=== PATIENT | male | born 1970 | race Caucasian/White ===

== ENCOUNTER 2016-07-04 20:08 | Inpatient (IN) | payer OTHER ==
[~2016-07-04] VITALS: Ht 81.3 cm; Wt 16.0 kg
[2016-07-04 20:08] VITALS: Ht 81.3 cm; Wt 16.0 kg
[2016-07-04] MEDS ORDERED: PROPOFOL 100 ML ONE (20:14)
[2016-07-04] MEDS ORDERED: TRAM-40 PO (20:35)
[2016-07-04 21:09] LABS: ADD SCAN DIFF NO
[2016-07-04 21:11] LABS: BASOPHIL # 0.1 10^3/ul (0.0-0.1); BASOPHILS % 1.8 % (0.0-2.0); EOSINOPHILS # 0.2 10^3/ul (0.0-0.5); EOSINOPHILS % 2.4 % (0.0-7.0); HEMATOCRIT 44.2 % (42.0-52.0); HEMOGLOBIN 14.7 g/dl (14.0-18.0); LYMPHOCYTES # 3.6 10^3/ul (0.8-2.9); LYMPHOCYTES % 58.7 % (15.0-51.0); MEAN CORPUSCULAR HEMOGLOBIN 33.9 pg (29.0-33.0); MEAN CORPUSCULAR HGB CONC 33.3 g/dl (32.0-37.0); MEAN CORPUSCULAR VOLUME 101.8 fl (82.0-101.0); MEAN PLATELET VOLUME 9.7 fl (7.4-10.4); MONOCYTE # 0.7 10^3/ul (0.3-0.9); MONOCYTES % 11.7 % (0.0-11.0); NEUTROPHIL # 1.6 10^3/ul (1.6-7.5); NEUTROPHILS % 25.2 % (39.0-77.0); PLATELET COUNT 390 10^3/UL (140-415); RED BLOOD COUNT 4.34 10^6/ul (4.70-6.10); RED CELL DISTRIBUTION WIDTH 15.9 % (11.5-14.5); WHITE BLOOD COUNT 6.2 10^3/ul (4.8-10.8)
[2016-07-04 21:15] LABS: ADD UMIC YES; URINE BILIRUBIN (Dip) NEGATIVE (NEGATIVE); URINE BLOOD (Dip) 1+ (NEGATIVE); URINE COLOR LT. YELLOW (YELLOW); URINE GLUCOSE (Dip) NEGATIVE (NEGATIVE); URINE KETONES (Dip) NEGATIVE (NEGATIVE); URINE LEUKOCYTE ESTERASE (Dip) 3+ (NEGATIVE); URINE NITRITE (Dip) POSITIVE (NEGATIVE); URINE TOTAL PROTEIN (Dip) 2+ (NEGATIVE); URINE UROBILINOGEN (Dip) 0.2 E.U./dL (0.1-1.0)
--- NOTE | 2016-07-04 21:15 | RADRPT ---
PROCEDURE: XR Chest AP portable CLINICAL INDICATION: Possible sepsis TECHNIQUE: An AP portable radiograph of the chest was submitted. COMPARISON: None. FINDINGS: Support Hardware: The patient has been intubated and the tube tip appears to be just down the right mainstem bronchus and should be repositioned. An NG tube has been placed with the tip coiled in the stomach. Cardiovascular: The heart is mildly enlarged and exaggerated by a poor inspiratory effort. The oumou pheral pulmonary vasculature appears unremarkable. Lung Davidson: There is atelectasis or infiltrate seen through the left lung. Pleural Spaces: No pneumothorax or pleural effusion is identified. Osseous Structures: The osseous elements are quite gracile and rarefied. Fracture deformities are s een within the proximal humeri bilaterally. Soft Tissues: The soft tissues appear unremarkable. IMPRESSION: 1. Endotracheal tube down right mainstem bronchus and should be repositioned. 2. NG tube satisfactorily positioned. 3. Diffuse infiltrate or atelectasis involving left lung. 4. Mild cardiomegaly 5. Osteoporosis with healed fracture deformities involving the to proximal humeral shaft with degen erative spine changes. 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 Findings of endotracheal tube down right mainstem bronchus were telephoned by Harsh Maxwell MD to Dr. Hartmann 07/04/2016 at 2110 hours. Physician Britt Date Time Electronically viewed and signed by Physician Britt on 07/04/2016 21:14 /
[2016-07-04 21:23] LABS: INR 0.84; PROTIME 11.5 Sec (12.2-14.2); PT RATIO 0.9
[2016-07-04 21:24] LABS: PARTIAL THROMBOPLASTIN TIME 23.5 Sec (25.0-35.0)
[2016-07-04 21:27] LABS: BACTERIA,URINE MANY
--- NOTE | 2016-07-04 21:43 | RADRPT ---
PROCEDURE: CT Head without. CLINICAL INDICATION: Altered mental status. TECHNIQUE: The study was performed utilizing a multi-slice, multidetector CT scanner. Direct spira l 1 mm axial sections were obtained through the head without the use of intravenous contrast materia l. 1 or more of the following dose reduction techniques were utilized: Automated exposure control, adjustment of the mA and/or kV according to patient's size, iterative reconstruction technique. Co lj and sagittal reformations were obtained. The images were reviewed on a PACS workstation. RADIATION DOSE: CTDIvol: 44.6 mGyDLP: 720.2 mGy-cm COMPARISON: No prior studies are available for comparison. FINDINGS: There is significant motion artifact through the mid and lower cranial vault, slightly limiting eval uation. There is no intracranial hemorrhage, extra-axial fluid collection, mass lesion, midline neil ft or hydrocephalus. There is mild prominence of the cerebral sulci and moderate prominence of the lateral and third ventricles. The temporal horns are normal in size without significant ballooning. There is moderate patchy and confluent periventricular and subcortical white matter hypodensity. The justice-white matter differentiation is preserved. The basal cisterns are patent. The midline str uctures are intact. The orbits, calvarium and extracranial soft tissues are normal in appearance. T he visualized paranasal sinuses, mastoid air cells and middle ear cavities are normally aerated. IMPRESSION: 1. Slightly limited evaluation due to motion artifact in the lower cranial vault/skull base. No ev idence of acute intracranial abnormality. No intracranial hemorrhage, extra-axial fluid collection, mass lesion or hydrocephalous. 2. Mild peripheral and moderate central cerebral volume loss. 3. Moderate patchy and confluent periventricular and subcortical white matter hypodensity, which is nonspecific. This may be related to etiologies such as early microangiopathic changes with other e tiologies including inflammatory plaque not excluded. MRI may be helpful for further evaluation. RPTAT: HGAS .Eulalio Tatum MD, Date Time Electronically viewed and signed by .Eulalio Tatum MD, on 07/04/2016 21:42 .S/
--- NOTE | 2016-07-04 21:44 | RADRPT ---
PROCEDURE: CT Cervical Spine without contrast. CLINICAL INDICATION: Altered mental status, cervical spine pain. TECHNIQUE: The study was performed on a multislice multidetector CT scanner. Spiral axial 1 mm im ages were obtained through the cervical spine and reformatted at 2.5 mm slice thickness without cont rast. 1 or more of the following dose reduction techniques were utilized: Automated exposure contr ol, adjustment of the mA and/or kV according to patient's size, iterative reconstruction technique. Coronal and sagittal reformations were obtained. The images were reviewed on a PACS workstation. RADIATION DOSE: CTDIvol: 22.0 mGyDLP: 341.6 mGy-cm COMPARISON: No prior studies are available for comparison. FINDINGS: There is extensive motion artifact throughout the cervical spine, significantly limiting evaluation. Unable to evaluate for fracture or dislocation due to the motion artifact. There is an orogastric and endotracheal tube in place, with tip not visualized. There is extensive motion artifact in the bilateral upper lungs. Repeat examination is recommended. IMPRESSION: 1. Significantly limited evaluation due to extensive motion artifact throughout the cervical spine. Unable to evaluate for fracture or dislocation. 2. Repeat evaluation with decreased motion/sedation is recommended. RPTAT: HGAS .Eulalio Tatum MD, MD Date Time Electronically viewed and signed by .Eulalio Tatum MD, on 07/04/2016 21:44 .S/
[2016-07-04 21:45] LABS: CHLORIDE 109 mmol/L (97-110); SODIUM 150 mmol/L (135-144)
[2016-07-04 21:46] LABS: POTASSIUM 4.3 mmol/L (3.5-5.1)
[2016-07-04 21:47] LABS: CREATININE 0.56 mg/dl (0.61-1.24)
[2016-07-04 21:48] LABS: ALANINE AMINOTRANSFERASE 30 IU/L (13-69); ALBUMIN/GLOBULIN RATIO 1.05; ALKALINE PHOSPHATASE 224 IU/L (42-121); ANION GAP 20 (8-16); ASPARTATE AMINO TRANSFERASE 87 IU/L (15-46); BLOOD UREA NITROGEN 6 mg/dl (7-20); CARBON DIOXIDE 25 mmol/L (21-31); GLUCOSE 137 mg/dl (70-220); TOTAL PROTEIN 7.8 g/dl (6.1-8.1); TROPONIN-I < 0.012 ng/ml (0.00-0.12)
[2016-07-04 21:50] LABS: ACETAMINOPHEN < 10.0 ug/ml (10.0-30.0); SALICYLATE < 1.0 mg/dl (5.0-30.0)
[2016-07-04] MEDS ORDERED: MIDAZOLAM (DRIP) 50 mg/50 mL 50 ML IV STA (21:52)
[2016-07-04] MEDS ORDERED: VANCOMYCIN (5 MG/ML) IV SYG IV* ONE (22:00)
[2016-07-04] MEDS ORDERED: CEFTRIAXONE (40 MG/ML) IV SYG IV* ONE (22:00)
[2016-07-04 22:02] LABS: AADO2 Arterial 385.3 mmHg (7.0-24.0); Arterial Base Excess -5.4 mmol/L (-3.0-3); Arterial COHb 0 % (0.0-3.0); Arterial HCO3 20.3 mmol/L (22.0-26.0); Arterial MetHb 0.5 % (0.0-1.5); Arterial Total Hemglobin 15.5 g/dl (12.0-18.0); MODE VENT - AC
[2016-07-04] MEDS ORDERED: DEXTROSE 5%-0.45% NACL 1,000 ML IV ONE (22:15)
--- NOTE | 2016-07-04 22:32 | ERA ---
ER Documentation Chief Complaint Date/Time DATE: 07/04/16 TIME: 22:21 Chief Complaint intentional overdose this evening, bib EMS HPI History of is obtained from EMS and patient's friend who is at bedside. 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 According to the patient's friend he stated that he would not be alive. The patient's friend immediately went to the patient's home and found the patient face down on the ground. Patient's friend did start chest compressions, when EMS arrived they stated the patient did have a pulse however he was foaming from the mouth. The patient was being assisted with bag valve mask and was immediately transported to the emergency room for further evaluation. When I evaluated this patient he was unresponsive however he did have a pulse. Mild perioral cyanosis was noted ROS All systems reviewed and are negative except as per history of present illness. Medications Home Meds Reported Medications Tramadol Hcl* (Ultram*) 50 Mg Tablet, 50 MG PO Q6H Y for PAIN, TAB 07/04/16 Allergies Allergies: Coded Allergies: No Known Allergy (Unverified , 07/04/16) Physical Exam Vitals Vital Signs Date Time Temp Pulse Resp B/P Pulse Ox O2 Delivery O2 Flow Rate FiO2 07/04/16 20:08 97.0 127 32 149/107 95 Physical Exam INITIAL VITAL SIGNS: Reviewed by me GENERAL: The patient is well developed, achondroplastic dwarfism, severe respiratory distress, smells of alcohol, being assisted with ventilations via bag valve mask HEENT:. Oral cyanosis pupils equal, round, and reactive to light. There is no scleral icterus. NECK: C-spine is soft and supple, there is no meningismus. There is no cervical lymphadenopathy. LUNGS: Clear to auscultation bilaterally. There are no rales, wheezes or rhonchi. HEART: Tachycardic, no murmurs, clicks, rubs or gallops. ABDOMEN: Soft, non-tender, non-distended. There are bowel sounds in all four quadrants. No rebound or guarding. EXTREMITIES: There is no peripheral cyanosis or edema. No focal swelling or erythema. NEUROLOGICAL: The patient has a GCS of 3 SKIN: There is no apparent rash or petechiae. HEME/LYMPHATIC: There is no evidence of excessive bruising or lymphedema. PSYCHIATRIC: The patient does not appear anxious or depressed. Result Diagram: 07/04/16203907/04/162039 Results 24 hrs Laboratory Tests Test 07/04/16 20:19 07/04/16 20:40 07/04/16 21:49 Blood Gas Specimen Source Blood arterial Arterial Blood Date Drawn 07/04/2016 9:50:53 PM Arterial Blood pH (Temp corrected) 7.319 Arterial Blood pCO2 (Temp correct) 40.4mmhg Arterial Blood pO2 (Temp corrected) 287.3mmHG Arterial Blood HCO3 20.3mmol/L Arterial Blood Base Excess -5.4mmol/L Arterial Blood Oxygen Saturation 99.5mmHG Kyle Test N/A Arterial Blood Gas Puncture Site LB Arterial Blood Carboxyhemoglobin 0% Arterial Blood Methemoglobin 0.5% Blood Gas A-a O2 Differential 385.3mmHg Oxyhemoglobin Percent 99.0% Total Hemoglobin 15.5g/dl Blood Gas Temperature 37.0C Blood Gas Respiration Rate 20.0 Blood Gas Actual Respiration Rate 24 Blood Gas Modality VENT - AC FiO2 100.0% Blood Gas Tidal Volume 150.0mL Blood Gas Low PEEP Setting 3.0cmH2O Blood Gas Notified Whom AA Blood Gas Notified Time 07/04/2016 10:02:28 PM White Blood Count 6.210^3/ul Red Blood Count 4.3410^6/ul Hemoglobin 14.7g/dl Hematocrit 44.2% Mean Corpuscular Volume 101.8fl Mean Corpuscular Hemoglobin 33.9pg Mean Corpuscular Hemoglobin Concent 33.3g/dl Red Cell Distribution Width 15.9% Platelet Count 29027^3/UL Mean Platelet Volume 9.7fl Neutrophils % 25.2% Lymphocytes % 58.7% Monocytes % 11.7% Eosinophils % 2.4% Basophils % 1.8% Nucleated Red Blood Cells % 0.0/100WBC Neutrophils # 1.610^3/ul Lymphocytes # 3.610^3/ul Monocytes # 0.710^3/ul Eosinophils # 0.210^3/ul Basophils # 0.110^3/ul Nucleated Red Blood Cells # 0.010^3/ul Prothrombin Time 11.5Sec Prothrombin Time Ratio 0.9 INR International Normalized Ratio 0.84 Activated Partial Thromboplast Time 23.5Sec Urine Color LT. YELLOW Urine Clarity SLIGHTLY CLOUDY Urine pH 6.0 Urine Specific [place] 1.020 Urine Ketones NEGATIVE Urine Nitrite POSITIVE Urine Bilirubin NEGATIVE Urine Urobilinogen 0.2 E.U./dL Urine Leukocyte Esterase 3+ Urine Microscopic RBC 2-5/HPF Urine Microscopic WBC >200/HPF Urine Bacteria MANY Urine Hemoglobin 1+ Urine Glucose NEGATIVE% Urine Total Protein 2+ Sodium Level 150mmol/L Potassium Level 4.3mmol/L Chloride Level 109mmol/L Carbon Dioxide Level 25mmol/L Anion Gap 20 Blood Urea Nitrogen 6mg/dl Creatinine 0.56mg/dl Glucose Level 137mg/dl Lactic Acid Level 3.8mmol/L 4.3mmol/L Calcium Level 8.0mg/dl Total Bilirubin 0.0mg/dl Direct Bilirubin 0.00mg/dl Indirect Bilirubin 0.0mg/dl Aspartate Amino Transf (AST/SGOT) 87IU/L Alanine Aminotransferase (ALT/SGPT) 30IU/L Alkaline Phosphatase 224IU/L Creatine Kinase 34IU/L Troponin I < 0.012ng/ml Total Protein 7.8g/dl Albumin 4.0g/dl Globulin 3.80g/dl Albumin/Globulin Ratio 1.05 Digoxin Level < 0.4ng/ml Salicylates Level < 1.0mg/dl Acetaminophen Level < 10.0ug/ml Ethyl Alcohol Level 565.0mg/dl Current Medications Medications (Trade) Dose Ordered Sig/Sterling Route PRN Reason Start Time Stop Time Status Last Admin Dose Admin Ceftriaxone Sodium (Rocephin (Ped)) 800 mg ONCE ONCE IV* 07/04/16 22:00 07/04/16 22:15 DC Vancomycin HCl 240 mg 240 mg ONCE ONCE IV* 07/04/16 22:00 07/04/16 22:15 DC Midazolam HCl 50 ml @ 3 mls/hr ONCE STAT IV 07/04/16 21:52 07/05/16 14:31 07/04/16 22:06 Dextrose/Sodium Chloride (D5-1/2ns) 1,000 ml @ 20 mls/hr Q24H ONCE IV 07/04/16 22:15 07/05/16 22:14 UNV Procedures/MDM EKG: Rate/Rhythm: [Normal Sinus Rhythm] QRS, ST, T-waves: [No changes consistent w/ acute ischemia] Impression: [No evidence of ischemia or arrhythmia] Chest X-ray 1V Interpreted by me: Soft Tissue: 1. Endotracheal tube down right mainstem bronchus and should be repositioned. 2. NG tube satisfactorily positioned. 3. Diffuse infiltrate or atelectasis involving left lung. 4. Mild cardiomegaly 5. Osteoporosis with healed fracture deformities involving the to proximal humeral shaft with degenerative spine changes. 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 Chest X-ray 1V Interpreted by me: Soft Tissue: ET tube in proper position Bones: No acute abnormalities Mediastinum/Cardiac Silhouette/Lungs: [No acute abnormalities] CT cervical spine: Pending This 46-year-old male presents to the emergency room for evaluation of possible intentional overdose. When I evaluated this patient he was in severe respiratory distress and was being assisted with ventilations via a bag valve mask. This patient was suspected of having overdosed on hydroxyzine, gabapentin , and gabapentin. He did have mild perioral cyanosis. The decision was made to intubate this patient. Please see intubation note. Initial x-ray did show malpositioning of the endotracheal tube in the right mainstem bronchus. The ET tube was retracted. CT of the head does not show any cerebral edema or intraventricular hemorrhage. CT of the cervical spine is indeterminate, repeat cervical CT is pending at this time. This patient's blood does show a blood alcohol level of 565. This patient does have elevated lactic acid, and urinary tract infection. Blood and urine cultures were obtained. This patient was started on vancomycin and Rocephin. This patient does have an elevated anion gap likely secondary to alcohol. His maintenance fluids were started at 50 2 cc /h and he was given 26 cc/h of IV normal saline, and 26 cc/h of D5 half-normal saline. This patient is sedated and is on propofol drip, and Versed drip at this time. This patient will be placed in for admission at this time to the intensive care unit. A sitter will be at bedside. This patient will be admitted under the care of Dr. Murry. Poison control was called and we are waiting for the recommendations. Endotracheal Intubation by me: Pre assessment performed. See preceding note for details. Pre-oxygenation performed with 100% oxygen RSI: Performed w/o complication or hypoxic events. Medications as ordered. Blade: [Mac 3] ET Tube: 6 cm Depth: 15 cm at the lip Intubation confirmed by colorimetric CO2, equal breath sounds, quiet over the stomach. Chest X-ray 1V Interpreted by me: 2] cm above the anton ET tube. Normal soft tissue, No pneumothorax. Critical Care: Excluding all billable procedures Time: 35 minutes Treatments/Evaluations: Close monitoring and treatment of unstable vital signs, cardiorespiratory, and neurologic status, while maintaining tight balance of fluid, respiratory, and cardiac interventions. Departure Diagnosis: Primary Impression: Acute respiratory failure requiring reintubation Additional Impressions: Alcohol overdose Polysubstance overdose Acute cystitis Suicide threat or attempt Lactic acidosis Condition: Critical JAMAAL RANGEL DO Jul 04, 2016 22:32
[2016-07-04 22:37] LABS: BARBITURATES Negative (NEGATIVE); BENZODIAZEPINES Negative (NEGATIVE); CANNABINOIDS Negative (NEGATIVE); COCAINE Negative (NEGATIVE); OPIATES Negative (NEGATIVE)
--- NOTE | 2016-07-04 23:00 | HP ---
Date/Time of Note Date/Time of Note DATE: 07/04/16 TIME: 22:57 Assessment/Plan VTE Prophylaxis VTE Prophylaxis Intervention: other (As per [employer] T[employer]er) Assessment/Plan Assessment/Plan 1) Acute respiratory failure, requiring reintubation, due to Alcohol Intoxication and Polysubstance Overdose (Tramadol, Gabapentin and Hydroxizine) - Admit to ICU - CONSULT: [employer]er, Dr. Camejo, notified by ER Physician per Dr. Dwyer' s request as I called Dr. Dwyer first. 2) Severe SEPSIS due to Urinary Tract Infection with elevated Lactic Acid and Altered Mental Status - First dose of Abx given in the ER - IV Fluid Resuscitation - Pediatric Dosing - Blood Cultures x 2, Urine Culture and Feces Culture all pending from ER - Nares Swab done to check for MRSA - Carefully monitor Is and Os. 3) Acute cystitis - Rocephin and Vancomycin - Pediatric Dosing 4) Alcohol overdose - Monitor for signs of withdrawal once he is out of sedation 5) Polysubstance overdose NOTE: [facility] was contacted by ER staff and I am told by RN that patient was managed correctly, emergently - Monitor for signs of withdrawal once he is out of sedation 6) Suicide threat or attempt - Engineering Clerk Consult and/or Psychiatric evaluation prior to discharge 7) Achondroplastic Dwarfism HPI/ROS Admit Date/Time Admit Date/Time 07/04/16 2258 Hx of Present Illness Chief Complaint intentional overdose this evening, bib EMS HPI as per ER Physician as patient is critical, intubated and no family members are present: History of is obtained from EMS and patient's friend who is at bedside. 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 According to the patient's friend he stated that he would not be alive. The patient's friend immediately went to the patient's home and found the patient face down on the ground. Patient's friend did start chest compressions, when EMS arrived they stated the patient did have a pulse however he was foaming from the mouth. The patient was being assisted with bag valve mask and was immediately transported to the emergency room for further evaluation. When I evaluated this patient he was unresponsive however he did have a pulse. Mild perioral cyanosis was noted ER Course as per ER Physician: This 46-year-old male presents to the emergency room for evaluation of possible intentional overdose. When I evaluated this patient he was in severe respiratory distress and was being assisted with ventilations via a bag valve mask. This patient was suspected of having overdosed on hydroxyzine, gabapentin, and gabapentin. He did have mild perioral cyanosis. The decision was made to intubate this patient. Please see intubation note. Initial x-ray did show malpositioning of the endotracheal tube in the right mainstem bronchus. The ET tube was retracted. CT of the head does not show any cerebral edema or intraventricular hemorrhage. CT of the cervical spine is indeterminate, repeat cervical CT is pending at this time. This patient's blood does show a blood alcohol level of 565. This patient does have elevated lactic acid, and urinary tract infection. Blood and urine cultures were obtained. This patient was started on vancomycin and Rocephin. This patient does have an elevated anion gap likely secondary to alcohol. His maintenance fluids were started at 50 2 cc/h and he was given 26 cc/h of IV normal saline, and 26 cc/h of D5 half-normal saline. This patient is sedated and is on propofol drip, and Versed drip at this time. This patient will be placed in for admission at this time to the intensive care unit. A sitter will be at bedside. This patient will be admitted under the care of Dr. Murry. Poison control was called and we are waiting for the recommendations. ROS All systems reviewed and are negative except as per history of present illness. ROS Subjective hx not possible: pt critical status (Intubated) Exam/Review of Systems Vital Signs Vitals Vital Signs Date Time Temp Pulse Resp B/P Pulse Ox O2 Delivery O2 Flow Rate FiO2 07/04/16 20:08 97.0 127 32 149/107 95 Exam Exam INITIAL VITAL SIGNS: Reviewed by me GENERAL: The patient is well developed, achondroplastic dwarfism, severe respiratory distress now intubated. Originally smelled of alcohol per ER physician. HEENT:. Cyanosis, as described by ER physician has resolved.. There is no scleral icterus. NECK: There is no cervical lymphadenopathy. Trachea appears midline. LUNGS: Clear to auscultation bilaterally. There are no rales, wheezes or rhonchi. HEART: Tachycardic, no murmurs, clicks, rubs or gallops. ABDOMEN: Soft, non-tender, non-distended. There are bowel sounds in all four quadrants. EXTREMITIES: There is no peripheral cyanosis or edema. No focal swelling or erythema. NEUROLOGICAL: Intubated and sedated, maxed out on Propofol SKIN: Normal moisture and temperature. There is no apparent rash or petechiae. HEME/LYMPHATIC: There is no evidence of excessive bruising or lymphedema. PSYCHIATRIC: Unable to evaluate. Labs Result Diagram: 07/04/16203907/04/162039 Medications Medications Home Meds Reported Medications Tramadol Hcl* (Ultram*) 50 Mg Tablet, 50 MG PO Q6H Y for PAIN, TAB 07/04/16 Current Medications Medications (Trade) Dose Ordered Sig/Sterling Route PRN Reason Start Time Stop Time Status Last Admin Dose Admin Ceftriaxone Sodium (Rocephin (Ped)) 800 mg ONCE ONCE IV* 07/04/16 22:00 07/04/16 22:15 DC Vancomycin HCl 240 mg 240 mg ONCE ONCE IV* 07/04/16 22:00 07/04/16 22:15 DC Midazolam HCl 50 ml @ 3 mls/hr ONCE STAT IV 07/04/16 21:52 07/05/16 14:31 07/04/16 22:06 Dextrose/Sodium Chloride (D5-1/2ns) 1,000 ml @ 20 mls/hr Q24H ONCE IV 07/04/16 22:15 07/05/16 22:14 UNV Procedures Procedures Laboratory Tests Test 07/04/16 20:19 07/04/16 20:40 07/04/16 21:49 Blood Gas Specimen Source Blood arterial Arterial Blood Date Drawn 07/04/2016 9:50:53 PM Arterial Blood pH (Temp corrected) 7.319 Arterial Blood pCO2 (Temp correct) 40.4mmhg Arterial Blood pO2 (Temp corrected) 287.3mmHG Arterial Blood HCO3 20.3mmol/L Arterial Blood Base Excess -5.4mmol/L Arterial Blood Oxygen Saturation 99.5mmHG Kyle Test N/A Arterial Blood Gas Puncture Site LB Arterial Blood Carboxyhemoglobin 0% Arterial Blood Methemoglobin 0.5% Blood Gas A-a O2 Differential 385.3mmHg Oxyhemoglobin Percent 99.0% Total Hemoglobin 15.5g/dl Blood Gas Temperature 37.0C Blood Gas Respiration Rate 20.0 Blood Gas Actual Respiration Rate 24 Blood Gas Modality VENT - AC FiO2 100.0% Blood Gas Tidal Volume 150.0mL Blood Gas Low PEEP Setting 3.0cmH2O Blood Gas Notified Whom AA Blood Gas Notified Time 07/04/2016 10:02:28 PM White Blood Count 6.210^3/ul Red Blood Count 4.3410^6/ul Hemoglobin 14.7g/dl Hematocrit 44.2% Mean Corpuscular Volume 101.8fl Mean Corpuscular Hemoglobin 33.9pg Mean Corpuscular Hemoglobin Concent 33.3g/dl Red Cell Distribution Width 15.9% Platelet Count 13240^3/UL Mean Platelet Volume 9.7fl Neutrophils % 25.2% Lymphocytes % 58.7% Monocytes % 11.7% Eosinophils % 2.4% Basophils % 1.8% Nucleated Red Blood Cells % 0.0/100WBC Neutrophils # 1.610^3/ul Lymphocytes # 3.610^3/ul Monocytes # 0.710^3/ul Eosinophils # 0.210^3/ul Basophils # 0.110^3/ul Nucleated Red Blood Cells # 0.010^3/ul Prothrombin Time 11.5Sec Prothrombin Time Ratio 0.9 INR International Normalized Ratio 0.84 Activated Partial Thromboplast Time 23.5Sec Urine Color LT. YELLOW Urine Clarity SLIGHTLY CLOUDY Urine pH 6.0 Urine Specific [place] 1.020 Urine Ketones NEGATIVE Urine Nitrite POSITIVE Urine Bilirubin NEGATIVE Urine Urobilinogen 0.2 E.U./dL Urine Leukocyte Esterase 3+ Urine Microscopic RBC 2-5/HPF Urine Microscopic WBC >200/HPF Urine Bacteria MANY Urine Hemoglobin 1+ Urine Glucose NEGATIVE% Urine Total Protein 2+ Sodium Level 150mmol/L Potassium Level 4.3mmol/L Chloride Level 109mmol/L Carbon Dioxide Level 25mmol/L Anion Gap 20 Blood Urea Nitrogen 6mg/dl Creatinine 0.56mg/dl Glucose Level 137mg/dl Lactic Acid Level 3.8mmol/L 4.3mmol/L Calcium Level 8.0mg/dl Total Bilirubin 0.0mg/dl Direct Bilirubin 0.00mg/dl Indirect Bilirubin 0.0mg/dl Aspartate Amino Transf (AST/SGOT) 87IU/L Alanine Aminotransferase (ALT/SGPT) 30IU/L Alkaline Phosphatase 224IU/L Creatine Kinase 34IU/L Troponin I < 0.012ng/ml Total Protein 7.8g/dl Albumin 4.0g/dl Globulin 3.80g/dl Albumin/Globulin Ratio 1.05 Digoxin Level < 0.4ng/ml Salicylates Level < 1.0mg/dl Acetaminophen Level < 10.0ug/ml Ethyl Alcohol Level 565.0mg/dl EKG: Rate/Rhythm: NSR at 100 BPM QRS, ST, T-waves: No acute changes Impression: Normal EKG RADIOLOGY: PROCEDURE: XR Chest AP portable CLINICAL INDICATION: Possible sepsis TECHNIQUE: An AP portable radiograph of the chest was submitted. COMPARISON: None. IMPRESSION: 1. Endotracheal tube down right mainstem bronchus and should be repositioned. 2. NG tube satisfactorily positioned. 3. Diffuse infiltrate or atelectasis involving left lung. 4. Mild cardiomegaly 5. Osteoporosis with healed fracture deformities involving the to proximal humeral shaft with degenerative spine changes. 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 Findings of endotracheal tube down right mainstem bronchus were telephoned by Harsh Maxwell MD to Dr. Botello on 07/04/2016 at 2110 hours. PROCEDURE: CT Head without. CLINICAL INDICATION: Altered mental status. COMPARISON: No prior studies are available for comparison. IMPRESSION: 1. Slightly limited evaluation due to motion artifact in the lower cranial vault/skull base. No evidence of acute intracranial abnormality. No intracranial hemorrhage, extra-axial fluid collection, mass lesion or hydrocephalous. 2. Mild peripheral and moderate central cerebral volume loss. 3. Moderate patchy and confluent periventricular and subcortical white matter hypodensity, which is nonspecific. This may be related to etiologies such as early microangiopathic changes with other etiologies including inflammatory plaque not excluded. MRI may be helpful for further evaluation. PROCEDURE: CT Cervical Spine without contrast. CLINICAL INDICATION: Altered mental status, cervical spine pain. COMPARISON: No prior studies are available for comparison. IMPRESSION: 1. Significantly limited evaluation due to extensive motion artifact throughout the cervical spine. Unable to evaluate for fracture or dislocation. 2. Repeat evaluation with decreased motion/sedation is recommended. MARLYN MURRY DO Jul 04, 2016 23:00 CLINICAL INDICATION: Altered mental status. COMPARISON: No prior studies are available for comparison. IMPRESSION: 1. Slightly limited evaluation due to motion artifact in the lower cranial vault/skull base. No evidence of acute intracranial abnormality. No intracranial hemorrhage, extra-axial fluid collection, mass lesion or hydrocephalous. 2. Mild peripheral and moderate central cerebral volume loss. 3. Moderate patchy and confluent periventricular and subcortical white matter hypodensity, which is nonspecific. This may be related to etiologies such as early microangiopathic changes with other etiologies including inflammatory plaque not excluded. MRI may be helpful for further evaluation. PROCEDURE: CT Cervical Spine without contrast. CLINICAL INDICATION: Altered mental status, cervical spine pain. COMPARISON: No prior studies are available for comparison. IMPRESSION: 1. Significantly limited evaluation due to extensive motion artifact throughout the cervical spine. Unable to evaluate for fracture or dislocation. 2. Repeat evaluation with decreased motion/sedation is recommended. MARLYN MURRY DO Jul 04, 2016 23:00 2. Repeat evaluation with decreased motion/sedation is recommended. MARLYN MURRY DO Jul 04, 2016 23:00
--- NOTE | 2016-07-04 23:14 | RADRPT ---
PROCEDURE: Chest. CLINICAL INDICATION: Chest pain. TECHNIQUE: Single frontal view of the chest was obtained. COMPARISON: 07/04/2016. FINDINGS: There is an endotracheal tube entering the right mainstem bronchus. There is a nasogastric tube ext ending to the stomach. The cardiac silhouette is enlarged. The aortic arch is unremarkable. There are increased interstitial markings bilaterally. There is no pleural effusion. There is no pneumo thorax. IMPRESSION: Nasogastric tube entering the right mainstem bronchus. Pullback of 3 cm is recommended. Nasogastric tube in place. Bilateral increased interstitial markings could represent interstitial edema or infiltrates, unchang ed. Cardiomegaly. .Hamilton Jones MD, Date Time Electronically viewed and signed by .Hamilton Jones MD, MD on 07/04/2016 23:14 .T/
--- NOTE | 2016-07-04 23:55 | RADRPT ---
PROCEDURE: CT cervical spine without contrast CLINICAL INDICATION: Pain. Change in mental status. TECHNIQUE: CT scan of the cervical spine was performed on a multidetector scanner. No IV contrast was administered. Coronal and sagittal reformatted images were obtained from the axial source imag es. Images were reviewed on a high-resolution PACS workstation. Exam CTDlvol = 22 mGy and DLP = 360 mGy-cm. One of the following 3 dose reduction techniques were used: Automated exposure control; ad justment of the mA and/or kV according to patient size; or use of iterative reconstruction technique . COMPARISON: 07/04/2016 FINDINGS: No acute fractures identified. There is a remote appearing fracture of the base of the odontoid wit h corticated margins. There is 4 mm of anterior subluxation of the odontoid tip relative to the rem ainder of C2. The C1 vertebral body and posterior elements remain in alignment with the anteriorly displaces odontoid tip. There is similar proximally 4 mm anterior subluxation of the posterior lami na of C1 relative to C2. There is no significant canal stenosis. 1.5 mm anterior subluxation of C3 on C4, 1.5 mm anterior subluxation of C7 on T1 and 2 mm anterior subluxation of T1 on T2. There is mild reversal of the normal cervical lordosis. Alignment is otherwise maintained. There is mild l oss of height of the C3, C4 and T6 vertebral bodies without acute fracture lines identified. There is maintenance of height of the remainder of the vertebral bodies. There is mild multilevel degener ative change without a high-grade stenosis. Prevertebral soft tissues are obscured by an endotracheal tube and NG tube.. Endotracheal tube tip is at the right mainstem bronchus. NG tube is present. There is bilateral apical bronchiectasis with probable scarring. IMPRESSION: 1. No acute fracture. 2. Remote appearing odontoid fracture with anterior subluxation of the odontoid and C1 relative to C2. Anterior subluxation of the posterior lamina of C1 relative to the C2 without significant steno sis. 3. Age indeterminate likely chronic mild anterior subluxations of C3 and C4, C7 on T1 and T1 and T2 .. 4. Likely chronic mild loss of height of multiple vertebral bodies including C3, C4 and T6. No acu te fracture line identified. 5. Mild reversal of the normal cervical lordosis most commonly seen with spasm versus positioning. 6. Mild degenerate changes without a focal high-grade stenosis. 7. Soft tissues obscured by endotracheal tube and NG tube. 8. Endotracheal tube tip in the right mainstem bronchus. Findings reported to Dr. Berry 07/04/2016 11:54:38 PM. RPTAT: HMVK .Stan Clark MD, Date Time Electronically viewed and signed by .Stan Clark MD, on 07/04/2016 23:55 .K/
[2016-07-05] VITALS (58 sets, daily range): BP systolic 90–151; BP diastolic 62–114; PULSE 100–131; RESP 20–39
[2016-07-05 00:14] LABS: MAGNESIUM 1.9 mg/dl (1.7-2.5)
--- NOTE | 2016-07-05 01:20 | RADRPT ---
PROCEDURE: XR Chest. CLINICAL INDICATION: Endotracheal intubation now status post adjustment. TECHNIQUE: Single frontal view of the chest was obtained COMPARISON: 07/04/2014, about 3 hours ago. FINDINGS: Endotracheal intubation again seen with tip at level of anton directed into the right mainstem bron chus and recommend withdrawing same about 1.5 cm and re-imaging. Nasogastric tube is seen with tip inside port over the stomach. Dual percutaneous cardiac pacing pads are again seen. Cardiomegaly. Right lung is well inflated. Question mild atelectasis at the left lung base. There is no pleural effusion or pneumothorax. IMPRESSION: Endotracheal tube again seen with tip at level of anton and directed into the right mainstem bronch us, and recommend withdrawing same about 1.5 cm and re-imaging. RPTAT: [facility] Physician Yohannes Date Time Electronically viewed and signed by Physician Yohannes on 07/05/2016 01:19 RS/
[2016-07-05] MEDS ORDERED: DEXTROSE 5%-0.45% NACL 1,000 ML IV SCH (05:00)
[2016-07-05] MEDS ORDERED: PROPOFOL 100 ML IV ONE (05:00)
[2016-07-05] MEDS: MIDAZOLAM (DRIP) 50 mg/50 mL 50 ML IV SCH ×3 (05:24→18:59)
[2016-07-05] MEDS: PROPOFOL 100 ML IV SCH ×2 (06:48→17:07)
--- NOTE | 2016-07-05 08:12 | RADRPT ---
PROCEDURE: XR Chest. CLINICAL INDICATION: Intubated TECHNIQUE: AP view of the chest was performed. COMPARISON: 07/05/2016, 01:00 a.m. FINDINGS: Endotracheal tube continues to remain in the right proximal mainstem bronchus and should be repositi oned. Feeding tube remains unchanged. Overlying patches limits evaluation of the underlying parenchyma. Redemonstration of mild cardiomegaly. No pneumothorax or pleural effusion. Left basilar atelectasi s. Right lung field appears clear. Sequela of bilateral achondroplasia is present including degenerative changes of the bilateral shoul ders and osteopenia IMPRESSION: 1. Overall, no significant interval change. Redemonstration of ET tube in the proximal right mainst em bronchus. ET tube should be retracted. 2. Left basilar atelectasis. RPTAT: QQ .Cherry Pelayo MD, Date Time Electronically viewed and signed by .Cherry Pelayo MD, on 07/05/2016 08:12 .M/
--- NOTE | 2016-07-05 09:09 | CONS ---
Date/Time of Note Date/Time of Note DATE: 07/05/16 TIME: 08:58 Assessment/Plan Assessment/Plan Additional Assessment/Plan CT of the head is unremarkable. Chest x-ray was reviewed from today which is showing clear lung reeder. Endotracheal tube is just at the level of right mainstem bronchus. Current ventilator settings are AC of 20, tidal volume 150, PEEP of 3, 40% FiO2. Next Assessment recommendations; 1. Patient admitted with acute alcohol intoxication leading to respiratory failure. 2. UTI and sepsis. 3. Achondroplasia. 4. Possible overdose of other prescription medications. 5. Mild hypernatremia. Continue current treatment. Endotracheal tube has been pulled out by 1.5 cm. Continue current antibiotics. IV hydration. Continue current antibiotics. With further antibiotic adjustment once urine culture and sensitivity results are obtained. Add free water via G-tube 50 ML every 6 hours. I did have a very detailed discussion with the patient's friend at bedside and answered all his questions. Consultation Date/Type/Reason Admit Date/Time 07/04/16 9084 Date of Consultation: Jul 05, 2016 Type of Consultation: Pulmonary/critical care Reason for Consultation Pulmonary consultation obtained for evaluation of respiratory failure. Patient admitted for alcohol overdose. UTI with sepsis. Intubated for airway protection transferred to ICU. Patient also was found to have UTI with sepsis. History presenting illness; patient is a 46-year-old white male brought into the emergency room after found unresponsive at home by his friend. According to the patient's friend who is currently in the room in ICU, the patient called him over the phone yesterday told to him that he does not want to live and after that started consuming large amounts of alcohol. Patient was continuously talking on the phone with him and according to him the speech initially was quite clear but he noticed his speech was getting progressively more slurred. At one point he heard a thump and felt the patient may have fallen. The patient's friend rushed to his home, broke in, and found him unresponsive lying on the ground of the face down. Patient did have a spontaneous breathing. He called 911 and was instructed to start CPR. He was brought into the ER where he was intubated and put on mechanical ventilation. Further workup has revealed that the patient does have UTI with sepsis as well. By the time I saw the patient in ICU the patient is orally intubated, sedated and does not appear to be in any distress. Next Past medical history; 1. History of dwarfism and achondroplasia. 2. No prior history of suicide attempt. 3. No prior history of any respiratory failure. 4. He does have history of alcoholism. 5. History of possible alcoholic cirrhosis. 6. No history of any hypertension, CAD or diabetes. Medications; were reviewed. Allergies; are none. Next Social history; patient drinks alcohol. Most of any hard drug abuse. Next Family history; he is single, he does have a very supportive family. 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 Review of systems; currently unable to be obtained. General exam; middle-aged male,dwarf, orally intubated ,sedated ,currently in no distress. Social History Smoking Status: Never smoker Exam/Review of Systems Vital Signs Vitals Vital Signs Date Time Temp Pulse Resp B/P Pulse Ox O2 Delivery O2 Flow Rate FiO2 07/05/16 08:31 128 07/05/16 06:00 25 91/74 97 Mechanical Ventilator 07/05/16 05:16 40 07/05/16 04:00 98.2 Intake and Output 07/04/16 07/04/16 07/05/16 15:00 23:00 07:00 Intake Total 431 ml Output Total 55 ml Balance 376 ml Exam HEENT examination; supple neck, no JVD. No lymphadenopathy. Midline trachea. Orally intubated. Pupils are midsize and reactive to light bilaterally. No neck masses felt. Patient has fair dentition. Chest examination; clear to auscultation bilaterally. S1-S2 audible, no murmurs. Regular rhythm. Abdomen examination; soft, no organomegaly. Bowel sounds audible. Extremity examination; no peripheral edema. Pulses 2+ bilaterally. Next PELLET PREPARATION OPERATOR examination; patient is sedated. Results Result Diagram: 07/04/16203907/04/162039 Results 24 hrs Laboratory Tests Test 07/04/16 20:19 07/04/16 20:40 07/04/16 21:49 07/04/16 23:50 Blood Gas Specimen Source Blood arterial Arterial Blood Date Drawn 07/04/2016 9:50:00 PM Arterial Blood pH (Temp corrected) 7.319 L Arterial Blood pCO2 (Temp correct) 40.4 Arterial Blood pO2 (Temp corrected) 287.3 H Arterial Blood HCO3 20.3 L Arterial Blood Base Excess -5.4 L Arterial Blood Oxygen Saturation 99.5 H Kyle Test N/A Arterial Blood Gas Puncture Site LB Arterial Blood Carboxyhemoglobin 0 Arterial Blood Methemoglobin 0.5 Blood Gas A-a O2 Differential 385.3 H Oxyhemoglobin Percent 99.0 Total Hemoglobin 15.5 Blood Gas Temperature 37.0 Blood Gas Respiration Rate 20.0 Blood Gas Actual Respiration Rate 24 Blood Gas Modality VENT - AC FiO2 100.0 Blood Gas Tidal Volume 150.0 Blood Gas Low PEEP Setting 3.0 Blood Gas Notified Whom AA Blood Gas Notified Time 07/04/2016 10:02:00 PM White Blood Count 6.2 Red Blood Count 4.34 L Hemoglobin 14.7 Hematocrit 44.2 Mean Corpuscular Volume 101.8 H Mean Corpuscular Hemoglobin 33.9 H Mean Corpuscular Hemoglobin Concent 33.3 Red Cell Distribution Width 15.9 H Platelet Count 390 Mean Platelet Volume 9.7 Neutrophils % 25.2 L Lymphocytes % 58.7 H Monocytes % 11.7 H Eosinophils % 2.4 Basophils % 1.8 Nucleated Red Blood Cells % 0.0 Neutrophils # 1.6 Lymphocytes # 3.6 H Monocytes # 0.7 Eosinophils # 0.2 Basophils # 0.1 Nucleated Red Blood Cells # 0.0 Prothrombin Time 11.5 L Prothrombin Time Ratio 0.9 INR International Normalized Ratio 0.84 Activated Partial Thromboplast Time 23.5 L Urine Color LT. YELLOW Urine Clarity SLIGHTLY CLOUDY Urine pH 6.0 Urine Specific [place] 1.020 Urine Ketones NEGATIVE Urine Nitrite POSITIVE H Urine Bilirubin NEGATIVE Urine Urobilinogen 0.2 E.U./dL Urine Leukocyte Esterase 3+ H Urine Microscopic RBC 2-5 Urine Microscopic WBC >200 Urine Bacteria MANY Urine Hemoglobin 1+ H Urine Glucose NEGATIVE Urine Total Protein 2+ H Sodium Level 150 H Potassium Level 4.3 Chloride Level 109 Carbon Dioxide Level 25 Anion Gap 20 H Blood Urea Nitrogen 6 L Creatinine 0.56 L Glucose Level 137 Lactic Acid Level 3.8 H 4.3 *H 2.8 H Calcium Level 8.0 L Total Bilirubin 0.0 L Direct Bilirubin 0.00 Indirect Bilirubin 0.0 Aspartate Amino Transf (AST/SGOT) 87 H Alanine Aminotransferase (ALT/SGPT) 30 Alkaline Phosphatase 224 H Creatine Kinase 34 Troponin I < 0.012 < 0.012 Total Protein 7.8 Albumin 4.0 Globulin 3.80 H Albumin/Globulin Ratio 1.05 Digoxin Level < 0.4 L Salicylates Level < 1.0 L Urine Opiates Screen Negative Acetaminophen Level < 10.0 L Urine Barbiturates Negative Urine Amphetamines Screen Negative Urine Benzodiazepines Screen Negative Urine Cocaine Screen Negative Urine Cannabinoids Negative Ethyl Alcohol Level 565.0 Magnesium Level 1.9 Lactate Dehydrogenase 518 Test 07/05/16 03:10 07/05/16 04:31 07/05/16 07:02 Lactic Acid Level 2.3 H 1.8 Bedside Glucose 139 Troponin I < 0.012 Medications Medications Current Medications Famotidine 10 mg 10 mg Q12 IV ; Start 07/05/16 at 09:00 Midazolam HCl 50 ml @ 1 mls/hr TITRATE IV Last administered on 07/05/16 05:24 ; Admin Dose 2 MLS/HR; Start 07/05/16 at 05:00 Dextrose/Sodium Chloride 1,000 ml @ 54 mls/hr [id number] IV Last administered on 07/05/16 05:26; Admin Dose 54 MLS/HR; Start 07/05/16 at 05:00 Propofol (Diprivan) 100 ml @ 0 mls/hr TITRATE IV Last administered on 06:48; Admin Dose 1 MLS/HR; Start 07/05/16 at 05:30 JAMEL GALDAMEZ Jul 05, 2016 09:09
--- NOTE | 2016-07-05 09:26 | PN ---
Date/Time of Note Date/Time of Note DATE: 07/05/16 TIME: 09:19 Assessment/Plan VTE Prophylaxis VTE Prophylaxis Intervention: other Lines/Catheters IV Catheter Type (from Nrs): Peripheral IV Urinary Cath still in place: Yes Reason Cath still needed: other (indicate) Assessment/Plan Chief Complaint/Hosp Course Assessment/Plan 1) Acute respiratory failure, requiring reintubation, due to Alcohol Intoxication and possibly polysubstance Overdose (pain meds) -Continue to monitor ICU -International Trade Analyst has been consulted, continue vent management 2) Severe SEPSIS due to Urinary Tract Infection with elevated Lactic Acid and Altered Mental Status -Continue broad-spectrum IV antibiotics - Carefully monitor Is and Os. 3) Acute cystitis - Rocephin and Vancomycin - Pediatric Dosing 4) Alcohol overdose - Monitor for signs of withdrawal once he is out of sedation -Start banana bag 5) questionable suicide threat or attempt - Property Coordinator Consult and/or Psychiatric evaluation prior to discharge 6) Achondroplastic Dwarfism We will continue monitor patient closely for recommendation management treatment as clinical course Problems: Subjective 24 Hr Interval Summary Free Text/Dictation Patient is intubated and sedated via propofol Coworker at the bedside Moves his extremities spontaneously Exam/Review of Systems Vital Signs Vitals Vital Signs Date Time Temp Pulse Resp B/P Pulse Ox O2 Delivery O2 Flow Rate FiO2 07/05/16 08:31 128 07/05/16 06:00 25 91/74 97 Mechanical Ventilator 07/05/16 05:16 40 07/05/16 04:00 98.2 Intake and Output 07/04/16 07/04/16 07/05/16 15:00 23:00 07:00 Intake Total 431 ml Output Total 55 ml Balance 376 ml Exam General: Dwarfism, the patient is intubated and sedated. HEENT: Atraumatic, The pupils are equal and reactive to light bilaterally Neck: Supple Chest: Normal expansion of the thorax during inspiration Lungs: Clear to auscultation bilaterally Heart: Normal S1-S2, tachycardic Abdomen: Soft , nontender, nondistended , bowel sounds are present. Extremities: Normal to inspection, no edema no cyanosis Neurologic: Sedated Results Result Diagram: 07/04/16203907/04/162039 Results 24 hrs Laboratory Tests Test 07/04/16 20:19 07/04/16 20:40 07/04/16 21:49 07/04/16 23:50 Blood Gas Specimen Source Blood arterial Arterial Blood Date Drawn 07/04/2016 9:50:00 PM Arterial Blood pH (Temp corrected) 7.319 L Arterial Blood pCO2 (Temp correct) 40.4 Arterial Blood pO2 (Temp corrected) 287.3 H Arterial Blood HCO3 20.3 L Arterial Blood Base Excess -5.4 L Arterial Blood Oxygen Saturation 99.5 H Kyle Test N/A Arterial Blood Gas Puncture Site LB Arterial Blood Carboxyhemoglobin 0 Arterial Blood Methemoglobin 0.5 Blood Gas A-a O2 Differential 385.3 H Oxyhemoglobin Percent 99.0 Total Hemoglobin 15.5 Blood Gas Temperature 37.0 Blood Gas Respiration Rate 20.0 Blood Gas Actual Respiration Rate 24 Blood Gas Modality VENT - AC FiO2 100.0 Blood Gas Tidal Volume 150.0 Blood Gas Low PEEP Setting 3.0 Blood Gas Notified Whom AA Blood Gas Notified Time 07/04/2016 10:02:00 PM White Blood Count 6.2 Red Blood Count 4.34 L Hemoglobin 14.7 Hematocrit 44.2 Mean Corpuscular Volume 101.8 H Mean Corpuscular Hemoglobin 33.9 H Mean Corpuscular Hemoglobin Concent 33.3 Red Cell Distribution Width 15.9 H Platelet Count 390 Mean Platelet Volume 9.7 Neutrophils % 25.2 L Lymphocytes % 58.7 H Monocytes % 11.7 H Eosinophils % 2.4 Basophils % 1.8 Nucleated Red Blood Cells % 0.0 Neutrophils # 1.6 Lymphocytes # 3.6 H Monocytes # 0.7 Eosinophils # 0.2 Basophils # 0.1 Nucleated Red Blood Cells # 0.0 Prothrombin Time 11.5 L Prothrombin Time Ratio 0.9 INR International Normalized Ratio 0.84 Activated Partial Thromboplast Time 23.5 L Urine Color LT. YELLOW Urine Clarity SLIGHTLY CLOUDY Urine pH 6.0 Urine Specific [place] 1.020 Urine Ketones NEGATIVE Urine Nitrite POSITIVE H Urine Bilirubin NEGATIVE Urine Urobilinogen 0.2 E.U./dL Urine Leukocyte Esterase 3+ H Urine Microscopic RBC 2-5 Urine Microscopic WBC >200 Urine Bacteria MANY Urine Hemoglobin 1+ H Urine Glucose NEGATIVE Urine Total Protein 2+ H Sodium Level 150 H Potassium Level 4.3 Chloride Level 109 Carbon Dioxide Level 25 Anion Gap 20 H Blood Urea Nitrogen 6 L Creatinine 0.56 L Glucose Level 137 Lactic Acid Level 3.8 H 4.3 *H 2.8 H Calcium Level 8.0 L Total Bilirubin 0.0 L Direct Bilirubin 0.00 Indirect Bilirubin 0.0 Aspartate Amino Transf (AST/SGOT) 87 H Alanine Aminotransferase (ALT/SGPT) 30 Alkaline Phosphatase 224 H Creatine Kinase 34 Troponin I < 0.012 < 0.012 Total Protein 7.8 Albumin 4.0 Globulin 3.80 H Albumin/Globulin Ratio 1.05 Digoxin Level < 0.4 L Salicylates Level < 1.0 L Urine Opiates Screen Negative Acetaminophen Level < 10.0 L Urine Barbiturates Negative Urine Amphetamines Screen Negative Urine Benzodiazepines Screen Negative Urine Cocaine Screen Negative Urine Cannabinoids Negative Ethyl Alcohol Level 565.0 Magnesium Level 1.9 Lactate Dehydrogenase 518 Test 07/05/16 03:10 07/05/16 04:31 07/05/16 07:02 Lactic Acid Level 2.3 H 1.8 Bedside Glucose 139 Troponin I < 0.012 Medications Medications Current Medications Famotidine 10 mg 10 mg Q12 IV ; Start 07/05/16 at 09:00 Midazolam HCl 50 ml @ 1 mls/hr TITRATE IV Last administered on 07/05/16 05:24 ; Admin Dose 2 MLS/HR; Start 07/05/16 at 05:00 Dextrose/Sodium Chloride 1,000 ml @ 54 mls/hr [id number] IV Last administered on 07/05/16 05:26; Admin Dose 54 MLS/HR; Start 07/05/16 at 05:00 Propofol (Diprivan) 100 ml @ 0 mls/hr TITRATE IV Last administered on 06:48; Admin Dose 1 MLS/HR; Start 07/05/16 at 05:30 NATAN GOVEA MD Jul 05, 2016 09:26
[2016-07-05] MEDS ORDERED: CEFTRIAXONE (40 MG/ML) IV SYG IV* SCH (09:30)
[2016-07-05] MEDS: FAMOTIDINE 20 MG INJ IV SCH ×2 (09:58→21:56)
[2016-07-05] MEDS: MULTIVITAMINS 10 ML, THIAMINE 100 MG, FOLIC ACID 1 MG in SOD CHLORIDE 0.9% 1,000 ML IVPB SCH (11:02)
[2016-07-05] MEDS: LORAZEPAM 2 MG INJ IV PRN ×2 (11:26→21:36)
[2016-07-05 18:49] LABS: POTASSIUM 3.7 mmol/L (3.5-5.1)
[2016-07-05 18:51] LABS: CREATININE 0.52 mg/dl (0.61-1.24)
[2016-07-05 18:52] LABS: CALCIUM 7.2 mg/dl (8.4-10.2)
--- NOTE | 2016-07-05 20:46 | RADRPT ---
PROCEDURE: XR Chest AP portable CLINICAL INDICATION: Chest tube placement TECHNIQUE: An AP portable radiograph of the chest was submitted. COMPARISON: Seen a earlier on the same date. FINDINGS: Support Hardware: The endotracheal tube is partially obscured by overlying monitoring hardware, but the tip appears to be at the anton and should be withdrawn slightly. An NG tube is again seen in p lace. Cardiovascular: The heart appears moderately enlarged and the pulmonary vasculature is somewhat azeem ested. . Lung [place]: Increasing atelectatic change is seen at the left lower lobe with perihilar interstitia l prominence seen bilaterally. Pleural Spaces: The left costophrenic angle is obscured such that a small pleural fluid accumulation cannot be excluded. No pneumothorax is evident. Osseous Structures: The osseous elements again reflect achondroplasia with degenerative spine change s noted. Soft Tissues: The soft tissues appear unremarkable. IMPRESSION: 1. Monitoring hardware obscures visualization of the distal endotracheal tube but the tip appears t o be at the anton or just into the right mainstem bronchus. This should be repositioned. The NG t ube remains satisfactorily positioned. 2. Moderate cardiomegaly with pulmonary vascular congestion and probable interstitial edema. 3. Increasing atelectasis involving the left lower lobe and possible small left pleural fluid accum ulation. 4. The osseous elements reflect a chondroid lesion with degenerative spine changes noted. Findings of endotracheal tube at the anton or just into the right mainstem bronchus were telephoned by Harsh Maxwell MD to VERA Lozada on 07/05/2016 at 0840 hours. Physician Britt Date Time Electronically viewed and signed by Physician Britt on 07/05/2016 20:46 /
--- NOTE | 2016-07-05 22:35 | RADRPT ---
PROCEDURE: XR Chest. CLINICAL INDICATION: Repositioning of endotracheal intubation. TECHNIQUE: Single frontal view of the chest was obtained COMPARISON: Today, about 2 hours ago. FINDINGS: Successful repositioning of endotracheal intubation, with tip now about 2 cm above the anton. Cardiomegaly again seen. Improved aeration over interval with persistent mild left base atelectasis . Nasogastric tube is unchanged in position. There is no pneumothorax. IMPRESSION: Successful repositioning of endotracheal intubation, with tip now about 2 cm above the anton. RPTAT: [facility] Physician Yohannes Date Time Electronically viewed and signed by Physician Yohannes on 07/05/2016 22:35 RS/
[2016-07-05] MEDS: CEFTRIAXONE 1 GM/50 ML (PMX) 50 ML IVPB SCH (23:56)
[2016-07-06] VITALS (57 sets, daily range): BP systolic 101–162; BP diastolic 49–119; PULSE 76–113; RESP 10–43
[2016-07-06] MEDS: MIDAZOLAM (DRIP) 50 mg/50 mL 50 ML IV SCH ×2 (04:05→15:28)
[2016-07-06] MEDS: PROPOFOL 100 ML IV SCH ×2 (06:17→18:35)
[2016-07-06 06:33] LABS: ADD SCAN DIFF NO
[2016-07-06 06:37] LABS: BASOPHILS % 0.3 % (0.0-2.0); EOSINOPHILS % 0.2 % (0.0-7.0); HEMATOCRIT 32.8 % (42.0-52.0); HEMOGLOBIN 10.6 g/dl (14.0-18.0); MEAN CORPUSCULAR HEMOGLOBIN 32.7 pg (29.0-33.0); MEAN CORPUSCULAR HGB CONC 32.3 g/dl (32.0-37.0); MEAN CORPUSCULAR VOLUME 101.2 fl (82.0-101.0); MEAN PLATELET VOLUME 10.7 fl (7.4-10.4); MONOCYTE # 1.4 10^3/ul (0.3-0.9); MONOCYTES % 10.7 % (0.0-11.0); NEUTROPHIL # 10.1 10^3/ul (1.6-7.5); NEUTROPHILS % 80.3 % (39.0-77.0); PLATELET COUNT 190 10^3/UL (140-415); RED BLOOD COUNT 3.24 10^6/ul (4.70-6.10); RED CELL DISTRIBUTION WIDTH 16.1 % (11.5-14.5); WHITE BLOOD COUNT 12.6 10^3/ul (4.8-10.8)
[2016-07-06 06:57] LABS: ALBUMIN 2.6 g/dl (3.3-4.9)
[2016-07-06 06:59] LABS: CREATININE 0.46 mg/dl (0.61-1.24)
[2016-07-06 07:00] LABS: ALBUMIN/GLOBULIN RATIO 0.89; BILIRUBIN,INDIRECT 0.1 mg/dl (0-1.1); BILIRUBIN,TOTAL 0.1 mg/dl (0.2-1.3); CALCIUM 7.3 mg/dl (8.4-10.2); TOTAL PROTEIN 5.5 g/dl (6.1-8.1)
[2016-07-06 07:01] LABS: MAGNESIUM 1.3 mg/dl (1.7-2.5)
[2016-07-06] MEDS: FAMOTIDINE 20 MG INJ IV SCH ×2 (08:39→21:20)
[2016-07-06] MEDS: LORAZEPAM 2 MG INJ IV PRN (08:40)
[2016-07-06] MEDS ORDERED: POTASSIUM CHLORIDE 250 ML IVPB SCH (09:00)
[2016-07-06] MEDS ORDERED: MAGNESIUM SULFATE 4 GM/100 ML 100 ML IVPB ONE (09:00)
--- NOTE | 2016-07-06 10:47 | CONS ---
Date/Time of Note Date/Time of Note DATE: 07/06/16 TIME: 10:42 Consult Date/Type/Reason Admit Date/Time Jul 04, 2016 at 23:28 Initial Consult Date 07/05/16 Type of Consultation: Pulmonary/critical care Subjective Patient remains intubated sedated on mechanical ventilation continues FiO2 at 40 % Still requiring high doses of propofol and Versed to maintain adequate sedation Objective Vital Signs Date Time Temp Pulse Resp B/P Pulse Ox O2 Delivery O2 Flow Rate FiO2 07/06/16 08:00 85 07/06/16 07:45 28 98 35 07/06/16 07:00 136/101 07/06/16 06:00 Mechanical Ventilator 07/06/16 04:00 99.2 Intake and Output 07/05/16 07/05/16 07/06/16 15:00 23:00 07:00 Intake Total 301.32 ml 393.64 ml 295 ml Output Total 175 ml 135 ml 200 ml Balance 126.32 ml 258.64 ml 95 ml Exam PHYSICAL EXAMINATION GENERAL: Middle-aged gentleman intubated sedated. dwarfism VITAL SIGNS: see below. HEENT: Pupils equal, round, and reactive to light. CARDIAC: S1, S2, tachycardia. CHEST: Diminished air entry bilaterally. Few rales at bases ABDOMEN: Mildly distended. No bowel sounds. EXTREMITIES: No cyanosis, clubbing trace edema NEUROLOGIC: Unable to assess Results/Medications Result Diagram: 07/06/16 0540 07/06/16 0540 Results 24 hrs Laboratory Tests Test 07/05/16 11:40 07/05/16 16:11 07/05/16 18:34 07/05/16 19:44 Lactic Acid Level 1.6 1.3 4.0 H Sodium Level 141 Potassium Level 3.7 Chloride Level 109 Carbon Dioxide Level 24 Anion Gap 12 # Blood Urea Nitrogen 10 Creatinine 0.52 L Glucose Level 139 Calcium Level 7.2 L Ammonia 13 Ethyl Alcohol Level < 10.0 Test 07/05/16 23:00 07/06/16 05:40 Lactic Acid Level 4.2 *H White Blood Count 12.6 #H Red Blood Count 3.24 #L Hemoglobin 10.6 #L Hematocrit 32.8 #L Mean Corpuscular Volume 101.2 H Mean Corpuscular Hemoglobin 32.7 Mean Corpuscular Hemoglobin Concent 32.3 Red Cell Distribution Width 16.1 H Platelet Count 190 # Mean Platelet Volume 10.7 H Neutrophils % 80.3 H Lymphocytes % 8.0 L Monocytes % 10.7 Eosinophils % 0.2 Basophils % 0.3 Nucleated Red Blood Cells % 0.0 Neutrophils # 10.1 H Lymphocytes # 1.0 Monocytes # 1.4 H Eosinophils # 0.0 Basophils # 0.0 Nucleated Red Blood Cells # 0.0 Sodium Level 143 Potassium Level 3.0 L Chloride Level 112 H Carbon Dioxide Level 25 Anion Gap 9 Blood Urea Nitrogen 10 Creatinine 0.46 L Glucose Level 84 # Calcium Level 7.3 L Magnesium Level 1.3 L Total Bilirubin 0.1 L Direct Bilirubin 0.00 Indirect Bilirubin 0.1 Aspartate Amino Transf (AST/SGOT) 46 Alanine Aminotransferase (ALT/SGPT) 31 Alkaline Phosphatase 167 H Total Protein 5.5 #L Albumin 2.6 #L Globulin 2.90 Albumin/Globulin Ratio 0.89 Medications Current Medications Famotidine 10 mg 10 mg Q12 IV Last administered on 07/06/16 08:39; Admin Dose 10 MG; Start 07/05/16 at 09:00 Propofol 100 ml @ 0 mls/hr TITRATE IV Last administered on 07/06/16 06:17; Admin Dose 1 MLS/HR; Start 07/05/16 at 05:30 Multivitamins/ Thiamine HCl/ Folic Acid/Sodium Chloride ([id number] Adult/ Vitamin B1/Folic Acid/NS) 1,011.2 ml @ 40 mls/hr DAILY@09 IVPB Last administered on 11:02; Admin Dose 40 MLS/HR; Start 07/06/16 at 09:00 Lorazepam 0.5 mg 0.5 mg Q6H PRN IV AGITATION/ANXIETY Last administered on 08:40; Admin Dose 0.5 MG; Start 07/05/16 at 09:30 Ceftriaxone Sodium 50 ml @ 100 mls/hr Q24H IVPB Last administered on 23:56; Admin Dose 100 MLS/HR; Start 07/05/16 at 23:00 Midazolam HCl 50 ml @ 1 mls/hr TITRATE IV Last administered on 07/06/16 04:05 ; Admin Dose 5 MLS/HR; Start 07/05/16 at 22:00 Potassium Chloride 250 ml @ 62.5 mls/hr Q4H IVPB ; Start 07/06/16 at 09:00; Stop 07/06/16 at 16:59 Magnesium Sulfate (Magnesium Sulfate 4 Gm/100 ml) 100 ml @ 25 mls/hr ONCE ONCE IVPB ; Start 07/06/16 at 09:00; Stop 07/06/16 at 12:59 Assessment/Plan Chief Complaint/Hosp Course Assessment 1. Alcohol intoxication 2. Possible intentional overdose 3. Questionable aspiration pneumonia 4. Encephalopathy toxic metabolic 5. Dwarfism 6. Hypokalemia Plan 1. Continue mechanical ventilation 2. Continue multivitamins thiamine and folate 3. We will consider starting tube feeding soon 4. Consider broadening antibiotics 5. Replace electrolytes 6. DVT and GI prophylaxis 7. PICC line placement Disposition Continue current ICU care Problems: LULA SERRA MD, [facility] Jul 06, 2016 10:47
[2016-07-06] MEDS ORDERED: LIDOCAINE 1% (MDV) 20 ML INJ SC ONE (11:00)
[2016-07-06] MEDS ORDERED: morphine 2 MG INJ IV PRN ×2 (11:00)
[2016-07-06] MEDS: MULTIVITAMINS 10 ML, THIAMINE 100 MG, FOLIC ACID 1 MG in SOD CHLORIDE 0.9% 1,000 ML IVPB SCH (11:01)
--- NOTE | 2016-07-06 14:19 | PN ---
Date/Time of Note Date/Time of Note DATE: 07/06/16 TIME: 14:16 Assessment/Plan VTE Prophylaxis VTE Prophylaxis Intervention: other Lines/Catheters IV Catheter Type (from Nrs): Peripheral IV Assessment/Plan Chief Complaint/Hosp Course 1) Acute respiratory failure, requiring reintubation, due to Alcohol Intoxication and possibly polysubstance Overdose (pain meds) -Continue to monitor in the ICU -Clinical Neuropsychologist on the case, continue vent management 2) Severe sepsis due to Urinary Tract Infection with elevated Lactic Acid and Altered Mental Status -Continue broad-spectrum IV antibiotics - Carefully monitor Is and Os. 3) Acute cystitis - Rocephin and Vancomycin - Pediatric Dosing 4) Alcohol overdose - Monitor for signs of withdrawal once he is out of sedation -Start banana bag 5) Possible suicide threat or attempt - Flight Test Mechanic Consult and/or Psychiatric evaluation prior to discharge 6) Achondroplastic Dwarfism Problems: Subjective 24 Hr Interval Summary Subjective hx not possible: pt non-verbal Exam/Review of Systems Vital Signs Vitals Vital Signs Date Time Temp Pulse Resp B/P Pulse Ox O2 Delivery O2 Flow Rate FiO2 07/06/16 12:00 83 07/06/16 11:30 23 154/118 98 Mechanical Ventilator 07/06/16 08:00 35 07/06/16 08:00 98.6 Intake and Output 07/05/16 07/05/16 07/06/16 15:00 23:00 07:00 Intake Total 301.32 ml 393.64 ml 295 ml Output Total 175 ml 135 ml 200 ml Balance 126.32 ml 258.64 ml 95 ml Exam Constitutional: non-verbal Respiratory: clear to auscultation Cardiovascular: regular rate and rhythm Gastrointestinal: soft, No distended Musculoskeletal: nl extremities to inspection Results Result Diagram: 07/06/16 0540 07/06/16 0540 Results 24 hrs Laboratory Tests Test 07/05/16 16:11 07/05/16 18:34 07/05/16 19:44 07/05/16 23:00 Lactic Acid Level 1.3 4.0 H 4.2 *H Sodium Level 141 Potassium Level 3.7 Chloride Level 109 Carbon Dioxide Level 24 Anion Gap 12 # Blood Urea Nitrogen 10 Creatinine 0.52 L Glucose Level 139 Calcium Level 7.2 L Ammonia 13 Ethyl Alcohol Level < 10.0 Test 07/06/16 05:40 White Blood Count 12.6 #H Red Blood Count 3.24 #L Hemoglobin 10.6 #L Hematocrit 32.8 #L Mean Corpuscular Volume 101.2 H Mean Corpuscular Hemoglobin 32.7 Mean Corpuscular Hemoglobin Concent 32.3 Red Cell Distribution Width 16.1 H Platelet Count 190 # Mean Platelet Volume 10.7 H Neutrophils % 80.3 H Lymphocytes % 8.0 L Monocytes % 10.7 Eosinophils % 0.2 Basophils % 0.3 Nucleated Red Blood Cells % 0.0 Neutrophils # 10.1 H Lymphocytes # 1.0 Monocytes # 1.4 H Eosinophils # 0.0 Basophils # 0.0 Nucleated Red Blood Cells # 0.0 Sodium Level 143 Potassium Level 3.0 L Chloride Level 112 H Carbon Dioxide Level 25 Anion Gap 9 Blood Urea Nitrogen 10 Creatinine 0.46 L Glucose Level 84 # Calcium Level 7.3 L Magnesium Level 1.3 L Total Bilirubin 0.1 L Direct Bilirubin 0.00 Indirect Bilirubin 0.1 Aspartate Amino Transf (AST/SGOT) 46 Alanine Aminotransferase (ALT/SGPT) 31 Alkaline Phosphatase 167 H Total Protein 5.5 #L Albumin 2.6 #L Globulin 2.90 Albumin/Globulin Ratio 0.89 Medications Medications Current Medications Famotidine 10 mg 10 mg Q12 IV Last administered on 07/06/16 08:39; Admin Dose 10 MG; Start 07/05/16 at 09:00 Propofol 100 ml @ 0 mls/hr TITRATE IV Last administered on 07/06/16 06:17; Admin Dose 1 MLS/HR; Start 07/05/16 at 05:30 Multivitamins/ Thiamine HCl/ Folic Acid/Sodium Chloride (Mvi-12 Adult/ Vitamin B1/Folic Acid/NS) 1,011.2 ml @ 40 mls/hr DAILY@09 IVPB Last administered on 11:01; Admin Dose 40 MLS/HR; Start 07/06/16 at 09:00 Lorazepam 0.5 mg 0.5 mg Q6H PRN IV AGITATION/ANXIETY Last administered on 08:40; Admin Dose 0.5 MG; Start 07/05/16 at 09:30 Ceftriaxone Sodium 50 ml @ 100 mls/hr Q24H IVPB Last administered on 23:56; Admin Dose 100 MLS/HR; Start 07/05/16 at 23:00 Midazolam HCl 50 ml @ 1 mls/hr TITRATE IV Last administered on 07/06/16 04:05 ; Admin Dose 5 MLS/HR; Start 07/05/16 at 22:00 Potassium Chloride (KCl 40 MEQ/250 ML NS) 250 ml @ 62.5 mls/hr Q4H IVPB Last administered on 07/06/16 12:02; Admin Dose 62.5 MLS/HR; Start 07/06/16 at 09:00 ; Stop 07/06/16 at 16:59 Morphine Sulfate (morphine) 0.5 mg Q4H PRN IV PAIN Last administered on 12:15; Admin Dose 0.5 MG; Start 07/06/16 at 11:00 DAVID HAMILTON Jul 06, 2016 14:19
[2016-07-06] MEDS ORDERED: POTASSIUM CHLORIDE 20 MEQ POWDER FOR ORAL SOLN NGT ONE (15:00)
[2016-07-06] MEDS ORDERED: FENTAnyl (DRIP) 1000 mcg/100mL 100 ML IV SCH (15:00)
--- NOTE | 2016-07-06 16:16 | RADRPT ---
PROCEDURE: Ultrasound guidance for placement of needle in left upper extremity vein. CLINICAL INDICATION: Venous access. TECHNIQUE: Limited sonography of the left upper extremity was performed. Ultrasound images were recorded and s tored in the patient's medical record. COMPARISON: None. FINDINGS: The ultrasound images demonstrate a patent left upper extremity vein. The PICC line was inserted by the PICC line nurse. IMPRESSION: 1. Ultrasound guidance for a needle placement in a left upper extremity vein. 2. The left upper extremity vein is patent. RPTAT: QQ .Barney Hoffmann MD, MD Date Time Electronically viewed and signed by .Barney Hoffmann MD, MD on 07/06/2016 16:16 .R/
--- NOTE | 2016-07-06 16:46 | RADRPT ---
PROCEDURE: XR Chest. CLINICAL INDICATION: Check PICC line position. TECHNIQUE: Single frontal view. COMPARISON: 07/05/2016. FINDINGS: There is a left arm PICC line with the tip in the lower right atrium. There is mild atelectasis at the left lung base. The lungs are otherwise clear. The heart is enlarged. There is a nasogastric tube with multiple coils in the stomach. There is no pleural effusion. There is no pneumothorax. IMPRESSION: 1. Left arm PICC line tip in the lower right atrium. This should be retracted 2 cm. Results given to the PICC line nurse. 2. Mild atelectasis at the left lung base. 3. Cardiomegaly. 4. Nasogastric tube with multiple coils in the stomach. This should be retracted 10 cm. Results g iven to the the patient's nurse. RPTAT: QQ .Barney Hoffmann MD, MD Date Time Electronically viewed and signed by .Barney Hoffmann MD, on 07/06/2016 16:45 .R/
--- NOTE | 2016-07-06 16:51 | RADRPT ---
PROCEDURE: XR Chest AP portable CLINICAL INDICATION: PICC Confirmation TECHNIQUE: An AP portable radiograph of the chest was submitted. COMPARISON: Study done earlier on the same date FINDINGS: Support Hardware: The endotracheal tube is stable in position and the NG tube tip remains in the sto mach with the catheter coiled within the stomach. The left upper extremity PICC line tip has been s lightly withdrawn into the mid right atrium. Cardiovascular: The heart remains moderately enlarged. The pulmonary vasculature is upper normal. Lung Davidson: A suboptimal inspiration again compresses lung parenchyma and discoid atelectatic herrera es seen at the left lung base. Pleural Spaces: No pneumothorax or pleural effusion is identified. Osseous Structures: Degenerative spine changes are again noted with the osseous elements thickened c ompatible with achondroplasia. Soft Tissues: Calcifications are again seen to project through each scapula. IMPRESSION: 1. The left upper extremity PICC catheter has been slightly withdrawn with the tip projecting to th e mid right atrium. 2. The endotracheal tube remains satisfactorily positioned while the NG tube is again coiled within the stomach. 3. Persistent moderate cardiomegaly with the pulmonary vasculature upper normal. 4. Discoid atelectasis is again seen at the left lung base. 5. Achondroplasia with degenerative osseous changes. Physician Britt Date Time Electronically viewed and signed by Physician Britt on 07/06/2016 16:50 /
[2016-07-06] MEDS: morphine 2 MG INJ IV PRN ×2 (18:06→20:19)
[2016-07-06] MEDS ORDERED: LORAZEPAM 2 MG INJ IV PRN (19:00)
[2016-07-06] MEDS: IPRATROPIUM (HFA) 12.9 GM INHALER INH SCH (21:07)
[2016-07-06] MEDS: ALBUTEROL HFA 8 GM INHALER INH SCH (21:07)
[2016-07-06] MEDS: CEFTRIAXONE 1 GM/50 ML (PMX) 50 ML IVPB SCH (23:00)
[2016-07-07] VITALS (56 sets, daily range): BP systolic 96–150; BP diastolic 61–113; PULSE 94–129; RESP 10–34
[2016-07-07] MEDS: MIDAZOLAM (DRIP) 50 mg/50 mL 50 ML IV SCH ×3 (00:31→20:24)
[2016-07-07] MEDS: ALBUTEROL HFA 8 GM INHALER INH SCH ×6 (01:23→20:02)
[2016-07-07] MEDS: IPRATROPIUM (HFA) 12.9 GM INHALER INH SCH ×6 (01:23→20:02)
[2016-07-07 05:08] LABS: ADD SCAN DIFF NO
[2016-07-07 05:15] LABS: BASOPHIL # 0.1 10^3/ul (0.0-0.1); BASOPHILS % 0.4 % (0.0-2.0); EOSINOPHILS # 0.3 10^3/ul (0.0-0.5); EOSINOPHILS % 2.5 % (0.0-7.0); HEMATOCRIT 31.9 % (42.0-52.0); HEMOGLOBIN 9.8 g/dl (14.0-18.0); LYMPHOCYTES # 1.1 10^3/ul (0.8-2.9); LYMPHOCYTES % 10.2 % (15.0-51.0); MEAN CORPUSCULAR HEMOGLOBIN 32.9 pg (29.0-33.0); MEAN CORPUSCULAR HGB CONC 30.7 g/dl (32.0-37.0); MEAN PLATELET VOLUME 11.3 fl (7.4-10.4); MONOCYTE # 1.4 10^3/ul (0.3-0.9); NEUTROPHIL # 8.3 10^3/ul (1.6-7.5); NEUTROPHILS % 74.4 % (39.0-77.0); PLATELET COUNT 148 10^3/UL (140-415); RED BLOOD COUNT 2.98 10^6/ul (4.70-6.10); RED CELL DISTRIBUTION WIDTH 16.6 % (11.5-14.5); WHITE BLOOD COUNT 11.2 10^3/ul (4.8-10.8)
[2016-07-07 06:19] LABS: ALBUMIN 2.6 g/dl (3.3-4.9)
[2016-07-07 06:20] LABS: POTASSIUM 5.4 mmol/L (3.5-5.1)
[2016-07-07 06:22] LABS: ALBUMIN/GLOBULIN RATIO 0.89; CALCIUM 7.5 mg/dl (8.4-10.2); CREATININE 0.5 mg/dl (0.61-1.24); TOTAL PROTEIN 5.5 g/dl (6.1-8.1)
[2016-07-07 06:23] LABS: MAGNESIUM 3.1 mg/dl (1.7-2.5)
[2016-07-07] MEDS: morphine 2 MG INJ IV PRN ×4 (07:37→15:17)
[2016-07-07 08:16] LABS: AADO2 Arterial 84.2 mmHg (7.0-24.0); Allen Test ACCEPTAB; Arterial Base Excess -6.9 mmol/L (-3.0-3); Arterial COHb 0.2 % (0.0-3.0); Arterial Fraction of Oxyhgb 97.6 % (93.0-99.0); Arterial HCO3 18.2 mmol/L (22.0-26.0); Arterial MetHb 0.4 % (0.0-1.5); Arterial Total Hemglobin 13.1 g/dl (12.0-18.0); MODE VENT - AC
[2016-07-07] MEDS: MULTIVITAMINS 10 ML, THIAMINE 100 MG, FOLIC ACID 1 MG in SOD CHLORIDE 0.9% 1,000 ML IVPB SCH (09:23)
[2016-07-07] MEDS: FAMOTIDINE 20 MG INJ IV SCH ×2 (09:38→21:00)
[2016-07-07] MEDS: PROPOFOL 100 ML IV SCH ×2 (09:38→21:50)
--- NOTE | 2016-07-07 10:25 | RADRPT ---
PROCEDURE: XR Chest AP portable CLINICAL INDICATION: Post NG tube retraction 15 cm TECHNIQUE: An AP portable radiograph of the chest was submitted. COMPARISON: Study done earlier on the same date FINDINGS: Support Hardware: The endotracheal tube is stable in positioning, the NG tube has been partially wit hdrawn and now there is only 1 loop within the stomach. The left upper extremity PICC catheter tip has been slightly withdrawn such that the tip is now at the atrial caval junction. Cardiovascular: The heart remains moderately enlarged and the pulmonary vasculature is upper normal. Lung Davidson: Discoid atelectatic changes again seen at the left lung base. Pleural Spaces: No pneumothorax or pleural effusion is identified. Osseous Structures: The osseous elements reflected achondroplasia and degenerative osseous changes a re again noted. Soft Tissues: Calcifications again project through each scapula. IMPRESSION: 1. The NG tube has been partially withdrawn since that there is now only 1 loop within the stomach. 2. The endotracheal tube is stable in positioning and the left upper extremity PICC catheter tip is now at the atrial caval junction. 3. Persistent moderate cardiomegaly with the pulmonary vasculature upper normal. 4. Atelectatic changes again seen at the left lung base. 5. Achondroplasia with degenerative spine changes. Physician Britt Date Time Electronically viewed and signed by Physician Britt on 07/06/2016 16:53 /
--- NOTE | 2016-07-07 10:34 | CONS ---
Date/Time of Note Date/Time of Note DATE: 07/07/16 TIME: 10:30 Consult Date/Type/Reason Admit Date/Time Jul 04, 2016 at 23:28 Initial Consult Date 07/05/16 Type of Consultation: Pulmonary/critical care Subjective Patient continues mechanical ventilation Still has significant agitation despite versed 5 and propofol 50 Agitation improved with the addition of morphine Objective Vital Signs Date Time Temp Pulse Resp B/P Pulse Ox O2 Delivery O2 Flow Rate FiO2 07/07/16 08:00 112 07/07/16 07:20 23 100 35 07/07/16 06:00 126/76 Mechanical Ventilator 07/07/16 04:00 98.4 Intake and Output 07/06/16 07/06/16 07/07/16 15:00 23:00 07:00 Intake Total 100 ml 300 ml 395 ml Output Total 182 ml 540 ml 370 ml Balance -82 ml -240 ml 25 ml Exam PHYSICAL EXAMINATION GENERAL: Middle-aged gentleman intubated sedated. dwarfism VITAL SIGNS: see below. HEENT: Pupils equal, round, and reactive to light. CARDIAC: S1, S2, tachycardia. CHEST: Diffuse bilateral expiratory wheezing ABDOMEN: Mildly distended. No bowel sounds. EXTREMITIES: No cyanosis, clubbing trace edema NEUROLOGIC: Unable to assess Results/Medications Result Diagram: 07/07/16 0410 07/07/16 0410 Results 24 hrs Laboratory Tests Test 07/07/16 04:10 07/07/16 07:00 White Blood Count 11.2 H Red Blood Count 2.98 L Hemoglobin 9.8 L Hematocrit 31.9 L Mean Corpuscular Volume 107.0 H Mean Corpuscular Hemoglobin 32.9 Mean Corpuscular Hemoglobin Concent 30.7 L Red Cell Distribution Width 16.6 H Platelet Count 148 # Mean Platelet Volume 11.3 H Neutrophils % 74.4 Lymphocytes % 10.2 L Monocytes % 12.0 H Eosinophils % 2.5 Basophils % 0.4 Nucleated Red Blood Cells % 0.0 Neutrophils # 8.3 H Lymphocytes # 1.1 Monocytes # 1.4 H Eosinophils # 0.3 Basophils # 0.1 Nucleated Red Blood Cells # 0.0 Sodium Level 142 Potassium Level 5.4 #H Chloride Level 116 H Carbon Dioxide Level 18 L Anion Gap 13 Blood Urea Nitrogen 7 Creatinine 0.50 L Glucose Level 82 Calcium Level 7.5 L Phosphorus Level 2.0 L Magnesium Level 3.1 H Total Bilirubin 0.0 L Direct Bilirubin 0.00 Indirect Bilirubin 0.0 Aspartate Amino Transf (AST/SGOT) 46 Alanine Aminotransferase (ALT/SGPT) 35 Alkaline Phosphatase 184 H Total Protein 5.5 L Albumin 2.6 L Globulin 2.90 Albumin/Globulin Ratio 0.89 Blood Gas Specimen Source Blood arterial Arterial Blood Date Drawn 07/07/2016 7:26:06 AM Arterial Blood pH (Temp corrected) 7.329 L Arterial Blood pCO2 (Temp correct) 35.4 Arterial Blood pO2 (Temp corrected) 124.2 H Arterial Blood HCO3 18.2 L Arterial Blood Base Excess -6.9 L Arterial Blood Oxygen Saturation 98.2 H Kyle Test ACCEPTAB Arterial Blood Gas Puncture Site Right Radial Arterial Blood Carboxyhemoglobin 0.2 Arterial Blood Methemoglobin 0.4 Blood Gas A-a O2 Differential 84.2 H Oxyhemoglobin Percent 97.6 Total Hemoglobin 13.1 Blood Gas Temperature 37.0 Blood Gas Respiration Rate 20.0 Blood Gas Actual Respiration Rate 22 Blood Gas Modality VENT - AC FiO2 35.0 Blood Gas Tidal Volume 150.0 Blood Gas Low PEEP Setting 3.0 Blood Gas Notified Whom JLD Blood Gas Notified Time 07/07/2016 8:16:00 AM Chest x-ray IMPRESSION: 1. The NG tube has been partially withdrawn since that there is now only 1 loop within the stomach. 2. The endotracheal tube is stable in positioning and the left upper extremity PICC catheter tip is now at the atrial caval junction. 3. Persistent moderate cardiomegaly with the pulmonary vasculature upper normal. 4. Atelectatic changes again seen at the left lung base. 5. Achondroplasia with degenerative spine changes. Medications Current Medications Famotidine 10 mg 10 mg Q12 IV Last administered on 07/07/16 09:38; Admin Dose 10 MG; Start 07/05/16 at 09:00 Propofol 100 ml @ 0 mls/hr TITRATE IV Last administered on 07/07/16 09:38; Admin Dose 4 MLS/HR; Start 07/05/16 at 05:30 Multivitamins 10 ml/Thiamine HCl 100 mg/Folic Acid 1 mg/Sodium Chloride 1,011.2 ml @ 40 mls/hr DAILY@09 IVPB Last administered on 07/07/16 09:23; Admin Dose 40 MLS/HR; Start 07/06/16 at 09:00 Ceftriaxone Sodium 50 ml @ 100 mls/hr Q24H IVPB Last administered on 23:00; Admin Dose 100 MLS/HR; Start 07/05/16 at 23:00 Midazolam HCl 50 ml @ 1 mls/hr TITRATE IV Last administered on 07/07/16 10:21 ; Admin Dose 5 MLS/HR; Start 07/05/16 at 22:00 Fentanyl (Sublimaze) 100 ml @ 2.5 mls/hr TITRATE IV Last administered on 16:56; Admin Dose 1.5 MLS/HR; Start 07/06/16 at 15:00 IV Flush (NS 10 ml) 10 ml PRN PRN IV IV PROTOCOL; Start 07/06/16 at 16:30 Lorazepam (Ativan) 2 mg Q2 PRN IV AGITATION/ANXIETY; Start 07/07/16 at 09:30 Morphine Sulfate (morphine) 2 mg Q2 PRN IV PAIN Last administered on 07/07/16 09:21; Admin Dose 2 MG; Start 07/07/16 at 09:30 Assessment/Plan Chief Complaint/Hosp Course Assessment 1. Alcohol intoxication 2. Possible intentional overdose 3. Questionable aspiration pneumonia with hypoxemic respiratory failure component of bronchospasm 4. Encephalopathy toxic metabolic 5. Dwarfism 6. Hyperkalemia 7. Mild metabolic acidosis noted Plan 1. Continue mechanical ventilation 2. Continue multivitamins thiamine and folate 3. Start tube feeding 4. Continue antibiotics 5. Replace electrolytes 6. DVT and GI prophylaxis 7. Trial of steroids Disposition Continue current ICU care Problems: LULA SERRA MD, [facility] Jul 07, 2016 10:34
--- NOTE | 2016-07-07 11:30 | RADRPT ---
PROCEDURE: XR Chest. 07/06/2016. 1600 hours. CLINICAL INDICATION: Check nasogastric tube position. TECHNIQUE: Single frontal view. COMPARISON: 07/06/2016. 1550 hours. FINDINGS: The left arm PICC line remains in satisfactory position with the tip in the upper to mid right atriu m. The endotracheal tube is in satisfactory position. The nasogastric tube has been retracted and now is in satisfactory position with only a single loop in the stomach and the tip in the gastric an trum. Left basilar atelectasis is unchanged. The lungs are otherwise clear. The heart is enlarged. There is no pleural effusion or pneumothorax. There are chronic degenerative changes of the glenohumeral joints and spine. IMPRESSION: 1. Endotracheal tube, nasogastric tube, and left arm PICC line in satisfactory position. 2. No other change from the prior study done earlier the same day. RPTAT: QQ .Barney Hoffmann MD, MD Date Time Electronically viewed and signed by .Barney Hoffmann MD, on 07/07/2016 11:30 .R/
[2016-07-07] MEDS: METHYLPREDNISOLONE 40 MG INJ IV SCH (11:34)
[2016-07-07] MEDS ORDERED: SOD CHLORIDE 0.9% 100 ML ONE (12:00)
--- NOTE | 2016-07-07 12:44 | CONS ---
DATE OF ADMISSION: 07/04/2016 DATE OF CONSULTATION: 07/07/2016 PALLIATIVE CARE CONSULTATION: HISTORY OF PRESENT ILLNESS: This is a 46-year-old gentleman that I have obtained the entire medical records from patient's chart. He is intubated and there are no friends or family at his bedside. The patient was intubated in the emergency room, presumably secondary to hydroxyzine/gabapentin ove rdose with a blood alcohol level in the 500 range. Patient was worked up down there in the emergenc y room. CT scan of his head did not show any severe pathology. Patient has a history of achondropl astic dwarfism and presumably was transferred to the emergency room when the patient's friend found him altered. Patient received chest compressions at home. I am asked to see the patient, examine, speak to family members and establish some ongoing communication with the patient's family, agent an d next of kin. MEDICATIONS: Please refer to reconciliation sheet. ALLERGIES: UNKNOWN. MAJOR MEDICAL PROBLEMS IN THE PAST: Unknown. PAST MEDICAL HISTORY: Incomplete database. What we do know as per history of present illness. SOCIAL HISTORY: Unknown. FAMILY HISTORY: Unknown. REVIEW OF SYSTEMS: Cannot be obtained. PHYSICAL EXAMINATION: GENERAL: In the intensive care unit, exam shows an intubated male dwarf who is nonresponsive to any verbal or tactile stimulation. VITAL SIGNS: Blood pressure 126/76, pulse 110 and regular, respirations of 16, 100% saturation on 3 0% FIO2. HEENT: He is normocephalic and atraumatic. Anicteric, acyanotic. CHEST: Distant breath sounds, left greater than right. Right lower lobe inspiratory and expiratory crackles and wheezing. COR: S1, S2, without S3, S4, murmur, gallop, rub. Normal rate, normal rhythm. ABDOMEN: Grossly benign. LABORATORY TESTS: White blood cell count 11.2, hemoglobin level of 9.8, hematocrit 31.9, MCV of 100 .7, platelet count 148,000. Chemistries: Serum sodium 142, potassium 5.4, chloride 116, bicarbonat e of 18, BUN of 7, creatinine 0.5, blood sugar of 82. IMAGING STUDIES: Pending for today. ASSESSMENT AND PLAN: This is a critically ill male who has presumably had an unsuccessful suicide a ttempt but is critically ill in the intensive care unit, intubated and being treated for severe seps is also. His tox screen was only positive for alcohol with a level of 565, and negative for other d rugs including amphetamines, benzodiazepines, cocaine, cannabinoids or opioids. It is my understandi ng that family members are on their way in at this time. I will establish a level of communication with him as soon as they arrive. Dictated By: SERAFIN JAY MD LP/OMAYRA Conf#: [id number] DID#: [id number]
[2016-07-07] MEDS: LORAZEPAM 2 MG INJ IV PRN ×3 (13:00→21:37)
--- NOTE | 2016-07-07 13:38 | PN ---
DATE: 07/07/2016 PALLIATIVE CARE PROGRESS NOTE Patient's family members have arrived and should be here within the next 2 hours. It is currently 1 100 hours. I have had a long conversation with patient's friend who was also his DPOA for financial matters. Apparently, patient does not have an advanced directive or DPOA for health and family enid l be the next in line but I have had an extensive conversation with him who has been his longtime fr iend and associate for the last 10 years. It is known that he has had a long-standing history of ex cessive alcohol consumption. There has been no history of abuse. He has had one intervention in past, but he has not been in treatment program. He is very defensive when anyone speaks to him ab out alcohol consumption and treatment program. As an outpatient, he has been taking a combination o f gabapentin, hydroxyzine, and tramadol. Unknown as to why he is taking those 3 medications. We do not have medical records. His primary care physician is located in the [facility]. I believe he is requiring so much sedation at this time secondary to generating hepatic enzymes secondary to exce ssive alcohol consumption over a very long period of time. Therefore, he is metabolizing these drug s the extremely fast. I will follow him. I have made his friend aware of the fact that although he appears to be improving at this time, he still has long ways to go and he is being followed by meme hall different consultants. I will follow. I will speak to family members when they arrive also. Dictated By: SERAFIN JAY MD, LP/OMAYRA Conf#: [id number] DID#: [id number]
--- NOTE | 2016-07-07 14:36 | PN ---
Date/Time of Note Date/Time of Note DATE: 07/07/16 TIME: 14:34 Assessment/Plan VTE Prophylaxis VTE Prophylaxis Intervention: other Assessment/Plan Chief Complaint/Hosp Course 1) Acute respiratory failure, requiring reintubation, due to Alcohol Intoxication and possibly polysubstance Overdose (pain meds) -Continue to monitor in the ICU -Carpenter Repair on the case, continue vent management 2) Severe sepsis due to Urinary Tract Infection with elevated Lactic Acid and Altered Mental Status -Continue broad-spectrum IV antibiotics - Carefully monitor Is and Os. 3) Acute cystitis - Rocephin and Vancomycin - Pediatric Dosing 4) Alcohol overdose - Monitor for signs of withdrawal once he is out of sedation -Start banana bag 5) Possible suicide threat or attempt - Mailing Machine Operator Consult and/or Psychiatric evaluation prior to discharge 6) Achondroplastic Dwarfism Problems: Subjective 24 Hr Interval Summary Subjective hx not possible: pt non-verbal Exam/Review of Systems Vital Signs Vitals Vital Signs Date Time Temp Pulse Resp B/P Pulse Ox O2 Delivery O2 Flow Rate FiO2 07/07/16 13:23 122 24 98 35 07/07/16 11:30 132/75 07/07/16 11:00 Mechanical Ventilator 07/07/16 08:00 98.0 Intake and Output 07/06/16 07/06/16 07/07/16 15:00 23:00 07:00 Intake Total 100 ml 300 ml 401.92 ml Output Total 182 ml 540 ml 510 ml Balance -82 ml -240 ml -108.08 ml Exam Constitutional: non-verbal ENMT: intubated Respiratory: clear to auscultation Cardiovascular: regular rate and rhythm Gastrointestinal: soft, No distended Musculoskeletal: nl extremities to inspection Results Result Diagram: 07/07/16 0410 07/07/16 0410 Results 24 hrs Laboratory Tests Test 07/07/16 04:10 07/07/16 07:00 White Blood Count 11.2 H Red Blood Count 2.98 L Hemoglobin 9.8 L Hematocrit 31.9 L Mean Corpuscular Volume 107.0 H Mean Corpuscular Hemoglobin 32.9 Mean Corpuscular Hemoglobin Concent 30.7 L Red Cell Distribution Width 16.6 H Platelet Count 148 # Mean Platelet Volume 11.3 H Neutrophils % 74.4 Lymphocytes % 10.2 L Monocytes % 12.0 H Eosinophils % 2.5 Basophils % 0.4 Nucleated Red Blood Cells % 0.0 Neutrophils # 8.3 H Lymphocytes # 1.1 Monocytes # 1.4 H Eosinophils # 0.3 Basophils # 0.1 Nucleated Red Blood Cells # 0.0 Sodium Level 142 Potassium Level 5.4 #H Chloride Level 116 H Carbon Dioxide Level 18 L Anion Gap 13 Blood Urea Nitrogen 7 Creatinine 0.50 L Glucose Level 82 Calcium Level 7.5 L Phosphorus Level 2.0 L Magnesium Level 3.1 H Total Bilirubin 0.0 L Direct Bilirubin 0.00 Indirect Bilirubin 0.0 Aspartate Amino Transf (AST/SGOT) 46 Alanine Aminotransferase (ALT/SGPT) 35 Alkaline Phosphatase 184 H Total Protein 5.5 L Albumin 2.6 L Globulin 2.90 Albumin/Globulin Ratio 0.89 Blood Gas Specimen Source Blood arterial Arterial Blood Date Drawn 07/07/2016 7:26:06 AM Arterial Blood pH (Temp corrected) 7.329 L Arterial Blood pCO2 (Temp correct) 35.4 Arterial Blood pO2 (Temp corrected) 124.2 H Arterial Blood HCO3 18.2 L Arterial Blood Base Excess -6.9 L Arterial Blood Oxygen Saturation 98.2 H Kyle Test ACCEPTAB Arterial Blood Gas Puncture Site Right Radial Arterial Blood Carboxyhemoglobin 0.2 Arterial Blood Methemoglobin 0.4 Blood Gas A-a O2 Differential 84.2 H Oxyhemoglobin Percent 97.6 Total Hemoglobin 13.1 Blood Gas Temperature 37.0 Blood Gas Respiration Rate 20.0 Blood Gas Actual Respiration Rate 22 Blood Gas Modality VENT - AC FiO2 35.0 Blood Gas Tidal Volume 150.0 Blood Gas Low PEEP Setting 3.0 Blood Gas Notified Whom JLD Blood Gas Notified Time 07/07/2016 8:16:00 AM Medications Medications Current Medications Famotidine 10 mg 10 mg Q12 IV Last administered on 07/07/16 09:38; Admin Dose 10 MG; Start 07/05/16 at 09:00 Propofol 100 ml @ 0 mls/hr TITRATE IV Last administered on 07/07/16 09:38; Admin Dose 4 MLS/HR; Start 07/05/16 at 05:30 Multivitamins 10 ml/Thiamine HCl 100 mg/Folic Acid 1 mg/Sodium Chloride 1,011.2 ml @ 40 mls/hr DAILY@09 IVPB Last administered on 07/07/16 09:23; Admin Dose 40 MLS/HR; Start 07/06/16 at 09:00 Ceftriaxone Sodium 50 ml @ 100 mls/hr Q24H IVPB Last administered on 23:00; Admin Dose 100 MLS/HR; Start 07/05/16 at 23:00 Midazolam HCl 50 ml @ 1 mls/hr TITRATE IV Last administered on 07/07/16 10:21 ; Admin Dose 5 MLS/HR; Start 07/05/16 at 22:00 Fentanyl (Sublimaze) 100 ml @ 2.5 mls/hr TITRATE IV Last administered on 16:56; Admin Dose 1.5 MLS/HR; Start 07/06/16 at 15:00 IV Flush (NS 10 ml) 10 ml PRN PRN IV IV PROTOCOL; Start 07/06/16 at 16:30 Lorazepam (Ativan) 2 mg Q2 PRN IV AGITATION/ANXIETY Last administered on 13:00; Admin Dose 2 MG; Start 07/07/16 at 09:30 Morphine Sulfate (morphine) 2 mg Q2 PRN IV PAIN Last administered on 07/07/16 12:53; Admin Dose 2 MG; Start 07/07/16 at 09:30 Methylprednisolone Sodium Succinate (Solu-Medrol) 40 mg DAILY IV Last administered on 07/07/16 11:34; Admin Dose 40 MG; Start 07/07/16 at 11:00 DAVID HAMILTON Jul 07, 2016 14:36
[2016-07-07 17:03] LABS: AADO2 Arterial 76.1 mmHg (7.0-24.0); Arterial COHb 0.3 % (0.0-3.0); Arterial HCO3 18.5 mmol/L (22.0-26.0); Arterial MetHb 0.3 % (0.0-1.5); Arterial Total Hemglobin 10.1 g/dl (12.0-18.0); MODE VENT - AC
[2016-07-07] MEDS: CEFTRIAXONE 1 GM/50 ML (PMX) 50 ML IVPB SCH (23:35)
[2016-07-08] VITALS (57 sets, daily range): BP systolic 113–180; BP diastolic 64–158; PULSE 86–138; RESP 10–32
[2016-07-08] MEDS: morphine 2 MG INJ IV PRN ×6 (00:10→23:17)
--- NOTE | 2016-07-08 01:28 | RADRPT ---
PROCEDURE: XR Chest. CLINICAL INDICATION: Endotracheal intubation. TECHNIQUE: Single frontal view of the chest was obtained COMPARISON: Today, about 1 hour ago. FINDINGS: Endotracheal intubation is seen, with tip about 2 cm above the anton. Left central venous line is seen with tip in the right atrium superior vena cava junction, unchanged in position over interval. Nasogastric tube again seen coiled in the stomach. The heart and mediastinum are within normal limits. Improved aeration over interval. Lungs otherwise substantially clear. There is no pleural effusion or pneumothorax. Demineralization limits evaluation of fine osseous detail, and is compatible with systemic disease i n the 46-year-old male. Advanced degenerative changes in bilateral shoulders. IMPRESSION: Endotracheal intubation is seen, with tip about 2 cm above the anton. RPTAT: [facility] Physician Yohannes Date Time Electronically viewed and signed by Physician Yohannes on 07/08/2016 01:28 RS/
[2016-07-08] MEDS: IPRATROPIUM (HFA) 12.9 GM INHALER INH SCH ×6 (01:44→20:47)
[2016-07-08] MEDS: ALBUTEROL HFA 8 GM INHALER INH SCH ×6 (01:44→20:47)
[2016-07-08] MEDS: LORAZEPAM 2 MG INJ IV PRN ×6 (02:45→23:16)
[2016-07-08 05:49] LABS: ADD SCAN DIFF NO
[2016-07-08 06:08] LABS: BASOPHILS % 0.1 % (0.0-2.0); HEMOGLOBIN 9.6 g/dl (14.0-18.0); LYMPHOCYTES # 0.9 10^3/ul (0.8-2.9); LYMPHOCYTES % 9.9 % (15.0-51.0); MEAN CORPUSCULAR HEMOGLOBIN 32.9 pg (29.0-33.0); MEAN CORPUSCULAR VOLUME 106.2 fl (82.0-101.0); MEAN PLATELET VOLUME 10.9 fl (7.4-10.4); MONOCYTE # 1.3 10^3/ul (0.3-0.9); MONOCYTES % 13.9 % (0.0-11.0); NEUTROPHILS % 75.7 % (39.0-77.0); PLATELET COUNT 159 10^3/UL (140-415); RED BLOOD COUNT 2.92 10^6/ul (4.70-6.10); RED CELL DISTRIBUTION WIDTH 16.7 % (11.5-14.5); WHITE BLOOD COUNT 9.2 10^3/ul (4.8-10.8)
[2016-07-08 06:19] LABS: ALBUMIN 2.9 g/dl (3.3-4.9)
[2016-07-08 06:20] LABS: POTASSIUM 4.3 mmol/L (3.5-5.1)
[2016-07-08 06:22] LABS: ALBUMIN/GLOBULIN RATIO 0.87; CREATININE 0.55 mg/dl (0.61-1.24); TOTAL PROTEIN 6.2 g/dl (6.1-8.1)
[2016-07-08 06:23] LABS: CALCIUM 8.5 mg/dl (8.4-10.2)
[2016-07-08] MEDS: MIDAZOLAM (DRIP) 50 mg/50 mL 50 ML IV SCH ×2 (06:32→18:47)
--- NOTE | 2016-07-08 08:25 | RADRPT ---
PROCEDURE: Chest 1 views. CLINICAL INDICATION: Shortness of breath TECHNIQUE: AP views of the chest was obtained. COMPARISON: Yesterday FINDINGS: The heart is large. Endotracheal and nasogastric tubes appear stable. Left-sided PICC line is uncha nged. Central pulmonary vascular congestion and interstitial prominence in both lungs has developed . No consolidations are identified. No pneumothorax is seen. The lungs are hypoinflated. The oss eous structures are osteopenic and appear stable. Degenerative changes are seen in the shoulders. IMPRESSION: Cardiomegaly . Stable support lines and tubes. Interval development of central pulmonary vascular congestion and interstitial prominence in both karel ngs. Hypoinflated lungs. RPTAT: AA .Vince Baltazar MD, Date Time Electronically viewed and signed by .Vince Baltazar MD, on 07/08/2016 08:24 .P/
[2016-07-08 08:28] LABS: AADO2 Arterial 70.1 mmHg (7.0-24.0); Allen Test ACCEPTAB; Arterial Base Excess -4.2 mmol/L (-3.0-3); Arterial COHb 0.1 % (0.0-3.0); Arterial Fraction of Oxyhgb 97.9 % (93.0-99.0); Arterial HCO3 21.6 mmol/L (22.0-26.0); Arterial MetHb 0.4 % (0.0-1.5); Arterial Total Hemglobin 11.3 g/dl (12.0-18.0); MODE VENT - AC
[2016-07-08] MEDS: FAMOTIDINE 20 MG INJ IV SCH ×2 (08:35→20:59)
[2016-07-08] MEDS: METHYLPREDNISOLONE 40 MG INJ IV SCH ×3 (08:35→17:32)
--- NOTE | 2016-07-08 09:19 | CONS ---
Date/Time of Note Date/Time of Note DATE: 07/08/16 TIME: 09:14 Assessment/Plan Assessment/Plan Additional Assessment/Plan Chest x-ray was reviewed from today which is showing endotracheal tube at an adequate level. Bilateral mild pulmonary vascular congestion is present. Ventilator settings; AC of 20, tidal volume 150, PEEP of 3, 35% FiO2. Assessment recommendations; 1. Patient admitted with respiratory failure due to acute alcohol intoxication. 2. Mild metabolic acidosis with interval correction. 3. History of alcoholism. 4. Bilateral wheezing, likely exacerbated by recent URI. As well as some element of pulmonary edema. Change Solu-Medrol dosing to 10 mg IV every 6 hours from 40 mg daily. Give Lasix 20 mg IV push 1 now. Continue current ventilator setting. Start the patient on tube feeding. I did have a very detailed discussion the patient's parents at bedside and answered all their questions. If all goes well patient likely will warrant sedation vacation in 24 hours or less. Decrease IV fluids. Consultation Date/Type/Reason Admit Date/Time Jul 04, 2016 at 23:28 Initial Consult Date 07/05/16 Type of Consultation: Pulmonary/critical care 24 HR Interval Summary Free Text/Dictation Patient condition remains critical. Still requiring sedation with combination propofol and Versed drips. Patient also is having significant ventilator dyssynchrony yesterday which seems improved today. Patient however has remained hemodynamically stable. 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 Currently in no distress. Somewhat arousable. Exam/Review of Systems Vital Signs Vitals Vital Signs Date Time Temp Pulse Resp B/P Pulse Ox O2 Delivery O2 Flow Rate FiO2 07/08/16 06:00 113 21 127/99 100 Mechanical Ventilator 07/08/16 05:40 35 07/08/16 04:00 98.3 Intake and Output 07/07/16 07/07/16 07/08/16 15:00 23:00 07:00 Intake Total 393.6 ml 400.0 ml 543.6 ml Output Total 960 ml 555 ml 280 ml Balance -566.4 ml -155.0 ml 263.6 ml Exam HEENT examination; supple neck, no JVD. No lymphadenopathy. Midline trachea. No thyromegaly. Orally intubated. Pupils are midsize and reactive to light. Chest examination; patient is barrel chested. Bilateral wheezing. S1-S2 audible, no murmurs. Regular rhythm. Abdomen; soft, nontender. No organomegaly. Bowel sounds audible. Extremity exam; no peripheral edema. Pulses 1+ bilaterally. CHARGE OUT CLERK examination; patient is sedated. Results Result Diagram: 07/08/16 0510 07/08/16 0510 Results 24 hrs Laboratory Tests Test 07/07/16 16:40 07/08/16 05:10 07/08/16 07:00 Blood Gas Specimen Source Blood arterial Blood arterial Arterial Blood Date Drawn 07/07/2016 4:45:04 PM 07/08/2016 7:44:00 AM Arterial Blood pH (Temp corrected) 7.315 L 7.326 L Arterial Blood pCO2 (Temp correct) 37.1 42.2 Arterial Blood pO2 (Temp corrected) 130.3 H 130.4 H Arterial Blood HCO3 18.5 L 21.6 L Arterial Blood Base Excess -7.0 L -4.2 L Arterial Blood Oxygen Saturation 98.6 H 98.4 H Kyle Test N/A ACCEPTAB Arterial Blood Gas Puncture Site Right Radial Right Radial Arterial Blood Carboxyhemoglobin 0.3 0.1 Arterial Blood Methemoglobin 0.3 0.4 Blood Gas A-a O2 Differential 76.1 H 70.1 H Oxyhemoglobin Percent 98.0 97.9 Total Hemoglobin 10.1 L 11.3 L Blood Gas Temperature 37.0 37.0 Blood Gas Respiration Rate 20.0 20.0 Blood Gas Actual Respiration Rate 28 20 Blood Gas Modality VENT - AC VENT - AC FiO2 35.0 35.0 Blood Gas Tidal Volume 150.0 150.0 Blood Gas Low PEEP Setting 3.0 5.0 Blood Gas Notified Whom DELTA NAM Blood Gas Notified Time 07/07/2016 5:02:27 PM 07/08/2016 8:16:00 AM White Blood Count 9.2 Red Blood Count 2.92 L Hemoglobin 9.6 L Hematocrit 31.0 L Mean Corpuscular Volume 106.2 H Mean Corpuscular Hemoglobin 32.9 Mean Corpuscular Hemoglobin Concent 31.0 L Red Cell Distribution Width 16.7 H Platelet Count 159 Mean Platelet Volume 10.9 H Neutrophils % 75.7 Lymphocytes % 9.9 L Monocytes % 13.9 H Eosinophils % 0.0 Basophils % 0.1 Nucleated Red Blood Cells % 0.0 Neutrophils # 7.0 Lymphocytes # 0.9 Monocytes # 1.3 H Eosinophils # 0.0 Basophils # 0.0 Nucleated Red Blood Cells # 0.0 Sodium Level 143 Potassium Level 4.3 Chloride Level 110 Carbon Dioxide Level 23 Anion Gap 14 Blood Urea Nitrogen 8 Creatinine 0.55 L Glucose Level 83 Calcium Level 8.5 Magnesium Level 2.0 # Total Bilirubin 0.0 L Direct Bilirubin 0.00 Indirect Bilirubin 0.0 Aspartate Amino Transf (AST/SGOT) 40 Alanine Aminotransferase (ALT/SGPT) 35 Alkaline Phosphatase 155 H Total Protein 6.2 Albumin 2.9 L Globulin 3.30 H Albumin/Globulin Ratio 0.87 Medications Medications Current Medications Famotidine 10 mg 10 mg Q12 IV Last administered on 07/08/16 08:35; Admin Dose 10 MG; Start 07/05/16 at 09:00 Multivitamins 10 ml/Thiamine HCl 100 mg/Folic Acid 1 mg/Sodium Chloride 1,011.2 ml @ 40 mls/hr DAILY@09 IVPB Last administered on 07/07/16 09:23; Admin Dose 40 MLS/HR; Start 07/06/16 at 09:00 Ceftriaxone Sodium 50 ml @ 100 mls/hr Q24H IVPB Last administered on 23:35; Admin Dose 100 MLS/HR; Start 07/05/16 at 23:00 Midazolam HCl (Versed) 50 ml @ 1 mls/hr TITRATE IV Last administered on 06:32; Admin Dose 5 MLS/HR; Start 07/05/16 at 22:00 IV Flush (NS 10 ml) 10 ml PRN PRN IV IV PROTOCOL; Start 07/06/16 at 16:30 Lorazepam (Ativan) 2 mg Q2 PRN IV AGITATION/ANXIETY Last administered on 08:36; Admin Dose 2 MG; Start 07/07/16 at 09:30 Morphine Sulfate (morphine) 2 mg Q2 PRN IV PAIN Last administered on 07/08/16 00:10; Admin Dose 2 MG; Start 07/07/16 at 09:30 Methylprednisolone Sodium Succinate 40 mg 40 mg DAILY IV Last administered on 08:35; Admin Dose 40 MG; Start 07/07/16 at 11:00 Fentanyl 100 ml @ 2.5 mls/hr TITRATE IV ; Start 07/07/16 at 18:00 Propofol (Diprivan) 100 ml @ 0.48 mls/hr TITRATE IV Last administered on t 21:50; Admin Dose 4.8 MLS/HR; Start 07/07/16 at 21:48 JAMEL GALDAMEZ Jul 08, 2016 09:19
[2016-07-08] MEDS ORDERED: FUROSEMIDE 20 MG INJ IV ONE (09:30)
[2016-07-08] MEDS: PROPOFOL 100 ML IV SCH (10:48)
--- NOTE | 2016-07-08 11:14 | PN ---
Date/Time of Note Date/Time of Note DATE: 07/08/16 TIME: 11:12 Assessment/Plan VTE Prophylaxis VTE Prophylaxis Intervention: other Assessment/Plan Chief Complaint/Hosp Course 1) Acute respiratory failure, requiring reintubation, due to Alcohol Intoxication and possibly polysubstance Overdose (pain meds) -Continue to monitor in the ICU -Musculoskeletal Physiotherapist on the case, continue vent management -cont Steroids for wheezing 2) Severe sepsis due to Urinary Tract Infection with elevated Lactic Acid and Altered Mental Status -Continue broad-spectrum IV antibiotics - Carefully monitor Is and Os. 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 Interval Summary Subjective hx not possible: pt non-verbal Exam/Review of Systems Vital Signs Vitals Vital Signs Date Time Temp Pulse Resp B/P Pulse Ox O2 Delivery O2 Flow Rate FiO2 07/08/16 06:00 113 21 127/99 100 Mechanical Ventilator 07/08/16 05:40 35 07/08/16 04:00 98.3 Intake and Output 07/07/16 07/07/16 07/08/16 15:00 23:00 07:00 Intake Total 393.6 ml 400.0 ml 543.6 ml Output Total 960 ml 555 ml 280 ml Balance -566.4 ml -155.0 ml 263.6 ml Exam Constitutional: non-verbal ENMT: intubated Respiratory: wheezing Cardiovascular: regular rate and rhythm Gastrointestinal: soft, No distended Musculoskeletal: nl extremities to inspection Results Result Diagram: 07/08/16 0510 07/08/16 0510 Results 24 hrs Laboratory Tests Test 07/07/16 16:40 07/08/16 05:10 07/08/16 07:00 Blood Gas Specimen Source Blood arterial Blood arterial Arterial Blood Date Drawn 07/07/2016 4:45:04 PM 07/08/2016 7:44:00 AM Arterial Blood pH (Temp corrected) 7.315 L 7.326 L Arterial Blood pCO2 (Temp correct) 37.1 42.2 Arterial Blood pO2 (Temp corrected) 130.3 H 130.4 H Arterial Blood HCO3 18.5 L 21.6 L Arterial Blood Base Excess -7.0 L -4.2 L Arterial Blood Oxygen Saturation 98.6 H 98.4 H Kyle Test N/A ACCEPTAB Arterial Blood Gas Puncture Site Right Radial Right Radial Arterial Blood Carboxyhemoglobin 0.3 0.1 Arterial Blood Methemoglobin 0.3 0.4 Blood Gas A-a O2 Differential 76.1 H 70.1 H Oxyhemoglobin Percent 98.0 97.9 Total Hemoglobin 10.1 L 11.3 L Blood Gas Temperature 37.0 37.0 Blood Gas Respiration Rate 20.0 20.0 Blood Gas Actual Respiration Rate 28 20 Blood Gas Modality VENT - AC VENT - AC FiO2 35.0 35.0 Blood Gas Tidal Volume 150.0 150.0 Blood Gas Low PEEP Setting 3.0 5.0 Blood Gas Notified Whom DELTA NAM Blood Gas Notified Time 07/07/2016 5:02:27 PM 07/08/2016 8:16:00 AM White Blood Count 9.2 Red Blood Count 2.92 L Hemoglobin 9.6 L Hematocrit 31.0 L Mean Corpuscular Volume 106.2 H Mean Corpuscular Hemoglobin 32.9 Mean Corpuscular Hemoglobin Concent 31.0 L Red Cell Distribution Width 16.7 H Platelet Count 159 Mean Platelet Volume 10.9 H Neutrophils % 75.7 Lymphocytes % 9.9 L Monocytes % 13.9 H Eosinophils % 0.0 Basophils % 0.1 Nucleated Red Blood Cells % 0.0 Neutrophils # 7.0 Lymphocytes # 0.9 Monocytes # 1.3 H Eosinophils # 0.0 Basophils # 0.0 Nucleated Red Blood Cells # 0.0 Sodium Level 143 Potassium Level 4.3 Chloride Level 110 Carbon Dioxide Level 23 Anion Gap 14 Blood Urea Nitrogen 8 Creatinine 0.55 L Glucose Level 83 Calcium Level 8.5 Magnesium Level 2.0 # Total Bilirubin 0.0 L Direct Bilirubin 0.00 Indirect Bilirubin 0.0 Aspartate Amino Transf (AST/SGOT) 40 Alanine Aminotransferase (ALT/SGPT) 35 Alkaline Phosphatase 155 H Total Protein 6.2 Albumin 2.9 L Globulin 3.30 H Albumin/Globulin Ratio 0.87 Medications Medications Current Medications Famotidine 10 mg 10 mg Q12 IV Last administered on 07/08/16t 08:35; Admin Dose 10 MG; Start 07/05/16 at 09:00 Multivitamins 10 ml/Thiamine HCl 100 mg/Folic Acid 1 mg/Sodium Chloride 1,011.2 ml @ 40 mls/hr DAILY@09 IVPB Last administered on 07/07/16 09:23; Admin Dose 40 MLS/HR; Start 07/06/16 at 09:00 Ceftriaxone Sodium 50 ml @ 100 mls/hr Q24H IVPB Last administered on 23:35; Admin Dose 100 MLS/HR; Start 07/05/16 at 23:00 Midazolam HCl (Versed) 50 ml @ 1 mls/hr TITRATE IV Last administered on 06:32; Admin Dose 5 MLS/HR; Start 07/05/16 at 22:00 IV Flush (NS 10 ml) 10 ml PRN PRN IV IV PROTOCOL; Start 07/06/16 at 16:30 Lorazepam (Ativan) 2 mg Q2 PRN IV AGITATION/ANXIETY Last administered on 08:36; Admin Dose 2 MG; Start 07/07/16 at 09:30 Morphine Sulfate 2 mg 2 mg Q2 PRN IV PAIN Last administered on 07/08/16 09:34 ; Admin Dose 2 MG; Start 07/07/16 at 09:30 Fentanyl 100 ml @ 2.5 mls/hr TITRATE IV ; Start 07/07/16 at 18:00 Propofol (Diprivan) 100 ml @ 0.48 mls/hr TITRATE IV Last administered on 10:48; Admin Dose 4.8 MLS/HR; Start 07/07/16 at 21:48 Methylprednisolone Sodium Succinate (Solu-Medrol) 10 mg Q6 IV ; Start 07/08/16 at 12:00 DAVID HAMILTON Jul 08, 2016 11:14
[2016-07-08] MEDS: MULTIVITAMINS 10 ML, THIAMINE 100 MG, FOLIC ACID 1 MG in SOD CHLORIDE 0.9% 1,000 ML IVPB SCH (15:30)
--- NOTE | 2016-07-08 17:28 | PN ---
DATE: Family conference was done with patient's mother and father and friend/agent. We covered his trino t medical condition at this time and gave family members a reasonable idea of what the course of the rapy would be primarily as he improves from an overall neurological standpoint. Hopefully, he will tolerate being extubated at some time down in his clinical course. Family also asked about long-ter care and outpatient services he may require in the future, especially related to his alcohol consu mption. We told them we will address that issue and make recommendations as the hospitalization pro ceeds. Dictated By: SERAFIN JAY MD LP/OMAYRA Conf#: [id number] DID#: [id number]
[2016-07-08] MEDS: CEFTRIAXONE 1 GM/50 ML (PMX) 50 ML IVPB SCH (23:29)
[2016-07-09] VITALS (48 sets, daily range): BP systolic 85–173; BP diastolic 57–128; PULSE 75–147; RESP 13–26
[2016-07-09] MEDS ORDERED: SUCCINYLCHOLINE CHLORIDE 100 MG/5 ML SYG IV ONE
[2016-07-09] MEDS ORDERED: ETOMIDATE 20 MG INJ ONE
[2016-07-09] MEDS: METHYLPREDNISOLONE 40 MG INJ IV SCH ×5 (00:25→23:43)
[2016-07-09] MEDS: IPRATROPIUM (HFA) 12.9 GM INHALER INH SCH ×6 (01:40→20:16)
[2016-07-09] MEDS: ALBUTEROL HFA 8 GM INHALER INH SCH ×6 (01:40→20:16)
[2016-07-09] MEDS: morphine 2 MG INJ IV PRN ×5 (03:29→23:15)
[2016-07-09] MEDS: LORAZEPAM 2 MG INJ IV PRN ×7 (03:29→23:14)
[2016-07-09 05:35] LABS: ADD SCAN DIFF NO
[2016-07-09 05:52] LABS: ABNORMAL IP MESSAGE 1; HEMATOCRIT 31.3 % (42.0-52.0); HEMOGLOBIN 9.7 g/dl (14.0-18.0); LYMPHOCYTES # 0.2 10^3/ul (0.8-2.9); LYMPHOCYTES % 3.3 % (15.0-51.0); MEAN CORPUSCULAR HEMOGLOBIN 32.6 pg (29.0-33.0); MEAN PLATELET VOLUME 11.3 fl (7.4-10.4); MONOCYTE # 0.4 10^3/ul (0.3-0.9); NEUTROPHIL # 6.7 10^3/ul (1.6-7.5); NEUTROPHILS % 91.3 % (39.0-77.0); PLATELET COUNT 179 10^3/UL (140-415); RED BLOOD COUNT 2.98 10^6/ul (4.70-6.10); RED CELL DISTRIBUTION WIDTH 16.4 % (11.5-14.5); WHITE BLOOD COUNT 7.4 10^3/ul (4.8-10.8)
[2016-07-09 06:03] LABS: CHOL/HDL RATIO 3.3 RATIO; MAGNESIUM 1.8 mg/dl (1.7-2.5); PHOSPHORUS 3.3 mg/dl (2.5-4.9)
[2016-07-09] MEDS: PROPOFOL 100 ML IV SCH ×2 (06:14→22:30)
[2016-07-09] MEDS: MIDAZOLAM (DRIP) 50 mg/50 mL 50 ML IV SCH ×2 (06:52→18:38)
[2016-07-09] MEDS: FAMOTIDINE 20 MG INJ IV SCH ×2 (08:48→20:51)
--- NOTE | 2016-07-09 09:21 | PN ---
DATE: 07/09/2016 PALLIATIVE CARE PROGRESS NOTE SUBJECTIVE: Pulmonary specialists are planning on trying to wean patient today from the ventilator. Family members are at the bedside. They are very supportive. They have been speaking to Mr. Buzz villalta. Hopefully they will be successful today in tapering him down off sedation. OBJECTIVE: VITAL SIGNS: Blood pressure 95/66, pulse 105 and regular, respirations of 20, temperature of 98.5 d egrees, 98% saturation on 30% FIO2. CHEST: Shows bilateral wet crackles, both bases. COR: S1, S2, regular rate and rhythm on examination. EXTREMITIES: Without clubbing, cyanosis, or edema. LABORATORY DATA: Pending except white blood cell count of 7.4, hemoglobin 9.7, hematocrit of 31.3, platelet count 179,000. ASSESSMENT AND PLAN: Per pulmonary recommendations, my job will be to continue to support the patie nt and help if this gentleman has any withdrawal symptoms from alcohol consumption. I believe we ar e past that time, although DTs can occur up to 1 week after patient has discontinued alcohol consump tion. Therefore, the patient is still relatively high risk. Dictated By: SERAFIN JAY MD LP/NTS Conf#: [id number] DID#: [id number]
--- NOTE | 2016-07-09 09:32 | CONS ---
Date/Time of Note Date/Time of Note DATE: 07/09/16 TIME: 09:29 Assessment/Plan Assessment/Plan Additional Assessment/Plan Ventilator settings; AC of 20, tidal volume 150, PEEP of 3, 30% FiO2. Assessment recommendations; 1. Patient admitted with acute alcohol intoxication leading to respiratory failure. 2. Recent upper respiratory tract infection with bilateral wheezing with significant resolution after patient started on Solu-Medrol as well as given 1 dose of Lasix yesterday. 3. Patient has remained hemodynamically stable. 4. Marked improvement in mental status. Continue CPAP mode for the next 15-20 minutes. Obtain a blood gas. if the ABG is adequate, patient would warrant an extubation trial. I did have a detailed discussion with the patient's parents at bedside and answered all their questions. Consultation Date/Type/Reason Admit Date/Time Jul 04, 2016 at 23:28 Initial Consult Date 07/05/16 Type of Consultation: Pulmonary/critical care 24 HR Interval Summary Free Text/Dictation Patient condition remains critical but stable. Patient had been taken off sedation short while ago and is completely awake and alert. Also has been switched over to CPAP mode at bedside and currently has good weaning parameters. There is marked improvement in patient's agitation. 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 Currently in no distress Exam/Review of Systems Vital Signs Vitals Vital Signs Date Time Temp Pulse Resp B/P Pulse Ox O2 Delivery O2 Flow Rate FiO2 07/09/16 08:00 88 07/09/16 06:30 20 95/66 98 07/09/16 05:30 30 07/09/16 04:00 98.5 07/08/16 20:00 Mechanical Ventilator Intake and Output 07/08/16 07/08/16 07/09/16 15:00 23:00 07:00 Intake Total 149.0 ml 198.6 ml Output Total 430 ml 190 ml 255 ml Balance -430 ml -41.0 ml -56.4 ml Exam HEENT exam; supple neck, or intubated. No lymphadenopathy. No neck masses. Pupils are small bilaterally. Patient has fair dentition. Chest examination; clear to auscultation bilaterally. S1-S2 audible, no murmurs. Regular rhythm. Abdomen examination; soft, nontender. No organomegaly. Bowel sounds. Extremity examination; no peripheral edema. Pulses 1+ bilaterally. PERSONNEL ASSOCIATE examination; patient is awake and follows simple commands. Results Result Diagram: 07/09/16 0415 07/08/16 0510 Results 24 hrs Laboratory Tests Test 07/09/16 04:15 White Blood Count 7.4 Red Blood Count 2.98 L Hemoglobin 9.7 L Hematocrit 31.3 L Mean Corpuscular Volume 105.0 H Mean Corpuscular Hemoglobin 32.6 Mean Corpuscular Hemoglobin Concent 31.0 L Red Cell Distribution Width 16.4 H Platelet Count 179 Mean Platelet Volume 11.3 H Neutrophils % 91.3 H Lymphocytes % 3.3 L Monocytes % 5.0 Eosinophils % 0.0 Basophils % 0.0 Nucleated Red Blood Cells % 0.0 Neutrophils # 6.7 Lymphocytes # 0.2 L Monocytes # 0.4 Eosinophils # 0.0 Basophils # 0.0 Nucleated Red Blood Cells # 0.0 Phosphorus Level 3.3 Magnesium Level 1.8 Triglycerides Level 143 Cholesterol Level 173 LDL Cholesterol, Calculated 92 HDL Cholesterol 52 Cholesterol/HDL Ratio 3.3 Medications Medications Current Medications Famotidine 10 mg 10 mg Q12 IV Last administered on 07/09/16 08:48; Admin Dose 10 MG; Start 07/05/16 at 09:00 Multivitamins 10 ml/Thiamine HCl 100 mg/Folic Acid 1 mg/Sodium Chloride 1,011.2 ml @ 20 mls/hr DAILY@09 IVPB Last administered on 07/08/16 15:30; Admin Dose 40 MLS/HR; Start 07/06/16 at 09:00 Ceftriaxone Sodium 50 ml @ 100 mls/hr Q24H IVPB Last administered on 23:29; Admin Dose 100 MLS/HR; Start 07/05/16 at 23:00 Midazolam HCl (Versed) 50 ml @ 1 mls/hr TITRATE IV Last administered on 06:52; Admin Dose 5 MLS/HR; Start 07/05/16 at 22:00 IV Flush (NS 10 ml) 10 ml PRN PRN IV IV PROTOCOL; Start 07/06/16 at 16:30 Lorazepam (Ativan) 2 mg Q2 PRN IV AGITATION/ANXIETY Last administered on 05:45; Admin Dose 2 MG; Start 07/07/16 at 09:30 Morphine Sulfate 2 mg 2 mg Q2 PRN IV PAIN Last administered on 07/09/16 05:45 ; Admin Dose 2 MG; Start 07/07/16 at 09:30 Fentanyl 100 ml @ 2.5 mls/hr TITRATE IV ; Start 07/07/16 at 18:00 Propofol (Diprivan) 100 ml @ 0.48 mls/hr TITRATE IV Last administered on 06:14; Admin Dose 4.8 MLS/HR; Start 07/07/16 at 21:48 Methylprednisolone Sodium Succinate (Solu-Medrol) 10 mg Q6 IV Last administered on 07/09/16 05:10; Admin Dose 10 MG; Start 07/08/16 at 12:00 JAMEL GALDAMEZ Jul 09, 2016 09:32
[2016-07-09 10:02] LABS: Allen Test ACCEPTAB; Arterial Base Excess -0.4 mmol/L (-3.0-3); Arterial COHb 0.3 % (0.0-3.0); Arterial Fraction of Oxyhgb 94.2 % (93.0-99.0); Arterial HCO3 25.4 mmol/L (22.0-26.0); Arterial MetHb 0.2 % (0.0-1.5); Arterial Total Hemglobin 11.6 g/dl (12.0-18.0); Blood Gas PS 8; MODE VENT - CPAP
--- NOTE | 2016-07-09 11:19 | EN ---
Date/Time of Note Date/Time of Note DATE: 07/09/16 TIME: 11:18 ER Progress Note I was called to this patient's bedside on behalf of his manager life sciences for intubation. Upon my arrival, patient had bag valve mask assist of spontaneous respirations maintaining saturations at approximately 95%. History available from the manager life sciences. Patient had multiple secretions was encephalopathic and was unable to breathe without assistance. Decision was made to intubate. Endotracheal Intubation by me: Pre assessment performed. See preceding note for details. Pre-oxygenation performed with 100% oxygen RSI: Performed w/o complication or hypoxic events. Medications as ordered. Intubation confirmed by colorimetric CO2, equal breath sounds, quiet over the stomach. AKIKO RODRÍGUEZ Jul 09, 2016 11:19
[2016-07-09 12:04] LABS: AADO2 Arterial 261.4 mmHg (7.0-24.0); Allen Test ACCEPTAB; Arterial COHb 0.1 % (0.0-3.0); Arterial HCO3 25.9 mmol/L (22.0-26.0); Arterial MetHb 0.4 % (0.0-1.5); MODE VENT - AC
--- NOTE | 2016-07-09 12:26 | RADRPT ---
PROCEDURE: Chest Radiograph. CLINICAL INDICATION: Intubation TECHNIQUE: Single frontal chest radiograph. COMPARISON: Chest radiograph 07/08/2016 FINDINGS: An endotracheal tube is in place with distal tip in the right mainstem bronchus. There has been int erval removal of a nasogastric tube. A left upper extremity PICC is in place.. The heart is magnif ied. Lung volumes are moderately decreased.. There is persistent interstitial prominence which ma y represent pulmonary edema. There is severe degenerative change of the bilateral shoulders with cobb ggested erosions which are stable. IMPRESSION: 1. Right mainstem intubation. Recommend retraction of endotracheal tube by approximately 3 cm. 2. Stable interstitial prominence which may represent pulmonary edema. Call report: A call report was made to patient's RN Zain at approximately 12:25 p.m. on 07/09/2016. RPTAT: KK .Toney Hoff MD, MD Date Time Electronically viewed and signed by .Toney Hoff MD, on 07/09/2016 12:26 .B/
--- NOTE | 2016-07-09 17:43 | PN ---
Date/Time of Note Date/Time of Note DATE: 07/09/16 TIME: 17:42 Assessment/Plan VTE Prophylaxis VTE Prophylaxis Intervention: other Assessment/Plan Chief Complaint/Hosp Course 1) Acute respiratory failure, requiring reintubation, due to Alcohol withdrawl -Continue to monitor in the ICU -Corporate Legal Manager on the case, continue vent management -cont Steroids for wheezing 2) Severe sepsis due to Urinary Tract Infection with elevated Lactic Acid and Altered Mental Status -Continue broad-spectrum IV antibiotics - Carefully monitor Is and Os. 3) Acute cystitis - Rocephin and Vancomycin - Pediatric Dosing 4) Alcohol overdose - Monitor for signs of withdrawal once he is out of sedation -Start banana bag 5) Possible suicide threat or attempt - Cinder Worker Consult and/or Psychiatric evaluation prior to discharge 6) Achondroplastic Dwarfism Problems: Subjective 24 Hr Interval Summary Subjective hx not possible: pt non-verbal Exam/Review of Systems Vital Signs Vitals Vital Signs Date Time Temp Pulse Resp B/P Pulse Ox O2 Delivery O2 Flow Rate FiO2 07/09/16 17:00 88 19 100/71 100 Mechanical Ventilator 07/09/16 16:00 98.0 07/09/16 15:30 60 Intake and Output 07/08/16 07/08/16 07/09/16 15:00 23:00 07:00 Intake Total 149.0 ml 198.6 ml Output Total 430 ml 190 ml 255 ml Balance -430 ml -41.0 ml -56.4 ml Exam Constitutional: non-verbal ENMT: intubated Respiratory: clear to auscultation Cardiovascular: regular rate and rhythm Gastrointestinal: soft, No distended Musculoskeletal: nl extremities to inspection Results Result Diagram: 07/09/16 0415 07/08/16 0510 Results 24 hrs Laboratory Tests Test 07/09/16 04:15 07/09/16 10:00 07/09/16 11:25 White Blood Count 7.4 Red Blood Count 2.98 L Hemoglobin 9.7 L Hematocrit 31.3 L Mean Corpuscular Volume 105.0 H Mean Corpuscular Hemoglobin 32.6 Mean Corpuscular Hemoglobin Concent 31.0 L Red Cell Distribution Width 16.4 H Platelet Count 179 Mean Platelet Volume 11.3 H Neutrophils % 91.3 H Lymphocytes % 3.3 L Monocytes % 5.0 Eosinophils % 0.0 Basophils % 0.0 Nucleated Red Blood Cells % 0.0 Neutrophils # 6.7 Lymphocytes # 0.2 L Monocytes # 0.4 Eosinophils # 0.0 Basophils # 0.0 Nucleated Red Blood Cells # 0.0 Phosphorus Level 3.3 Magnesium Level 1.8 Triglycerides Level 143 Cholesterol Level 173 LDL Cholesterol, Calculated 92 HDL Cholesterol 52 Cholesterol/HDL Ratio 3.3 Blood Gas Specimen Source Blood arterial Blood arterial Arterial Blood Date Drawn 07/09/2016 9:50:08 AM 07/09/2016 11:50:47 AM Arterial Blood pH (Temp corrected) 7.356 7.253 *L Arterial Blood pCO2 (Temp correct) 46.4 H 60.0 H Arterial Blood pO2 (Temp corrected) 78.4 L 100.4 H Arterial Blood HCO3 25.4 25.9 Arterial Blood Base Excess -0.4 -2.0 Arterial Blood Oxygen Saturation 94.7 L 96.5 Kyle Test ACCEPTAB ACCEPTAB Arterial Blood Gas Puncture Site Right Radial Right Radial Arterial Blood Carboxyhemoglobin 0.3 0.1 Arterial Blood Methemoglobin 0.2 0.4 Blood Gas A-a O2 Differential 81.0 H 261.4 H Oxyhemoglobin Percent 94.2 96.0 Total Hemoglobin 11.6 L 11.0 L Blood Gas Temperature 37.0 37.0 Blood Gas Actual Respiration Rate 27 25 Blood Gas Modality VENT - CPAP VENT - AC FiO2 30.0 60.0 Blood Gas Low PEEP Setting 5.0 3.0 Blood Gas Pressure Support 8 Blood Gas Notified Whom CYRIL NAM Blood Gas Notified Time 07/09/2016 10:02:42 AM 07/09/2016 12:03:53 PM Blood Gas Respiration Rate 20.0 Blood Gas Tidal Volume 150.0 Blood Gas Critical Value Read Back A NATALIE GAMEZ Medications Medications Current Medications Famotidine 10 mg 10 mg Q12 IV Last administered on 07/09/16 08:48; Admin Dose 10 MG; Start 07/05/16 at 09:00 Multivitamins 10 ml/Thiamine HCl 100 mg/Folic Acid 1 mg/Sodium Chloride 1,011.2 ml @ 20 mls/hr DAILY@09 IVPB Last administered on 07/08/16 15:30; Admin Dose 40 MLS/HR; Start 07/06/16 at 09:00 Ceftriaxone Sodium 50 ml @ 100 mls/hr Q24H IVPB Last administered on 23:29; Admin Dose 100 MLS/HR; Start 07/05/16 at 23:00 Midazolam HCl (Versed) 50 ml @ 1 mls/hr TITRATE IV Last administered on 06:52; Admin Dose 5 MLS/HR; Start 07/05/16 at 22:00 IV Flush (NS 10 ml) 10 ml PRN PRN IV IV PROTOCOL; Start 07/06/16 at 16:30 Lorazepam (Ativan) 2 mg Q2 PRN IV AGITATION/ANXIETY Last administered on 17:31; Admin Dose 2 MG; Start 07/07/16 at 09:30 Morphine Sulfate 2 mg 2 mg Q2 PRN IV PAIN Last administered on 07/09/16 12:46 ; Admin Dose 2 MG; Start 07/07/16 at 09:30 Fentanyl 100 ml @ 2.5 mls/hr TITRATE IV ; Start 07/07/16 at 18:00 Propofol (Diprivan) 100 ml @ 0.48 mls/hr TITRATE IV Last administered on 06:14; Admin Dose 4.8 MLS/HR; Start 07/07/16 at 21:48 Methylprednisolone Sodium Succinate (Solu-Medrol) 10 mg Q6 IV Last administered on 07/09/16 12:17; Admin Dose 10 MG; Start 07/08/16 at 12:00 DAVID HAMILTON Jul 09, 2016 17:43
--- NOTE | 2016-07-09 18:08 | RADRPT ---
PROCEDURE: Chest Radiograph. CLINICAL INDICATION: Nasogastric tube placement TECHNIQUE: Single frontal chest radiograph. COMPARISON: Chest radiograph 07/09/2016 FINDINGS: There has been interval retraction of the endotracheal tube is now approximately 5 mm above the angelita na. A left upper extremity PICC remains in place. There has been interval placement of a nasogastr ic tube with distal tip coursing below the inferior portions of the image, presumably within the sto mach. The cardiomediastinal silhouette remains magnified. There is a stable interstitial prominence without focal infiltrate or effusion. The bones are intact. IMPRESSION: 1. Interval placement nasogastric tube coursing below the inferior portions of the image, presumabl y within the stomach. 2. Interval retraction of endotracheal tube. The tip is now 5 mm above the anton. RPTAT: HJBF .Toney Hoff MD, Date Time Electronically viewed and signed by .Toney Hoff MD, on 07/09/2016 18:08 .B/
--- NOTE | 2016-07-09 20:28 | RADRPT ---
PROCEDURE: XR Chest. CLINICAL INDICATION: Orogastric tube placement. TECHNIQUE: Single frontal view of the chest was obtained COMPARISON: Chest x-ray 07/09/2016 0539 hours. FINDINGS: The soft tissues are normal. There are osteophytes in the thoracic and lumbar spine. There are deg enerative changes of the left hip with narrowing of the left hip joint. There is a endotracheal tub e 5 mm above the anton. A PICC line catheter enters the left arm with its tip in the right atrium. The heart is enlarged. The cardiomediastinal silhouette and hilar structures are normal. The pulm onary vasculature is poorly visualized secondary to mixed vascular crowding and atelectasis in the l ungs which as worsened slightly as compared to 05:39 p.m. earlier this same date. No pleural effusio n is noted. IMPRESSION: 1. The endotracheal tube should be withdrawn about 2 cm for better positioning. As a currently rest s about 5 the 10 ml above the anton. 2. The male to orogastric tube wrist distal to the GE junction in the antrum or duodenal portion of the bowel. 3. Suboptimal inspiratory effort with vascular crowding compressive atelectasis in the lungs. Subs egmental atelectasis in the medial aspect of the right lower lobe. 4. Spondylosis of the thoracic and lumbar spine with degenerative changes in joint space narrowing involving the left hip. 5. PICC line catheter entering the left arm with its tip in the right atrium. RPTAT:AAJJ Physician Farrukh Date Time Electronically viewed and signed by Physician Farrukh on 07/09/2016 20:28 SABRINA/
[2016-07-09] MEDS: CEFTRIAXONE 1 GM/50 ML (PMX) 50 ML IVPB SCH (23:14)
[2016-07-10] VITALS (37 sets, daily range): BP systolic 87–122; BP diastolic 61–91; PULSE 83–129; RESP 10–28
[2016-07-10] MEDS: FENTAnyl (DRIP) 1000 mcg/100mL 100 ML IV SCH (00:08)
[2016-07-10] MEDS: ALBUTEROL HFA 8 GM INHALER INH SCH ×6 (01:22→21:44)
[2016-07-10] MEDS: IPRATROPIUM (HFA) 12.9 GM INHALER INH SCH ×6 (01:22→21:44)
[2016-07-10] MEDS: LORAZEPAM 2 MG INJ IV PRN ×3 (03:02→23:50)
[2016-07-10 04:29] LABS: ADD SCAN DIFF NO
[2016-07-10 04:46] LABS: ABNORMAL IP MESSAGE 1; HEMATOCRIT 31.5 % (42.0-52.0); HEMOGLOBIN 9.7 g/dl (14.0-18.0); MEAN CORPUSCULAR HEMOGLOBIN 32.8 pg (29.0-33.0); MEAN CORPUSCULAR HGB CONC 30.8 g/dl (32.0-37.0); MEAN CORPUSCULAR VOLUME 106.4 fl (82.0-101.0); MEAN PLATELET VOLUME 11.1 fl (7.4-10.4); PLATELET COUNT 196 10^3/UL (140-415); RED BLOOD COUNT 2.96 10^6/ul (4.70-6.10); RED CELL DISTRIBUTION WIDTH 16.5 % (11.5-14.5); WHITE BLOOD COUNT 21.9 10^3/ul (4.8-10.8)
[2016-07-10 04:52] LABS: POTASSIUM 3.3 mmol/L (3.5-5.1)
[2016-07-10 04:54] LABS: CREATININE 0.49 mg/dl (0.61-1.24)
[2016-07-10 04:55] LABS: CALCIUM 8.8 mg/dl (8.4-10.2)
[2016-07-10 05:40] LABS: LYMPHOCYTES # 0.7 10^3/ul (0.8-2.9); MONOCYTE # 0.9 10^3/ul (0.3-0.9); NEUTROPHIL # 19.5 10^3/ul (1.6-7.5)
[2016-07-10] MEDS: METHYLPREDNISOLONE 40 MG INJ IV SCH ×4 (05:46→23:17)
[2016-07-10] MEDS: MIDAZOLAM (DRIP) 50 mg/50 mL 50 ML IV SCH ×3 (05:46→22:20)
[2016-07-10] MEDS: MULTIVITAMINS 10 ML, THIAMINE 100 MG, FOLIC ACID 1 MG in SOD CHLORIDE 0.9% 1,000 ML IVPB SCH (05:47)
--- NOTE | 2016-07-10 07:42 | RADRPT ---
PROCEDURE: XR Chest. CLINICAL INDICATION: Resp status TECHNIQUE: Single frontal view of the chest was obtained. COMPARISON: Chest x-ray from 07/09/2016 at 20:20 hours FINDINGS: The endotracheal tube is unchanged in position. A Dobbhoff catheter is again noted with its tip now in the gastric body. A left-sided PICC line is again noted. There is stable cardiomegaly and low lung volumes with stable prominence of interstitial markings, l ikely due to a combination of congestive changes and vascular crowding. Medial right basilar atelectasis versus infiltrate is again noted. There is no significant pleural effusion or pneumothorax. IMPRESSION: Interval repositioning of the Dobbhoff catheter with its tip now in the gastric body. Stable position of the endotracheal tube and left-sided PICC line. Stable cardiomegaly and low lung volumes with stable prominence of interstitial markings, likely due to a combination of congestive changes and vascular crowding. Stable medial right basilar atelectasis versus infiltrate. RPTAT: EE Physician Xander Date Time Electronically viewed and signed by Physician Xander on 07/10/2016 07:41 /
[2016-07-10] MEDS: PROPOFOL 100 ML IV SCH (08:08)
[2016-07-10] MEDS: FAMOTIDINE 20 MG INJ IV SCH ×2 (08:24→20:25)
[2016-07-10] MEDS: morphine 2 MG INJ IV PRN ×3 (08:25→15:43)
--- NOTE | 2016-07-10 08:40 | CONS ---
Date/Time of Note Date/Time of Note DATE: 07/10/16 TIME: 08:37 Assessment/Plan Assessment/Plan Additional Assessment/Plan Chest x-ray was reviewed from today which is showing endotracheal tube at an adequate level there is a very faint left perihilar infiltrate present. Very mild pulmonary vessel congestion is present as well. Ventilator settings; AC of 20, tidal volume 150, PEEP of 3, 30% FiO2. Assessment recommendations; 1. Patient admitted with acute alcohol intoxication causing respiratory failure. 2. Failed expiration trials due to accommodation of secretions in the pharynx with the patient was unable to cough requiring reintubation. 3. Possibly early left perihilar pneumonia. 4. History of dwarfism. 5. Mild hyponatremia. 6. Mild hypokalemia. 7. Mild pulmonary vascular congestion. Continue current ventilator setting. Obtain a blood gas. Discontinue Rocephin and start the patient on vancomycin and cefepime adjusted for pediatric dosing. Give Lasix 20 mg IV push 1 now. Replace potassium I did have a detailed discussion the patient's parents at bedside and answered all their questions. Consultation Date/Type/Reason Admit Date/Time Jul 04, 2016 at 23:28 Initial Consult Date 07/05/16 Type of Consultation: Pulmonary/critical care 24 HR Interval Summary Free Text/Dictation Patient condition remains critical. Patient was extubated yesterday morning however he decompensated shortly thereafter due to what appeared to be upper airway accommodation of secretions based the patient was unable to cough. Her to be reintubated. Patient however was attended to at bedside throughout until reintubated. General exam; middle-aged male dwarf, orally intubated, sedated currently in no distress. Exam/Review of Systems Vital Signs Vitals Vital Signs Date Time Temp Pulse Resp B/P Pulse Ox O2 Delivery O2 Flow Rate FiO2 07/10/16 06:00 121 20 109/68 96 07/10/16 05:33 30 07/10/16 04:00 98.5 07/09/16 20:00 Mechanical Ventilator 07/09/16 19:01 2.0 Intake and Output 07/09/16 07/09/16 07/10/16 15:00 23:00 07:00 Intake Total 15.8 ml 392.2 ml 151.6 ml Output Total 310 ml 215 ml 320 ml Balance -294.2 ml 177.2 ml -168.4 ml Exam HEENT examination; supple neck, no JVD. No lymphadenopathy. Midline trachea. Orally intubated. Pupils are small bilaterally. No neck masses. Patient has fair dentition. Chest examination; clear to auscultation bilaterally. No added sound. S1-S2 audible, no murmurs. Regular rhythm. Abdomen examination; soft, no organomegaly bowel sounds audible. Next Extremity exam is; no peripheral edema. Pulses 1+ bilaterally. Next BLANKER PRESS OPERATOR examination; patient is sedated. Results Result Diagram: 07/10/16 0400 07/10/16 0400 Results 24 hrs Laboratory Tests Test 07/09/16 10:00 07/09/16 11:25 07/10/16 04:00 Blood Gas Specimen Source Blood arterial Blood arterial Arterial Blood Date Drawn 07/09/2016 9:50:08 AM 07/09/2016 11:50:47 AM Arterial Blood pH (Temp corrected) 7.356 7.253 *L Arterial Blood pCO2 (Temp correct) 46.4 H 60.0 H Arterial Blood pO2 (Temp corrected) 78.4 L 100.4 H Arterial Blood HCO3 25.4 25.9 Arterial Blood Base Excess -0.4 -2.0 Arterial Blood Oxygen Saturation 94.7 L 96.5 Kyle Test ACCEPTAB ACCEPTAB Arterial Blood Gas Puncture Site Right Radial Right Radial Arterial Blood Carboxyhemoglobin 0.3 0.1 Arterial Blood Methemoglobin 0.2 0.4 Blood Gas A-a O2 Differential 81.0 H 261.4 H Oxyhemoglobin Percent 94.2 96.0 Total Hemoglobin 11.6 L 11.0 L Blood Gas Temperature 37.0 37.0 Blood Gas Actual Respiration Rate 27 25 Blood Gas Modality VENT - CPAP VENT - AC FiO2 30.0 60.0 Blood Gas Low PEEP Setting 5.0 3.0 Blood Gas Pressure Support 8 Blood Gas Notified Whom VERAD CYRIL Blood Gas Notified Time 07/09/2016 10:02:42 AM 07/09/2016 12:03:53 PM Blood Gas Respiration Rate 20.0 Blood Gas Tidal Volume 150.0 Blood Gas Critical Value Read Back A NATALIE RN White Blood Count 21.9 #H Red Blood Count 2.96 L Hemoglobin 9.7 L Hematocrit 31.5 L Mean Corpuscular Volume 106.4 H Mean Corpuscular Hemoglobin 32.8 Mean Corpuscular Hemoglobin Concent 30.8 L Red Cell Distribution Width 16.5 H Platelet Count 196 Mean Platelet Volume 11.1 H Neutrophils % 89.0 H Band Neutrophils % 2.0 Lymphocytes % 3.0 L Monocytes % 4.0 Metamyelocytes % 2.0 H Neutrophils # 19.5 H Lymphocytes # 0.7 L Monocytes # 0.9 Metamyelocytes # 0.4 Sodium Level 149 H Potassium Level 3.3 L Chloride Level 110 Carbon Dioxide Level 28 Anion Gap 14 Blood Urea Nitrogen 11 Creatinine 0.49 L Glucose Level 133 # Calcium Level 8.8 Magnesium Level 2.0 Medications Medications Current Medications Famotidine 10 mg 10 mg Q12 IV Last administered on 07/10/16 08:24; Admin Dose 10 MG; Start 07/05/16 at 09:00 Multivitamins 10 ml/Thiamine HCl 100 mg/Folic Acid 1 mg/Sodium Chloride 1,011.2 ml @ 20 mls/hr DAILY@09 IVPB Last administered on 07/10/16 05:47; Admin Dose 20 MLS/HR; Start 07/06/16 at 09:00 Midazolam HCl (Versed) 50 ml @ 1 mls/hr TITRATE IV Last administered on 05:46; Admin Dose 5 MLS/HR; Start 07/05/16 at 22:00 IV Flush (NS 10 ml) 10 ml PRN PRN IV IV PROTOCOL; Start 07/06/16 at 16:30 Lorazepam (Ativan) 2 mg Q2 PRN IV AGITATION/ANXIETY Last administered on 03:02; Admin Dose 2 MG; Start 07/07/16 at 09:30 Morphine Sulfate 2 mg 2 mg Q2 PRN IV PAIN Last administered on 07/10/16 08:25 ; Admin Dose 2 MG; Start 07/07/16 at 09:30 Fentanyl 100 ml @ 2.5 mls/hr TITRATE IV Last administered on 07/10/16 00:08; Admin Dose 0.5 MLS/HR; Start 07/07/16 at 18:00 Propofol (Diprivan) 100 ml @ 0.48 mls/hr TITRATE IV Last administered on 08:08; Admin Dose 4.8 MLS/HR; Start 07/07/16 at 21:48 Methylprednisolone Sodium Succinate (Solu-Medrol) 10 mg Q6 IV Last administered on 3/31/17at 05:46; Admin Dose 10 MG; Start 07/08/16 at 12:00 Cefepime HCl (Maxipime (Ped)) 800 mg Q12 IV* ; Start 07/10/16 at 09:00; Status JAMEL SHARIF Jul 10, 2016 08:40
[2016-07-10] MEDS ORDERED: FUROSEMIDE 20 MG INJ IV ONE (09:00)
[2016-07-10] MEDS ORDERED: VANCOMYCIN IV PER PHARMACY XX SCH (09:00)
[2016-07-10] MEDS ORDERED: POTASSIUM CHLORIDE (1.33 MEQ/ML PO SYG) NGT ONE (10:00)
[2016-07-10 10:45] LABS: AADO2 Arterial 86.4 mmHg (7.0-24.0); Allen Test ACCEPTAB; Arterial Base Excess 2.7 mmol/L (-3.0-3); Arterial COHb 0.3 % (0.0-3.0); Arterial HCO3 28.3 mmol/L (22.0-26.0); Arterial MetHb 0.3 % (0.0-1.5); Arterial Total Hemglobin 9.9 g/dl (12.0-18.0); MODE VENT - AC
--- NOTE | 2016-07-10 10:45 | PN ---
DATE: 07/10/2016 PALLIATIVE CARE PROGRESS NOTE Mr. Macdonald required reintubation last night. His family is at the bedside. He is sedated and vent dependent now. The plan over the weekend is to try once again to wean him off the ventilator. Famil y are very supportive and understandable of his current medical condition, as is his agent. 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 Dictated By: SERAFIN JAY MD LP/NTS Conf#: [id number] DID#: [id number]
[2016-07-10] MEDS ORDERED: VANCOMYCIN IVPB SCH ×2 (11:00)
[2016-07-10] MEDS ORDERED: DEXTROSE 5% IVPB SCH ×2 (11:00)
[2016-07-10] MEDS ORDERED: ACETAMINOPHEN 650MG/20.3ML CUP NGT PRN (11:00)
[2016-07-10] MEDS ORDERED: CEFEPIME HCL (40 MG/ML) IV SYG IV* SCH (11:00)
[2016-07-10] MEDS: CEFEPIME HCL IVPB SCH (12:43)
[2016-07-10] MEDS: DEXTROSE 5% IVPB SCH ×2 (12:43→22:32)
--- NOTE | 2016-07-10 12:56 | PN ---
Date/Time of Note Date/Time of Note DATE: 07/10/16 TIME: 12:51 Assessment/Plan VTE Prophylaxis VTE Prophylaxis Intervention: other Assessment/Plan Chief Complaint/Hosp Course 1) Acute respiratory failure, requiring reintubation, due to Alcohol withdrawl -Continue to monitor in the ICU -Manager Environmental Services on the case, continue vent management -cont Steroids for wheezing, cont Abx for Infiltrate 2) Severe sepsis due to UTI and/or PNA with Altered Mental Status -Continue IV antibiotics, ID consult - Carefully monitor Is and Os. 3) Acute cystitis - Cefepime and Vancomycin - Pediatric Dosing 4) Alcohol overdose - Monitor for signs of withdrawal once he is out of sedation Banana bag 5) Possible suicide threat or attempt - Supervisor Silvering Department Consult and/or Psychiatric evaluation prior to discharge 6) Achondroplastic Dwarfism Problems: Subjective 24 Hr Interval Summary Subjective hx not possible: pt non-verbal Exam/Review of Systems Vital Signs Vitals Vital Signs Date Time Temp Pulse Resp B/P Pulse Ox O2 Delivery O2 Flow Rate FiO2 07/10/16 12:00 98.7 120 22 104/84 95 Mechanical Ventilator 07/10/16 08:00 30 07/09/16 19:01 2.0 Intake and Output 07/09/16 07/09/16 07/10/16 15:00 23:00 07:00 Intake Total 15.8 ml 392.2 ml 151.6 ml Output Total 310 ml 215 ml 320 ml Balance -294.2 ml 177.2 ml -168.4 ml Exam Constitutional: non-verbal ENMT: intubated Respiratory: clear to auscultation Cardiovascular: regular rate and rhythm Gastrointestinal: soft, No distended Musculoskeletal: nl extremities to inspection Results Result Diagram: 07/10/16 0400 07/10/16 0400 Results 24 hrs Laboratory Tests Test 07/10/16 04:00 07/10/16 08:42 White Blood Count 21.9 #H Red Blood Count 2.96 L Hemoglobin 9.7 L Hematocrit 31.5 L Mean Corpuscular Volume 106.4 H Mean Corpuscular Hemoglobin 32.8 Mean Corpuscular Hemoglobin Concent 30.8 L Red Cell Distribution Width 16.5 H Platelet Count 196 Mean Platelet Volume 11.1 H Neutrophils % 89.0 H Band Neutrophils % 2.0 Lymphocytes % 3.0 L Monocytes % 4.0 Metamyelocytes % 2.0 H Neutrophils # 19.5 H Lymphocytes # 0.7 L Monocytes # 0.9 Metamyelocytes # 0.4 Sodium Level 149 H Potassium Level 3.3 L Chloride Level 110 Carbon Dioxide Level 28 Anion Gap 14 Blood Urea Nitrogen 11 Creatinine 0.49 L Glucose Level 133 # Calcium Level 8.8 Magnesium Level 2.0 Blood Gas Specimen Source Blood arterial Arterial Blood Date Drawn 07/10/2016 8:55:00 AM Arterial Blood pH (Temp corrected) 7.383 Arterial Blood pCO2 (Temp correct) 48.6 H Arterial Blood pO2 (Temp corrected) 70.4 L Arterial Blood HCO3 28.3 H Arterial Blood Base Excess 2.7 Arterial Blood Oxygen Saturation 93.6 L Kyle Test ACCEPTAB Arterial Blood Gas Puncture Site Right Radial Arterial Blood Carboxyhemoglobin 0.3 Arterial Blood Methemoglobin 0.3 Blood Gas A-a O2 Differential 86.4 H Oxyhemoglobin Percent 93.0 Total Hemoglobin 9.9 L Blood Gas Temperature 37.0 Blood Gas Respiration Rate 20.0 Blood Gas Actual Respiration Rate 20 Blood Gas Modality VENT - AC FiO2 30.0 Blood Gas Tidal Volume 150.0 Blood Gas Low PEEP Setting 3.0 Blood Gas Notified Whom DT Blood Gas Notified Time 07/10/2016 9:11:00 AM Medications Medications Current Medications Famotidine 10 mg 10 mg Q12 IV Last administered on 07/10/16 08:24; Admin Dose 10 MG; Start 07/05/16 at 09:00 Multivitamins 10 ml/Thiamine HCl 100 mg/Folic Acid 1 mg/Sodium Chloride 1,011.2 ml @ 20 mls/hr DAILY@09 IVPB Last administered on 07/10/16 05:47; Admin Dose 20 MLS/HR; Start 07/06/16 at 09:00 Midazolam HCl (Versed) 50 ml @ 1 mls/hr TITRATE IV Last administered on 12:05; Admin Dose 5 MLS/HR; Start 07/05/16 at 22:00 IV Flush (NS 10 ml) 10 ml PRN PRN IV IV PROTOCOL; Start 07/06/16 at 16:30 Lorazepam (Ativan) 2 mg Q2 PRN IV AGITATION/ANXIETY Last administered on 03:02; Admin Dose 2 MG; Start 07/07/16 at 09:30 Morphine Sulfate 2 mg 2 mg Q2 PRN IV PAIN Last administered on 07/10/16 11:36 ; Admin Dose 2 MG; Start 07/07/16 at 09:30 Fentanyl 100 ml @ 2.5 mls/hr TITRATE IV Last administered on 07/10/16 00:08; Admin Dose 0.5 MLS/HR; Start 07/07/16 at 18:00 Propofol (Diprivan) 100 ml @ 0.48 mls/hr TITRATE IV Last administered on 08:08; Admin Dose 4.8 MLS/HR; Start 07/07/16 at 21:48 Methylprednisolone Sodium Succinate 10 mg 10 mg Q6 IV Last administered on 07/10 12:43; Admin Dose 10 MG; Start 07/08/16 at 12:00 Cefepime HCl 0.8 gm/Dextrose 50 ml @ 50 mls/hr Q12H IVPB Last administered on 12:43; Admin Dose 50 MLS/HR; Start 07/10/16 at 12:00 Vancomycin HCl 120 mg/Dextrose 50 ml @ 50 mls/hr Q12H IVPB ; Start 07/10/16 at 23:00 Vancomycin HCl/ Dextrose (Vancocin/D5W) 100 ml @ 100 mls/hr ONCE IVPB Last administered on 07/10/16 11:08; Admin Dose 100 MLS/HR; Start 07/10/16 at 11:00 ; Stop 07/10/16 at 16:00 Acetaminophen (Tylenol Liquid) 325 mg Q6 PRN NGT TEMPERATURE >101; Start at 11:00 DAVID HAMILTON Jul 10, 2016 12:56
[2016-07-10] MEDS: DEXTROSE 5%-0.45% NACL 1,000 ML IV SCH (15:42)
--- NOTE | 2016-07-10 16:02 | CONS ---
DATE OF ADMISSION: 07/04/2016 DATE OF CONSULTATION: 07/10/2016 TYPE OF CONSULTATION: Infectious Disease. REASON FOR CONSULTATION: Antibiotic management. 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 Patient was found do wn on the ground and chest compression was begun and the patient did have a pulse when he was found by EMS. He was put into the emergency room for evaluation and possible intentional overdose. He wa s in respiratory distress, thought of overdosage on hydroxyzine and gabapentin. He was intubated. He had malposition of the endotracheal tube in the right main stem bronchus and this was retracted. CT scan of the head did not show any cerebral edema. CT scan of the cervical spine is indeterminate. This patient was started on vancomycin and Rocephin . He had an elevated anion gap and put on a propofol drip. He was extubated and then had to be george ntubated and is currently in the intensive care unit. He was seen today by Dr. Maldonado. Chest x-ray shows ET tube. He has an NG tube, a Berrios and a PICC line. The patient was admitted with acute alc ohol intoxication causing respiratory failure. He had increasing secretions of the pharynx requirin g reintubation. Currently, he is on a ventilator. He was on Rocephin and started back on vancomyci n and cefepime. PAST MEDICAL HISTORY: Operations as outlined. FAMILY HISTORY: Noncontributory. SOCIAL HISTORY: He does not smoke, drink or abuse drugs. ALLERGIES: NONE TO PENICILLIN, SULFA OR FOODS. MEDICATIONS: Per chart. REVIEW OF SYSTEMS: As per HPI. PHYSICAL EXAMINATION: GENERAL: The patient is an achondroplastic dwarf. He is arousable. ET, NG, Berrios and PICC. SKIN: Without generalized rash. HEENT: Within normal limits. NECK: Supple. LYMPH NODES: None palpable. CHEST: Decreased breath sounds at the bases. HEART: Without murmur or gallop. ABDOMEN: Soft, nontender without organosplenomegaly or masses. EXTREMITIES: Without cyanosis, clubbing, or edema. RECTAL AND GENITAL: Deferred. NEUROLOGIC: No focal neurological abnormalities. HOSPITAL COURSE: Today, his white count is 21.9, H and H 9.7 and 31.5, platelet count 196,000. BUN and creatinine is 11/0.49, glucose is 133. Microbiology: His urine is growing greater than 10 to the 5th E. coli sensitive to virtually everything. Blood cultures so far have been negative. MRSA screen is negative. His sputum will be collected. He has a Dobbhoff catheter with its tip in the g astric body. We will continue him on his current regimen of vancomycin and cefepime as well as prop ofol. I will dictate my findings to the hospitalist as well as to Dr. Christy, Dr. Maldonado and Dr. Sacha rod. Dictated By: ROSELINE WOODSON MD, JD/OMAYRA Conf#: [id number] DID#: [id number]
[2016-07-10 16:25] LABS: AADO2 Arterial 71.1 mmHg (7.0-24.0); Allen Test ACCEPTAB; Arterial Base Excess 1.5 mmol/L (-3.0-3); Arterial COHb 0.1 % (0.0-3.0); Arterial Fraction of Oxyhgb 93.4 % (93.0-99.0); Arterial HCO3 28.4 mmol/L (22.0-26.0); Arterial MetHb 0.2 % (0.0-1.5); Arterial Total Hemglobin 10.9 g/dl (12.0-18.0); Blood Gas PS 8; MODE VENT - SIMV
[2016-07-10] MEDS: VANCOMYCIN IVPB SCH (22:32)
[2016-07-11] VITALS (57 sets, daily range): BP systolic 78–128; BP diastolic 51–111; PULSE 84–132; RESP 12–32
[2016-07-11] MEDS: CEFEPIME HCL IVPB SCH ×2 (00:05→13:22)
[2016-07-11] MEDS: DEXTROSE 5% IVPB SCH ×3 (00:05→13:22)
--- NOTE | 2016-07-11 00:20 | RADRPT ---
PROCEDURE: XR Abdomen. CLINICAL INDICATION: Increased feeding residuals. Low gastric emptying right TECHNIQUE: Portable supine AP abdomen x-ray. COMPARISON: Chest x-ray of 07/10/2016 FINDINGS: Distal tip of the feeding tube is in good position in the region of the pylorus or possibly duodenal bulb. The bowel gas pattern is normal. There is no evidence of obstruction. No visceromegaly, soft tissue mass or pathologic calcification is demonstrated. The osseous structures are unremarkable. RPTAT:HJJR IMPRESSION: 1. Distal tip of the feeding tube remains in good position projecting in the region of the pylorus possibly duodenal bulb. 2. Nonspecific bowel gas pattern. Physician Bob Date Time Electronically viewed and signed by Physician Bob on 07/11/2016 00:20 /
[2016-07-11] MEDS: ALBUTEROL HFA 8 GM INHALER INH SCH ×6 (01:23→20:29)
[2016-07-11] MEDS: IPRATROPIUM (HFA) 12.9 GM INHALER INH SCH ×6 (01:23→20:29)
[2016-07-11] MEDS: PROPOFOL 100 ML IV SCH (01:31)
[2016-07-11] MEDS: METOCLOPRAMIDE 10 MG INJ IV SCH ×4 (01:44→17:57)
[2016-07-11] MEDS: ACETAMINOPHEN 650MG/20.3ML CUP GTB PRN ×2 (02:06→16:40)
[2016-07-11] MEDS: morphine 2 MG INJ IV PRN ×3 (02:29→14:47)
[2016-07-11 04:35] LABS: ADD SCAN DIFF NO
[2016-07-11 04:40] LABS: ABNORMAL IP MESSAGE 1; BASOPHILS % 0.1 % (0.0-2.0); HEMATOCRIT 27.6 % (42.0-52.0); HEMOGLOBIN 8.7 g/dl (14.0-18.0); LYMPHOCYTES # 0.1 10^3/ul (0.8-2.9); MEAN CORPUSCULAR HEMOGLOBIN 33.6 pg (29.0-33.0); MEAN CORPUSCULAR HGB CONC 31.5 g/dl (32.0-37.0); MEAN CORPUSCULAR VOLUME 106.6 fl (82.0-101.0); MEAN PLATELET VOLUME 11.5 fl (7.4-10.4); MONOCYTE # 1.6 10^3/ul (0.3-0.9); NEUTROPHIL # 8.2 10^3/ul (1.6-7.5); NEUTROPHILS % 82.4 % (39.0-77.0); PLATELET COUNT 179 10^3/UL (140-415); RED BLOOD COUNT 2.59 10^6/ul (4.70-6.10); RED CELL DISTRIBUTION WIDTH 16.3 % (11.5-14.5); WHITE BLOOD COUNT 9.9 10^3/ul (4.8-10.8)
[2016-07-11 04:45] LABS: LYMPHOCYTES % 1.1 % (15.0-51.0)
[2016-07-11 04:49] LABS: POTASSIUM 3.5 mmol/L (3.5-5.1)
[2016-07-11 04:51] LABS: CREATININE 0.45 mg/dl (0.61-1.24)
[2016-07-11 04:52] LABS: CALCIUM 8.1 mg/dl (8.4-10.2)
[2016-07-11] MEDS: METHYLPREDNISOLONE 40 MG INJ IV SCH ×4 (06:33→23:30)
--- NOTE | 2016-07-11 07:02 | RADRPT ---
PROCEDURE: XR Chest. CLINICAL INDICATION: Shortness of breath. TECHNIQUE: Single frontal view. COMPARISON: 07/10/2016. FINDINGS: The endotracheal tube, nasogastric feeding tube, and left arm PICC line remain in satisfactory posit ion. Mild pulmonary edema is unchanged. There is mild atelectasis at the lung bases, unchanged. The heart is mildly enlarged. There is no pleural effusion. There is no pneumothorax. IMPRESSION: 1. No change from 07/10/2016. RPTAT: QQ .Barney Hoffmann MD, MD Date Time Electronically viewed and signed by .Barney Hoffmann MD, MD on 07/11/2016 07:01 .R/
[2016-07-11] MEDS: FAMOTIDINE 20 MG INJ IV SCH ×2 (09:27→20:51)
[2016-07-11] MEDS: MIDAZOLAM (DRIP) 50 mg/50 mL 50 ML IV SCH ×2 (09:38→20:51)
[2016-07-11] MEDS ORDERED: GLUCAGON 1 MG INJ IM PRN (10:00)
[2016-07-11] MEDS ORDERED: GLUCOSE GEL 15 GRAM TUBE BUCCAL PRN (10:00)
[2016-07-11] MEDS ORDERED: GLUCOSE GEL 15 GRAM TUBE PO PRN ×2 (10:00)
[2016-07-11] MEDS ORDERED: DEXTROSE 50% 50 ML SYRINGE IV PRN ×2 (10:00)
[2016-07-11] MEDS: VANCOMYCIN IVPB SCH (11:00)
--- NOTE | 2016-07-11 13:09 | CONS ---
Date/Time of Note Date/Time of Note DATE: 07/11/16 TIME: 12:58 Consult Date/Type/Reason Admit Date/Time Jul 04, 2016 at 23:28 Initial Consult Date 07/05/16 Type of Consultation: Pulmonary/critical care Subjective Sedated on versed, propofol and fentanyl gtt. Objective Vital Signs Date Time Temp Pulse Resp B/P Pulse Ox O2 Delivery O2 Flow Rate FiO2 07/11/16 09:30 100 18 92/71 96 Mechanical Ventilator 07/11/16 08:00 98.9 07/11/16 08:00 30 07/09/16 19:01 2.0 Intake and Output 07/10/16 07/10/16 07/11/16 14:59 22:59 06:59 Intake Total 80 ml 128.56 ml 426.2 ml Output Total 230 ml 245 ml 310 ml Balance -150 ml -116.44 ml 116.2 ml Exam HEENT: Neck supple; no JVD; no LAD CVS: RRR, S1 and S2 CHEST: Clear ABD: Soft, NT, + BS EXT: No c/c/e Results/Medications Result Diagram: 07/11/16 0340 07/11/16 0340 Results 24 hrs Laboratory Tests Test 07/10/16 15:40 07/11/16 03:40 Blood Gas Specimen Source Blood arterial Arterial Blood Date Drawn 07/10/2016 4:10:36 PM Arterial Blood pH (Temp corrected) 7.318 L Arterial Blood pCO2 (Temp correct) 56.7 H Arterial Blood pO2 (Temp corrected) 76.2 L Arterial Blood HCO3 28.4 H Arterial Blood Base Excess 1.5 Arterial Blood Oxygen Saturation 93.7 L Kyle Test ACCEPTAB Arterial Blood Gas Puncture Site Right Radial Arterial Blood Carboxyhemoglobin 0.1 Arterial Blood Methemoglobin 0.2 Blood Gas A-a O2 Differential 71.1 H Oxyhemoglobin Percent 93.4 Total Hemoglobin 10.9 L Blood Gas Temperature 37.0 Blood Gas Respiration Rate 14.0 Blood Gas Actual Respiration Rate 21 Blood Gas Modality VENT - SIMV FiO2 30.0 Blood Gas Tidal Volume 150.0 Blood Gas Low PEEP Setting 3.0 Blood Gas Pressure Support 8 Blood Gas Notified Whom DT Blood Gas Notified Time 07/10/2016 4:22:43 PM White Blood Count 9.9 # Red Blood Count 2.59 L Hemoglobin 8.7 L Hematocrit 27.6 L Mean Corpuscular Volume 106.6 H Mean Corpuscular Hemoglobin 33.6 H Mean Corpuscular Hemoglobin Concent 31.5 L Red Cell Distribution Width 16.3 H Platelet Count 179 Mean Platelet Volume 11.5 H Neutrophils % 82.4 H Lymphocytes % 1.1 L Monocytes % 16.0 H Eosinophils % 0.0 Basophils % 0.1 Nucleated Red Blood Cells % 0.0 Neutrophils # 8.2 H Lymphocytes # 0.1 L Monocytes # 1.6 H Eosinophils # 0.0 Basophils # 0.0 Nucleated Red Blood Cells # 0.0 Sodium Level 144 Potassium Level 3.5 Chloride Level 109 Carbon Dioxide Level 32 H Anion Gap 7 L Blood Urea Nitrogen 9 Creatinine 0.45 L Glucose Level 217 Calcium Level 8.1 L Medications Current Medications Famotidine 10 mg 10 mg Q12 IV Last administered on 07/11/16 09:27; Admin Dose 10 MG; Start 07/05/16 at 09:00 Midazolam HCl (Versed) 50 ml @ 1 mls/hr TITRATE IV Last administered on 09:38; Admin Dose 5 MLS/HR; Start 07/05/16 at 22:00 IV Flush (NS 10 ml) 10 ml PRN PRN IV IV PROTOCOL; Start 07/06/16 at 16:30 Lorazepam (Ativan) 2 mg Q2 PRN IV AGITATION/ANXIETY Last administered on 23:50; Admin Dose 2 MG; Start 07/07/16 at 09:30 Morphine Sulfate 2 mg 2 mg Q2 PRN IV PAIN Last administered on 07/11/16 08:10; Admin Dose 2 MG; Start 07/07/16 at 09:30 Fentanyl 100 ml @ 2.5 mls/hr TITRATE IV Last administered on 07/10/16 00:08; Admin Dose 0.5 MLS/HR; Start 07/07/16 at 18:00 Propofol (Diprivan) 100 ml @ 0.48 mls/hr TITRATE IV Last administered on 01:31; Admin Dose 6 MLS/HR; Start 07/07/16 at 21:48 Methylprednisolone Sodium Succinate 10 mg 10 mg Q6 IV Last administered on 06:33; Admin Dose 10 MG; Start 07/08/16 at 12:00 Cefepime HCl 0.8 gm/Dextrose 50 ml @ 50 mls/hr Q12H IVPB Last administered on 00:05; Admin Dose 50 MLS/HR; Start 07/10/16 at 12:00 Vancomycin HCl 120 mg/Dextrose 50 ml @ 50 mls/hr Q12H IVPB Last administered on 07/11/16 11:00; Admin Dose 50 MLS/HR; Start 07/10/16 at 23:00 Dextrose/Sodium Chloride (D5-1/2ns) 1,000 ml @ 20 mls/hr Q24H IV Last administered on 07/10/16 15:42; Admin Dose 20 MLS/HR; Start 07/10/16 at 15:00 Metoclopramide HCl (Reglan) 1.6 mg Q6H IV Last administered on 07/11/16 06:33; Admin Dose 1.6 MG; Start 07/11/16 at 01:00; Stop 07/12/16 at 00:59 Metoclopramide HCl (Reglan) 1.6 mg Q6H PRN IV GI MOTILITY; Start 07/12/16 at 01: 30 Acetaminophen (Tylenol Liquid) 240 mg Q4H PRN GTB FEVER GREATER THAN 101 Last administered on 07/11/16 02:06; Admin Dose 240 MG; Start 07/11/16 at 02:00 Eye Lubricant (Artificial Tears Oph) 2 drop QID BOTH EYES ; Start 07/11/16 at 13: 00 Insulin Aspart (Novolog Insulin Pen) NOVOLOG *MILD* ALGORI... Q4 SC ; Start 07/11 at 13:00 Miscellaneous Information 1 ea NOTE XX ; Start 07/11/16 at 10:00 Glucose (Glutose) 15 gm Q15M PRN PO DECREASED GLUCOSE; Start 07/11/16 at 10:00 Glucose (Glutose) 22.5 gm Q15M PRN PO DECREASED GLUCOSE; Start 07/11/16 at 10:00 Dextrose (D50w Syringe) 25 ml Q15M PRN IV DECREASED GLUCOSE; Start 07/11/16 at 10:00 Dextrose (D50w Syringe) 50 ml Q15M PRN IV DECREASED GLUCOSE; Start 07/11/16 at 10:00 Glucagon (Glucagen) 1 mg Q15M PRN IM DECREASED GLUCOSE; Start 07/11/16 at 10:00 Glucose (Glutose) 15 gm Q15M PRN BUCCAL DECREASED GLUCOSE; Start 07/11/16 at 10: 00 Miscellaneous Information (*Rx Drug Level Order Reminder*) VANCOMYCIN TROUGH 07/11 AT 2200 ONCE ONCE XX ; Start 07/11/16 at 22:00; Stop 07/11/16 at 22:01 Assessment/Plan Additional Assessment/Plan IMP: 1. Acute respiratory failure--s/p reintubation 2. Severe sepsis due to UTI 3. Acute cystitis 4. Alcohol overdose 5. Possible suicide threat or attempt 6. Achondroplastic Dwarfism RECS: 1. CS taper 2. Adjust vent settings 3. Abx per ID 4. Taper versed at that remains in system for long periods 5. Consider adding low dose seroquel via NG tube 35 min cc time LIUDMILA LEY MD Jul 11, 2016 13:09
[2016-07-11] MEDS: ARTIFICIAL TEARS 15 ML OPH BOTH EYES SCH ×3 (13:17→20:51)
[2016-07-11] MEDS: INSULIN ASPART [NOVOLOG] 3 ML PEN SC SCH ×3 (13:21→20:54)
--- NOTE | 2016-07-11 13:42 | PN ---
Date/Time of Note Date/Time of Note DATE: 07/11/16 TIME: 13:39 Assessment/Plan VTE Prophylaxis VTE Prophylaxis Intervention: other Assessment/Plan Chief Complaint/Hosp Course 1) Acute respiratory failure, requiring reintubation, due to Alcohol withdrawl -Continue to monitor in the ICU -Assembler Insulator on the case, continue vent management -cont Steroids for wheezing, cont Abx for Infiltrate 2) Severe sepsis due to UTI and/or PNA with Altered Mental Status -Continue IV antibiotics, ID consult - Carefully monitor Is and Os. 3) Acute cystitis - Cefepime and Vancomycin - Pediatric Dosing 4) Alcohol overdose - Monitor for signs of withdrawal once he is out of sedation Banana bag 5) Possible suicide threat or attempt - Extrusion Press Supervisor Consult and/or Psychiatric evaluation prior to discharge 6) Achondroplastic Dwarfism Problems: Subjective 24 Hr Interval Summary Subjective hx not possible: pt non-verbal Exam/Review of Systems Vital Signs Vitals Vital Signs Date Time Temp Pulse Resp B/P Pulse Ox O2 Delivery O2 Flow Rate FiO2 07/11/16 12:00 91 07/11/16 09:30 18 92/71 96 Mechanical Ventilator 07/11/16 08:00 98.9 07/11/16 08:00 30 07/09/16 19:01 2.0 Intake and Output 07/10/16 07/10/16 07/11/16 15:00 23:00 07:00 Intake Total 80 ml 159.96 ml 424.6 ml Output Total 250 ml 265 ml 270 ml Balance -170 ml -105.04 ml 154.6 ml Exam Constitutional: non-verbal ENMT: intubated Respiratory: clear to auscultation Cardiovascular: regular rate and rhythm Gastrointestinal: soft, No distended Musculoskeletal: nl extremities to inspection Results Result Diagram: 07/11/16 0340 07/11/16 0340 Results 24 hrs Laboratory Tests Test 07/10/16 15:40 07/11/16 03:40 07/11/16 13:19 Blood Gas Specimen Source Blood arterial Arterial Blood Date Drawn 07/10/2016 4:10:36 PM Arterial Blood pH (Temp corrected) 7.318 L Arterial Blood pCO2 (Temp correct) 56.7 H Arterial Blood pO2 (Temp corrected) 76.2 L Arterial Blood HCO3 28.4 H Arterial Blood Base Excess 1.5 Arterial Blood Oxygen Saturation 93.7 L Kyle Test ACCEPTAB Arterial Blood Gas Puncture Site Right Radial Arterial Blood Carboxyhemoglobin 0.1 Arterial Blood Methemoglobin 0.2 Blood Gas A-a O2 Differential 71.1 H Oxyhemoglobin Percent 93.4 Total Hemoglobin 10.9 L Blood Gas Temperature 37.0 Blood Gas Respiration Rate 14.0 Blood Gas Actual Respiration Rate 21 Blood Gas Modality VENT - SIMV FiO2 30.0 Blood Gas Tidal Volume 150.0 Blood Gas Low PEEP Setting 3.0 Blood Gas Pressure Support 8 Blood Gas Notified Whom DT Blood Gas Notified Time 07/10/2016 4:22:43 PM White Blood Count 9.9 # Red Blood Count 2.59 L Hemoglobin 8.7 L Hematocrit 27.6 L Mean Corpuscular Volume 106.6 H Mean Corpuscular Hemoglobin 33.6 H Mean Corpuscular Hemoglobin Concent 31.5 L Red Cell Distribution Width 16.3 H Platelet Count 179 Mean Platelet Volume 11.5 H Neutrophils % 82.4 H Lymphocytes % 1.1 L Monocytes % 16.0 H Eosinophils % 0.0 Basophils % 0.1 Nucleated Red Blood Cells % 0.0 Neutrophils # 8.2 H Lymphocytes # 0.1 L Monocytes # 1.6 H Eosinophils # 0.0 Basophils # 0.0 Nucleated Red Blood Cells # 0.0 Sodium Level 144 Potassium Level 3.5 Chloride Level 109 Carbon Dioxide Level 32 H Anion Gap 7 L Blood Urea Nitrogen 9 Creatinine 0.45 L Glucose Level 217 Calcium Level 8.1 L Bedside Glucose 219 Medications Medications Current Medications Famotidine 10 mg 10 mg Q12 IV Last administered on 07/11/16 09:27; Admin Dose 10 MG; Start 07/05/16 at 09:00 Midazolam HCl (Versed) 50 ml @ 1 mls/hr TITRATE IV Last administered on 09:38; Admin Dose 5 MLS/HR; Start 07/05/16 at 22:00 IV Flush (NS 10 ml) 10 ml PRN PRN IV IV PROTOCOL; Start 07/06/16 at 16:30 Lorazepam (Ativan) 2 mg Q2 PRN IV AGITATION/ANXIETY Last administered on 23:50; Admin Dose 2 MG; Start 07/07/16 at 09:30 Morphine Sulfate 2 mg 2 mg Q2 PRN IV PAIN Last administered on 07/11/16 08:10; Admin Dose 2 MG; Start 07/07/16 at 09:30 Fentanyl 100 ml @ 2.5 mls/hr TITRATE IV Last administered on 07/10/16 00:08; Admin Dose 0.5 MLS/HR; Start 07/07/16 at 18:00 Propofol (Diprivan) 100 ml @ 0.48 mls/hr TITRATE IV Last administered on 01:31; Admin Dose 6 MLS/HR; Start 07/07/16 at 21:48 Methylprednisolone Sodium Succinate 10 mg 10 mg Q6 IV Last administered on 13:17; Admin Dose 10 MG; Start 07/08/16 at 12:00 Cefepime HCl 0.8 gm/Dextrose 50 ml @ 50 mls/hr Q12H IVPB Last administered on 13:22; Admin Dose 50 MLS/HR; Start 07/10/16 at 12:00 Vancomycin HCl 120 mg/Dextrose 50 ml @ 50 mls/hr Q12H IVPB Last administered on 07/11/16 11:00; Admin Dose 50 MLS/HR; Start 07/10/16 at 23:00 Dextrose/Sodium Chloride (D5-1/2ns) 1,000 ml @ 20 mls/hr Q24H IV Last administered on 07/10/16 15:42; Admin Dose 20 MLS/HR; Start 07/10/16 at 15:00 Metoclopramide HCl (Reglan) 1.6 mg Q6H IV Last administered on 07/11/16 13:17; Admin Dose 1.6 MG; Start 07/11/16 at 01:00; Stop 07/12/16 at 00:59 Metoclopramide HCl (Reglan) 1.6 mg Q6H PRN IV GI MOTILITY; Start 07/12/16 at 01: 30 Acetaminophen (Tylenol Liquid) 240 mg Q4H PRN GTB FEVER GREATER THAN 101 Last administered on 07/11/16 02:06; Admin Dose 240 MG; Start 07/11/16 at 02:00 Eye Lubricant (Artificial Tears Oph) 2 drop QID BOTH EYES Last administered on 07/11/16 13:17; Admin Dose 2 DROP; Start 07/11/16 at 13:00 Insulin Aspart (Novolog Insulin Pen) NOVOLOG *MILD* ALGORI... Q4 SC Last administered on 07/11/16t 13:21; Admin Dose 2 UNIT; Start 07/11/16 at 13:00 Miscellaneous Information 1 ea NOTE XX ; Start 07/11/16 at 10:00 Glucose (Glutose) 15 gm Q15M PRN PO DECREASED GLUCOSE; Start 07/11/16 at 10:00 Glucose (Glutose) 22.5 gm Q15M PRN PO DECREASED GLUCOSE; Start 07/11/16 at 10:00 Dextrose (D50w Syringe) 25 ml Q15M PRN IV DECREASED GLUCOSE; Start 07/11/16 at 10:00 Dextrose (D50w Syringe) 50 ml Q15M PRN IV DECREASED GLUCOSE; Start 07/11/16 at 10:00 Glucagon (Glucagen) 1 mg Q15M PRN IM DECREASED GLUCOSE; Start 07/11/16 at 10:00 Glucose (Glutose) 15 gm Q15M PRN BUCCAL DECREASED GLUCOSE; Start 07/11/16 at 10: 00 Miscellaneous Information (*Rx Drug Level Order Reminder*) VANCOMYCIN TROUGH 07/11 AT 2200 ONCE ONCE XX ; Start 07/11/16 at 22:00; Stop 07/11/16 at 22:01 Quetiapine Fumarate (Seroquel) 12.5 mg BID NGT ; Start 07/11/16 at 13:30 DAVID HAMILTON Jul 11, 2016 13:42
--- NOTE | 2016-07-11 14:05 | PN ---
DATE: 07/11/2016 SUBJECTIVE: No events overnight. Patient remains intubated and sedated, no fevers. VITAL SIGNS: Temperature 98.9, pulse 100, respirations 18, blood pressure 92/71, saturation 96 on 3 0 FIO2. LABORATORY DATA: WBC 9.9, H and H 8.7 and 27.6, platelets 179, neutrophils 82.4, BUN 9, creatinine 0.45. INDWELLINGS: PICC line in left upper extremity, endotracheal tube and NG tube. MICROBIOLOGY: Urine culture on admission grew E. coli. DIAGNOSTICS: Chest x-ray this morning revealed mild pulmonary edema with atelectasis at the lung ba ses. ANTIMICROBIALS: Patient is on: 1. IV vancomycin. 2. Cefepime. PHYSICAL EXAMINATION: GENERAL: This is an achondroplastic dwarf who is lying comfortably in bed. Patient is sedated. HEENT: Atraumatic, normocephalic. Sclerae anicteric. Buccal mucosa dry. CHEST: Rise symmetrical. Breath sounds diminished at bases. HEART: S1, S2. ABDOMEN: Soft, bowel sounds present. EXTREMITIES: Without cyanosis. ASSESSMENT: 1. Sepsis. 2. Acute respiratory failure. 3. Urinary tract infection. 4. History of ETOH abuse. 5. Dwarfism. PLAN: The patient remains hemodynamically stable. We will continue him on current antimicrobials f or now. Await for sputum cultures. Continue vent management as per pulmonary. Dictated By: ALESSANDRA SIGALA SUPERVISOR AIRCRAFT MAINTENANCE for ROSELINE MARVIN/NTS Conf#: [id number] DID#: [id number]
[2016-07-11] MEDS: QUETIAPINE 25 MG TAB NGT SCH ×2 (14:46→20:51)
[2016-07-11] MEDS: DEXTROSE 5%-0.45% NACL 1,000 ML IV SCH (15:00)
--- NOTE | 2016-07-11 16:30 | RADRPT ---
Echocardiogram Report Patient Name: KELVIN HUMPHREY Gender: Male Date: 1970 Study Date: 11-Jul-2016 Disposal Plant Operator: KAITLIN Location: [facility] Height(Cm): 81 Weight(Kg): 16 BSA: 0.60 Ref. Physician: DAVID HAMILTON Quality: Technically Difficult Study Procedures: Transthoracic echocardiogram with complete 2D, M-Mode, and Doppler examination. Indications: Evaluate Left Ventricular function, respiratory failure. 2D/M Mode Doppler Measurement Value Normal Ranges Measurement Value Normal Ranges AoR Diam MM 2.8 cm AV Peak Gama 1.4 m/sec ACS MM 1.8 cm AV Peak PG 7.5 mmHg LVIDd 2D 2.8 3.5 - 5.6 cm LVOT Peak Gama 1.2 m/sec LVIDs 2D 1.6 2.1 - 4.1 cm LVOT Peak PG 5.5 mmHg LVPWd 2D 0.8 0.6 - 1.1 cm MV E Peak Gama 0.9 m/sec IVSd 2D 0.8 0.6 - 1.1 cm MV A Peak Gama 1.2 m/sec EDV 2D 30.3 cm3 MV E/A 0.8 ESV 2D 3.9 cm3 MV Decel Time 127 msec LA Dimen 2D 2.1 2.3 - 4.0 cm MV Decel Queens 7 MV E/A 0.8 PV Peak Gama 0.8 m/sec PV Peak PG 3.0 mmHg Findings Left Ventricle: Normal left ventricular systolic function. Hyperdynamic left ventricular systolic function. Normal left ventricular wall thickness. Ejection fraction is visually estimated at >70 %. Right Ventricle: Normal right ventricular size. Normal right ventricular systolic function. Left Atrium: The left atrium is normal in size. Right Atrium: The right atrium is normal in size. Atrial Septum: Normal atrial septum. Mitral Valve: Normal appearance and function of the mitral valve with trace physiologic regurgitation. Aortic Valve: No significant aortic stenosis or insufficiency. Normal trileaflet aortic valve structure. Tricuspid Valve: Normal appearance of the tricuspid valve. No evidence of tricuspid regurgitation. Pulmonic Valve: Normal pulmonic valve appearance. There is trace pulmonic regurgitation. Pericardium: Normal pericardium with no significant pericardial effusion. Aorta: Normal aortic root. IVC: Normal size and normal respiratory collapse consistent with normal right atrial pressure. Pulmonary Artery: Normal pulmonary artery size. Conclusions 1.Technically challenging study. 2.The left ventricle is normal in size with hyperdynamic systolic function. 3.Estimated left ventricular ejection fraction of >70%. Electronically Signed By: Juan Carlos Pederson 11-Jul-2016 16:29:41 -0700 Patient Name: KELVIN HUMPHREY Study Date: 11-Jul-2016 [id number]
[2016-07-11] MEDS ORDERED: NORepinephrine 8MG/250 ML (PMX 250 ML IV SCH (21:00)
[2016-07-11] MEDS ORDERED: VANCOMYCIN IVPB SCH (23:00)
[2016-07-11] MEDS ORDERED: DEXTROSE 5% IVPB SCH (23:00)
[2016-07-12] VITALS (105 sets, daily range): BP systolic 81–159; BP diastolic 57–141; PULSE 68–126; RESP 14–35
[2016-07-12] MEDS: DEXTROSE 5% IVPB SCH ×4 (00:26→19:47)
[2016-07-12] MEDS: CEFEPIME HCL IVPB SCH ×2 (00:26→12:15)
[2016-07-12] MEDS: LORAZEPAM 2 MG INJ IV PRN ×6 (00:58→21:15)
[2016-07-12] MEDS: INSULIN ASPART [NOVOLOG] 3 ML PEN SC SCH ×6 (01:11→21:04)
[2016-07-12] MEDS ORDERED: METOCLOPRAMIDE 10 MG INJ IV PRN (01:30)
[2016-07-12] MEDS: ALBUTEROL HFA 8 GM INHALER INH SCH ×6 (01:33→21:25)
[2016-07-12] MEDS: IPRATROPIUM (HFA) 12.9 GM INHALER INH SCH ×6 (01:33→21:25)
[2016-07-12] MEDS: PROPOFOL 100 ML IV SCH ×2 (04:49→18:16)
[2016-07-12 04:59] LABS: ADD SCAN DIFF NO
[2016-07-12] MEDS ORDERED: VANCOMYCIN IVPB SCH ×2 (05:00→12:00)
[2016-07-12] MEDS ORDERED: DEXTROSE 5% IVPB SCH ×2 (05:00→12:00)
[2016-07-12 05:15] LABS: ABNORMAL IP MESSAGE 1; HEMATOCRIT 30.8 % (42.0-52.0); HEMOGLOBIN 9.6 g/dl (14.0-18.0); MEAN CORPUSCULAR HEMOGLOBIN 32.8 pg (29.0-33.0); MEAN CORPUSCULAR HGB CONC 31.2 g/dl (32.0-37.0); MEAN CORPUSCULAR VOLUME 105.1 fl (82.0-101.0); MEAN PLATELET VOLUME 11.6 fl (7.4-10.4); PLATELET COUNT 185 10^3/UL (140-415); RED BLOOD COUNT 2.93 10^6/ul (4.70-6.10); RED CELL DISTRIBUTION WIDTH 16.4 % (11.5-14.5); WHITE BLOOD COUNT 15.2 10^3/ul (4.8-10.8)
[2016-07-12] MEDS: METHYLPREDNISOLONE 40 MG INJ IV SCH ×3 (05:21→17:06)
[2016-07-12 05:43] LABS: CREATININE 0.43 mg/dl (0.61-1.24)
[2016-07-12 05:44] LABS: CALCIUM 8.1 mg/dl (8.4-10.2)
[2016-07-12] MEDS: morphine 2 MG INJ IV PRN ×3 (06:11→22:03)
[2016-07-12] MEDS ORDERED: POTASSIUM CHLORIDE 50 ML IVPB SCH (07:00)
[2016-07-12] MEDS: POTASSIUM CHLORIDE 50 ML IVPB SCH ×2 (07:47→09:14)
[2016-07-12] MEDS: ARTIFICIAL TEARS 15 ML OPH BOTH EYES SCH ×4 (09:14→20:59)
[2016-07-12] MEDS: QUETIAPINE 25 MG TAB NGT SCH ×2 (09:14→20:52)
[2016-07-12] MEDS: FAMOTIDINE 20 MG INJ IV SCH ×2 (09:14→20:52)
[2016-07-12 10:08] LABS: LYMPHOCYTES # 0.6 10^3/ul (0.8-2.9); MONOCYTE # 0.5 10^3/ul (0.3-0.9); NEUTROPHIL # 11.4 10^3/ul (1.6-7.5)
[2016-07-12] MEDS: FENTAnyl (DRIP) 1000 mcg/100mL 100 ML IV SCH (11:23)
[2016-07-12] MEDS: VANCOMYCIN IVPB SCH ×2 (12:13→19:47)
--- NOTE | 2016-07-12 12:39 | CONS ---
Date/Time of Note Date/Time of Note DATE: 07/12/16 TIME: 12:37 Consult Date/Type/Reason Admit Date/Time Jul 04, 2016 at 23:28 Initial Consult Date 07/05/16 Type of Consultation: Pulmonary/critical care Subjective No events. Versed tapered to 1 mg/hr Objective Vital Signs Date Time Temp Pulse Resp B/P Pulse Ox O2 Delivery O2 Flow Rate FiO2 07/12/16 12:00 81 07/12/16 11:00 20 97 30 07/12/16 10:15 97/62 07/12/16 10:00 Mechanical Ventilator 07/12/16 08:00 98.8 07/09/16 19:01 2.0 Intake and Output 07/11/16 07/11/16 07/12/16 14:59 22:59 06:59 Intake Total 169.8 ml 138.67 ml 496.715 ml Output Total 200 ml 200 ml 190 ml Balance -30.2 ml -61.33 ml 306.715 ml Exam HEENT: Neck supple; no JVD; no LAD CVS: RRR, S1 and S2 CHEST: Clear ABD: Soft, NT, + BS EXT: No c/c/e Results/Medications Result Diagram: 07/12/16 0340 07/12/16 0340 Results 24 hrs Laboratory Tests Test 07/11/16 13:19 07/11/16 17:52 07/11/16 20:53 07/11/16 22:10 Bedside Glucose 219 204 192 Vancomycin Level Trough < 5.0 L Test 07/12/16 01:09 07/12/16 03:40 07/12/16 05:23 07/12/16 07:46 Bedside Glucose 203 171 165 White Blood Count 15.2 #H Red Blood Count 2.93 L Hemoglobin 9.6 L Hematocrit 30.8 L Mean Corpuscular Volume 105.1 H Mean Corpuscular Hemoglobin 32.8 Mean Corpuscular Hemoglobin Concent 31.2 L Red Cell Distribution Width 16.4 H Platelet Count 185 Mean Platelet Volume 11.6 H Neutrophils % 75.0 Band Neutrophils % 18.0 H Lymphocytes % 4.0 L Monocytes % 3.0 Eosinophils % Neutrophils # 11.4 H Lymphocytes # 0.6 L Monocytes # 0.5 Eosinophils # Sodium Level 139 Potassium Level 3.0 L Chloride Level 106 Carbon Dioxide Level 31 Anion Gap 5 L Blood Urea Nitrogen 10 Creatinine 0.43 L Glucose Level 197 Hemoglobin A1c 5.0 Calcium Level 8.1 L Test 07/12/16 12:14 Bedside Glucose 161 Medications Current Medications Famotidine 10 mg 10 mg Q12 IV Last administered on 07/12/16 09:14; Admin Dose 10 MG; Start 07/05/16 at 09:00 Midazolam HCl (Versed) 50 ml @ 1 mls/hr TITRATE IV Last administered on 20:51; Admin Dose 2.5 MLS/HR; Start 07/05/16 at 22:00 IV Flush (NS 10 ml) 10 ml PRN PRN IV IV PROTOCOL; Start 07/06/16 at 16:30 Lorazepam (Ativan) 2 mg Q2 PRN IV AGITATION/ANXIETY Last administered on 09:54; Admin Dose 2 MG; Start 07/07/16 at 09:30 Morphine Sulfate 2 mg 2 mg Q2 PRN IV PAIN Last administered on 07/12/16 06:11; Admin Dose 2 MG; Start 07/07/16 at 09:30 Fentanyl 100 ml @ 2.5 mls/hr TITRATE IV Last administered on 07/12/16 11:23; Admin Dose 2.24 MLS/HR; Start 07/07/16 at 18:00 Propofol (Diprivan) 100 ml @ 0.48 mls/hr TITRATE IV Last administered on 04:49; Admin Dose 4.8 MLS/HR; Start 07/07/16 at 21:48 Methylprednisolone Sodium Succinate 10 mg 10 mg Q6 IV Last administered on 12:12; Admin Dose 10 MG; Start 07/08/16 at 12:00 Cefepime HCl 0.8 gm/Dextrose 50 ml @ 50 mls/hr Q12H IVPB Last administered on 12:15; Admin Dose 50 MLS/HR; Start 07/10/16 at 12:00 Dextrose/Sodium Chloride (D5-1/2ns) 1,000 ml @ 20 mls/hr Q24H IV Last administered on 07/10/16 15:42; Admin Dose 20 MLS/HR; Start 07/10/16 at 15:00 Metoclopramide HCl (Reglan) 1.6 mg Q6H PRN IV GI MOTILITY Last administered on 07/12/16 06:13; Admin Dose 1.6 MG; Start 07/12/16 at 01:30 Acetaminophen (Tylenol Liquid) 240 mg Q4H PRN GTB FEVER GREATER THAN 101 Last administered on 07/11/16 16:40; Admin Dose 240 MG; Start 07/11/16 at 02:00 Eye Lubricant (Artificial Tears Oph) 2 drop QID BOTH EYES Last administered on 07/12/16 12:14; Admin Dose 2 DROP; Start 07/11/16 at 13:00 Insulin Aspart (Novolog Insulin Pen) NOVOLOG *MILD* ALGORI... Q4 SC Last administered on 07/12/16 12:21; Admin Dose 1 UNIT; Start 07/11/16 at 13:00 Miscellaneous Information 1 ea NOTE XX ; Start 07/11/16 at 10:00 Glucose (Glutose) 15 gm Q15M PRN PO DECREASED GLUCOSE; Start 07/11/16 at 10:00 Glucose (Glutose) 22.5 gm Q15M PRN PO DECREASED GLUCOSE; Start 07/11/16 at 10:00 Dextrose (D50w Syringe) 25 ml Q15M PRN IV DECREASED GLUCOSE; Start 07/11/16 at 10:00 Dextrose (D50w Syringe) 50 ml Q15M PRN IV DECREASED GLUCOSE; Start 07/11/16 at 10:00 Glucagon (Glucagen) 1 mg Q15M PRN IM DECREASED GLUCOSE; Start 07/11/16 at 10:00 Glucose (Glutose) 15 gm Q15M PRN BUCCAL DECREASED GLUCOSE; Start 07/11/16 at 10: 00 Quetiapine Fumarate 12.5 mg 12.5 mg BID NGT Last administered on 07/12/16 09:14 ; Admin Dose 12.5 MG; Start 07/11/16 at 13:30 Norepinephrine 16 mg/Dextrose 500 ml @ 3 mls/hr TITRATE IV ; Start 07/11/16 at 22 :30 Vancomycin HCl/ Dextrose (Vancocin/D5W) 50 ml @ 100 mls/hr Q8H IVPB Last administered on 07/12/16 12:13; Admin Dose 100 MLS/HR; Start 07/12/16 at 12:00 Miscellaneous Information (*Rx Drug Level Order Reminder*) VANCOMYCIN TROUGH 07/13 AT 1100 ONCE ONCE XX ; Start 07/13/16 at 11:00; Stop 07/13/16 at 11:01 Assessment/Plan Additional Assessment/Plan IMP: 1. Acute respiratory failure--s/p reintubation 2. Severe sepsis due to UTI 3. Acute cystitis 4. Alcohol overdose 5. Possible suicide threat or attempt 6. Achondroplastic Dwarfism RECS: 1. CS taper 2. Adjust vent settings 3. Abx per ID 4. Continue to taper off versed gtt 5. Increase seroquel to 25 mg BID 6. Consider transfer to PICU 35 min cc time LIUDMILA LEY MD Jul 12, 2016 12:39
--- NOTE | 2016-07-12 14:34 | RADRPT ---
PROCEDURE: XR Chest. CLINICAL INDICATION: Shortness of breath TECHNIQUE: Single view of the chest COMPARISON: Chest radiograph July 11, 2016 FINDINGS: The tip of the endotracheal tube is 2 cm above the anton. Enteric tube courses below the diaphragm . There is a left-sided PICC with its tip at the cavoatrial junction. There are low lung volumes. Cardiac silhouette is enlarged. There is no focal consolidation. There is no pleural effusion. There is no pneumothorax. Severe degenerative changes of both shoulders along with chronic deformities of both proximal humeri are again noted. No acute osseous abnormality is seen. IMPRESSION: 1. Low lung volumes without focal consolidation. 2. Lines and tubes as above. RPTAT: UU .Baljeet Ahn MD, MD Date Time Electronically viewed and signed by .Baljeet Ahn MD, on 07/12/2016 14:33 .K/
[2016-07-12] MEDS: DEXTROSE 5%-0.45% NACL 1,000 ML IV SCH (15:00)
--- NOTE | 2016-07-12 15:03 | PN ---
DATE: 07/12/2016 SUBJECTIVE: No acute changes. The patient spiked a fever yesterday of 101. Currently afebrile, tem perature 98.8, pulse 81, respirations 20, blood pressure 97/62, saturation 97% on 30 FiO2. WBC 15.2, H and H 9.6 and 30.8, platelets 185, neutrophils 75, bands 18, lymphs 4, monos 3. BUN 10, creatinine 0.43. MICROBIOLOGY: Blood cultures since admission remain negative. Urine culture growing Staphylococcus aureus. Sputum culture growing preliminary Staphylococcus aureus. INDWELLINGS: Endotracheal tube, Dobbhoff, PICC line, Berrios catheter. ANTIMICROBIALS: The patient remains on IV vancomycin and cefepime. PHYSICAL EXAMINATION: GENERAL: This is a 46-year-old dwarf who is sedated, intubated, and also on low dose of Levophed dr ip. The patient is in no distress. HEENT: Head atraumatic, normocephalic. Buccal mucosa dry. NECK: Obese. CHEST: Rise symmetrical. Breath sounds diminished to bases. HEART: S1, S2. ABDOMEN: Soft. Bowel tones hypoactive. EXTREMITIES: Without cyanosis. ASSESSMENT: 1. Sepsis with shock, possibly secondary to high dose of sedation. 2. Acute respiratory failure. 3. Possible aspiration pneumonia. 4. Urinary tract infection. 5. Dwarfism. 6. History of EtOH. PLAN: The patient remains unchanged. He is spiking fevers. We are going to change cefepime to lien openem. Continue IV vancomycin, await for final sputum cultures. Repeat blood cultures p.r.n. if h e spikes fever of 101 and above. Vent support per pulmonary. Dictated By: ALESSANDRA SIGALA CONSULTING PSYCHOLOGIST for ROSELINE WOODSON MD NI/NTS Conf#: [id number] DID#: [id number] CC: MARLYN BRADLEY MD; ROSELINE WOODSON MD;*End*
[2016-07-12] MEDS: MEROPENEM 500 MG/100 ML (PMX) 100 ML IVPB SCH ×2 (15:20→20:52)
--- NOTE | 2016-07-12 17:00 | PN ---
Date/Time of Note Date/Time of Note DATE: 07/12/16 TIME: 16:54 Assessment/Plan VTE Prophylaxis VTE Prophylaxis Intervention: other Lines/Catheters IV Catheter Type (from Nrs): Peripheral IV Assessment/Plan Chief Complaint/Hosp Course 1) Acute respiratory failure, requiring reintubation, due to Alcohol withdrawl -Continue to monitor in the ICU -Dust Collector Attendant on the case, continue vent management -cont Steroids for wheezing, cont Abx for Infiltrate 2) Severe sepsis due to UTI and/or PNA with Altered Mental Status -Continue IV antibiotics, ID consult - Carefully monitor Is and Os. 3) Acute cystitis - Cefepime and Vancomycin - Pediatric Dosing 4) Alcohol overdose - Monitor for signs of withdrawal once he is out of sedation Banana bag 5) Possible suicide threat or attempt - Central Office Technician Consult and/or Psychiatric evaluation prior to discharge 6) Achondroplastic Dwarfism Problems: Subjective 24 Hr Interval Summary Subjective hx not possible: pt non-verbal Exam/Review of Systems Vital Signs Vitals Vital Signs Date Time Temp Pulse Resp B/P Pulse Ox O2 Delivery O2 Flow Rate FiO2 07/12/16 16:15 83 23 99/81 98 07/12/16 16:00 100.0 Mechanical Ventilator 07/12/16 15:00 30 07/09/16 19:01 2.0 Intake and Output 07/11/16 07/11/16 07/12/16 15:00 23:00 07:00 Intake Total 150 ml 158.31 ml 497.650 ml Output Total 225 ml 210 ml 155 ml Balance -75 ml -51.69 ml 342.650 ml Exam Constitutional: non-verbal Respiratory: clear to auscultation Cardiovascular: regular rate and rhythm Gastrointestinal: soft, No distended Musculoskeletal: nl extremities to inspection Results Result Diagram: 07/12/16 0340 07/12/16 0340 Results 24 hrs Laboratory Tests Test 07/11/16 17:52 07/11/16 20:53 07/11/16 22:10 07/12/16 01:09 Bedside Glucose 204 192 203 Vancomycin Level Trough < 5.0 L Test 07/12/16 03:40 07/12/16 05:23 07/12/16 07:46 07/12/16 12:14 White Blood Count 15.2 #H Red Blood Count 2.93 L Hemoglobin 9.6 L Hematocrit 30.8 L Mean Corpuscular Volume 105.1 H Mean Corpuscular Hemoglobin 32.8 Mean Corpuscular Hemoglobin Concent 31.2 L Red Cell Distribution Width 16.4 H Platelet Count 185 Mean Platelet Volume 11.6 H Neutrophils % 75.0 Band Neutrophils % 18.0 H Lymphocytes % 4.0 L Monocytes % 3.0 Eosinophils % Neutrophils # 11.4 H Lymphocytes # 0.6 L Monocytes # 0.5 Eosinophils # Sodium Level 139 Potassium Level 3.0 L Chloride Level 106 Carbon Dioxide Level 31 Anion Gap 5 L Blood Urea Nitrogen 10 Creatinine 0.43 L Glucose Level 197 Hemoglobin A1c 5.0 Calcium Level 8.1 L Bedside Glucose 171 165 161 Medications Medications Current Medications Famotidine 10 mg 10 mg Q12 IV Last administered on 07/12/16 09:14; Admin Dose 10 MG; Start 07/05/16 at 09:00 Midazolam HCl (Versed) 50 ml @ 1 mls/hr TITRATE IV Last administered on 20:51; Admin Dose 2.5 MLS/HR; Start 07/05/16 at 22:00 IV Flush (NS 10 ml) 10 ml PRN PRN IV IV PROTOCOL; Start 07/06/16 at 16:30 Lorazepam (Ativan) 2 mg Q2 PRN IV AGITATION/ANXIETY Last administered on 15:20; Admin Dose 2 MG; Start 07/07/16 at 09:30 Morphine Sulfate 2 mg 2 mg Q2 PRN IV PAIN Last administered on 07/12/16 06:11; Admin Dose 2 MG; Start 07/07/16 at 09:30 Fentanyl 100 ml @ 2.5 mls/hr TITRATE IV Last administered on 07/12/16 11:23; Admin Dose 2.24 MLS/HR; Start 07/07/16 at 18:00 Propofol (Diprivan) 100 ml @ 0.48 mls/hr TITRATE IV Last administered on 04:49; Admin Dose 4.8 MLS/HR; Start 07/07/16 at 21:48 Methylprednisolone Sodium Succinate 10 mg 10 mg Q6 IV Last administered on 12:12; Admin Dose 10 MG; Start 07/08/16 at 12:00 Dextrose/Sodium Chloride (D5-1/2ns) 1,000 ml @ 20 mls/hr Q24H IV Last administered on 07/10/16 15:42; Admin Dose 20 MLS/HR; Start 07/10/16 at 15:00 Metoclopramide HCl (Reglan) 1.6 mg Q6H PRN IV GI MOTILITY Last administered on 07/12/16 06:13; Admin Dose 1.6 MG; Start 07/12/16 at 01:30 Acetaminophen (Tylenol Liquid) 240 mg Q4H PRN GTB FEVER GREATER THAN 101 Last administered on 07/11/16 16:40; Admin Dose 240 MG; Start 07/11/16 at 02:00 Eye Lubricant (Artificial Tears Oph) 2 drop QID BOTH EYES Last administered on 07/12/16 12:14; Admin Dose 2 DROP; Start 07/11/16 at 13:00 Insulin Aspart (Novolog Insulin Pen) NOVOLOG *MILD* ALGORI... Q4 SC Last administered on 07/12/16 12:21; Admin Dose 1 UNIT; Start 07/11/16 at 13:00 Miscellaneous Information 1 ea NOTE XX ; Start 07/11/16 at 10:00 Glucose (Glutose) 15 gm Q15M PRN PO DECREASED GLUCOSE; Start 07/11/16 at 10:00 Glucose (Glutose) 22.5 gm Q15M PRN PO DECREASED GLUCOSE; Start 07/11/16 at 10:00 Dextrose (D50w Syringe) 25 ml Q15M PRN IV DECREASED GLUCOSE; Start 07/11/16 at 10:00 Dextrose (D50w Syringe) 50 ml Q15M PRN IV DECREASED GLUCOSE; Start 07/11/16 at 10:00 Glucagon (Glucagen) 1 mg Q15M PRN IM DECREASED GLUCOSE; Start 07/11/16 at 10:00 Glucose 15 gm 15 gm Q15M PRN BUCCAL DECREASED GLUCOSE; Start 07/11/16 at 10:00 Norepinephrine 16 mg/Dextrose 500 ml @ 3 mls/hr TITRATE IV ; Start 07/11/16 at 22 :30 Vancomycin HCl/ Dextrose (Vancocin/D5W) 50 ml @ 100 mls/hr Q8H IVPB Last administered on 07/12/16 12:13; Admin Dose 100 MLS/HR; Start 07/12/16 at 12:00 Miscellaneous Information (*Rx Drug Level Order Reminder*) VANCOMYCIN TROUGH 07/13 AT 1100 ONCE ONCE XX ; Start 07/13/16 at 11:00; Stop 07/13/16 at 11:01 Quetiapine Fumarate 25 mg 25 mg BID NGT ; Start 07/12/16 at 21:00 Meropenem (Merrem 500 Mg/ 100 ml (Pmx)) 100 ml @ 200 mls/hr Q12 IVPB Last administered on 07/12/16t 15:20; Admin Dose 200 MLS/HR; Start 07/12/16 at 14:00 DAVID HAMILTON Jul 12, 2016 17:00
[2016-07-13] VITALS (71 sets, daily range): BP systolic 61–154; BP diastolic 32–117; PULSE 79–135; RESP 10–38
[2016-07-13] MEDS: METHYLPREDNISOLONE 40 MG INJ IV SCH ×4 (00:36→18:40)
[2016-07-13] MEDS: INSULIN ASPART [NOVOLOG] 3 ML PEN SC SCH ×6 (00:44→21:00)
[2016-07-13] MEDS: IPRATROPIUM (HFA) 12.9 GM INHALER INH SCH ×3 (01:20→09:27)
[2016-07-13] MEDS: ALBUTEROL HFA 8 GM INHALER INH SCH ×3 (01:20→09:27)
[2016-07-13] MEDS: morphine 2 MG INJ IV PRN ×4 (01:51→13:09)
[2016-07-13] MEDS: LORAZEPAM 2 MG INJ IV PRN ×2 (01:51→05:55)
[2016-07-13] MEDS: VANCOMYCIN IVPB SCH ×3 (04:13→20:35)
[2016-07-13] MEDS: DEXTROSE 5% IVPB SCH ×3 (04:13→20:35)
[2016-07-13 04:45] LABS: ADD SCAN DIFF NO
[2016-07-13 04:48] LABS: ABNORMAL IP MESSAGE 1; BASOPHILS % 0.1 % (0.0-2.0); HEMATOCRIT 28.4 % (42.0-52.0); LYMPHOCYTES # 0.3 10^3/ul (0.8-2.9); LYMPHOCYTES % 1.8 % (15.0-51.0); MEAN CORPUSCULAR HGB CONC 31.7 g/dl (32.0-37.0); MEAN PLATELET VOLUME 11.7 fl (7.4-10.4); MONOCYTE # 1.4 10^3/ul (0.3-0.9); MONOCYTES % 8.9 % (0.0-11.0); NEUTROPHIL # 13.7 10^3/ul (1.6-7.5); NEUTROPHILS % 88.6 % (39.0-77.0); PLATELET COUNT 188 10^3/UL (140-415); RED BLOOD COUNT 2.73 10^6/ul (4.70-6.10); RED CELL DISTRIBUTION WIDTH 15.9 % (11.5-14.5); WHITE BLOOD COUNT 15.4 10^3/ul (4.8-10.8)
[2016-07-13 04:49] LABS: AADO2 Arterial 73.2 mmHg (7.0-24.0); Allen Test ACCEPTAB; Arterial Base Excess 7.7 mmol/L (-3.0-3); Arterial COHb 0.1 % (0.0-3.0); Arterial HCO3 33.5 mmol/L (22.0-26.0); Arterial MetHb 0.2 % (0.0-1.5); Arterial Total Hemglobin 10.3 g/dl (12.0-18.0); MODE VENT - AC
[2016-07-13 05:11] LABS: POTASSIUM 3.7 mmol/L (3.5-5.1)
[2016-07-13 05:13] LABS: CREATININE 0.41 mg/dl (0.61-1.24)
[2016-07-13 05:14] LABS: CALCIUM 8.1 mg/dl (8.4-10.2)
--- NOTE | 2016-07-13 08:22 | RADRPT ---
PROCEDURE: XR Chest. CLINICAL INDICATION: Shortness of breath. TECHNIQUE: Single frontal view. COMPARISON: 07/12/2016. FINDINGS: The endotracheal tube, nasogastric feeding tube, and left arm PICC line remain in satisfactory posit ion. There are low lung volumes. There is mild atelectasis at the lung bases. The lungs are other vera clear. The heart is mildly enlarged. There is no pleural effusion or pneumothorax. There is chronic deformity and degenerative changes of the shoulders. IMPRESSION: 1. Mild atelectasis at the lung bases. 2. No other change from 07/12/2016. RPTAT: QQ .Barney Hoffmann MD, MD Date Time Electronically viewed and signed by .Barney Hoffmann MD, MD on 07/13/2016 08:22 .R/
[2016-07-13] MEDS: ARTIFICIAL TEARS 15 ML OPH BOTH EYES SCH ×4 (09:00→20:36)
[2016-07-13] MEDS: MEROPENEM 500 MG/100 ML (PMX) 100 ML IVPB SCH ×2 (09:00→20:36)
[2016-07-13] MEDS: FAMOTIDINE 20 MG INJ IV SCH ×2 (09:00→20:36)
[2016-07-13] MEDS: QUETIAPINE 25 MG TAB NGT SCH ×2 (09:00→20:36)
--- NOTE | 2016-07-13 10:00 | PN ---
Date/Time of Note Date/Time of Note DATE: 07/13/16 TIME: 09:41 Assessment/Plan VTE Prophylaxis VTE Prophylaxis Intervention: other (extremities too short for scds) Lines/Catheters IV Catheter Type (from Nrs): Peripheral IV Urinary Cath still in place: Yes Reason Cath still needed: other (indicate) Assessment/Plan Assessment/Plan 1) Acute respiratory failure, requiring reintubation, due to Alcohol withdrawl -Continue to monitor in the ICU -Catalog Library Assistant on the case, continue vent management -cont Steroids for wheezing, cont Abx for Infiltrate 2) Severe sepsis due to Ecoli UTI and/ Staph PNA (?aspiration) with Altered Mental Status -Continue IV antibiotics, appreciate ID consult - Carefully monitor Is and Os. 3) Acute cystitis - Cefepime and Vancomycin - Pediatric Dosing 4) Alcohol overdose - Monitor for signs of withdrawal once he is out of sedation - Banana bag 5) Possible suicide threat or attempt - Puppy Sitter Consult and/or Psychiatric evaluation prior to discharge 6) Achondroplastic Dwarfism 7) Tachycardia: ?2/2 anxiety versus withdrawal CRITICAL CARE TIME: >35 mins Exam/Review of Systems Vital Signs Vitals Vital Signs Date Time Temp Pulse Resp B/P Pulse Ox O2 Delivery O2 Flow Rate FiO2 07/13/16 08:00 113 07/13/16 07:16 24 100 30 07/13/16 06:15 138/108 07/13/16 04:00 99.0 07/12/16 19:00 Mechanical Ventilator 07/09/16 19:01 2.0 Intake and Output 07/12/16 07/12/16 07/13/16 15:00 23:00 07:00 Intake Total 20 ml 177.0 ml 182.6 ml Output Total 355 ml 255 ml 315 ml Balance -335 ml -78.0 ml -132.4 ml Exam Constitutional: alert, other (severe dwarfism) Psych: anxiety Head: normocephalic Eyes: PERRL ENMT: intubated Respiratory: clear to auscultation, diminished breath sounds Cardiovascular: No regular rate and rhythm (tachycardia) Gastrointestinal: bowel sounds, non-tender, soft Extremities: No edema Neurological: other (moving all extremities, maria guadalupe restraints) Results Result Diagram: 07/13/16 0400 07/13/16 0400 Results 24 hrs Laboratory Tests Test 07/12/16 12:14 07/12/16 17:05 07/12/16 21:02 07/13/16 00:41 Bedside Glucose 161 148 188 175 Test 07/13/16 04:00 07/13/16 05:00 07/13/16 06:20 White Blood Count 15.4 H Red Blood Count 2.73 L Hemoglobin 9.0 L Hematocrit 28.4 L Mean Corpuscular Volume 104.0 H Mean Corpuscular Hemoglobin 33.0 Mean Corpuscular Hemoglobin Concent 31.7 L Red Cell Distribution Width 15.9 H Platelet Count 188 Mean Platelet Volume 11.7 H Neutrophils % 88.6 H Lymphocytes % 1.8 L Monocytes % 8.9 Eosinophils % 0.0 Basophils % 0.1 Nucleated Red Blood Cells % 0.0 Neutrophils # 13.7 H Lymphocytes # 0.3 L Monocytes # 1.4 H Eosinophils # 0.0 Basophils # 0.0 Nucleated Red Blood Cells # 0.0 Sodium Level 140 Potassium Level 3.7 Chloride Level 103 Carbon Dioxide Level 31 Anion Gap 10 # Blood Urea Nitrogen 9 Creatinine 0.41 L Glucose Level 160 Calcium Level 8.1 L Blood Gas Specimen Source Blood arterial Arterial Blood Date Drawn 07/13/2016 4:35:33 AM Arterial Blood pH (Temp corrected) 7.414 Arterial Blood pCO2 (Temp correct) 53.6 H Arterial Blood pO2 (Temp corrected) 77.7 L Arterial Blood HCO3 33.5 H Arterial Blood Base Excess 7.7 H Arterial Blood Oxygen Saturation 95.3 Kyle Test ACCEPTAB Arterial Blood Gas Puncture Site Right Radial Arterial Blood Carboxyhemoglobin 0.1 Arterial Blood Methemoglobin 0.2 Blood Gas A-a O2 Differential 73.2 H Oxyhemoglobin Percent 95.0 Total Hemoglobin 10.3 L Blood Gas Temperature 37.0 Blood Gas Respiration Rate 20.0 Blood Gas Actual Respiration Rate 22 Blood Gas Modality VENT - AC FiO2 30.0 Blood Gas Tidal Volume 150.0 Blood Gas Low PEEP Setting 3.0 Blood Gas Inspiratory Pressure 18.0 Blood Gas Notified Whom MG Blood Gas Notified Time 07/13/2016 4:49:31 AM Bedside Glucose 131 Medications Medications Current Medications Famotidine 10 mg 10 mg Q12 IV Last administered on 07/12/16 20:52; Admin Dose 10 MG; Start 07/05/16 at 09:00 Midazolam HCl (Versed) 50 ml @ 1 mls/hr TITRATE IV Last administered on 20:51; Admin Dose 2.5 MLS/HR; Start 07/05/16 at 22:00 IV Flush (NS 10 ml) 10 ml PRN PRN IV IV PROTOCOL; Start 07/06/16 at 16:30 Lorazepam (Ativan) 2 mg Q2 PRN IV AGITATION/ANXIETY Last administered on 05:55; Admin Dose 2 MG; Start 07/07/16 at 09:30 Morphine Sulfate 2 mg 2 mg Q2 PRN IV PAIN Last administered on 07/13/16 05:55; Admin Dose 2 MG; Start 07/07/16 at 09:30 Fentanyl 100 ml @ 2.5 mls/hr TITRATE IV Last administered on 07/12/16 11:23; Admin Dose 2.24 MLS/HR; Start 07/07/16 at 18:00 Propofol (Diprivan) 100 ml @ 0.48 mls/hr TITRATE IV Last administered on 18:16; Admin Dose 4.8 MLS/HR; Start 07/07/16 at 21:48 Methylprednisolone Sodium Succinate 10 mg 10 mg Q6 IV Last administered on 06:16; Admin Dose 10 MG; Start 07/08/16 at 12:00 Dextrose/Sodium Chloride (D5-1/2ns) 1,000 ml @ 20 mls/hr Q24H IV Last administered on 07/10/16 15:42; Admin Dose 20 MLS/HR; Start 07/10/16 at 15:00 Metoclopramide HCl (Reglan) 1.6 mg Q6H PRN IV GI MOTILITY Last administered on 07/12/16 06:13; Admin Dose 1.6 MG; Start 07/12/16 at 01:30 Acetaminophen (Tylenol Liquid) 240 mg Q4H PRN GTB FEVER GREATER THAN 101 Last administered on 07/11/16 16:40; Admin Dose 240 MG; Start 07/11/16 at 02:00 Eye Lubricant (Artificial Tears Oph) 2 drop QID BOTH EYES Last administered on 07/12/16 20:59; Admin Dose 2 DROP; Start 07/11/16 at 13:00 Insulin Aspart (Novolog Insulin Pen) NOVOLOG *MILD* ALGORI... Q4 SC Last administered on 07/13/16 00:44; Admin Dose 1 UNIT; Start 07/11/16 at 13:00 Miscellaneous Information 1 ea NOTE XX ; Start 07/11/16 at 10:00 Glucose (Glutose) 15 gm Q15M PRN PO DECREASED GLUCOSE; Start 07/11/16 at 10:00 Glucose (Glutose) 22.5 gm Q15M PRN PO DECREASED GLUCOSE; Start 07/11/16 at 10:00 Dextrose (D50w Syringe) 25 ml Q15M PRN IV DECREASED GLUCOSE; Start 07/11/16 at 10:00 Dextrose (D50w Syringe) 50 ml Q15M PRN IV DECREASED GLUCOSE; Start 07/11/16 at 10:00 Glucagon (Glucagen) 1 mg Q15M PRN IM DECREASED GLUCOSE; Start 07/11/16 at 10:00 Glucose 15 gm 15 gm Q15M PRN BUCCAL DECREASED GLUCOSE; Start 07/11/16 at 10:00 Norepinephrine 16 mg/Dextrose 500 ml @ 3 mls/hr TITRATE IV ; Start 07/11/16 at 22 :30 Vancomycin HCl/ Dextrose (Vancocin/D5W) 50 ml @ 100 mls/hr Q8H IVPB Last administered on 07/13/16 04:13; Admin Dose 100 MLS/HR; Start 07/12/16 at 12:00 Miscellaneous Information (*Rx Drug Level Order Reminder*) VANCOMYCIN TROUGH 07/13 AT 1100 ONCE ONCE XX ; Start 07/13/16 at 11:00; Stop 07/13/16 at 11:01 Quetiapine Fumarate 25 mg 25 mg BID NGT Last administered on 07/12/16 20:52; Admin Dose 25 MG; Start 07/12/16 at 21:00 Meropenem (Merrem 500 Mg/ 100 ml (Pmx)) 100 ml @ 200 mls/hr Q12 IVPB Last administered on 07/12/16 20:52; Admin Dose 200 MLS/HR; Start 07/12/16 at 14:00 Procedures Procedures PROCEDURE: XR Chest. CLINICAL INDICATION: Shortness of breath. TECHNIQUE: Single frontal view. COMPARISON: 07/12/2016. FINDINGS: The endotracheal tube, nasogastric feeding tube, and left arm PICC line remain in satisfactory position. There are low lung volumes. There is mild atelectasis at the lung bases. The lungs are otherwise clear. The heart is mildly enlarged. There is no pleural effusion or pneumothorax. There is chronic deformity and degenerative changes of the shoulders. IMPRESSION: 1. Mild atelectasis at the lung bases. 2. No other change from 07/12/2016. RPTAT: QQ .Barney Hoffmann MD, MD Date Time Electronically viewed and signed by .Barney Hoffmann MD, MD on 07/13/2016 08:22 .R/ CC: LIUDMILA LEY MD, BOLATITO M. Jul 13, 2016 09:51
[2016-07-13 10:45] LABS: AADO2 Arterial 100.7 mmHg (7.0-24.0); Allen Test ACCEPTAB; Arterial Base Excess 6.3 mmol/L (-3.0-3); Arterial COHb 0.3 % (0.0-3.0); Arterial Fraction of Oxyhgb 96.7 % (93.0-99.0); Arterial HCO3 31.5 mmol/L (22.0-26.0); Arterial MetHb 0.3 % (0.0-1.5); Arterial Total Hemglobin 11.4 g/dl (12.0-18.0); Blood Gas PS 10; MODE VENT - CPAP
[2016-07-13] MEDS ORDERED: LORAZEPAM 2 MG INJ IV PRN (11:00)
--- NOTE | 2016-07-13 11:02 | CONS ---
Date/Time of Note Date/Time of Note DATE: 07/13/16 TIME: 10:59 Assessment/Plan Assessment/Plan Additional Assessment/Plan Ventilator settings; AC of 20, tidal volume of 150, PEEP of 5, 35% FiO2. Chest x-ray was reviewed from today which is showing minimal left lower lobe atelectatic changes. Assessment recommendations; 1. Patient admitted for palliative failure due to a suicidal attempt from ingestion of alcohol. 2. Pneumonia. 3. UTI. 4. Dwarfism with achondroplasia. 5. Status post reintubation. Patient developed significant accumulation of secretions during last extubation and had to be re-intubated for that purpose. ABG was reviewed short while ago patient however still on small dose of propofol which has now been stopped. Will observe for the next 20 minutes with patient as well will give him another extubation trial. Meanwhile continue current antibiotics other supportive measures. Consultation Date/Type/Reason Admit Date/Time Jul 04, 2016 at 23:28 Initial Consult Date 07/05/16 Type of Consultation: Pulmonary/critical care 24 HR Interval Summary Free Text/Dictation Patient condition remains tenuous at best. Has been taken off sedation for the last one half hour and he is awake and follows simple commands. Has remained hemodynamically stable. General exam; middle-aged male, dwarf. Currently in no distress. Exam/Review of Systems Vital Signs Vitals Vital Signs Date Time Temp Pulse Resp B/P Pulse Ox O2 Delivery O2 Flow Rate FiO2 07/13/16 09:30 128 21 97 35 07/13/16 06:15 138/108 07/13/16 04:00 99.0 07/12/16 19:00 Mechanical Ventilator 07/09/16 19:01 2.0 Intake and Output 07/12/16 07/12/16 07/13/16 15:00 23:00 07:00 Intake Total 20 ml 177.0 ml 182.6 ml Output Total 355 ml 255 ml 315 ml Balance -335 ml -78.0 ml -132.4 ml Exam HEENT exam is; supple neck, no JVD. No lymphadenopathy. Midline trachea. There is mild bilateral subconjunctival edema present. Good dentition. Orally intubated. No neck masses. Chest examination : Clear to auscultation bilaterally. S1-S2 audible, no murmurs. Regular rhythm. Abdomen examination; soft, nondistended. No organomegaly. Bowel sounds audible. Umbilicus is flat. Extremity exam is; no peripheral edema. Pulses 1+ bilaterally. CHEST PAINTING LEADER exam; patient is awake moves all 4 extremities. Results Result Diagram: 07/13/1639907/13/160 Results 24 hrs Laboratory Tests Test 07/12/16 12:14 07/12/16 17:05 07/12/16 21:02 07/13/16 00:41 Bedside Glucose 161 148 188 175 Test 07/13/16 04:00 07/13/16 05:00 07/13/16 06:20 07/13/16 10:30 White Blood Count 15.4 H Red Blood Count 2.73 L Hemoglobin 9.0 L Hematocrit 28.4 L Mean Corpuscular Volume 104.0 H Mean Corpuscular Hemoglobin 33.0 Mean Corpuscular Hemoglobin Concent 31.7 L Red Cell Distribution Width 15.9 H Platelet Count 188 Mean Platelet Volume 11.7 H Neutrophils % 88.6 H Lymphocytes % 1.8 L Monocytes % 8.9 Eosinophils % 0.0 Basophils % 0.1 Nucleated Red Blood Cells % 0.0 Neutrophils # 13.7 H Lymphocytes # 0.3 L Monocytes # 1.4 H Eosinophils # 0.0 Basophils # 0.0 Nucleated Red Blood Cells # 0.0 Sodium Level 140 Potassium Level 3.7 Chloride Level 103 Carbon Dioxide Level 31 Anion Gap 10 # Blood Urea Nitrogen 9 Creatinine 0.41 L Glucose Level 160 Calcium Level 8.1 L Blood Gas Specimen Source Blood arterial Blood arterial Arterial Blood Date Drawn 07/13/2016 4:35:33 AM 07/13/2016 10:35:16 AM Arterial Blood pH (Temp corrected) 7.414 7.434 Arterial Blood pCO2 (Temp correct) 53.6 H 48.1 H Arterial Blood pO2 (Temp corrected) 77.7 L 92.9 Arterial Blood HCO3 33.5 H 31.5 H Arterial Blood Base Excess 7.7 H 6.3 H Arterial Blood Oxygen Saturation 95.3 97.3 Kyle Test ACCEPTAB ACCEPTAB Arterial Blood Gas Puncture Site Right Radial Right Radial Arterial Blood Carboxyhemoglobin 0.1 0.3 Arterial Blood Methemoglobin 0.2 0.3 Blood Gas A-a O2 Differential 73.2 H 100.7 H Oxyhemoglobin Percent 95.0 96.7 Total Hemoglobin 10.3 L 11.4 L Blood Gas Temperature 37.0 37.0 Blood Gas Respiration Rate 20.0 Blood Gas Actual Respiration Rate 22 16 Blood Gas Modality VENT - AC VENT - CPAP FiO2 30.0 35.0 Blood Gas Tidal Volume 150.0 Blood Gas Low PEEP Setting 3.0 5.0 Blood Gas Inspiratory Pressure 18.0 Blood Gas Notified Whom MG JLD Blood Gas Notified Time 07/13/2016 4:49:31 AM 07/13/2016 10:44:53 AM Bedside Glucose 131 Blood Gas Pressure Support 10 Medications Medications Current Medications Famotidine 10 mg 10 mg Q12 IV Last administered on 07/13/16 09:00; Admin Dose 10 MG; Start 07/05/16 at 09:00 Midazolam HCl (Versed) 50 ml @ 1 mls/hr TITRATE IV Last administered on 20:51; Admin Dose 2.5 MLS/HR; Start 07/05/16 at 22:00 IV Flush (NS 10 ml) 10 ml PRN PRN IV IV PROTOCOL; Start 07/06/16 at 16:30 Morphine Sulfate 2 mg 2 mg Q2 PRN IV PAIN Last administered on 07/13/16 05:55; Admin Dose 2 MG; Start 07/07/16 at 09:30 Fentanyl 100 ml @ 2.5 mls/hr TITRATE IV Last administered on 07/12/16 11:23; Admin Dose 2.24 MLS/HR; Start 07/07/16 at 18:00 Propofol (Diprivan) 100 ml @ 0.48 mls/hr TITRATE IV Last administered on 18:16; Admin Dose 4.8 MLS/HR; Start 07/07/16 at 21:48 Methylprednisolone Sodium Succinate 10 mg 10 mg Q6 IV Last administered on 06:16; Admin Dose 10 MG; Start 07/08/16 at 12:00 Dextrose/Sodium Chloride (D5-1/2ns) 1,000 ml @ 20 mls/hr Q24H IV Last administered on 07/10/16 15:42; Admin Dose 20 MLS/HR; Start 07/10/16 at 15:00 Metoclopramide HCl (Reglan) 1.6 mg Q6H PRN IV GI MOTILITY Last administered on 07/12/16 06:13; Admin Dose 1.6 MG; Start 07/12/16 at 01:30 Acetaminophen (Tylenol Liquid) 240 mg Q4H PRN GTB FEVER GREATER THAN 101 Last administered on 07/11/16 16:40; Admin Dose 240 MG; Start 07/11/16 at 02:00 Eye Lubricant (Artificial Tears Oph) 2 drop QID BOTH EYES Last administered on 07/13/16 09:00; Admin Dose 2 DROP; Start 07/11/16 at 13:00 Insulin Aspart (Novolog Insulin Pen) NOVOLOG *MILD* ALGORI... Q4 SC Last administered on 07/13/16 00:44; Admin Dose 1 UNIT; Start 07/11/16 at 13:00 Miscellaneous Information 1 ea NOTE XX ; Start 07/11/16 at 10:00 Glucose (Glutose) 15 gm Q15M PRN PO DECREASED GLUCOSE; Start 07/11/16 at 10:00 Glucose (Glutose) 22.5 gm Q15M PRN PO DECREASED GLUCOSE; Start 07/11/16 at 10:00 Dextrose (D50w Syringe) 25 ml Q15M PRN IV DECREASED GLUCOSE; Start 07/11/16 at 10:00 Dextrose (D50w Syringe) 50 ml Q15M PRN IV DECREASED GLUCOSE; Start 07/11/16 at 10:00 Glucagon (Glucagen) 1 mg Q15M PRN IM DECREASED GLUCOSE; Start 07/11/16 at 10:00 Glucose 15 gm 15 gm Q15M PRN BUCCAL DECREASED GLUCOSE; Start 07/11/16 at 10:00 Norepinephrine 16 mg/Dextrose 500 ml @ 3 mls/hr TITRATE IV ; Start 07/11/16 at 22 :30 Vancomycin HCl/ Dextrose (Vancocin/D5W) 50 ml @ 100 mls/hr Q8H IVPB Last administered on 07/13/16 04:13; Admin Dose 100 MLS/HR; Start 07/12/16 at 12:00 Miscellaneous Information (*Rx Drug Level Order Reminder*) VANCOMYCIN TROUGH 07/13 AT 1100 ONCE ONCE XX ; Start 07/13/16 at 11:00; Stop 07/13/16 at 11:01 Quetiapine Fumarate 25 mg 25 mg BID NGT Last administered on 07/12/16 20:52; Admin Dose 25 MG; Start 07/12/16 at 21:00 Meropenem (Merrem 500 Mg/ 100 ml (Pmx)) 100 ml @ 200 mls/hr Q12 IVPB Last administered on 07/13/16 09:00; Admin Dose 200 MLS/HR; Start 07/12/16 at 14:00 Lorazepam (Ativan) 1 mg Q2H PRN IV AGITATION/ANXIETY; Start 07/13/16 at 11:00 JAMEL GALDAMEZ Jul 13, 2016 11:02
--- NOTE | 2016-07-13 14:41 | PN ---
DATE: 07/13/2016 INFECTIOUS DISEASE PROGRESS NOTE SUBJECTIVE: No acute events overnight. The patient is awake, lying comfortably in bed. He is resp onsive. Family at bedside. He is tolerating weaning. No fevers. VITAL SIGNS: Temperature 99.4, pulse 102, respirations 16, blood pressure 126/105, saturation 98% o n vent. WBC 15.4, H and H 9 and 28.4, platelets 188, neutrophils 88.6. BUN 9, creatinine 0.41. MICROBIOLOGY: Urine culture on admission grew E coli. Endotracheal aspirate growing oxacillin-sens itive Staphylococcus aureus. DIAGNOSTICS: Chest x-ray this morning revealed mild atelectasis at the lung bases. INDWELLINGS: The patient has endotracheal tube, Dobhoff, left upper extremity PICC line placed on M arch 27th, Berrios catheter. ANTIMICROBIALS: 1. Vancomycin. 2. Meropenem. PHYSICAL EXAMINATION: GENERAL: This is a 46-year-old dwarf who is lying comfortably in bed. HEENT: Head atraumatic, normocephalic. Sclerae anicteric. Buccal mucosa dry. NECK: Short, obese. CHEST: Rise symmetrical. Breath sounds with scattered rhonchi. HEART: S1, S2. ABDOMEN: Soft, bowel sounds present. EXTREMITIES: No cyanosis. ASSESSMENT: 1. Resolving sepsis. 2. Acute respiratory failure, possibly aspiration pneumonia. 3. Urinary tract infection. 4. Dwarfism. 5. Leukocytosis, likely steroid-induced. PLAN: The patient remains stable, overall improving, tolerates weaning trials. Possible extubation today. Dictated By: ALESSANDRA SIGALA CRIMP SETTER for ROSELINE MARVIN/OMAYRA Conf#: [id number] DID#: [id number]
--- NOTE | 2016-07-13 15:51 | PN ---
DATE: 07/13/2016 SUBJECTIVE: Mr. Macdonald has been successfully extubated today and his family are at the bedside. He required extremely high amounts of fentanyl and propofol while he was intubated. He is off of any sedation or pain control at this time. OBJECTIVE: VITAL SIGNS: Blood pressure 126/105, pulse 102 and regular, respirations of 16, temperature 99.4 de grees, 98% saturation on 35% FIO2. CHEST: Shows bilateral inspiratory and expiratory rhonchi on examination without rales or wheezing. CORONARY: S1, S2, without S3, S4, murmur, gallop, rub. Normal rate, normal rhythm. NEUROLOGICAL: He tracks me. He responds to his mother and father by nodding yes or no. He moves a ll extremities purposefully. LABORATORY DATA: White blood cell count of 15.4, hemoglobin 9.0, hematocrit 28.4, MCV of 104, plate let count of 188,000. Chemistries: Serum sodium 140, potassium 3.7, chloride 103, bicarbonate 31, BUN of 9, creatinine 0.41, blood sugar 160. ASSESSMENT AND PLAN: From a pain management standpoint, I will be extremely conservative. I will discontinue the fentanyl titration protocol and discontinue sedatives including lorazepam, discontin ue morphine and only continue fentanyl 10 mcg p.r.n. We will follow daily. Dictated By: SERAFIN JAY MD, LP/OMAYRA Conf#: [id number] DID#: [id number]
[2016-07-13] MEDS: DEXTROSE 5%-0.45% NACL 1,000 ML IV SCH (15:57)
[2016-07-13] MEDS: LEVALBUTEROL (NEB) 1.25 MG/0.5 ML AMP HHN SCH (16:06)
[2016-07-13] MEDS: FENTAnyl 50 MCG/ML VIAL IV PRN (22:48)
[2016-07-14] VITALS (22 sets, daily range): BP systolic 100–165; BP diastolic 81–124; PULSE 91–133; RESP 10–31
[2016-07-14] MEDS: LEVALBUTEROL (NEB) 1.25 MG/0.5 ML AMP HHN SCH ×3 (00:33→16:15)
[2016-07-14] MEDS: INSULIN ASPART [NOVOLOG] 3 ML PEN SC SCH ×4 (01:00→13:00)
[2016-07-14] MEDS: METHYLPREDNISOLONE 40 MG INJ IV SCH ×2 (01:05→05:41)
[2016-07-14] MEDS: DEXTROSE 5% IVPB SCH ×3 (04:22→20:22)
[2016-07-14] MEDS: VANCOMYCIN IVPB SCH ×3 (04:22→20:22)
[2016-07-14 04:41] LABS: ADD SCAN DIFF NO
[2016-07-14 05:17] LABS: ALBUMIN 2.7 g/dl (3.3-4.9)
[2016-07-14 05:19] LABS: CREATININE 0.36 mg/dl (0.61-1.24)
[2016-07-14 05:20] LABS: CALCIUM 7.9 mg/dl (8.4-10.2); MAGNESIUM 2.2 mg/dl (1.7-2.5); PHOSPHORUS 2.1 mg/dl (2.5-4.9)
[2016-07-14 05:21] LABS: INR 1.06; PROTIME 13.8 Sec (12.2-14.2); PT RATIO 1.1
[2016-07-14 05:22] LABS: PARTIAL THROMBOPLASTIN TIME 24.8 Sec (25.0-35.0)
[2016-07-14 05:27] LABS: ABNORMAL IP MESSAGE 1; HEMATOCRIT 34.6 % (42.0-52.0); MEAN CORPUSCULAR HEMOGLOBIN 32.7 pg (29.0-33.0); MEAN CORPUSCULAR HGB CONC 31.8 g/dl (32.0-37.0); MEAN PLATELET VOLUME 11.6 fl (7.4-10.4); PLATELET COUNT 216 10^3/UL (140-415); RED BLOOD COUNT 3.36 10^6/ul (4.70-6.10); RED CELL DISTRIBUTION WIDTH 15.7 % (11.5-14.5); WHITE BLOOD COUNT 17.3 10^3/ul (4.8-10.8)
[2016-07-14 05:38] LABS: POTASSIUM 2.9 mmol/L (3.5-5.1)
[2016-07-14] MEDS ORDERED: POTASSIUM CHLORIDE 250 ML IVPB ONE (06:00)
[2016-07-14 07:41] LABS: LYMPHOCYTES # 0.7 10^3/ul (0.8-2.9); MONOCYTE # 1.6 10^3/ul (0.3-0.9); NEUTROPHIL # 15.1 10^3/ul (1.6-7.5)
--- NOTE | 2016-07-14 08:36 | CONS ---
Date/Time of Note Date/Time of Note DATE: 07/14/16 TIME: 08:33 Assessment/Plan Assessment/Plan Additional Assessment/Plan Assessment recommendations; 1. Patient admitted for respiratory failure due to acute alcohol ingestion as a suicide attempt. 2. Patient had to be reintubated after being extubated due to accommodation of secretions in the pharynx. The patient was unable to expectorate. Requiring reintubation. 3. Some element of pneumonia clinically and neurologically improved. 4. History of dwarfism and achondroplasia. Continue current treatment. Except for stopping Solu-Medrol. Patient transferred to the medical floor. Continue IV antibiotics for at least another 72 hours. I did have a detailed discussion the patient's mother at bedside and answered all her questions. Consultation Date/Type/Reason Admit Date/Time Jul 04, 2016 at 23:28 Initial Consult Date 07/05/16 Type of Consultation: Pulmonary/critical care 24 HR Interval Summary Free Text/Dictation Patient condition is markedly improved. He was successfully extubated yesterday afternoon. Remains awake alert denies any shortness of breath, is a very minimal sore throat. Able to speak in fairly long sentences. Patient wants to eat. General exam; middle aged dwarf, currently in no distress, awake and alert. Exam/Review of Systems Vital Signs Vitals Vital Signs Date Time Temp Pulse Resp B/P Pulse Ox O2 Delivery O2 Flow Rate FiO2 07/14/16 08:11 98 2.0 07/14/16 08:11 108 30 07/14/16 05:00 120/94 Nasal Cannula 07/14/16 04:00 98.2 07/13/16 11:00 35 Intake and Output 07/13/16 07/13/16 07/14/16 15:00 23:00 07:00 Intake Total 110 ml 100 ml 350 ml Output Total 330 ml 250 ml 355 ml Balance -220 ml -150 ml -5 ml Exam H EENT examination; supple neck, no JVD. No lymphadenopathy. Midline trachea. No thyromegaly. Patient has fair dentition. Chest examination; clear to auscultation bilaterally. S1-S2 audible, no murmurs. Regular rhythm. Abdomen examination; soft, nondistended. No organomegaly. Bowel sounds. Extremity examination; no peripheral edema. COMMISSIONER OF RELOCATION SERVICES examination; no focal deficit. Results Result Diagram: 07/14/16 0410 07/14/16 041 Results 24 hrs Laboratory Tests Test 07/13/16 10:30 07/13/16 11:02 07/13/16 13:27 07/13/16 16:46 Blood Gas Specimen Source Blood arterial Arterial Blood Date Drawn 07/13/2016 10:35:16 AM Arterial Blood pH (Temp corrected) 7.434 Arterial Blood pCO2 (Temp correct) 48.1 H Arterial Blood pO2 (Temp corrected) 92.9 Arterial Blood HCO3 31.5 H Arterial Blood Base Excess 6.3 H Arterial Blood Oxygen Saturation 97.3 Kyle Test ACCEPTAB Arterial Blood Gas Puncture Site Right Radial Arterial Blood Carboxyhemoglobin 0.3 Arterial Blood Methemoglobin 0.3 Blood Gas A-a O2 Differential 100.7 H Oxyhemoglobin Percent 96.7 Total Hemoglobin 11.4 L Blood Gas Temperature 37.0 Blood Gas Actual Respiration Rate 16 Blood Gas Modality VENT - CPAP FiO2 35.0 Blood Gas Low PEEP Setting 5.0 Blood Gas Pressure Support 10 Blood Gas Notified Whom JLD Blood Gas Notified Time 07/13/2016 10:44:53 AM Vancomycin Level Trough 12.5 Bedside Glucose 121 126 Test 07/13/16 21:12 07/14/16 01:14 07/14/16 04:10 07/14/16 04:28 Bedside Glucose 138 87 125 White Blood Count 17.3 H Red Blood Count 3.36 #L Hemoglobin 11.0 #L Hematocrit 34.6 #L Mean Corpuscular Volume 103.0 H Mean Corpuscular Hemoglobin 32.7 Mean Corpuscular Hemoglobin Concent 31.8 L Red Cell Distribution Width 15.7 H Platelet Count 216 Mean Platelet Volume 11.6 H Neutrophils % 87.0 H Lymphocytes % 4.0 L Monocytes % 9.0 Eosinophils % Neutrophils # 15.1 H Lymphocytes # 0.7 L Monocytes # 1.6 H Eosinophils # Prothrombin Time 13.8 Prothrombin Time Ratio 1.1 INR International Normalized Ratio 1.06 Activated Partial Thromboplast Time 24.8 L Sodium Level 142 Potassium Level 2.9 *L Chloride Level 102 Carbon Dioxide Level 32 H Anion Gap 11 Blood Urea Nitrogen 9 Creatinine 0.36 L Glucose Level 111 # Calcium Level 7.9 L Phosphorus Level 2.1 L Magnesium Level 2.2 Albumin 2.7 L Medications Medications Current Medications Famotidine (Pepcid Iv) 10 mg Q12 IV Last administered on 07/13/16 20:36; Admin Dose 10 MG; Start 07/05/16 at 09:00 IV Flush (NS 10 ml) 10 ml PRN PRN IV IV PROTOCOL; Start 07/06/16 at 16:30 Methylprednisolone Sodium Succinate 10 mg 10 mg Q6 IV Last administered on 05:41; Admin Dose 10 MG; Start 07/08/16 at 12:00 Dextrose/Sodium Chloride (D5-1/2ns) 1,000 ml @ 20 mls/hr Q24H IV Last administered on 07/13/16 15:57; Admin Dose 20 MLS/HR; Start 07/10/16 at 15:00 Metoclopramide HCl (Reglan) 1.6 mg Q6H PRN IV GI MOTILITY Last administered on 07/12/16 06:13; Admin Dose 1.6 MG; Start 07/12/16 at 01:30 Acetaminophen (Tylenol Liquid) 240 mg Q4H PRN GTB FEVER GREATER THAN 101 Last administered on 07/11/16 16:40; Admin Dose 240 MG; Start 07/11/16 at 02:00 Eye Lubricant (Artificial Tears Oph) 2 drop QID BOTH EYES Last administered on 07/13/16 17:00; Admin Dose 2 DROP; Start 07/11/16 at 13:00 Insulin Aspart (Novolog Insulin Pen) NOVOLOG *MILD* ALGORI... Q4 SC Last administered on 07/13/16 00:44; Admin Dose 1 UNIT; Start 07/11/16 at 13:00 Miscellaneous Information 1 ea NOTE XX ; Start 07/11/16 at 10:00 Glucose (Glutose) 15 gm Q15M PRN PO DECREASED GLUCOSE; Start 07/11/16 at 10:00 Glucose (Glutose) 22.5 gm Q15M PRN PO DECREASED GLUCOSE; Start 07/11/16 at 10:00 Dextrose (D50w Syringe) 25 ml Q15M PRN IV DECREASED GLUCOSE; Start 07/11/16 at 10:00 Dextrose (D50w Syringe) 50 ml Q15M PRN IV DECREASED GLUCOSE; Start 07/11/16 at 10:00 Glucagon (Glucagen) 1 mg Q15M PRN IM DECREASED GLUCOSE; Start 07/11/16 at 10:00 Glucose 15 gm 15 gm Q15M PRN BUCCAL DECREASED GLUCOSE; Start 07/11/16 at 10:00 Vancomycin HCl/ Dextrose (Vancocin/D5W) 50 ml @ 100 mls/hr Q8H IVPB Last administered on 07/14/16 04:22; Admin Dose 100 MLS/HR; Start 07/12/16 at 12:00 Quetiapine Fumarate 25 mg 25 mg BID NGT Last administered on 07/13/16 20:36; Admin Dose 25 MG; Start 07/12/16 at 21:00 Meropenem (Merrem 500 Mg/ 100 ml (Pmx)) 100 ml @ 200 mls/hr Q12 IVPB Last administered on 07/13/16 20:36; Admin Dose 200 MLS/HR; Start 07/12/16 at 14:00 Fentanyl 10 mcg 10 mcg Q3H PRN IV PAIN Last administered on 07/13/16 22:48; Admin Dose 10 MCG; Start 07/13/16 at 14:00 Potassium Chloride (KCl 40 MEQ/250 ML NS) 250 ml @ 62.5 mls/hr ONCE ONCE IVPB Last administered on 07/14/16 06:45; Admin Dose 62.5 MLS/HR; Start 07/14/16 at 06:00; Stop 07/14/16 at 09:59 JAMEL GALDAMEZ Jul 14, 2016 08:35
[2016-07-14] MEDS: FAMOTIDINE 20 MG INJ IV SCH ×2 (09:00→20:23)
[2016-07-14] MEDS: MEROPENEM 500 MG/100 ML (PMX) 100 ML IVPB SCH ×2 (09:00→20:24)
[2016-07-14] MEDS: QUETIAPINE 25 MG TAB NGT SCH (09:00)
[2016-07-14] MEDS: ARTIFICIAL TEARS 15 ML OPH BOTH EYES SCH ×4 (09:00→20:23)
--- NOTE | 2016-07-14 09:16 | PN ---
Date/Time of Note Date/Time of Note DATE: 07/14/16 TIME: 09:16 Assessment/Plan VTE Prophylaxis VTE Prophylaxis Intervention: heparin, other (extremities too short for SCDs ) Lines/Catheters IV Catheter Type (from [facility]): Peripheral IV Urinary Cath still in place: Yes Reason Cath still needed: other (indicate) Assessment/Plan Assessment/Plan 1. Acute respiratory failure, requiring reintubation, due to Alcohol withdrawal 2. Severe sepsis due to Ecoli UTI and/ Staph PNA (?aspiration) with Altered Mental Status: improved + 3. Acute E coli cystitis 4. Alcohol overdose: s/p banana bag and withdrawals 5. Possible suicide threat or attempt 6. Achondroplastic Dwarfism 9. Tachycardia: ?2/2 anxiety versus withdrawal:?improved PLAN: - Continue ICU supportive care for now / patient is not stable for transfer - ST at bedside / follow recs - Short term low dose lasix to optimize resp status / followup CXR / continue steroids per pulm and abx per ID - Reevaluate for suicidal attempt once much more improved and obtain Psych review if indicated - Pepcid / Heparin for prophylaxis CRITICAL CARE TIME: >35 mins Subjective 24 Hr Interval Summary Free Text/Dictation Patient seen and examined. was successfully extubated again yesterday Exam/Review of Systems Vital Signs Vitals Vital Signs Date Time Temp Pulse Resp B/P Pulse Ox O2 Delivery O2 Flow Rate FiO2 07/14/16 08:11 98 2.0 07/14/16 08:11 108 30 07/14/16 05:00 120/94 Nasal Cannula 07/14/16 04:00 98.2 07/13/16 11:00 35 Intake and Output 07/13/16 07/13/16 07/14/16 15:00 23:00 07:00 Intake Total 110 ml 100 ml 350 ml Output Total 330 ml 250 ml 355 ml Balance -220 ml -150 ml -5 ml Exam Constitutional: alert, other (severe dwarfism) Psych: anxiety Head: normocephalic Eyes: PERRL ENMT: copious secretions noted in his mouth Respiratory: clear to auscultation, diminished breath sounds, using accessory muscles for breathing Cardiovascular: No regular rate and rhythm (tachycardia) Gastrointestinal: bowel sounds, non-tender, soft, canela to bedside drainage Extremities: No edema Neurological: other (moving all extremities, maria guadalupe restraints) Results Result Diagram: 07/14/16 0410 07/14/16 0410 Results 24 hrs Laboratory Tests Test 07/13/16 10:30 07/13/16 11:02 07/13/16 13:27 07/13/16 16:46 Blood Gas Specimen Source Blood arterial Arterial Blood Date Drawn 07/13/2016 10:35:16 AM Arterial Blood pH (Temp corrected) 7.434 Arterial Blood pCO2 (Temp correct) 48.1 H Arterial Blood pO2 (Temp corrected) 92.9 Arterial Blood HCO3 31.5 H Arterial Blood Base Excess 6.3 H Arterial Blood Oxygen Saturation 97.3 Kyle Test ACCEPTAB Arterial Blood Gas Puncture Site Right Radial Arterial Blood Carboxyhemoglobin 0.3 Arterial Blood Methemoglobin 0.3 Blood Gas A-a O2 Differential 100.7 H Oxyhemoglobin Percent 96.7 Total Hemoglobin 11.4 L Blood Gas Temperature 37.0 Blood Gas Actual Respiration Rate 16 Blood Gas Modality VENT - CPAP FiO2 35.0 Blood Gas Low PEEP Setting 5.0 Blood Gas Pressure Support 10 Blood Gas Notified Whom JLD Blood Gas Notified Time 07/13/2016 10:44:53 AM Vancomycin Level Trough 12.5 Bedside Glucose 121 126 Test 07/13/16 21:12 07/14/16 01:14 07/14/16 04:10 07/14/16 04:28 Bedside Glucose 138 87 125 White Blood Count 17.3 H Red Blood Count 3.36 #L Hemoglobin 11.0 #L Hematocrit 34.6 #L Mean Corpuscular Volume 103.0 H Mean Corpuscular Hemoglobin 32.7 Mean Corpuscular Hemoglobin Concent 31.8 L Red Cell Distribution Width 15.7 H Platelet Count 216 Mean Platelet Volume 11.6 H Neutrophils % 87.0 H Lymphocytes % 4.0 L Monocytes % 9.0 Eosinophils % Neutrophils # 15.1 H Lymphocytes # 0.7 L Monocytes # 1.6 H Eosinophils # Prothrombin Time 13.8 Prothrombin Time Ratio 1.1 INR International Normalized Ratio 1.06 Activated Partial Thromboplast Time 24.8 L Sodium Level 142 Potassium Level 2.9 *L Chloride Level 102 Carbon Dioxide Level 32 H Anion Gap 11 Blood Urea Nitrogen 9 Creatinine 0.36 L Glucose Level 111 # Calcium Level 7.9 L Phosphorus Level 2.1 L Magnesium Level 2.2 Albumin 2.7 L Medications Medications Current Medications Famotidine (Pepcid Iv) 10 mg Q12 IV Last administered on 07/13/16 20:36; Admin Dose 10 MG; Start 07/05/16 at 09:00 IV Flush 10 ml 10 ml PRN PRN IV IV PROTOCOL; Start 07/06/16 at 16:30 Dextrose/Sodium Chloride (D5-1/2ns) 1,000 ml @ 20 mls/hr Q24H IV Last administered on 07/13/16 15:57; Admin Dose 20 MLS/HR; Start 07/10/16 at 15:00 Metoclopramide HCl (Reglan) 1.6 mg Q6H PRN IV GI MOTILITY Last administered on 07/12/16 06:13; Admin Dose 1.6 MG; Start 07/12/16 at 01:30 Acetaminophen (Tylenol Liquid) 240 mg Q4H PRN GTB FEVER GREATER THAN 101 Last administered on 07/11/16 16:40; Admin Dose 240 MG; Start 07/11/16 at 02:00 Eye Lubricant (Artificial Tears Oph) 2 drop QID BOTH EYES Last administered on 07/13/16 17:00; Admin Dose 2 DROP; Start 07/11/16 at 13:00 Insulin Aspart (Novolog Insulin Pen) NOVOLOG *MILD* ALGORI... Q4 SC Last administered on 07/13/16 00:44; Admin Dose 1 UNIT; Start 07/11/16 at 13:00 Miscellaneous Information 1 ea NOTE XX ; Start 07/11/16 at 10:00 Glucose (Glutose) 15 gm Q15M PRN PO DECREASED GLUCOSE; Start 07/11/16 at 10:00 Glucose (Glutose) 22.5 gm Q15M PRN PO DECREASED GLUCOSE; Start 07/11/16 at 10:00 Dextrose (D50w Syringe) 25 ml Q15M PRN IV DECREASED GLUCOSE; Start 07/11/16 at 10:00 Dextrose (D50w Syringe) 50 ml Q15M PRN IV DECREASED GLUCOSE; Start 07/11/16 at 10:00 Glucagon (Glucagen) 1 mg Q15M PRN IM DECREASED GLUCOSE; Start 07/11/16 at 10:00 Glucose 15 gm 15 gm Q15M PRN BUCCAL DECREASED GLUCOSE; Start 07/11/16 at 10:00 Vancomycin HCl/ Dextrose (Vancocin/D5W) 50 ml @ 100 mls/hr Q8H IVPB Last administered on 07/14/16 04:22; Admin Dose 100 MLS/HR; Start 07/12/16 at 12:00 Quetiapine Fumarate 25 mg 25 mg BID NGT Last administered on 07/13/16 20:36; Admin Dose 25 MG; Start 07/12/16 at 21:00 Meropenem (Merrem 500 Mg/ 100 ml (Pmx)) 100 ml @ 200 mls/hr Q12 IVPB Last administered on 07/13/16 20:36; Admin Dose 200 MLS/HR; Start 07/12/16 at 14:00 Fentanyl 10 mcg 10 mcg Q3H PRN IV PAIN Last administered on 07/13/16 22:48; Admin Dose 10 MCG; Start 07/13/16 at 14:00 Potassium Chloride (KCl 40 MEQ/250 ML NS) 250 ml @ 62.5 mls/hr ONCE ONCE IVPB Last administered on 07/14/16 06:45; Admin Dose 62.5 MLS/HR; Start 07/14/16 at 06:00; Stop 07/14/16 at 09:59 LUIZA JOSE Jul 14, 2016 09:16
[2016-07-14] MEDS: FUROSEMIDE 20 MG INJ IV SCH (09:30)
[2016-07-14] MEDS ORDERED: POTASSIUM PHOSPHATE 15 MM in SOD CHLORIDE 0.9% 250 ML IVPB ONE (10:30)
--- NOTE | 2016-07-14 11:45 | RADRPT ---
PROCEDURE: XR Chest. CLINICAL INDICATION: Shortness of breath. TECHNIQUE: Single frontal view. COMPARISON: 07/13/2016. FINDINGS: The endotracheal tube, nasogastric feeding tube, and left arm PICC line remain in satisfactory posit ion. There are low lung volumes. There is mild atelectasis at the lung bases. The lungs are otherwis e clear. The heart is mildly enlarged. There is no pleural effusion or pneumothorax. There is chronic deformity and degenerative changes of the shoulders. IMPRESSION: 1. Mild atelectasis at the lung bases. 2. No change from 07/13/2016. RPTAT: QQ .Barney Hoffmann MD, MD Date Time Electronically viewed and signed by .Barney Hoffmann MD, MD on 07/14/2016 11:44 .R/
--- NOTE | 2016-07-14 13:00 | PN ---
DATE: 07/14/2016 SUBJECTIVE: The patient was successfully extubated yesterday. He is awake, looks comfortable, no f milena. VITAL SIGNS: Temperature 98.2, pulse 108, respirations 12, blood pressure 120/94, saturation 98% on 2 liters. LABORATORY DATA: WBC 17.3, H and H 11 and 34.6, platelets 216, neutrophils 87, no bands. BUN 9, cr eatinine 0.36. DIAGNOSTICS: Chest x-ray this morning revealed mild atelectasis at the lung bases. INDWELLINGS: The patient has PICC line, NG tube, and Berrios catheter. ANTIMICROBIALS: He is on: 1. Meropenem. 2. Vancomycin. PHYSICAL EXAMINATION: GENERAL: This is a 46-year-old dwarf, who is awake, in no distress. HEENT: Head atraumatic, normocephalic. Sclerae anicteric. Buccal mucosa dry. CHEST: Rise symmetrical. Breath sounds with scattered rhonchi. HEART: S1, S2. ABDOMEN: Soft, bowel tones present. EXTREMITIES: No cyanosis. ASSESSMENT: 1. Status post septic shock. 2. Status post acute respiratory failure. 3. Pneumonia, likely aspiration type. 4. Dwarfism and chondroplasia. 5. Status post ETOH abuse. PLAN: The patient remains stable post-extubation. Continue present care and anti-aspiration measur es. Follow recommendations of consultants. Dictated By: ALESSANDRA SIGALA GENERAL LABOR for ROSELINE WOODSON MD NI/NTS Conf#: [id number] DID#: [id number]
--- NOTE | 2016-07-14 13:10 | PN ---
DATE: SUBJECTIVE: He is extubated, day 2, doing well. No nausea, vomiting, shortness of breath. Denies pain. He has only received 1 dose of fentanyl overnight, nothing during the day shift so far. OBJECTIVE VITAL SIGNS: Pending. CHEST: Inspiratory and expiratory clear breath sounds, distant crackles at both bases, otherwise no wheezing or rhonchi. COR: S1, S2, without S3, S4, murmur, gallop, rub. Normal rate, normal rhythm. ABDOMEN: Grossly benign. ASSESSMENT AND PLAN: So far as pain management, very carefully used, using very low dose of fentany l 10 mcg every 3 hours p.r.n. I believe this gentleman is past withdrawing from alcohol. Continue t o support him at this time and follow up tomorrow. Dictated By: SERAFIN JAY MD, LP/OMAYRA Conf#: [id number] DID#: [id number]
[2016-07-14] MEDS: DEXTROSE 5%-0.45% NACL 1,000 ML IV SCH (14:03)
[2016-07-14] MEDS: FENTAnyl 50 MCG/ML VIAL IV PRN ×2 (15:43→20:22)
[2016-07-14] MEDS: HEPARIN 5,000 UNIT/0.5 ML VIAL SC SCH (20:33)
[2016-07-15] VITALS (25 sets, daily range): BP systolic 77–140; BP diastolic 53–94; PULSE 75–118; RESP 13–24
[2016-07-15] MEDS: DEXTROSE 5% IVPB SCH ×2 (03:08→12:29)
[2016-07-15] MEDS: VANCOMYCIN IVPB SCH ×2 (03:08→12:29)
[2016-07-15 04:57] LABS: ADD SCAN DIFF NO
[2016-07-15 05:05] LABS: ABNORMAL IP MESSAGE 1; HEMATOCRIT 35.7 % (42.0-52.0); HEMOGLOBIN 11.1 g/dl (14.0-18.0); MEAN CORPUSCULAR HEMOGLOBIN 31.8 pg (29.0-33.0); MEAN CORPUSCULAR HGB CONC 31.1 g/dl (32.0-37.0); MEAN CORPUSCULAR VOLUME 102.3 fl (82.0-101.0); MEAN PLATELET VOLUME 11.8 fl (7.4-10.4); PLATELET COUNT 204 10^3/UL (140-415); RED BLOOD COUNT 3.49 10^6/ul (4.70-6.10); RED CELL DISTRIBUTION WIDTH 15.8 % (11.5-14.5); WHITE BLOOD COUNT 12.3 10^3/ul (4.8-10.8)
[2016-07-15 05:24] LABS: ALBUMIN 2.7 g/dl (3.3-4.9); POTASSIUM 3.4 mmol/L (3.5-5.1)
[2016-07-15 05:27] LABS: CREATININE 0.35 mg/dl (0.61-1.24)
[2016-07-15 05:28] LABS: CALCIUM 8.2 mg/dl (8.4-10.2); PHOSPHORUS 2.8 mg/dl (2.5-4.9)
[2016-07-15] MEDS: LEVALBUTEROL (NEB) 1.25 MG/0.5 ML AMP HHN SCH ×4 (08:22→17:31)
[2016-07-15] MEDS: FAMOTIDINE 20 MG INJ IV SCH ×2 (08:43→20:29)
[2016-07-15] MEDS: FUROSEMIDE 20 MG INJ IV SCH (08:49)
[2016-07-15] MEDS: HEPARIN 5,000 UNIT/0.5 ML VIAL SC SCH ×2 (08:54→20:34)
[2016-07-15] MEDS: ARTIFICIAL TEARS 15 ML OPH BOTH EYES SCH ×4 (09:00→20:28)
[2016-07-15] MEDS ORDERED: DIPHENHYDRAMINE 50 MG INJ ONE (09:14)
[2016-07-15] MEDS: DIPHENHYDRAMINE 50 MG INJ IV PRN ×2 (09:27→17:53)
[2016-07-15] MEDS: MEROPENEM 500 MG/100 ML (PMX) 100 ML IVPB SCH (09:49)
--- NOTE | 2016-07-15 10:27 | CONS ---
Date/Time of Note Date/Time of Note DATE: 07/15/16 TIME: 10:24 Consult Date/Type/Reason Admit Date/Time Jul 04, 2016 at 23:28 Initial Consult Date 07/05/16 Type of Consultation: Pulmonary/critical care Subjective Patient remained stable postextubation Awake alert and oriented Talking in full and complete sentences with no respiratory distress Still has significant diarrhea Objective Vital Signs Date Time Temp Pulse Resp B/P Pulse Ox O2 Delivery O2 Flow Rate FiO2 07/15/16 08:22 99 18 100 Nasal Cannula 2.0 07/15/16 08:00 98.7 117/81 07/13/16 11:00 35 Intake and Output 07/14/16 07/14/16 07/15/16 15:00 23:00 07:00 Intake Total 895 ml 200 ml 120 ml Output Total 350 ml 415 ml 250 ml Balance 545 ml -215 ml -130 ml Exam GENERAL: Well-nourished well-developed gentleman dwarfism VITAL SIGNS: per chart NECK: Supple. No JVD or lymphadenopathy. CARDIAC EXAM: S1, S2. No added sounds or murmurs. CHEST: Diminished air entry both lung bases ABDOMEN: Soft, nontender. No guarding or rebound. EXTREMITIES: No cyanosis, clubbing trace edema improved NEUROLOGIC: Generalized weakness. Results/Medications Result Diagram: 07/15/16 0445 07/15/16 0445 Results 24 hrs Laboratory Tests Test 07/14/16 11:10 07/14/16 14:01 07/15/16 04:45 Potassium Level 4.3 3.4 L Bedside Glucose 93 White Blood Count 12.3 #H Red Blood Count 3.49 L Hemoglobin 11.1 L Hematocrit 35.7 L Mean Corpuscular Volume 102.3 H Mean Corpuscular Hemoglobin 31.8 Mean Corpuscular Hemoglobin Concent 31.1 L Red Cell Distribution Width 15.8 H Platelet Count 204 Mean Platelet Volume 11.8 H Sodium Level 140 Chloride Level 102 Carbon Dioxide Level 28 Anion Gap 13 Blood Urea Nitrogen 6 L Creatinine 0.35 L Glucose Level 112 Calcium Level 8.2 L Phosphorus Level 2.8 Albumin 2.7 L Medications Current Medications Famotidine (Pepcid Iv) 10 mg Q12 IV Last administered on 07/15/16t 08:43; Admin Dose 10 MG; Start 07/05/16 at 09:00 IV Flush 10 ml 10 ml PRN PRN IV IV PROTOCOL; Start 07/06/16 at 16:30 Dextrose/Sodium Chloride (D5-1/2ns) 1,000 ml @ 20 mls/hr Q24H IV Last administered on 07/14/16 14:03; Admin Dose 20 MLS/HR; Start 07/10/16 at 15:00 Metoclopramide HCl (Reglan) 1.6 mg Q6H PRN IV GI MOTILITY Last administered on 07/12/16 06:13; Admin Dose 1.6 MG; Start 07/12/16 at 01:30 Acetaminophen (Tylenol Liquid) 240 mg Q4H PRN GTB FEVER GREATER THAN 101 Last administered on 07/11/16 16:40; Admin Dose 240 MG; Start 07/11/16 at 02:00 Eye Lubricant (Artificial Tears Oph) 2 drop QID BOTH EYES Last administered on 07/14/16 17:00; Admin Dose 2 DROP; Start 07/11/16 at 13:00 Miscellaneous Information 1 ea NOTE XX ; Start 07/11/16 at 10:00 Glucose (Glutose) 15 gm Q15M PRN PO DECREASED GLUCOSE; Start 07/11/16 at 10:00 Glucose (Glutose) 22.5 gm Q15M PRN PO DECREASED GLUCOSE; Start 07/11/16 at 10:00 Dextrose (D50w Syringe) 25 ml Q15M PRN IV DECREASED GLUCOSE; Start 07/11/16 at 10:00 Dextrose (D50w Syringe) 50 ml Q15M PRN IV DECREASED GLUCOSE; Start 07/11/16 at 10:00 Glucagon (Glucagen) 1 mg Q15M PRN IM DECREASED GLUCOSE; Start 07/11/16 at 10:00 Glucose 15 gm 15 gm Q15M PRN BUCCAL DECREASED GLUCOSE; Start 07/11/16 at 10:00 Vancomycin HCl 240 mg/Dextrose 50 ml @ 100 mls/hr Q8H IVPB Last administered on 07/15/16 03:08; Admin Dose 100 MLS/HR; Start 07/12/16 at 12:00 Meropenem (Merrem 500 Mg/ 100 ml (Pmx)) 100 ml @ 200 mls/hr Q12 IVPB Last administered on 07/15/16 09:49; Admin Dose 200 MLS/HR; Start 07/12/16 at 14:00 Fentanyl (Sublimaze) 10 mcg Q3H PRN IV PAIN Last administered on 07/14/16 20:22 ; Admin Dose 10 MCG; Start 07/13/16 at 14:00 Furosemide (Lasix) 16 mg DAILY IV Last administered on 07/15/16 08:49; Admin Dose 16 MG; Start 07/14/16 at 09:30; Stop 07/17/16 at 09:29 Heparin Sodium (Porcine) (Heparin (5000 Units/0.5 ml)) 2,500 unit BID SC Last administered on 07/15/16 08:54; Admin Dose 2,500 UNIT; Start 07/14/16 at 21:00 Diphenhydramine HCl (Benadryl) 12.5 mg Q6H PRN IV ITCH/ AND ANXIETY Last administered on 07/15/16 09:27; Admin Dose 12.5 MG; Start 07/15/16 at 09:30 Chlordiazepoxide (Librium) 25 mg ONCE ONCE PO ; Start 07/15/16 at 10:30; Stop at 10:31 Assessment/Plan Chief Complaint/Hosp Course Assessment 1. Alcohol intoxication 2. Possible intentional overdose 3. Questionable aspiration pneumonia with hypoxemic respiratory failure component of bronchospasm now safely extubated 4. Encephalopathy toxic metabolic now resolved postextubation 5. Dwarfism Plan 1. Continue incentive spirometry 2. Speech therapy evaluation and advance diet as tolerated 3. Bronchodilators as needed 4. Continue antibiotics 5. Replace electrolytes 6. DVT and GI prophylaxis 7. Agree with stopping steroids 8. Stool for C. difficile colitis Disposition Continue current ICU care Problems: [facility]A SERRA MD, [facility] Jul 15, 2016 10:27
[2016-07-15 10:28] LABS: LYMPHOCYTES # 0.7 10^3/ul (0.8-2.9); MONOCYTE # 2.8 10^3/ul (0.3-0.9); NEUTROPHIL # 8.5 10^3/ul (1.6-7.5)
[2016-07-15] MEDS ORDERED: CHLORDIAZEPOXIDE 25 MG CAP PO ONE (10:30)
--- NOTE | 2016-07-15 10:39 | PN ---
Date/Time of Note Date/Time of Note DATE: 07/15/16 TIME: 10:35 Assessment/Plan VTE Prophylaxis VTE Prophylaxis Intervention: heparin Lines/Catheters IV Catheter Type (from Nrs): PICC Line Central line still needed: Yes Urinary Cath still in place: Yes Reason Cath still needed: other (indicate) (will d/c) Assessment/Plan Assessment/Plan 1. Acute respiratory failure, requiring reintubation, due to Alcohol withdrawal: now extubated and stable on NC 2. Severe sepsis due to Ecoli UTI and/ Staph PNA (?aspiration) with Altered Mental Status: improved + 3. Acute E coli cystitis 4. Alcohol overdose: s/p banana bag and withdrawals 5. Possible suicide threat or attempt 6. Achondroplastic Dwarfism 7. Tachycardia: ?2/2 anxiety versus withdrawal:?improved 8. Chronic anxiety d/o verus ongoing withdrawals PLAN: - Cleared for diet now per ST - try librium to help with shakiness - Continue Short term low dose lasix to optimize resp status / followup CXR / continue steroids per pulm and abx per ID - Reevaluate for suicidal attempt probable tomorrow and obtain Psych review if indicated - Pepcid / Heparin for prophylaxis Subjective 24 Hr Interval Summary Free Text/Dictation Patient seen and examined. doing much better, but very shaky and anxious Exam/Review of Systems Vital Signs Vitals Vital Signs Date Time Temp Pulse Resp B/P Pulse Ox O2 Delivery O2 Flow Rate FiO2 07/15/16 08:22 99 18 100 Nasal Cannula 2.0 07/15/16 08:00 98.7 117/81 07/13/16 11:00 35 Intake and Output 07/14/16 07/14/16 07/15/16 15:00 23:00 07:00 Intake Total 895 ml 200 ml 120 ml Output Total 350 ml 415 ml 250 ml Balance 545 ml -215 ml -130 ml Exam Constitutional: alert, oriented Psych: anxiety Head: normocephalic Eyes: PERRL ENMT: mucosa pink and moist Neck: supple Respiratory: diminished breath sounds Cardiovascular: nl pulses, regular rate and rhythm Gastrointestinal: bowel sounds, non-tender, soft Musculoskeletal: other (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) Neurological: lethargic, nl mental status Results Result Diagram: 07/15/165 07/15/16444 Results 24 hrs Laboratory Tests Test 07/14/16 11:10 07/14/16 14:01 07/15/16 04:45 Potassium Level 4.3 3.4 L Bedside Glucose 93 White Blood Count 12.3 #H Red Blood Count 3.49 L Hemoglobin 11.1 L Hematocrit 35.7 L Mean Corpuscular Volume 102.3 H Mean Corpuscular Hemoglobin 31.8 Mean Corpuscular Hemoglobin Concent 31.1 L Red Cell Distribution Width 15.8 H Platelet Count 204 Mean Platelet Volume 11.8 H Neutrophils % 69.0 Band Neutrophils % 2.0 Lymphocytes % 6.0 L Monocytes % 23.0 H Neutrophils # 8.5 H Lymphocytes # 0.7 L Monocytes # 2.8 H Differential Comment MANUAL DIFF Sodium Level 140 Chloride Level 102 Carbon Dioxide Level 28 Anion Gap 13 Blood Urea Nitrogen 6 L Creatinine 0.35 L Glucose Level 112 Calcium Level 8.2 L Phosphorus Level 2.8 Albumin 2.7 L Medications Medications Current Medications Famotidine (Pepcid Iv) 10 mg Q12 IV Last administered on 07/15/16 08:43; Admin Dose 10 MG; Start 07/05/16 at 09:00 IV Flush 10 ml 10 ml PRN PRN IV IV PROTOCOL; Start 07/06/16 at 16:30 Dextrose/Sodium Chloride (D5-1/2ns) 1,000 ml @ 20 mls/hr Q24H IV Last administered on 07/14/16 14:03; Admin Dose 20 MLS/HR; Start 07/10/16 at 15:00 Metoclopramide HCl (Reglan) 1.6 mg Q6H PRN IV GI MOTILITY Last administered on 07/12/16 06:13; Admin Dose 1.6 MG; Start 07/12/16 at 01:30 Acetaminophen (Tylenol Liquid) 240 mg Q4H PRN GTB FEVER GREATER THAN 101 Last administered on 07/11/16 16:40; Admin Dose 240 MG; Start 07/11/16 at 02:00 Eye Lubricant (Artificial Tears Oph) 2 drop QID BOTH EYES Last administered on 07/14/16 17:00; Admin Dose 2 DROP; Start 07/11/16 at 13:00 Miscellaneous Information 1 ea NOTE XX ; Start 07/11/16 at 10:00 Glucose (Glutose) 15 gm Q15M PRN PO DECREASED GLUCOSE; Start 07/11/16 at 10:00 Glucose (Glutose) 22.5 gm Q15M PRN PO DECREASED GLUCOSE; Start 07/11/16 at 10:00 Dextrose (D50w Syringe) 25 ml Q15M PRN IV DECREASED GLUCOSE; Start 07/11/16 at 10:00 Dextrose (D50w Syringe) 50 ml Q15M PRN IV DECREASED GLUCOSE; Start 07/11/16 at 10:00 Glucagon (Glucagen) 1 mg Q15M PRN IM DECREASED GLUCOSE; Start 07/11/16 at 10:00 Glucose 15 gm 15 gm Q15M PRN BUCCAL DECREASED GLUCOSE; Start 07/11/16 at 10:00 Vancomycin HCl 240 mg/Dextrose 50 ml @ 100 mls/hr Q8H IVPB Last administered on 07/15/16 03:08; Admin Dose 100 MLS/HR; Start 07/12/16 at 12:00 Meropenem (Merrem 500 Mg/ 100 ml (Pmx)) 100 ml @ 200 mls/hr Q12 IVPB Last administered on 07/15/16 09:49; Admin Dose 200 MLS/HR; Start 07/12/16 at 14:00 Fentanyl (Sublimaze) 10 mcg Q3H PRN IV PAIN Last administered on 07/14/16 20:22 ; Admin Dose 10 MCG; Start 07/13/16 at 14:00 Furosemide (Lasix) 16 mg DAILY IV Last administered on 07/15/16 08:49; Admin Dose 16 MG; Start 07/14/16 at 09:30; Stop 07/17/16 at 09:29 Heparin Sodium (Porcine) (Heparin (5000 Units/0.5 ml)) 2,500 unit BID SC Last administered on 07/15/16 08:54; Admin Dose 2,500 UNIT; Start 07/14/16 at 21:00 Diphenhydramine HCl (Benadryl) 12.5 mg Q6H PRN IV ITCH/ AND ANXIETY Last administered on 07/15/16 09:27; Admin Dose 12.5 MG; Start 07/15/16 at 09:30 Procedures Procedures PROCEDURE: XR Chest. CLINICAL INDICATION: Shortness of breath. TECHNIQUE: Single frontal view. COMPARISON: 07/13/2016. FINDINGS: The endotracheal tube, nasogastric feeding tube, and left arm PICC line remain in satisfactory position. There are low lung volumes. There is mild atelectasis at the lung bases. The lungs are otherwise clear. The heart is mildly enlarged. There is no pleural effusion or pneumothorax. There is chronic deformity and degenerative changes of the shoulders. IMPRESSION: 1. Mild atelectasis at the lung bases. 2. No change from 07/13/2016. RPTAT: QQ .Barney Hoffmann MD, MD Date Time Electronically viewed and signed by .Barney Hoffmann MD, MD on 07/14/2016 11:44 .R/ CC: LUIZA JOSE BOLATITO M. Jul 15, 2016 10:39
[2016-07-15] MEDS ORDERED: traMADol 50 MG TAB PO PRN (11:00)
[2016-07-15] MEDS: GABAPENTIN 100 MG CAP PO SCH ×2 (12:29→22:23)
--- NOTE | 2016-07-15 13:38 | PN ---
DATE: 07/15/2016 PAIN MANAGEMENT FOLLOWUP NOTE SUBJECTIVE: Other than being anxious, as patient says he is denying any pain. When he did have dis comfort, it was primarily associated with the ET tube, which has been removed at this time. Now the re is no discomfort. OBJECTIVE: VITAL SIGNS: Blood pressure 97/78, pulse 118 and regular, respirations of 18, 100% saturations on 2 liters, temperature 99 degrees. HEENT: He is normocephalic and atraumatic. Anicteric, acyanotic. CHEST: Without inspiratory and expiratory wheezing, rhonchi or rubs. COR: S1, S2, without S3, S4, murmur, gallop, rub. Normal rate, normal rhythm. ABDOMEN: Grossly benign. LABORATORY DATA: White blood cell count of 12.3, hemoglobin 11.1, hematocrit 35.7, MCV of 102.3, pl atelet count 204,000. Chemistries: Serum sodium 140, potassium 3.4, chloride 102, bicarbonate 28, BUN of 6, creatinine 0.35. ASSESSMENT AND PLAN: 1. Pain syndrome. 2. Respiratory failure, status post intubation, now extubated. 3. Staphylococcus pneumonia, possibly aspiration. 4. Altered mental status, now resolved. 5. Alcohol overdose. 6. Achondroplastic dwarfism. We will continue with current care. I do not suggest adding on benzodiazepines at this time, but ju st continue with low dose fentanyl as needed or Benadryl. For now, would hold Gabapentin. I will r esearch tramadol which has been written, Seroquel, and gabapentin. Dictated By: SERAFIN JAY MD, LP/OMAYRA Conf#: [id number] DID#: [id number]
--- NOTE | 2016-07-15 14:00 | PN ---
DATE: 07/15/2016 INFECTIOUS DISEASE PROGRESS NOTE SUBJECTIVE: No events overnight. The patient is lying comfortably in bed, comfortable on nasal can nula. No fevers. VITAL SIGNS: Temperature 98.7, pulse 98, respirations 24, blood pressure 105/94, saturation 99% on nasal cannula. WBC 12.3, H and H 11.1 and 35.7, platelets 204, no shift. Bands 2, BUN 6, creatinine 0.35. MICROBIOLOGY: Stool for C. diff came back negative. Urine culture on admission grew E. coli. Endo tracheal aspirate growing oxacillin-sensitive Staphylococcus aureus. INDWELLINGS: PICC line, Berrios. ANTIMICROBIALS: Patient is on: 1. Merrem/ 2. Vancomycin. PHYSICAL EXAMINATION: GENERAL: This is a 46-year-old dwarf who is lying comfortably in bed. HEENT: Head atraumatic, normocephalic. Sclerae anicteric. Buccal mucosa dry. NECK: Supple. CHEST: Rise symmetrical. Breath sounds diminished to bases. HEART: S1, S2. ABDOMEN: Soft, bowel tones present. EXTREMITIES: No cyanosis. ASSESSMENT: 1. Resolving sepsis status post shock. 2. Status post acute respiratory failure. 3. Resolving pneumonia. 4. History of ETOH. 5. Dwarfism and chondroplasia. PLAN: The patient remains stable post-extubation. We are going to change antibiotics to Rocephin. Continue anti-aspiration measures and management as per primary team and consultants. Dictated By: ALESSANDRA SIGALA FOUNDER for ROSELINE MARVIN/OMAYRA Conf#: [id number] DID#: [id number]
[2016-07-15] MEDS: traMADol 50 MG TAB PO PRN ×2 (14:10→20:29)
[2016-07-15] MEDS: CEFTRIAXONE 1 GM/50 ML (PMX) 50 ML IVPB SCH (15:51)
[2016-07-15] MEDS: DEXTROSE 5%-0.45% NACL 1,000 ML IV SCH ×2 (15:54→22:51)
[2016-07-16] VITALS (24 sets, daily range): BP systolic 66–110; BP diastolic 39–87; PULSE 59–123; RESP 12–22
[2016-07-16] MEDS: traMADol 50 MG TAB PO PRN ×4 (02:42→21:47)
[2016-07-16] MEDS: DIPHENHYDRAMINE 50 MG INJ IV PRN (02:45)
[2016-07-16 06:55] LABS: ADD SCAN DIFF NO
[2016-07-16 06:58] LABS: ABNORMAL IP MESSAGE 1; BASOPHILS % 0.2 % (0.0-2.0); EOSINOPHILS # 0.4 10^3/ul (0.0-0.5); EOSINOPHILS % 5.6 % (0.0-7.0); HEMOGLOBIN 9.8 g/dl (14.0-18.0); LYMPHOCYTES # 1.1 10^3/ul (0.8-2.9); LYMPHOCYTES % 17.8 % (15.0-51.0); MEAN CORPUSCULAR HEMOGLOBIN 33.1 pg (29.0-33.0); MEAN CORPUSCULAR HGB CONC 32.7 g/dl (32.0-37.0); MEAN CORPUSCULAR VOLUME 101.4 fl (82.0-101.0); MEAN PLATELET VOLUME 11.2 fl (7.4-10.4); MONOCYTE # 1.9 10^3/ul (0.3-0.9); MONOCYTES % 29.7 % (0.0-11.0); NEUTROPHIL # 2.9 10^3/ul (1.6-7.5); NEUTROPHILS % 45.1 % (39.0-77.0); PLATELET COUNT 164 10^3/UL (140-415); RED BLOOD COUNT 2.96 10^6/ul (4.70-6.10); RED CELL DISTRIBUTION WIDTH 15.3 % (11.5-14.5); WHITE BLOOD COUNT 6.4 10^3/ul (4.8-10.8)
[2016-07-16 07:21] LABS: CALCIUM 7.6 mg/dl (8.4-10.2); CREATININE 0.33 mg/dl (0.61-1.24); PHOSPHORUS 2.8 mg/dl (2.5-4.9)
[2016-07-16 07:23] LABS: POTASSIUM 2.8 mmol/L (3.5-5.1)
[2016-07-16] MEDS: LEVALBUTEROL (NEB) 1.25 MG/0.5 ML AMP HHN SCH ×4 (08:00→16:00)
[2016-07-16] MEDS ORDERED: POTASSIUM CHLORIDE 20 MEQ POWDER FOR ORAL SOLN PO SCH (08:00)
[2016-07-16] MEDS ORDERED: POTASSIUM CHLORIDE 20 MEQ POWDER FOR ORAL SOLN GTB SCH (08:00)
[2016-07-16] MEDS ORDERED: POTASSIUM CHLORIDE 250 ML IVPB ONE (08:30)
[2016-07-16] MEDS ORDERED: POTASSIUM CHLORIDE (1.33 MEQ/ML PO SYG) PO ONE (08:30)
[2016-07-16] MEDS: FUROSEMIDE 20 MG INJ IV SCH (09:00)
[2016-07-16] MEDS: ARTIFICIAL TEARS 15 ML OPH BOTH EYES SCH ×4 (09:16→21:00)
[2016-07-16] MEDS: GABAPENTIN 100 MG CAP PO SCH ×2 (09:17→21:46)
[2016-07-16] MEDS: FAMOTIDINE 20 MG INJ IV SCH ×2 (09:19→21:46)
[2016-07-16] MEDS: HEPARIN 5,000 UNIT/0.5 ML VIAL SC SCH ×2 (09:42→21:55)
--- NOTE | 2016-07-16 09:42 | CONS ---
Date/Time of Note Date/Time of Note DATE: 07/16/16 TIME: 09:41 Consult Date/Type/Reason Admit Date/Time Jul 04, 2016 at 23:28 Initial Consult Date 07/05/16 Type of Consultation: Pulmonary/critical care Subjective Patient sleeping comfortable no events overnight Breathing seems to be improving Still has diarrhea Objective Vital Signs Date Time Temp Pulse Resp B/P Pulse Ox O2 Delivery O2 Flow Rate FiO2 07/16/16 08:00 65 07/16/16 07:00 13 68/52 100 Nasal Cannula 1.0 07/16/16 04:00 98.7 07/13/16 11:00 35 Intake and Output 07/15/16 07/15/16 07/16/16 15:00 23:00 07:00 Intake Total 240 ml 385 ml 180 ml Output Total 1170 ml 270 ml 0 ml Balance -930 ml 115 ml 180 ml Exam GENERAL: Well-nourished well-developed gentleman dwarfism VITAL SIGNS: per chart NECK: Supple. No JVD or lymphadenopathy. CARDIAC EXAM: S1, S2. No added sounds or murmurs. CHEST: Diminished air entry both lung bases ABDOMEN: Soft, nontender. No guarding or rebound. EXTREMITIES: No cyanosis, clubbing trace edema improved NEUROLOGIC: Generalized weakness. Results/Medications Result Diagram: 07/16/16 0645 07/16/16 0645 Results 24 hrs Laboratory Tests Test 07/16/16 06:45 White Blood Count 6.4 # Red Blood Count 2.96 L Hemoglobin 9.8 L Hematocrit 30.0 L Mean Corpuscular Volume 101.4 H Mean Corpuscular Hemoglobin 33.1 H Mean Corpuscular Hemoglobin Concent 32.7 Red Cell Distribution Width 15.3 H Platelet Count 164 Mean Platelet Volume 11.2 H Neutrophils % 45.1 Lymphocytes % 17.8 Monocytes % 29.7 H Eosinophils % 5.6 Basophils % 0.2 Nucleated Red Blood Cells % 0.0 Neutrophils # 2.9 Lymphocytes # 1.1 Monocytes # 1.9 H Eosinophils # 0.4 Basophils # 0.0 Nucleated Red Blood Cells # 0.0 Sodium Level 135 Potassium Level 2.8 *L Chloride Level 96 L Carbon Dioxide Level 34 H Anion Gap 8 Blood Urea Nitrogen 5 L Creatinine 0.33 L Glucose Level 84 Calcium Level 7.6 L Phosphorus Level 2.8 Albumin 2.0 L Medications Current Medications Famotidine (Pepcid Iv) 10 mg Q12 IV Last administered on 07/15/16 20:29; Admin Dose 10 MG; Start 07/05/16 at 09:00 IV Flush 10 ml 10 ml PRN PRN IV IV PROTOCOL; Start 07/06/16 at 16:30 Dextrose/Sodium Chloride (D5-1/2ns) 1,000 ml @ 20 mls/hr Q24H IV Last administered on 07/15/16 22:51; Admin Dose 20 MLS/HR; Start 07/10/16 at 15:00 Metoclopramide HCl (Reglan) 1.6 mg Q6H PRN IV GI MOTILITY Last administered on 07/12/16 06:13; Admin Dose 1.6 MG; Start 07/12/16 at 01:30 Acetaminophen (Tylenol Liquid) 240 mg Q4H PRN GTB FEVER GREATER THAN 101 Last administered on 07/11/16 16:40; Admin Dose 240 MG; Start 07/11/16 at 02:00 Eye Lubricant (Artificial Tears Oph) 2 drop QID BOTH EYES Last administered on 07/15/16 20:28; Admin Dose 2 DROP; Start 07/11/16 at 13:00 Miscellaneous Information 1 ea NOTE XX ; Start 07/11/16 at 10:00 Glucose (Glutose) 15 gm Q15M PRN PO DECREASED GLUCOSE; Start 07/11/16 at 10:00 Glucose (Glutose) 22.5 gm Q15M PRN PO DECREASED GLUCOSE; Start 07/11/16 at 10:00 Dextrose (D50w Syringe) 25 ml Q15M PRN IV DECREASED GLUCOSE; Start 07/11/16 at 10:00 Dextrose (D50w Syringe) 50 ml Q15M PRN IV DECREASED GLUCOSE; Start 07/11/16 at 10:00 Glucagon (Glucagen) 1 mg Q15M PRN IM DECREASED GLUCOSE; Start 07/11/16 at 10:00 Glucose (Glutose) 15 gm Q15M PRN BUCCAL DECREASED GLUCOSE; Start 07/11/16 at 10: 00 Fentanyl (Sublimaze) 10 mcg Q3H PRN IV PAIN Last administered on 07/14/16 20:22 ; Admin Dose 10 MCG; Start 07/13/16 at 14:00 Furosemide (Lasix) 16 mg DAILY IV Last administered on 07/15/16 08:49; Admin Dose 16 MG; Start 07/14/16 at 09:30; Stop 07/17/16 at 09:29 Heparin Sodium (Porcine) (Heparin (5000 Units/0.5 ml)) 2,500 unit BID SC Last administered on 07/15/16 20:34; Admin Dose 2,500 UNIT; Start 07/14/16 at 21:00 Diphenhydramine HCl (Benadryl) 12.5 mg Q6H PRN IV ITCH/ AND ANXIETY Last administered on 07/16/16 02:45; Admin Dose 12.5 MG; Start 07/15/16 at 09:30 Gabapentin 100 mg 100 mg BID PO Last administered on 07/15/16 22:23; Admin Dose 100 MG; Start 07/15/16 at 12:00 Ceftriaxone Sodium (Rocephin) 50 ml @ 100 mls/hr Q24H IVPB Last administered on 07/15/16 15:51; Admin Dose 100 MLS/HR; Start 07/15/16 at 13:30 Tramadol HCl 50 mg 50 mg Q6H PRN PO PAIN Last administered on 07/16/16 02:42; Admin Dose 50 MG; Start 07/15/16 at 14:00 Potassium Chloride (KCl 40 MEQ/250 ML NS) 250 ml @ 62.5 mls/hr ONCE ONCE IVPB ; Start 07/16/16 at 08:30; Stop 07/16/16 at 12:29 Potassium Chloride (Potassium Chloride Pwd/Soln) 20 meq ONCE PO ; Start 07/16/16 at 08:00; Stop 07/16/16 at 15:00 Assessment/Plan Chief Complaint/Hosp Course Assessment 1. Alcohol intoxication 2. Possible intentional overdose 3. Questionable aspiration pneumonia with hypoxemic respiratory failure component of bronchospasm now safely extubated 4. Encephalopathy toxic metabolic now resolved postextubation 5. Dwarfism 6. Hypokalemia Plan 1. Continue incentive spirometry 2. Speech therapy recommendations aspiration precautions 3. Bronchodilators as needed 4. Continue antibiotics 5. Replace electrolytes 6. DVT and GI prophylaxis 7. Consider de-escalation of antibiotics Disposition Continue current ICU care Problems: LULA SERRA [facility], [facility] Jul 16, 2016 09:42
[2016-07-16] MEDS ORDERED: FUROSEMIDE 20 MG INJ IV ONE (10:00)
--- NOTE | 2016-07-16 11:05 | PSY ---
Date/Time of Note Date/Time of Note DATE: 07/16/16 TIME: 11:04 Psychiatric Subjective Eval Consent Pt consented to telemedicine: Yes Subjective Evaluation Patient location: inpatient Chief Complaint: intentional overdose this evening, bib EMS Reason for consult: SA by OD History of present illness D/w hospitalist. 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 Friend got to his house , found him unresponsive and called 911, started chest compressions. pt was intubated, he developed aspiration pneumonia, he is in ICU. Extubated yesterday. Pt is pleasant and cooperative. pt has a hx alcohol dependence, hx multiple (3) rehabs; longest sobriety 2 years.He admits to feeing lonely and sad for months, feeling hopeless and helpless because his work is very slow. He lives by himself and has only his agent as his support systema nd his parents who live in a small town in [place]. Pt admits to insomnia, poor appetite, sadness, feelinghopeless and helpless. He answers : "I don't know" then asked about Si, but, per report, he repeatedly made suicidal statements to his agent and to his parents. He denies psychosis. Denies HI, denies marissa. Admits to anxiety and feeling restless. He is on gabapentin and ultram. Then asked about OD he says :"I don't know" - initally said he was "partying" and took some percoset with alcohol but his UDS is negative for opiates. He admits there is a strong possibility of him taking an OD of his rx meds while intoxicated on alcohol due to depression as a SA. Past psychiatric history rehabs x3; no inpt, no outpt; then asked about past SA says"I don't know" Hospitalization: Suicidal Attempt(s) Family History denies Medical history Problems Medical Problems: (1) Acute cystitis Status: Acute (2) Acute respiratory failure requiring reintubation Status: Acute (3) Alcohol overdose Status: Acute (4) Lactic acidosis Status: Acute (5) Polysubstance overdose Status: Acute (6) Suicide threat or attempt Status: Acute Allergies: Coded Allergies: No Known Allergy (Unverified , 07/04/16) Substance Abuse Substance abuse history: Yes Prior substance abuse treatmen: Yes Social History Marital status: single Level of education: HS DPA/Conservatorship: No Occupation/[facility]: [facility] Objective Eval Review of Systems: Review of Systems: Not Applicable Physical Examination: Sleep: Insomnia Appetite: Decreased Energy: Decreased Interest: Decreased Mental Status Examination: Appearance: Groomed Eye Contact: Good Psychomotor Activity: Normal Behavior: Cooperative Speech: Clear AFFECT: Appropriate Mood: Depressed Though Process: Linear Thought Content: Normal Suicidal: Yes Homicidal: No On 72 hour hold: No Orientation: x4 Cognition: Alert Insight: Impared Judgement: Impared Attention Span: Intact Laboratory Results Laboratory Tests Test 07/14/16 11:10 07/14/16 14:01 07/15/16 04:45 07/16/16 06:45 Potassium Level 4.3mmol/L 3.4mmol/L 2.8mmol/L Bedside Glucose 93mg/dL White Blood Count 12.310^3/ul 6.410^3/ul Red Blood Count 3.4910^6/ul 2.9610^6/ul Hemoglobin 11.1g/dl 9.8g/dl Hematocrit 35.7% 30.0% Mean Corpuscular Volume 102.3fl 101.4fl Mean Corpuscular Hemoglobin 31.8pg 33.1pg Mean Corpuscular Hemoglobin Concent 31.1g/dl 32.7g/dl Red Cell Distribution Width 15.8% 15.3% Platelet Count 90065^3/UL 47747^3/UL Mean Platelet Volume 11.8fl 11.2fl Neutrophils % 69.0% 45.1% Band Neutrophils % 2.0% Lymphocytes % 6.0% 17.8% Monocytes % 23.0% 29.7% Neutrophils # 8.510^3/ul 2.910^3/ul Lymphocytes # 0.710^3/ul 1.110^3/ul Monocytes # 2.810^3/ul 1.910^3/ul Differential Comment MANUAL DIFF Sodium Level 140mmol/L 135mmol/L Chloride Level 102mmol/L 96mmol/L Carbon Dioxide Level 28mmol/L 34mmol/L Anion Gap 13 8 Blood Urea Nitrogen 6mg/dl 5mg/dl Creatinine 0.35mg/dl 0.33mg/dl Glucose Level 112mg/dl 84mg/dl Calcium Level 8.2mg/dl 7.6mg/dl Phosphorus Level 2.8mg/dl 2.8mg/dl Albumin 2.7g/dl 2.0g/dl Eosinophils % 5.6% Basophils % 0.2% Nucleated Red Blood Cells % 0.0/100WBC Eosinophils # 0.410^3/ul Basophils # 0.010^3/ul Nucleated Red Blood Cells # 0.010^3/ul Assessment and Plan Assessment/Diagnosis [place] I: MAJOR DEPRESSIEVE DISORDER RECURRENT SEVERE VS ALCOHOL INDUCED MOOD DISORDER. ALCOHOL DEPENDENCE [place] II: DEFERED [place] III: PER RECORD [place] IV: MODERATE [place] V: GAF 25 Recommendation/Plan Medication Management MONITOR FOR OBJECTIVE SIGNS OF ALCOHOL WITHDRAWALS; UTILZIE BEZOS (ATIVAN PREFERABLY) FOR WITHDRAWALS; PLEASE CONTINUE ON THIAMINE 100 MG PO/IB BID, FOLIC ACID 2 MG QD. PLEASE START ON REMERON 7.5 MG POQHS - RISKS, BENEFITS D/W THE PT. Psychotherapy DEFER TO INPT Pt. Caregiver/Family Education PT PLANS TO STAY WITH HIS PARENTS UPON DISCHARGE, HOWEVER, HE SAID, THEY LIVE IN [place] [facility] [place] AND THERE IS LIMITED ACCESS TO MENTAL HEALTH SERVICES. Follow-up/Disposition PLEASE ARRANGE INPATIENT TREATMENT FOR DERPESSIONA ND ALCOHOL DEPENDENCE THEN MEDICALLY CLEARED FOR DISCHARGE. PT IS WILLING TO BE TRANSFERRED ON VOLUNTARY BASIS. IF REFUSES HE CAN BE PLACED ON 5150 FOR DTS DUE TO THE SERIOUSNESS OF OVERDOSE, REPEATED SUICIDAL STATEMENTS MADE TO HIS FRIEND AND HIS PARENTS AND HIGH RISK OF OVERDOSE THEN RELAPSES ON ALCOHOL. 5150 Recommendation: MAKAYLA HOLM MD Jul 16, 2016 11:05
[2016-07-16] MEDS: CEFTRIAXONE 1 GM/50 ML (PMX) 50 ML IVPB SCH (13:23)
--- NOTE | 2016-07-16 13:25 | PN ---
DATE: 07/16/2016 PAIN MANAGEMENT PROGRESS NOTE Mr. Macdonald is doing extremely well. He states he has some anxiety, but pain is controlled today. Amanda dowell had prehospitalization chronic pain syndrome, ill characterized. I will discuss it with him in mo re detail. Up until 2 days ago he was still vent dependent. Yesterday he was somnolent. I did not address that issue with him. Today he is much improved, communicative, and I will discuss the neces sity for opioid pain control medications prior to hospitalization, in addition to excessive alcohol consumption. PHYSICAL EXAMINATION: VITAL SIGNS: Blood pressure 106/77, pulse 119, respirations of 18, temperature of 98.7 degrees, 97% saturation on 1 liter room air. CHEST: Bilaterally clear to auscultation. COR: S1, S2, without S3, S4, murmur, gallop or rub. Normal rate, normal rhythm. ABDOMEN: On examination abdomen is grossly benign. NEUROLOGICAL EXAMINATION: He is oriented x3. Cranial nerves II through XII are grossly intact. Mo tor and sensory findings are grossly within normal limits. He is pleasant to speak with, in no acut e distress. LABORATORY: His white blood cell count is 6.4, hemoglobin 9.8, hematocrit of 30.0, MCV of 101.4, pl atelet count 164,000. Chemistries: Serum sodium 135, potassium 2.8, chloride 96, bicarbonate 34, B UN of 5, creatinine 0.33, blood sugar of 84. ASSESSMENT AND PLAN: Continue with the current pain management, which include only tramadol. I will discontinue the fentanyl that he has been taking in the ICU. Close observation. The patient may r equire a tele psych evaluation for consideration of any underlying psychiatric issues prior to disch arge. Dictated By: SERAFIN JAY MD, LP/OMAYRA Conf#: [id number] DID#: [id number]
--- NOTE | 2016-07-16 14:02 | PN ---
DATE: 07/16/2016 INFECTIOUS DISEASE PROGRESS NOTE SUBJECTIVE: No acute changes. The patient is awake, looks comfortable, no fevers. He is slightly tachycardic in no distress. WBC 6.4, H and H 9.8 and 30, platelets 164, neutrophils 45.1, BUN 5, creatinine 0.33. ANTIMICROBIALS: Rocephin. INDWELLINGS: Berrios and PICC line. 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 HEENT: Head atraumatic, normocephalic. Sclerae anicteric. Buccal mucosa dry. NECK: Supple. CHEST: Rise symmetrical. Breath sounds diminished to bases. ABDOMEN: Soft. Bowel tones present. EXTREMITIES: Without cyanosis. ASSESSMENT: 1. Status post sepsis with respiratory failure. 2. Possible aspiration pneumonia with sputum culture grew oxacillin-sensitive Staphylococcus aureus . 3. Status post Escherichia coli urinary tract infection. 4. History of ETOH. 5. Dwarfism. PLAN: The patient remains stable. Continue present care. Complete antibiotics. Dictated By: ALESSANDRA SIGALA COMMERCIAL LENDING ASSISTANT for ROSELINE MARVIN/OMAYRA Conf#: [id number] DID#: [id number]
[2016-07-16] MEDS ORDERED: SOD CHLORIDE 0.9% 250 ML IV ONE (18:00)
[2016-07-17] VITALS (25 sets, daily range): BP systolic 78–106; BP diastolic 47–75; PULSE 60–115; RESP 12–26
[2016-07-17] MEDS: DIPHENHYDRAMINE 50 MG INJ IV PRN ×2 (03:58→23:15)
[2016-07-17] MEDS: traMADol 50 MG TAB PO PRN ×4 (03:59→23:15)
[2016-07-17 05:29] LABS: ADD SCAN DIFF NO
[2016-07-17 05:31] LABS: ABNORMAL IP MESSAGE 1; BASOPHILS % 0.1 % (0.0-2.0); EOSINOPHILS # 0.5 10^3/ul (0.0-0.5); EOSINOPHILS % 7.5 % (0.0-7.0); HEMATOCRIT 33.6 % (42.0-52.0); HEMOGLOBIN 10.6 g/dl (14.0-18.0); LYMPHOCYTES # 1.3 10^3/ul (0.8-2.9); LYMPHOCYTES % 18.2 % (15.0-51.0); MEAN CORPUSCULAR HEMOGLOBIN 32.3 pg (29.0-33.0); MEAN CORPUSCULAR HGB CONC 31.5 g/dl (32.0-37.0); MEAN CORPUSCULAR VOLUME 102.4 fl (82.0-101.0); MEAN PLATELET VOLUME 12.7 fl (7.4-10.4); MONOCYTE # 1.9 10^3/ul (0.3-0.9); MONOCYTES % 27.4 % (0.0-11.0); NEUTROPHIL # 3.1 10^3/ul (1.6-7.5); NEUTROPHILS % 44.4 % (39.0-77.0); PLATELET COUNT 237 10^3/UL (140-415); RED BLOOD COUNT 3.28 10^6/ul (4.70-6.10)
[2016-07-17 05:56] LABS: CALCIUM 8.4 mg/dl (8.4-10.2); CREATININE 0.41 mg/dl (0.61-1.24); POTASSIUM 4.1 mmol/L (3.5-5.1)
[2016-07-17] MEDS ORDERED: FUROSEMIDE 20 MG INJ IV SCH (09:00)
[2016-07-17] MEDS: GABAPENTIN 100 MG CAP PO SCH ×2 (09:09→20:53)
[2016-07-17] MEDS: ARTIFICIAL TEARS 15 ML OPH BOTH EYES SCH ×4 (09:13→21:00)
[2016-07-17] MEDS: FAMOTIDINE 20 MG INJ IV SCH ×2 (09:13→20:53)
[2016-07-17] MEDS: HEPARIN 5,000 UNIT/0.5 ML VIAL SC SCH ×2 (09:15→20:55)
--- NOTE | 2016-07-17 09:17 | PN ---
Date/Time of Note Date/Time of Note DATE: 07/17/16 TIME: 09:13 Assessment/Plan VTE Prophylaxis VTE Prophylaxis Intervention: heparin Lines/Catheters IV Catheter Type (from Nrs): PICC Line Central line still needed: Yes Urinary Cath still in place: No Assessment/Plan Assessment/Plan 1. Acute respiratory failure, requiring reintubation, due to Alcohol withdrawal: now extubated and stable on NC 2. Severe sepsis due to Ecoli UTI and/ Staph PNA (?aspiration) with Altered Mental Status: improved + 3. Acute E coli cystitis 4. Alcohol overdose: s/p banana bag and withdrawals 5. Possible suicide threat or attempt 6. Achondroplastic Dwarfism 7. Tachycardia: ?2/2 anxiety versus withdrawal:?improved 8. Chronic anxiety d/o : stable PLAN: - Psych recs noted - Monitor BP, patient is medically stable for transfer to inpt Psych unit once availability is found - Continue ambulation with PT - Continue supportive care - Pepcid / Heparin for prophylaxis Subjective 24 Hr Interval Summary Free Text/Dictation Feels better / asking when he can be transferred to rehab Exam/Review of Systems Vital Signs Vitals Vital Signs Date Time Temp Pulse Resp B/P Pulse Ox O2 Delivery O2 Flow Rate FiO2 07/17/16 06:00 71 13 80/47 100 Nasal Cannula 07/17/16 04:00 98.8 07/17/16 00:26 1.0 07/13/16 11:00 35 Intake and Output 07/16/16 07/16/16 07/17/16 15:00 23:00 07:00 Intake Total 430.0 ml 175 ml 140 ml Output Total 400 ml 0 ml 0 ml Balance 30.0 ml 175 ml 140 ml Exam Constitutional: alert, oriented, No distress Head: normocephalic Eyes: PERRL ENMT: mucosa pink and moist Respiratory: crackles/rales (less bibasal), No wheezing Cardiovascular: No regular rate and rhythm (tachy but this may be his baseline) Gastrointestinal: bowel sounds, non-tender, soft Musculoskeletal: other ((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) Neurological: nl mental status, nl speech, No focal weakness Results Result Diagram: 07/17/16 0400 07/17/16 0400 Results 24 hrs Laboratory Tests Test 07/16/16 20:30 07/17/16 04:00 Potassium Level 4.2 4.1 White Blood Count 7.0 Red Blood Count 3.28 L Hemoglobin 10.6 L Hematocrit 33.6 L Mean Corpuscular Volume 102.4 H Mean Corpuscular Hemoglobin 32.3 Mean Corpuscular Hemoglobin Concent 31.5 L Red Cell Distribution Width 15.0 H Platelet Count 237 # Mean Platelet Volume 12.7 H Neutrophils % 44.4 Lymphocytes % 18.2 Monocytes % 27.4 H Eosinophils % 7.5 H Basophils % 0.1 Nucleated Red Blood Cells % 0.0 Neutrophils # 3.1 Lymphocytes # 1.3 Monocytes # 1.9 H Eosinophils # 0.5 Basophils # 0.0 Nucleated Red Blood Cells # 0.0 Sodium Level 135 Chloride Level 100 Carbon Dioxide Level 32 H Anion Gap 7 L Blood Urea Nitrogen 8 Creatinine 0.41 L Glucose Level 61 #L Calcium Level 8.4 Phosphorus Level 3.0 Magnesium Level 2.0 Medications Medications Current Medications Famotidine (Pepcid Iv) 10 mg Q12 IV Last administered on 07/16/16 21:46; Admin Dose 10 MG; Start 07/05/16 at 09:00 IV Flush (NS 10 ml) 10 ml PRN PRN IV IV PROTOCOL; Start 07/06/16 at 16:30 Metoclopramide HCl (Reglan) 1.6 mg Q6H PRN IV GI MOTILITY Last administered on 07/12/16 06:13; Admin Dose 1.6 MG; Start 07/12/16 at 01:30 Acetaminophen (Tylenol Liquid) 240 mg Q4H PRN GTB FEVER GREATER THAN 101 Last administered on 07/11/16 16:40; Admin Dose 240 MG; Start 07/11/16 at 02:00 Eye Lubricant (Artificial Tears Oph) 2 drop QID BOTH EYES Last administered on 07/16/16 09:16; Admin Dose 2 DROP; Start 07/11/16 at 13:00 Miscellaneous Information 1 ea NOTE XX ; Start 07/11/16 at 10:00 Glucose (Glutose) 15 gm Q15M PRN PO DECREASED GLUCOSE; Start 07/11/16 at 10:00 Glucose (Glutose) 22.5 gm Q15M PRN PO DECREASED GLUCOSE; Start 07/11/16 at 10:00 Dextrose (D50w Syringe) 25 ml Q15M PRN IV DECREASED GLUCOSE; Start 07/11/16 at 10:00 Dextrose (D50w Syringe) 50 ml Q15M PRN IV DECREASED GLUCOSE; Start 07/11/16 at 10:00 Glucagon (Glucagen) 1 mg Q15M PRN IM DECREASED GLUCOSE; Start 07/11/16 at 10:00 Glucose (Glutose) 15 gm Q15M PRN BUCCAL DECREASED GLUCOSE; Start 07/11/16 at 10: 00 Heparin Sodium (Porcine) (Heparin (5000 Units/0.5 ml)) 2,500 unit BID SC Last administered on 07/16/16 21:55; Admin Dose 2,500 UNIT; Start 07/14/16 at 21:00 Diphenhydramine HCl (Benadryl) 12.5 mg Q6H PRN IV ITCH/ AND ANXIETY Last administered on 07/17/16 03:58; Admin Dose 12.5 MG; Start 07/15/16 at 09:30 Gabapentin 100 mg 100 mg BID PO Last administered on 07/16/16 21:46; Admin Dose 100 MG; Start 07/15/16 at 12:00 Ceftriaxone Sodium (Rocephin) 50 ml @ 100 mls/hr Q24H IVPB Last administered on 07/16/16 13:23; Admin Dose 100 MLS/HR; Start 07/15/16 at 13:30 Tramadol HCl (Ultram) 50 mg Q6H PRN PO PAIN Last administered on 07/17/16 03:59 ; Admin Dose 50 MG; Start 07/15/16 at 14:00 Furosemide (Lasix) 10 mg DAILY IV ; Start 07/17/16 at 09:00; Stop 07/19/16 at 08: 59 LUIZA JOSE Jul 17, 2016 09:17
--- NOTE | 2016-07-17 09:23 | EN ---
Date/Time of Note Date/Time of Note DATE: 07/17/16 TIME: 09:17 Event Note Medicine Medicine Event Note PROGRESS NOTE DATE OF SERVICE: 07/16/16 SUBJECTIVE: No new issues, we discussed need for psych review OBJECTIVE: Constitutional: alert, oriented Psych: anxiety Head: normocephalic Eyes: PERRL ENMT: mucosa pink and moist Neck: supple Respiratory: diminished breath sounds / bi basal crackles Cardiovascular: nl pulses, regular rate and rhythm Gastrointestinal: bowel sounds, non-tender, soft Musculoskeletal: other (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) Neurological: lethargic, nl mental status LABS AND IMAGING: Vital Signs Date Time Temp Pulse Resp B/P Pulse Ox O2 Delivery O2 Flow Rate FiO2 07/16/16 08:00 65 07/16/16 07:00 13 68/52 100 Nasal Cannula 1.0 07/16/16 04:00 98.7 07/13/16 11:00 35 Intake and Output 07/15/16 07/15/16 07/16/16 15:00 23:00 07:00 Intake Total 240 ml 385 ml 180 ml Output Total 1170 ml 270 ml 0 ml Balance -930 ml 115 ml 180 ml Exam GENERAL: Well-nourished well-developed gentleman dwarfism VITAL SIGNS: per chart NECK: Supple. No JVD or lymphadenopathy. CARDIAC EXAM: S1, S2. No added sounds or murmurs. CHEST: Diminished air entry both lung bases ABDOMEN: Soft, nontender. No guarding or rebound. EXTREMITIES: No cyanosis, clubbing trace edema improved NEUROLOGIC: Generalized weakness. Results/Medications Result Diagram: 07/16/16 0645 07/16/16 0645 Results 24 hrs Laboratory Tests Test 07/16/16 06:45 White Blood Count 6.4 # Red Blood Count 2.96 L Hemoglobin 9.8 L Hematocrit 30.0 L Mean Corpuscular Volume 101.4 H Mean Corpuscular Hemoglobin 33.1 H Mean Corpuscular Hemoglobin Concent 32.7 Red Cell Distribution Width 15.3 H Platelet Count 164 Mean Platelet Volume 11.2 H Neutrophils % 45.1 Lymphocytes % 17.8 Monocytes % 29.7 H Eosinophils % 5.6 Basophils % 0.2 Nucleated Red Blood Cells % 0.0 Neutrophils # 2.9 Lymphocytes # 1.1 Monocytes # 1.9 H Eosinophils # 0.4 Basophils # 0.0 Nucleated Red Blood Cells # 0.0 Sodium Level 135 Potassium Level 2.8 *L Chloride Level 96 L Carbon Dioxide Level 34 H Anion Gap 8 Blood Urea Nitrogen 5 L Creatinine 0.33 L Glucose Level 84 Calcium Level 7.6 L Phosphorus Level 2.8 Albumin 2.0 L Medications Current Medications Famotidine (Pepcid Iv) 10 mg Q12 IV Last administered on 07/15/16 20:29; Admin Dose 10 MG; Start 07/05/16 at 09:00 IV Flush 10 ml 10 ml PRN PRN IV IV PROTOCOL; Start 07/06/16 at 16:30 Dextrose/Sodium Chloride (D5-1/2ns) 1,000 ml @ 20 mls/hr Q24H IV Last administered on 07/15/16 22:51; Admin Dose 20 MLS/HR; Start 07/10/16 at 15:00 Metoclopramide HCl (Reglan) 1.6 mg Q6H PRN IV GI MOTILITY Last administered on 07/12/16 06:13; Admin Dose 1.6 MG; Start 07/12/16 at 01:30 Acetaminophen (Tylenol Liquid) 240 mg Q4H PRN GTB FEVER GREATER THAN 101 Last administered on 07/11/16 16:40; Admin Dose 240 MG; Start 07/11/16 at 02:00 Eye Lubricant (Artificial Tears Oph) 2 drop QID BOTH EYES Last administered on 07/15/16 20:28; Admin Dose 2 DROP; Start 07/11/16 at 13:00 Miscellaneous Information 1 ea NOTE XX ; Start 07/11/16 at 10:00 Glucose (Glutose) 15 gm Q15M PRN PO DECREASED GLUCOSE; Start 07/11/16 at 10:00 Glucose (Glutose) 22.5 gm Q15M PRN PO DECREASED GLUCOSE; Start 07/11/16 at 10:00 Dextrose (D50w Syringe) 25 ml Q15M PRN IV DECREASED GLUCOSE; Start 07/11/16 at 10:00 Dextrose (D50w Syringe) 50 ml Q15M PRN IV DECREASED GLUCOSE; Start 07/11/16 at 10:00 Glucagon (Glucagen) 1 mg Q15M PRN IM DECREASED GLUCOSE; Start 07/11/16 at 10:00 Glucose (Glutose) 15 gm Q15M PRN BUCCAL DECREASED GLUCOSE; Start 07/11/16 at 10: 00 Fentanyl (Sublimaze) 10 mcg Q3H PRN IV PAIN Last administered on 07/14/16 20:22 ; Admin Dose 10 MCG; Start 07/13/16 at 14:00 Furosemide (Lasix) 16 mg DAILY IV Last administered on 07/15/16 08:49; Admin Dose 16 MG; Start 07/14/16 at 09:30; Stop 07/17/16 at 09:29 Heparin Sodium (Porcine) (Heparin (5000 Units/0.5 ml)) 2,500 unit BID SC Last administered on 07/15/16 20:34; Admin Dose 2,500 UNIT; Start 07/14/16 at 21:00 Diphenhydramine HCl (Benadryl) 12.5 mg Q6H PRN IV ITCH/ AND ANXIETY Last administered on 07/16/16 02:45; Admin Dose 12.5 MG; Start 07/15/16 at 09:30 Gabapentin 100 mg 100 mg BID PO Last administered on 07/15/16 22:23; Admin Dose 100 MG; Start 07/15/16 at 12:00 Ceftriaxone Sodium (Rocephin) 50 ml @ 100 mls/hr Q24H IVPB Last administered on 07/15/16 15:51; Admin Dose 100 MLS/HR; Start 07/15/16 at 13:30 Tramadol HCl 50 mg 50 mg Q6H PRN PO PAIN Last administered on 07/16/16 02:42; Admin Dose 50 MG; Start 07/15/16 at 14:00 Potassium Chloride (KCl 40 MEQ/250 ML NS) 250 ml @ 62.5 mls/hr ONCE ONCE IVPB ; Start 07/16/16 at 08:30; Stop 07/16/16 at 12:29 Potassium Chloride (Potassium Chloride Pwd/Soln) 20 meq ONCE PO ; Start 07/16/16 at 08:00; Stop 07/16/16 at 15:00 ASSESSMENT: 1. Acute respiratory failure, requiring reintubation, due to Alcohol withdrawal: now extubated and stable on NC 2. Severe sepsis due to Ecoli UTI and/ Staph PNA (?aspiration) with Altered Mental Status: improved + 3. Acute E coli cystitis 4. Alcohol overdose: s/p banana bag and withdrawals 5. Possible suicide threat or attempt 6. Achondroplastic Dwarfism 7. Tachycardia: ?2/2 anxiety versus withdrawal:?improved 8. Chronic anxiety d/o verus ongoing withdrawals PLAN: - Tele psych review today - Continue Short term low dose lasix to optimize resp status / followup CXR / continue steroids per pulm and abx per ID - Pepcid / Heparin for prophylaxis LUIZA JOSE Jul 17, 2016 09:23
[2016-07-17] MEDS: LEVALBUTEROL (NEB) 1.25 MG/0.5 ML AMP HHN SCH ×4 (09:32→23:38)
--- NOTE | 2016-07-17 10:03 | RADRPT ---
PROCEDURE: XR Chest. CLINICAL INDICATION: Shortness of breath. TECHNIQUE: Single frontal view. COMPARISON: 07/14/2016. FINDINGS: The endotracheal tube and nasogastric tube have been removed. The left arm PICC line remains in sat isfactory position. There are low lung volumes. There is mild atelectasis at the lung bases. The lungs are otherwise clear. The heart is mildly enlarged. There is no pleural effusion or pneumothorax. There is chronic deformity and degenerative changes of the shoulders. IMPRESSION: 1. Left arm PICC line in satisfactory position. 2. Low lung volumes and cardiomegaly. RPTAT: QQ .Barney Hoffmann MD, MD Date Time Electronically viewed and signed by .Barney Hoffmann MD, MD on 07/17/2016 10:03 .R/
--- NOTE | 2016-07-17 10:16 | CONS ---
Date/Time of Note Date/Time of Note DATE: 07/17/16 TIME: 10:14 Consult Date/Type/Reason Admit Date/Time Jul 04, 2016 at 23:28 Initial Consult Date 07/05/16 Type of Consultation: Pulmonary/critical care Subjective Sleeping better overnight Decreased diarrhea Tolerating by mouth diet Still requiring supplemental oxygen 1 L, overall breathing has improved Objective Vital Signs Date Time Temp Pulse Resp B/P Pulse Ox O2 Delivery O2 Flow Rate FiO2 07/17/16 09:34 111 22 99 Nasal Cannula 1.0 07/17/16 08:00 98.0 106/58 07/13/16 11:00 35 Intake and Output 07/16/16 07/16/16 07/17/16 15:00 23:00 07:00 Intake Total 430.0 ml 175 ml 140 ml Output Total 400 ml 0 ml 0 ml Balance 30.0 ml 175 ml 140 ml Exam GENERAL: Well-nourished well-developed gentleman dwarfism VITAL SIGNS: per chart NECK: Supple. No JVD or lymphadenopathy. CARDIAC EXAM: S1, S2. No added sounds or murmurs. CHEST: Diminished air entry both lung bases ABDOMEN: Soft, nontender. No guarding or rebound. EXTREMITIES: No cyanosis, clubbing trace edema improved NEUROLOGIC: Generalized weakness. Results/Medications Result Diagram: 07/17/16 0400 07/17/16 0400 Results 24 hrs Chest x-ray Improved left-sided infiltrate Laboratory Tests Test 07/16/16 20:30 07/17/16 04:00 Potassium Level 4.2 4.1 White Blood Count 7.0 Red Blood Count 3.28 L Hemoglobin 10.6 L Hematocrit 33.6 L Mean Corpuscular Volume 102.4 H Mean Corpuscular Hemoglobin 32.3 Mean Corpuscular Hemoglobin Concent 31.5 L Red Cell Distribution Width 15.0 H Platelet Count 237 # Mean Platelet Volume 12.7 H Neutrophils % 44.4 Lymphocytes % 18.2 Monocytes % 27.4 H Eosinophils % 7.5 H Basophils % 0.1 Nucleated Red Blood Cells % 0.0 Neutrophils # 3.1 Lymphocytes # 1.3 Monocytes # 1.9 H Eosinophils # 0.5 Basophils # 0.0 Nucleated Red Blood Cells # 0.0 Sodium Level 135 Chloride Level 100 Carbon Dioxide Level 32 H Anion Gap 7 L Blood Urea Nitrogen 8 Creatinine 0.41 L Glucose Level 61 #L Calcium Level 8.4 Phosphorus Level 3.0 Magnesium Level 2.0 Medications Current Medications Famotidine (Pepcid Iv) 10 mg Q12 IV Last administered on 07/17/16 09:13; Admin Dose 10 MG; Start 07/05/16 at 09:00 IV Flush (NS 10 ml) 10 ml PRN PRN IV IV PROTOCOL; Start 07/06/16 at 16:30 Metoclopramide HCl (Reglan) 1.6 mg Q6H PRN IV GI MOTILITY Last administered on 07/12/16 06:13; Admin Dose 1.6 MG; Start 07/12/16 at 01:30 Acetaminophen (Tylenol Liquid) 240 mg Q4H PRN GTB FEVER GREATER THAN 101 Last administered on 07/11/16 16:40; Admin Dose 240 MG; Start 07/11/16 at 02:00 Eye Lubricant (Artificial Tears Oph) 2 drop QID BOTH EYES Last administered on 07/17/16 09:13; Admin Dose 2 DROP; Start 07/11/16 at 13:00 Miscellaneous Information 1 ea NOTE XX ; Start 07/11/16 at 10:00 Glucose (Glutose) 15 gm Q15M PRN PO DECREASED GLUCOSE; Start 07/11/16 at 10:00 Glucose (Glutose) 22.5 gm Q15M PRN PO DECREASED GLUCOSE; Start 07/11/16 at 10:00 Dextrose (D50w Syringe) 25 ml Q15M PRN IV DECREASED GLUCOSE; Start 07/11/16 at 10:00 Dextrose (D50w Syringe) 50 ml Q15M PRN IV DECREASED GLUCOSE; Start 07/11/16 at 10:00 Glucagon (Glucagen) 1 mg Q15M PRN IM DECREASED GLUCOSE; Start 07/11/16 at 10:00 Glucose (Glutose) 15 gm Q15M PRN BUCCAL DECREASED GLUCOSE; Start 07/11/16 at 10: 00 Heparin Sodium (Porcine) (Heparin (5000 Units/0.5 ml)) 2,500 unit BID SC Last administered on 07/17/16 09:15; Admin Dose 2,500 UNIT; Start 07/14/16 at 21:00 Diphenhydramine HCl (Benadryl) 12.5 mg Q6H PRN IV ITCH/ AND ANXIETY Last administered on 07/17/16 03:58; Admin Dose 12.5 MG; Start 07/15/16 at 09:30 Gabapentin 100 mg 100 mg BID PO Last administered on 07/17/16 09:09; Admin Dose 100 MG; Start 07/15/16 at 12:00 Ceftriaxone Sodium (Rocephin) 50 ml @ 100 mls/hr Q24H IVPB Last administered on 07/16/16 13:23; Admin Dose 100 MLS/HR; Start 07/15/16 at 13:30 Tramadol HCl (Ultram) 50 mg Q6H PRN PO PAIN Last administered on 07/17/16 03:59 ; Admin Dose 50 MG; Start 07/15/16 at 14:00 Assessment/Plan Chief Complaint/Hosp Course Assessment 1. Alcohol intoxication 2. Possible intentional overdose 3. Questionable aspiration pneumonia with hypoxemic respiratory failure component of bronchospasm now safely extubated clinically improving 4. Encephalopathy toxic metabolic now resolved postextubation 5. Dwarfism 6. Diarrhea possibly secondary to antibiotics C. difficile toxin was negative Plan 1. Continue incentive spirometry 2. Speech therapy recommendations aspiration precautions 3. Bronchodilators as needed 4. Consider de-escalation of antibiotics 5. Replace electrolytes as needed 6. DVT and GI prophylaxis 7. Encourage out of bed 8. Inpatient psych transfer Disposition Clinically improving anticipate patient being stable for transfer to psych facility soon Problems: LULA SERRA MD, [facility] Jul 17, 2016 10:15
--- NOTE | 2016-07-17 12:26 | CONS ---
Date/Time of Note Date/Time of Note DATE: 07/17/16 TIME: 12:25 Assessment/Plan Assessment/Plan Chief Complaint/Hosp Course SUBJECTIVE: No acute changes. The patient is alert, looks comfortable, no fevers. ANTIMICROBIALS: Rocephin. INDWELLINGS: Berrios and PICC line. 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 HEENT: Head atraumatic, normocephalic. Sclerae anicteric. Buccal mucosa dry. NECK: Supple. CHEST: Rise symmetrical. Breath sounds diminished to bases. ABDOMEN: Soft. Bowel tones present. EXTREMITIES: Without cyanosis. ASSESSMENT: 1. Status post sepsis with respiratory failure. 2. Possible aspiration pneumonia with sputum culture grew oxacillin-sensitive Staphylococcus aureus. 3. Status post Escherichia coli urinary tract infection. 4. History of ETOH. 5. Dwarfism. PLAN: The patient remains stable. Continue present care. Dc antibiotics in am DW staff Problems: Consultation Date/Type/Reason Admit Date/Time Jul 04, 2016 at 23:28 Initial Consult Date 07/05/16 Type of Consultation: ID Exam/Review of Systems Vital Signs Vitals Vital Signs Date Time Temp Pulse Resp B/P Pulse Ox O2 Delivery O2 Flow Rate FiO2 07/17/16 10:00 110 17 81/59 95 Nasal Cannula 07/17/16 09:34 1.0 07/17/16 08:00 98.0 07/13/16 11:00 35 Intake and Output 07/16/16 07/16/16 07/17/16 15:00 23:00 07:00 Intake Total 430.0 ml 175 ml 140 ml Output Total 400 ml 0 ml 0 ml Balance 30.0 ml 175 ml 140 ml Results Result Diagram: 07/17/16 0400 07/17/16 0400 Results 24 hrs Laboratory Tests Test 07/16/16 20:30 07/17/16 04:00 Potassium Level 4.2 4.1 White Blood Count 7.0 Red Blood Count 3.28 L Hemoglobin 10.6 L Hematocrit 33.6 L Mean Corpuscular Volume 102.4 H Mean Corpuscular Hemoglobin 32.3 Mean Corpuscular Hemoglobin Concent 31.5 L Red Cell Distribution Width 15.0 H Platelet Count 237 # Mean Platelet Volume 12.7 H Neutrophils % 44.4 Lymphocytes % 18.2 Monocytes % 27.4 H Eosinophils % 7.5 H Basophils % 0.1 Nucleated Red Blood Cells % 0.0 Neutrophils # 3.1 Lymphocytes # 1.3 Monocytes # 1.9 H Eosinophils # 0.5 Basophils # 0.0 Nucleated Red Blood Cells # 0.0 Sodium Level 135 Chloride Level 100 Carbon Dioxide Level 32 H Anion Gap 7 L Blood Urea Nitrogen 8 Creatinine 0.41 L Glucose Level 61 #L Calcium Level 8.4 Phosphorus Level 3.0 Magnesium Level 2.0 Medications Medications Current Medications Famotidine (Pepcid Iv) 10 mg Q12 IV Last administered on 07/17/16 09:13; Admin Dose 10 MG; Start 07/05/16 at 09:00 IV Flush (NS 10 ml) 10 ml PRN PRN IV IV PROTOCOL; Start 07/06/16 at 16:30 Metoclopramide HCl (Reglan) 1.6 mg Q6H PRN IV GI MOTILITY Last administered on 07/12/16 06:13; Admin Dose 1.6 MG; Start 07/12/16 at 01:30 Acetaminophen (Tylenol Liquid) 240 mg Q4H PRN GTB FEVER GREATER THAN 101 Last administered on 07/11/16 16:40; Admin Dose 240 MG; Start 07/11/16 at 02:00 Eye Lubricant (Artificial Tears Oph) 2 drop QID BOTH EYES Last administered on 07/17/16 09:13; Admin Dose 2 DROP; Start 07/11/16 at 13:00 Miscellaneous Information 1 ea NOTE XX ; Start 07/11/16 at 10:00 Glucose (Glutose) 15 gm Q15M PRN PO DECREASED GLUCOSE; Start 07/11/16 at 10:00 Glucose (Glutose) 22.5 gm Q15M PRN PO DECREASED GLUCOSE; Start 07/11/16 at 10:00 Dextrose (D50w Syringe) 25 ml Q15M PRN IV DECREASED GLUCOSE; Start 07/11/16 at 10:00 Dextrose (D50w Syringe) 50 ml Q15M PRN IV DECREASED GLUCOSE; Start 07/11/16 at 10:00 Glucagon (Glucagen) 1 mg Q15M PRN IM DECREASED GLUCOSE; Start 07/11/16 at 10:00 Glucose (Glutose) 15 gm Q15M PRN BUCCAL DECREASED GLUCOSE; Start 07/11/16 at 10: 00 Heparin Sodium (Porcine) (Heparin (5000 Units/0.5 ml)) 2,500 unit BID SC Last administered on 07/17/16 09:15; Admin Dose 2,500 UNIT; Start 07/14/16 at 21:00 Diphenhydramine HCl (Benadryl) 12.5 mg Q6H PRN IV ITCH/ AND ANXIETY Last administered on 07/17/16 03:58; Admin Dose 12.5 MG; Start 07/15/16 at 09:30 Gabapentin 100 mg 100 mg BID PO Last administered on 07/17/16 09:09; Admin Dose 100 MG; Start 07/15/16 at 12:00 Ceftriaxone Sodium (Rocephin) 50 ml @ 100 mls/hr Q24H IVPB Last administered on 07/16/16 13:23; Admin Dose 100 MLS/HR; Start 07/15/16 at 13:30 Tramadol HCl (Ultram) 50 mg Q6H PRN PO PAIN Last administered on 07/17/16 10:18 ; Admin Dose 50 MG; Start 07/15/16 at 14:00 ALESSANDRA SIGALA SUPERVISOR [employer] Jul 17, 2016 12:26
[2016-07-17] MEDS: CEFTRIAXONE 1 GM/50 ML (PMX) 50 ML IVPB SCH (13:27)
[2016-07-18] VITALS (23 sets, daily range): BP systolic 75–112; BP diastolic 27–86; PULSE 75–134; RESP 14–40
[2016-07-18] MEDS: DIPHENHYDRAMINE 50 MG INJ IV PRN (02:26)
[2016-07-18 05:59] LABS: ADD SCAN DIFF NO
[2016-07-18 06:17] LABS: CALCIUM 7.4 mg/dl (8.4-10.2); CREATININE 0.36 mg/dl (0.61-1.24); MAGNESIUM 1.8 mg/dl (1.7-2.5); PHOSPHORUS 3.4 mg/dl (2.5-4.9); POTASSIUM 3.4 mmol/L (3.5-5.1)
[2016-07-18 07:21] LABS: BASOPHILS % 0.2 % (0.0-2.0); EOSINOPHILS # 0.7 10^3/ul (0.0-0.5); EOSINOPHILS % 11.2 % (0.0-7.0); HEMOGLOBIN 8.8 g/dl (14.0-18.0); LYMPHOCYTES # 0.9 10^3/ul (0.8-2.9); LYMPHOCYTES % 15.9 % (15.0-51.0); MEAN CORPUSCULAR HEMOGLOBIN 32.6 pg (29.0-33.0); MEAN CORPUSCULAR HGB CONC 31.4 g/dl (32.0-37.0); MEAN CORPUSCULAR VOLUME 103.7 fl (82.0-101.0); MEAN PLATELET VOLUME 12.2 fl (7.4-10.4); MONOCYTE # 1.5 10^3/ul (0.3-0.9); MONOCYTES % 25.4 % (0.0-11.0); NEUTROPHIL # 2.7 10^3/ul (1.6-7.5); NEUTROPHILS % 45.9 % (39.0-77.0); PLATELET COUNT 235 10^3/UL (140-415); RED CELL DISTRIBUTION WIDTH 15.1 % (11.5-14.5); WHITE BLOOD COUNT 5.8 10^3/ul (4.8-10.8)
[2016-07-18] MEDS: ARTIFICIAL TEARS 15 ML OPH BOTH EYES SCH (08:54)
[2016-07-18] MEDS: FAMOTIDINE 20 MG INJ IV SCH ×2 (08:55→21:55)
[2016-07-18] MEDS: GABAPENTIN 100 MG CAP PO SCH ×2 (08:55→21:39)
[2016-07-18] MEDS: HEPARIN 5,000 UNIT/0.5 ML VIAL SC SCH ×2 (08:58→21:46)
[2016-07-18] MEDS: traMADol 50 MG TAB PO PRN ×3 (09:16→21:39)
[2016-07-18] MEDS: LEVALBUTEROL (NEB) 1.25 MG/0.5 ML AMP HHN SCH ×2 (09:35→15:49)
--- NOTE | 2016-07-18 11:15 | PN ---
Date/Time of Note Date/Time of Note DATE: 07/18/16 TIME: 11:08 Assessment/Plan VTE Prophylaxis VTE Prophylaxis Intervention: heparin Lines/Catheters IV Catheter Type (from Nrs): PICC Line Central line still needed: Yes Urinary Cath still in place: No Assessment/Plan Assessment/Plan 1. Acute respiratory failure, requiring reintubation, due to Alcohol withdrawal: now extubated and stable on NC 2. Severe sepsis due to Ecoli UTI and/ Staph PNA (?aspiration) with Altered Mental Status: improved + 3. Acute E coli cystitis s/p abx 4. Chronic alcoholism / s/p Alcohol overdose: s/p banana bag and withdrawals 5. Major depression d/o Possible suicide threat or attempt 6. Achondroplastic Dwarfism 7. Tachycardia: ?2/2 anxiety versus withdrawal:improved 8. Chronic anxiety d/o : stable 9. Hypokalemia PLAN: - Patient remains medically cleared for transfer to out alcohol rehab unit / SW consult - Replace lytes as indicated - Continue ambulation with PT - Continue supportive care - Pepcid / Heparin for prophylaxis Subjective 24 Hr Interval Summary Free Text/Dictation Patient seen and examined. doing much better We discussed discharge plan. 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 Exam/Review of Systems Vital Signs Vitals Vital Signs Date Time Temp Pulse Resp B/P Pulse Ox O2 Delivery O2 Flow Rate FiO2 07/18/16 10:00 113 19 86/71 99 Nasal Cannula 1.0 07/18/16 08:00 99.1 07/18/16 02:53 23 Intake and Output 07/17/16 07/17/16 07/18/16 15:00 23:00 07:00 Intake Total 960 ml 820 ml 100 ml Balance 960 ml 820 ml 100 ml Exam Constitutional: alert, oriented, No distress Head: normocephalic Eyes: PERRL ENMT: mucosa pink and moist Respiratory: CTAB / diminished breath sounds No wheezing Cardiovascular: No regular rate and rhythm (tachy but this may be his baseline) Gastrointestinal: bowel sounds, non-tender, soft Musculoskeletal: other ((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) Neurological: nl mental status, nl speech, No focal weakness Results Result Diagram: 07/18/16 0500 07/18/16 0500 Results 24 hrs Laboratory Tests Test 07/18/16 05:00 White Blood Count 5.8 Red Blood Count 2.70 L Hemoglobin 8.8 L Hematocrit 28.0 L Mean Corpuscular Volume 103.7 H Mean Corpuscular Hemoglobin 32.6 Mean Corpuscular Hemoglobin Concent 31.4 L Red Cell Distribution Width 15.1 H Platelet Count 235 Mean Platelet Volume 12.2 H Neutrophils % 45.9 Lymphocytes % 15.9 Monocytes % 25.4 H Eosinophils % 11.2 H Basophils % 0.2 Nucleated Red Blood Cells % 0.0 Neutrophils # 2.7 Lymphocytes # 0.9 Monocytes # 1.5 H Eosinophils # 0.7 H Basophils # 0.0 Nucleated Red Blood Cells # 0.0 Sodium Level 132 L Potassium Level 3.4 L Chloride Level 99 Carbon Dioxide Level 30 Anion Gap 6 L Blood Urea Nitrogen 4 L Creatinine 0.36 L Glucose Level 167 # Calcium Level 7.4 L Phosphorus Level 3.4 Magnesium Level 1.8 Medications Medications Current Medications Famotidine (Pepcid Iv) 10 mg Q12 IV Last administered on 07/18/16 08:55; Admin Dose 10 MG; Start 07/05/16 at 09:00 IV Flush (NS 10 ml) 10 ml PRN PRN IV IV PROTOCOL; Start 07/06/16 at 16:30 Metoclopramide HCl (Reglan) 1.6 mg Q6H PRN IV GI MOTILITY Last administered on 07/12/16 06:13; Admin Dose 1.6 MG; Start 07/12/16 at 01:30 Acetaminophen (Tylenol Liquid) 240 mg Q4H PRN GTB FEVER GREATER THAN 101 Last administered on 07/11/16 16:40; Admin Dose 240 MG; Start 07/11/16 at 02:00 Miscellaneous Information 1 ea NOTE XX ; Start 07/11/16 at 10:00 Glucose (Glutose) 15 gm Q15M PRN PO DECREASED GLUCOSE; Start 07/11/16 at 10:00 Glucose (Glutose) 22.5 gm Q15M PRN PO DECREASED GLUCOSE; Start 07/11/16 at 10:00 Dextrose (D50w Syringe) 25 ml Q15M PRN IV DECREASED GLUCOSE; Start 07/11/16 at 10:00 Dextrose (D50w Syringe) 50 ml Q15M PRN IV DECREASED GLUCOSE; Start 07/11/16 at 10:00 Glucagon (Glucagen) 1 mg Q15M PRN IM DECREASED GLUCOSE; Start 07/11/16 at 10:00 Glucose (Glutose) 15 gm Q15M PRN BUCCAL DECREASED GLUCOSE; Start 07/11/16 at 10: 00 Heparin Sodium (Porcine) (Heparin (5000 Units/0.5 ml)) 2,500 unit BID SC Last administered on 07/18/16 08:58; Admin Dose 2,500 UNIT; Start 07/14/16 at 21:00 Diphenhydramine HCl (Benadryl) 12.5 mg Q6H PRN IV ITCH/ AND ANXIETY Last administered on 07/18/16 02:26; Admin Dose 12.5 MG; Start 07/15/16 at 09:30 Gabapentin (Neurontin) 100 mg BID PO Last administered on 07/18/16 08:55; Admin Dose 100 MG; Start 07/15/16 at 12:00 Tramadol HCl 50 mg 50 mg Q6H PRN PO PAIN Last administered on 07/18/16 09:16; Admin Dose 50 MG; Start 07/15/16 at 14:00 Potassium Chloride/Sodium Chloride (KCl/NS) 110 ml @ 55 mls/hr ONCE ONCE IVPB ; Start 07/18/16 at 12:00; Stop 07/18/16 at 13:59 LUIZA JOSE Jul 18, 2016 11:14
[2016-07-18] MEDS ORDERED: POTASSIUM CHLORIDE 20 MEQ in SOD CHLORIDE 0.9% 100 ML IVPB ONE (12:00)
[2016-07-18] MEDS: BISACODYL (EC) 5 MG TAB PO PRN (13:11)
[2016-07-18] MEDS: DOCUSATE SODIUM 100 MG CAP PO SCH ×2 (13:12→21:38)
--- NOTE | 2016-07-18 14:45 | CONS ---
Date/Time of Note Date/Time of Note DATE: 07/18/16 TIME: 14:43 Consult Date/Type/Reason Admit Date/Time Jul 04, 2016 at 23:28 Initial Consult Date 07/05/16 Type of Consultation: Pulm Subjective Doing well. c/o constipation. Objective Vital Signs Date Time Temp Pulse Resp B/P Pulse Ox O2 Delivery O2 Flow Rate FiO2 07/18/16 13:00 98.9 95 22 102/77 100 Nasal Cannula 1.0 07/18/16 02:53 23 Intake and Output 07/17/16 07/17/16 07/18/16 15:00 23:00 07:00 Intake Total 960 ml 820 ml 100 ml Balance 960 ml 820 ml 100 ml Exam HEENT: Neck supple; no JVD; no LAD CVS: RRR, S1 and S2 CHEST: Clear ABD: Distended, NT, + BS EXT: No c/c/e Results/Medications Result Diagram: 07/18/16 0500 07/18/16 0500 Results 24 hrs Laboratory Tests Test 07/18/16 05:00 White Blood Count 5.8 Red Blood Count 2.70 L Hemoglobin 8.8 L Hematocrit 28.0 L Mean Corpuscular Volume 103.7 H Mean Corpuscular Hemoglobin 32.6 Mean Corpuscular Hemoglobin Concent 31.4 L Red Cell Distribution Width 15.1 H Platelet Count 235 Mean Platelet Volume 12.2 H Neutrophils % 45.9 Lymphocytes % 15.9 Monocytes % 25.4 H Eosinophils % 11.2 H Basophils % 0.2 Nucleated Red Blood Cells % 0.0 Neutrophils # 2.7 Lymphocytes # 0.9 Monocytes # 1.5 H Eosinophils # 0.7 H Basophils # 0.0 Nucleated Red Blood Cells # 0.0 Sodium Level 132 L Potassium Level 3.4 L Chloride Level 99 Carbon Dioxide Level 30 Anion Gap 6 L Blood Urea Nitrogen 4 L Creatinine 0.36 L Glucose Level 167 # Calcium Level 7.4 L Phosphorus Level 3.4 Magnesium Level 1.8 Medications Current Medications Famotidine (Pepcid Iv) 10 mg Q12 IV Last administered on 07/18/16t 08:55; Admin Dose 10 MG; Start 07/05/16 at 09:00 IV Flush (NS 10 ml) 10 ml PRN PRN IV IV PROTOCOL; Start 07/06/16 at 16:30 Metoclopramide HCl (Reglan) 1.6 mg Q6H PRN IV GI MOTILITY Last administered on 07/12/16 06:13; Admin Dose 1.6 MG; Start 07/12/16 at 01:30 Acetaminophen (Tylenol Liquid) 240 mg Q4H PRN GTB FEVER GREATER THAN 101 Last administered on 07/11/16 16:40; Admin Dose 240 MG; Start 07/11/16 at 02:00 Miscellaneous Information 1 ea NOTE XX ; Start 07/11/16 at 10:00 Glucose (Glutose) 15 gm Q15M PRN PO DECREASED GLUCOSE; Start 07/11/16 at 10:00 Glucose (Glutose) 22.5 gm Q15M PRN PO DECREASED GLUCOSE; Start 07/11/16 at 10:00 Dextrose (D50w Syringe) 25 ml Q15M PRN IV DECREASED GLUCOSE; Start 07/11/16 at 10:00 Dextrose (D50w Syringe) 50 ml Q15M PRN IV DECREASED GLUCOSE; Start 07/11/16 at 10:00 Glucagon (Glucagen) 1 mg Q15M PRN IM DECREASED GLUCOSE; Start 07/11/16 at 10:00 Glucose (Glutose) 15 gm Q15M PRN BUCCAL DECREASED GLUCOSE; Start 07/11/16 at 10: 00 Heparin Sodium (Porcine) (Heparin (5000 Units/0.5 ml)) 2,500 unit BID SC Last administered on 07/18/16 08:58; Admin Dose 2,500 UNIT; Start 07/14/16 at 21:00 Diphenhydramine HCl (Benadryl) 12.5 mg Q6H PRN IV ITCH/ AND ANXIETY Last administered on 07/18/16 02:26; Admin Dose 12.5 MG; Start 07/15/16 at 09:30 Gabapentin (Neurontin) 100 mg BID PO Last administered on 07/18/16 08:55; Admin Dose 100 MG; Start 07/15/16 at 12:00 Tramadol HCl (Ultram) 50 mg Q6H PRN PO PAIN Last administered on 07/18/16 09:16 ; Admin Dose 50 MG; Start 07/15/16 at 14:00 Mirtazapine (Remeron) 7.5 mg HS PO ; Start 07/18/16 at 21:00 Thiamine HCl (Vitamin B1) 100 mg DAILY PO ; Start 07/19/16 at 09:00 Folic Acid (Folic Acid) 1 mg DAILY PO ; Start 07/19/16 at 09:00 Bisacodyl (Dulcolax) 5 mg DAILY PRN PO CONSTIPATION Last administered on 13:11; Admin Dose 5 MG; Start 07/18/16 at 13:00 Docusate Sodium (Colace) 100 mg BID PO Last administered on 07/18/16 13:12; Admin Dose 100 MG; Start 07/18/16 at 13:00 Assessment/Plan Additional Assessment/Plan IMP: 1. s/p resp failure 2. ETOH abuse 3. Constipation RECS: 1. Mobilize OOB 2. Lactulose x 1 LIUDMILA LEY MD Jul 18, 2016 14:45
[2016-07-18] MEDS ORDERED: LACTULOSE 30ML CUP PO PRN (15:00)
--- NOTE | 2016-07-18 17:24 | CONS ---
DATE OF ADMISSION: 07/04/2016 DATE OF CONSULTATION: 07/17/2016 SUBJECTIVE: Mr. Macdonald is extubated, doing well without current complaints of nausea, vomiting, roger st pain, shortness of breath, cough. Character of his pain is much less today which was anterior st ernal pain with radiations into his upper back, described as a dull type of discomfort which is matty viated with combination of Benadryl and tramadol. He has no prior history of substance abuse. OBJECTIVE: VITAL SIGNS: Blood pressure 96/53, pulse of 82 and regular, respirations of 20, 100% saturation on room air. CHEST: Shows bilateral inspiratory and expiratory rhonchi on examination. CORONARY: S1, S2, without S3, S4, murmur, gallop, rub. Normal rate, normal rhythm. ABDOMEN: Grossly benign. ASSESSMENT AND PLAN: Continue with current tramadol and Benadryl. No changes in his current medica tion use. Dictated By: SERAFIN JAY MD, LP/OMAYRA Conf#: [id number] DID#: [id number]
--- NOTE | 2016-07-18 17:28 | PN ---
DATE: 07/18/2016 SUBJECTIVE: Mr. Macdonald is doing well. He remains in the intensive care unit with a sitter. He has no complaints of nausea, vomiting, chest pain. Pain is controlled at this time on tramadol and Doron adryl. The character of his pain and the location of the pain are unchanged compared to my prior no te. OBJECTIVE: VITAL SIGNS: Blood pressure 96/53, pulse 82 and regular, respirations 20, 100% saturation on room a ir. HEENT: Normocephalic, atraumatic. Anicteric, acyanotic. NEUROLOGICAL: He is oriented x3. Cranial nerves II through XII are grossly intact. Motor and sens ory findings grossly within normal limits. ASSESSMENT AND PLAN: Pain management, pain syndrome, primarily pleuritic chest pain in nature. Lary ng well right now on his usual dose of tramadol and Benadryl. No change in his current dosing of me dications will be done at this time. Appropriate counseling has been done for use of other nonopioi d pain management modalities. The patient will be supported and appropriate communication will be d one with patient's primary care physician at the time of discharge for pain management followup. Dictated By: SERAFIN JAY MD, LP/OMAYRA Conf#: [id number] DID#: [id number]
[2016-07-18] MEDS: MIRTAZAPINE 15 MG TAB PO SCH (21:00)
[2016-07-19] VITALS (24 sets, daily range): BP systolic 70–116; BP diastolic 35–86; PULSE 80–125; RESP 13–27
[2016-07-19] MEDS: DIPHENHYDRAMINE 50 MG INJ IV PRN (01:34)
[2016-07-19 08:00] LABS: ADD SCAN DIFF NO
[2016-07-19] MEDS: LEVALBUTEROL (NEB) 1.25 MG/0.5 ML AMP HHN SCH ×4 (08:00→23:43)
[2016-07-19 08:06] LABS: ABNORMAL IP MESSAGE 1; BASOPHILS % 0.1 % (0.0-2.0); EOSINOPHILS # 0.6 10^3/ul (0.0-0.5); EOSINOPHILS % 7.9 % (0.0-7.0); HEMATOCRIT 26.6 % (42.0-52.0); HEMOGLOBIN 8.6 g/dl (14.0-18.0); LYMPHOCYTES % 12.5 % (15.0-51.0); MEAN CORPUSCULAR HGB CONC 32.3 g/dl (32.0-37.0); MEAN CORPUSCULAR VOLUME 101.9 fl (82.0-101.0); MEAN PLATELET VOLUME 11.8 fl (7.4-10.4); MONOCYTE # 1.6 10^3/ul (0.3-0.9); NEUTROPHIL # 4.4 10^3/ul (1.6-7.5); NEUTROPHILS % 57.2 % (39.0-77.0); PLATELET COUNT 253 10^3/UL (140-415); RED BLOOD COUNT 2.61 10^6/ul (4.70-6.10); RED CELL DISTRIBUTION WIDTH 15.2 % (11.5-14.5); WHITE BLOOD COUNT 7.6 10^3/ul (4.8-10.8)
[2016-07-19 08:23] LABS: MONOCYTES % 21.6 % (0.0-11.0)
[2016-07-19 08:27] LABS: CALCIUM 8.3 mg/dl (8.4-10.2); CREATININE 0.39 mg/dl (0.61-1.24); POTASSIUM 3.6 mmol/L (3.5-5.1)
[2016-07-19] MEDS: DOCUSATE SODIUM 100 MG CAP PO SCH ×2 (09:00→21:12)
--- NOTE | 2016-07-19 09:13 | PN ---
Date/Time of Note Date/Time of Note DATE: 07/19/16 TIME: 09:10 Assessment/Plan VTE Prophylaxis VTE Prophylaxis Intervention: heparin Lines/Catheters IV Catheter Type (from Nrs): PICC Line Central line still needed: Yes Urinary Cath still in place: No Assessment/Plan Assessment/Plan 1. Acute respiratory failure, requiring reintubation, due to Alcohol withdrawal: now extubated and stable on NC 2. Severe sepsis due to Ecoli UTI and/ Staph PNA (?aspiration) with Altered Mental Status: improved + 3. Acute E coli cystitis s/p abx 4. Chronic alcoholism / s/p Alcohol overdose: s/p banana bag and withdrawals 5. Major depression d/o Possible suicide threat or attempt 6. Achondroplastic Dwarfism 7. Tachycardia: ?2/2 anxiety versus withdrawal:improved 8. Chronic anxiety d/o : stable 9. Hypokalemia: repleted PLAN: - Patient remains medically cleared for transfer to out alcohol rehab unit / SW working on placement - Replace lytes as indicated - Continue ambulation with PT - Continue supportive care / mildly elevated temp noted , will follow - Pepcid / Heparin for prophylaxis Subjective 24 Hr Interval Summary Free Text/Dictation Patient seen and examined. no new issues doing well, getting stronger Exam/Review of Systems Vital Signs Vitals Vital Signs Date Time Temp Pulse Resp B/P Pulse Ox O2 Delivery O2 Flow Rate FiO2 07/19/16 08:00 99.8 91 14 84/54 100 Nasal Cannula 07/19/16 00:11 1.0 07/18/16 02:53 23 Intake and Output 07/18/16 07/18/16 07/19/16 15:00 23:00 07:00 Intake Total 350 ml 330 ml 140 ml Balance 350 ml 330 ml 140 ml Exam Constitutional: alert, oriented, No distress Head: normocephalic Eyes: PERRL ENMT: mucosa pink and moist Respiratory: CTAB / diminished breath sounds No wheezing Cardiovascular: No regular rate and rhythm , tachycardia improved Gastrointestinal: bowel sounds, non-tender, soft Musculoskeletal: other ((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) Neurological: nl mental status, nl speech, No focal weakness Results Result Diagram: 07/19/16 0755 07/19/16 0755 Results 24 hrs Laboratory Tests Test 07/19/16 07:55 White Blood Count 7.6 # Red Blood Count 2.61 L Hemoglobin 8.6 L Hematocrit 26.6 L Mean Corpuscular Volume 101.9 H Mean Corpuscular Hemoglobin 33.0 Mean Corpuscular Hemoglobin Concent 32.3 Red Cell Distribution Width 15.2 H Platelet Count 253 Mean Platelet Volume 11.8 H Neutrophils % 57.2 Lymphocytes % 12.5 L Monocytes % 21.6 H Eosinophils % 7.9 H Basophils % 0.1 Nucleated Red Blood Cells % 0.0 Neutrophils # 4.4 Lymphocytes # 1.0 Monocytes # 1.6 H Eosinophils # 0.6 H Basophils # 0.0 Nucleated Red Blood Cells # 0.0 Sodium Level 134 L Potassium Level 3.6 Chloride Level 100 Carbon Dioxide Level 34 H Anion Gap 4 L Blood Urea Nitrogen 5 L Creatinine 0.39 L Glucose Level 84 # Calcium Level 8.3 L Magnesium Level 2.0 Medications Medications Current Medications Famotidine (Pepcid Iv) 10 mg Q12 IV Last administered on 07/18/16 21:55; Admin Dose 10 MG; Start 07/05/16 at 09:00 IV Flush (NS 10 ml) 10 ml PRN PRN IV IV PROTOCOL; Start 07/06/16 at 16:30 Metoclopramide HCl (Reglan) 1.6 mg Q6H PRN IV GI MOTILITY Last administered on 07/12/16 06:13; Admin Dose 1.6 MG; Start 07/12/16 at 01:30 Acetaminophen (Tylenol Liquid) 240 mg Q4H PRN GTB FEVER GREATER THAN 101 Last administered on 07/11/16 16:40; Admin Dose 240 MG; Start 07/11/16 at 02:00 Miscellaneous Information 1 ea NOTE XX ; Start 07/11/16 at 10:00 Glucose (Glutose) 15 gm Q15M PRN PO DECREASED GLUCOSE; Start 07/11/16 at 10:00 Glucose (Glutose) 22.5 gm Q15M PRN PO DECREASED GLUCOSE; Start 07/11/16 at 10:00 Dextrose (D50w Syringe) 25 ml Q15M PRN IV DECREASED GLUCOSE; Start 07/11/16 at 10:00 Dextrose (D50w Syringe) 50 ml Q15M PRN IV DECREASED GLUCOSE; Start 07/11/16 at 10:00 Glucagon (Glucagen) 1 mg Q15M PRN IM DECREASED GLUCOSE; Start 07/11/16 at 10:00 Glucose (Glutose) 15 gm Q15M PRN BUCCAL DECREASED GLUCOSE; Start 07/11/16 at 10: 00 Heparin Sodium (Porcine) (Heparin (5000 Units/0.5 ml)) 2,500 unit BID SC Last administered on 07/18/16 21:46; Admin Dose 2,500 UNIT; Start 07/14/16 at 21:00 Diphenhydramine HCl (Benadryl) 12.5 mg Q6H PRN IV ITCH/ AND ANXIETY Last administered on 07/19/16 01:34; Admin Dose 12.5 MG; Start 07/15/16 at 09:30 Gabapentin (Neurontin) 100 mg BID PO Last administered on 07/18/16 21:39; Admin Dose 100 MG; Start 07/15/16 at 12:00 Tramadol HCl (Ultram) 50 mg Q6H PRN PO PAIN Last administered on 07/18/16 21:39 ; Admin Dose 50 MG; Start 07/15/16 at 14:00 Mirtazapine (Remeron) 7.5 mg HS PO Last administered on 07/18/16 21:00; Admin Dose 7.5 MG; Start 07/18/16 at 21:00 Thiamine HCl (Vitamin B1) 100 mg DAILY PO ; Start 07/19/16 at 09:00 Folic Acid (Folic Acid) 1 mg DAILY PO ; Start 07/19/16 at 09:00 Bisacodyl (Dulcolax) 5 mg DAILY PRN PO CONSTIPATION Last administered on 13:11; Admin Dose 5 MG; Start 07/18/16 at 13:00 Docusate Sodium (Colace) 100 mg BID PO Last administered on 07/18/16 21:38; Admin Dose 100 MG; Start 07/18/16 at 13:00 Lactulose (Enulose) 10 gm DAILY PRN PO CONSTIPATION Last administered on 15:04; Admin Dose 10 GM; Start 07/18/16 at 15:00 LUIZA JOSE Jul 19, 2016 09:13
[2016-07-19] MEDS: GABAPENTIN 100 MG CAP PO SCH ×2 (09:17→21:12)
[2016-07-19] MEDS: traMADol 50 MG TAB PO PRN ×3 (09:18→22:27)
[2016-07-19] MEDS: FAMOTIDINE 20 MG INJ IV SCH ×2 (09:18→21:12)
[2016-07-19] MEDS: THIAMINE 100 MG TAB PO SCH (09:19)
[2016-07-19] MEDS: FOLIC ACID 1 MG TAB PO SCH (09:19)
[2016-07-19] MEDS: HEPARIN 5,000 UNIT/0.5 ML VIAL SC SCH ×2 (09:22→21:15)
--- NOTE | 2016-07-19 12:45 | CONS ---
Date/Time of Note Date/Time of Note DATE: 07/19/16 TIME: 12:43 Consult Date/Type/Reason Admit Date/Time Jul 04, 2016 at 23:28 Initial Consult Date 07/05/16 Type of Consultation: Pulm Subjective No events. No SOB. Objective Vital Signs Date Time Temp Pulse Resp B/P Pulse Ox O2 Delivery O2 Flow Rate FiO2 07/19/16 12:00 98 07/19/16 12:00 14 81/53 99 Nasal Cannula 07/19/16 08:15 2.0 07/19/16 08:00 99.8 07/18/16 02:53 23 Intake and Output 07/18/16 07/18/16 07/19/16 15:00 23:00 07:00 Intake Total 350 ml 330 ml 140 ml Balance 350 ml 330 ml 140 ml Exam HEENT: Neck supple; no JVD; no LAD CVS: RRR, S1 and S2 CHEST: Clear ABD: Distended, NT, + BS EXT: No c/c/e Results/Medications Result Diagram: 07/19/16 0755 07/19/16 0755 Results 24 hrs Laboratory Tests Test 07/19/16 07:55 White Blood Count 7.6 # Red Blood Count 2.61 L Hemoglobin 8.6 L Hematocrit 26.6 L Mean Corpuscular Volume 101.9 H Mean Corpuscular Hemoglobin 33.0 Mean Corpuscular Hemoglobin Concent 32.3 Red Cell Distribution Width 15.2 H Platelet Count 253 Mean Platelet Volume 11.8 H Neutrophils % 57.2 Lymphocytes % 12.5 L Monocytes % 21.6 H Eosinophils % 7.9 H Basophils % 0.1 Nucleated Red Blood Cells % 0.0 Neutrophils # 4.4 Lymphocytes # 1.0 Monocytes # 1.6 H Eosinophils # 0.6 H Basophils # 0.0 Nucleated Red Blood Cells # 0.0 Sodium Level 134 L Potassium Level 3.6 Chloride Level 100 Carbon Dioxide Level 34 H Anion Gap 4 L Blood Urea Nitrogen 5 L Creatinine 0.39 L Glucose Level 84 # Calcium Level 8.3 L Magnesium Level 2.0 Medications Current Medications Famotidine (Pepcid Iv) 10 mg Q12 IV Last administered on 07/19/16t 09:18; Admin Dose 10 MG; Start 07/05/16 at 09:00 IV Flush (NS 10 ml) 10 ml PRN PRN IV IV PROTOCOL; Start 07/06/16 at 16:30 Metoclopramide HCl (Reglan) 1.6 mg Q6H PRN IV GI MOTILITY Last administered on 07/12/16 06:13; Admin Dose 1.6 MG; Start 07/12/16 at 01:30 Acetaminophen (Tylenol Liquid) 240 mg Q4H PRN GTB FEVER GREATER THAN 101 Last administered on 07/11/16 16:40; Admin Dose 240 MG; Start 07/11/16 at 02:00 Miscellaneous Information 1 ea NOTE XX ; Start 07/11/16 at 10:00 Glucose (Glutose) 15 gm Q15M PRN PO DECREASED GLUCOSE; Start 07/11/16 at 10:00 Glucose (Glutose) 22.5 gm Q15M PRN PO DECREASED GLUCOSE; Start 07/11/16 at 10:00 Dextrose (D50w Syringe) 25 ml Q15M PRN IV DECREASED GLUCOSE; Start 07/11/16 at 10:00 Dextrose (D50w Syringe) 50 ml Q15M PRN IV DECREASED GLUCOSE; Start 07/11/16 at 10:00 Glucagon (Glucagen) 1 mg Q15M PRN IM DECREASED GLUCOSE; Start 07/11/16 at 10:00 Glucose (Glutose) 15 gm Q15M PRN BUCCAL DECREASED GLUCOSE; Start 07/11/16 at 10: 00 Heparin Sodium (Porcine) (Heparin (5000 Units/0.5 ml)) 2,500 unit BID SC Last administered on 07/19/16 09:22; Admin Dose 2,500 UNIT; Start 07/14/16 at 21:00 Diphenhydramine HCl (Benadryl) 12.5 mg Q6H PRN IV ITCH/ AND ANXIETY Last administered on 07/19/16 01:34; Admin Dose 12.5 MG; Start 07/15/16 at 09:30 Gabapentin (Neurontin) 100 mg BID PO Last administered on 07/19/16 09:17; Admin Dose 100 MG; Start 07/15/16 at 12:00 Tramadol HCl (Ultram) 50 mg Q6H PRN PO PAIN Last administered on 07/19/16 09:18 ; Admin Dose 50 MG; Start 07/15/16 at 14:00 Mirtazapine (Remeron) 7.5 mg HS PO Last administered on 07/18/16 21:00; Admin Dose 7.5 MG; Start 07/18/16 at 21:00 Thiamine HCl (Vitamin B1) 100 mg DAILY PO Last administered on 07/19/16 09:19; Admin Dose 100 MG; Start 07/19/16 at 09:00 Folic Acid (Folic Acid) 1 mg DAILY PO Last administered on 07/19/16 09:19; Admin Dose 1 MG; Start 07/19/16 at 09:00 Bisacodyl (Dulcolax) 5 mg DAILY PRN PO CONSTIPATION Last administered on 13:11; Admin Dose 5 MG; Start 07/18/16 at 13:00 Docusate Sodium (Colace) 100 mg BID PO Last administered on 07/18/16 21:38; Admin Dose 100 MG; Start 07/18/16 at 13:00 Lactulose (Enulose) 10 gm DAILY PRN PO CONSTIPATION Last administered on 15:04; Admin Dose 10 GM; Start 07/18/16 at 15:00 Assessment/Plan Additional Assessment/Plan IMP: 1. s/p resp failure 2. ETOH abuse 3. Constipation RECS: 1. Mobilize OOB 2. Limit narcotics 3. Stable for downgrade from ICU LIUDMILA LEY MD Jul 19, 2016 12:45
[2016-07-19] MEDS: MIRTAZAPINE 15 MG TAB PO SCH (21:18)
[2016-07-20] VITALS (23 sets, daily range): BP systolic 66–116; BP diastolic 41–86; PULSE 75–132; RESP 12–30
[2016-07-20] MEDS: DIPHENHYDRAMINE 50 MG INJ IV PRN (03:04)
[2016-07-20 04:54] LABS: ADD SCAN DIFF NO
[2016-07-20 04:57] LABS: ABNORMAL IP MESSAGE 1; EOSINOPHILS # 0.7 10^3/ul (0.0-0.5); EOSINOPHILS % 10.3 % (0.0-7.0); HEMATOCRIT 26.9 % (42.0-52.0); HEMOGLOBIN 8.5 g/dl (14.0-18.0); LYMPHOCYTES # 1.5 10^3/ul (0.8-2.9); LYMPHOCYTES % 21.7 % (15.0-51.0); MEAN CORPUSCULAR HEMOGLOBIN 32.2 pg (29.0-33.0); MEAN CORPUSCULAR HGB CONC 31.6 g/dl (32.0-37.0); MEAN CORPUSCULAR VOLUME 101.9 fl (82.0-101.0); MEAN PLATELET VOLUME 12.5 fl (7.4-10.4); MONOCYTE # 1.5 10^3/ul (0.3-0.9); MONOCYTES % 22.1 % (0.0-11.0); NEUTROPHIL # 3.1 10^3/ul (1.6-7.5); NEUTROPHILS % 45.2 % (39.0-77.0); PLATELET COUNT 278 10^3/UL (140-415); RED BLOOD COUNT 2.64 10^6/ul (4.70-6.10); RED CELL DISTRIBUTION WIDTH 15.4 % (11.5-14.5); WHITE BLOOD COUNT 6.9 10^3/ul (4.8-10.8)
[2016-07-20 05:18] LABS: CREATININE 0.4 mg/dl (0.61-1.24)
[2016-07-20 05:19] LABS: CALCIUM 8.1 mg/dl (8.4-10.2)
[2016-07-20] MEDS: LEVALBUTEROL (NEB) 1.25 MG/0.5 ML AMP HHN SCH ×3 (07:36→16:00)
[2016-07-20] MEDS: traMADol 50 MG TAB PO PRN ×3 (07:48→22:17)
[2016-07-20] MEDS: THIAMINE 100 MG TAB PO SCH ×2 (07:48→08:48)
[2016-07-20] MEDS: FAMOTIDINE 20 MG INJ IV SCH ×3 (07:48→21:01)
[2016-07-20] MEDS: GABAPENTIN 100 MG CAP PO SCH ×3 (07:49→21:02)
[2016-07-20] MEDS: DOCUSATE SODIUM 100 MG CAP PO SCH ×3 (07:49→21:00)
[2016-07-20] MEDS: FOLIC ACID 1 MG TAB PO SCH ×2 (07:49→08:48)
[2016-07-20] MEDS: HEPARIN 5,000 UNIT/0.5 ML VIAL SC SCH ×3 (07:49→21:16)
--- NOTE | 2016-07-20 11:28 | CONS ---
Date/Time of Note Date/Time of Note DATE: 07/20/16 TIME: 11:26 Assessment/Plan Assessment/Plan Additional Assessment/Plan Assessment recommendations; patient admitted for respiratory failure due to acute alcohol intoxication. 2. Also developed healthcare associated pneumonia patient off antibiotics now. 3. Excellent overall clinical status now. Patient can be transferred to medical floor. We are going to sign off. Thanks for the referral. Please reconsult if needed. Consultation Date/Type/Reason Admit Date/Time Jul 04, 2016 at 23:28 Initial Consult Date 07/05/16 Type of Consultation: Pulm 24 HR Interval Summary Free Text/Dictation Patient condition is stable. Remains completely awake alert, denies any shortness of breath, comfortable minimal chest congestion and occasional cough. Denies any fever chills chest pain. Has good appetite denies any difficulty swallowing. Exam; middle aged male, dwarf. Currently in no distress. Awake and alert. Exam/Review of Systems Vital Signs Vitals Vital Signs Date Time Temp Pulse Resp B/P Pulse Ox O2 Delivery O2 Flow Rate FiO2 07/20/16 09:00 75 12 69/41 100 Nasal Cannula 07/20/16 08:00 2.0 07/20/16 07:00 98.4 07/18/16 02:53 23 Intake and Output 07/19/16 07/19/16 07/20/16 15:00 23:00 07:00 Intake Total 785 ml 30 ml Output Total 1 ml 1 ml Balance 784 ml 29 ml Exam HEENT exam is; supple neck, no JVD. No lymphadenopathy. Midline trachea. No thyromegaly. Pharynx is clear. Patient has good dentition. No neck masses. Chest examination: Clear to auscultation bilaterally. S1-S2 audible, no murmurs. Regular rhythm. Tachycardic. Abdomen examination; soft, nontender. No organomegaly. Bowel sounds audible. Extremity exam is; no peripheral edema. Pulses 1+ bilaterally. FACS TEACHER examination; no focal deficit. Results Result Diagram: 07/20/1639907/20/160 Results 24 hrs Laboratory Tests Test 07/20/16 04:00 White Blood Count 6.9 Red Blood Count 2.64 L Hemoglobin 8.5 L Hematocrit 26.9 L Mean Corpuscular Volume 101.9 H Mean Corpuscular Hemoglobin 32.2 Mean Corpuscular Hemoglobin Concent 31.6 L Red Cell Distribution Width 15.4 H Platelet Count 278 Mean Platelet Volume 12.5 H Neutrophils % 45.2 Lymphocytes % 21.7 Monocytes % 22.1 H Eosinophils % 10.3 H Basophils % 0.0 Nucleated Red Blood Cells % 0.0 Neutrophils # 3.1 Lymphocytes # 1.5 Monocytes # 1.5 H Eosinophils # 0.7 H Basophils # 0.0 Nucleated Red Blood Cells # 0.0 Sodium Level 135 Potassium Level 4.0 Chloride Level 99 Carbon Dioxide Level 30 Anion Gap 10 # Blood Urea Nitrogen 3 L Creatinine 0.40 L Glucose Level 70 Calcium Level 8.1 L Medications Medications Current Medications Famotidine (Pepcid Iv) 10 mg Q12 IV Last administered on 07/20/16 07:48; Admin Dose 10 MG; Start 07/05/16 at 09:00 IV Flush (NS 10 ml) 10 ml PRN PRN IV IV PROTOCOL; Start 07/06/16 at 16:30 Metoclopramide HCl (Reglan) 1.6 mg Q6H PRN IV GI MOTILITY Last administered on 07/12/16 06:13; Admin Dose 1.6 MG; Start 07/12/16 at 01:30 Acetaminophen (Tylenol Liquid) 240 mg Q4H PRN GTB FEVER GREATER THAN 101 Last administered on 07/11/16 16:40; Admin Dose 240 MG; Start 07/11/16 at 02:00 Miscellaneous Information 1 ea NOTE XX ; Start 07/11/16 at 10:00 Glucose (Glutose) 15 gm Q15M PRN PO DECREASED GLUCOSE; Start 07/11/16 at 10:00 Glucose (Glutose) 22.5 gm Q15M PRN PO DECREASED GLUCOSE; Start 07/11/16 at 10:00 Dextrose (D50w Syringe) 25 ml Q15M PRN IV DECREASED GLUCOSE; Start 07/11/16 at 10:00 Dextrose (D50w Syringe) 50 ml Q15M PRN IV DECREASED GLUCOSE; Start 07/11/16 at 10:00 Glucagon (Glucagen) 1 mg Q15M PRN IM DECREASED GLUCOSE; Start 07/11/16 at 10:00 Glucose (Glutose) 15 gm Q15M PRN BUCCAL DECREASED GLUCOSE; Start 07/11/16 at 10: 00 Heparin Sodium (Porcine) (Heparin (5000 Units/0.5 ml)) 2,500 unit BID SC Last administered on 07/20/16 07:49; Admin Dose 2,500 UNIT; Start 07/14/16 at 21:00 Diphenhydramine HCl (Benadryl) 12.5 mg Q6H PRN IV ITCH/ AND ANXIETY Last administered on 07/20/16 03:04; Admin Dose 12.5 MG; Start 07/15/16 at 09:30 Gabapentin (Neurontin) 100 mg BID PO Last administered on 07/20/16 07:49; Admin Dose 100 MG; Start 07/15/16 at 12:00 Tramadol HCl (Ultram) 50 mg Q6H PRN PO PAIN Last administered on 07/20/16 07: 48; Admin Dose 50 MG; Start 07/15/16 at 14:00 Mirtazapine (Remeron) 7.5 mg HS PO Last administered on 07/19/16 21:18; Admin Dose 7.5 MG; Start 07/18/16 at 21:00 Thiamine HCl (Vitamin B1) 100 mg DAILY PO Last administered on 07/20/16 07:48 ; Admin Dose 100 MG; Start 07/19/16 at 09:00 Folic Acid (Folic Acid) 1 mg DAILY PO Last administered on 07/20/16 07:49; Admin Dose 1 MG; Start 07/19/16 at 09:00 Bisacodyl (Dulcolax) 5 mg DAILY PRN PO CONSTIPATION Last administered on 13:11; Admin Dose 5 MG; Start 07/18/16 at 13:00 Docusate Sodium (Colace) 100 mg BID PO Last administered on 07/20/16 07:49; Admin Dose 100 MG; Start 07/18/16 at 13:00 Lactulose (Enulose) 10 gm DAILY PRN PO CONSTIPATION Last administered on 15:04; Admin Dose 10 GM; Start 07/18/16 at 15:00 JAMEL GALDAMEZ Jul 20, 2016 11:28
--- NOTE | 2016-07-20 16:04 | PN ---
Date/Time of Note Date/Time of Note DATE: 07/20/16 TIME: 16:02 Assessment/Plan VTE Prophylaxis VTE Prophylaxis Intervention: heparin Lines/Catheters Urinary Cath still in place: No Assessment/Plan Chief Complaint/Hosp Course 1. Acute respiratory failure, requiring reintubation, due to Alcohol withdrawal: now extubated and stable on NC 2. Severe sepsis due to Ecoli UTI and/ Staph PNA (?aspiration) with Altered Mental Status: improved + 3. Acute E coli cystitis s/p abx 4. Chronic alcoholism / s/p Alcohol overdose: s/p banana bag and withdrawals 5. Major depression d/o Possible suicide threat or attempt 6. Achondroplastic Dwarfism 7. Tachycardia: ?2/2 anxiety versus withdrawal:improved 8. Chronic anxiety d/o : stable 9. Hypokalemia: repleted PLAN: - Patient remains medically cleared for transfer to ARU - Replace lytes as indicated - Continue ambulation with PT - Continue supportive care / mildly elevated temp noted , will follow - Pepcid / Heparin for prophylaxis Problems: Subjective 24 Hr Interval Summary Constitutional: no complaints Exam/Review of Systems Vital Signs Vitals Vital Signs Date Time Temp Pulse Resp B/P Pulse Ox O2 Delivery O2 Flow Rate FiO2 07/20/16 15:05 107 28 97/65 100 Nasal Cannula 1.0 07/20/16 12:00 98.6 07/18/16 02:53 23 Intake and Output 07/19/16 07/19/16 07/20/16 15:00 23:00 07:00 Intake Total 785 ml 30 ml Output Total 1 ml 1 ml Balance 784 ml 29 ml Exam Constitutional: alert, oriented Respiratory: clear to auscultation Cardiovascular: regular rate and rhythm Gastrointestinal: soft, No distended Musculoskeletal: nl extremities to inspection Results Result Diagram: 07/20/16 0400 07/20/16 0400 Results 24 hrs Laboratory Tests Test 07/20/16 04:00 White Blood Count 6.9 Red Blood Count 2.64 L Hemoglobin 8.5 L Hematocrit 26.9 L Mean Corpuscular Volume 101.9 H Mean Corpuscular Hemoglobin 32.2 Mean Corpuscular Hemoglobin Concent 31.6 L Red Cell Distribution Width 15.4 H Platelet Count 278 Mean Platelet Volume 12.5 H Neutrophils % 45.2 Lymphocytes % 21.7 Monocytes % 22.1 H Eosinophils % 10.3 H Basophils % 0.0 Nucleated Red Blood Cells % 0.0 Neutrophils # 3.1 Lymphocytes # 1.5 Monocytes # 1.5 H Eosinophils # 0.7 H Basophils # 0.0 Nucleated Red Blood Cells # 0.0 Sodium Level 135 Potassium Level 4.0 Chloride Level 99 Carbon Dioxide Level 30 Anion Gap 10 # Blood Urea Nitrogen 3 L Creatinine 0.40 L Glucose Level 70 Calcium Level 8.1 L Medications Medications Current Medications Famotidine (Pepcid Iv) 10 mg Q12 IV Last administered on 07/20/16 07:48; Admin Dose 10 MG; Start 07/05/16 at 09:00 IV Flush (NS 10 ml) 10 ml PRN PRN IV IV PROTOCOL; Start 07/06/16 at 16:30 Metoclopramide HCl (Reglan) 1.6 mg Q6H PRN IV GI MOTILITY Last administered on 07/12/16 06:13; Admin Dose 1.6 MG; Start 07/12/16 at 01:30 Acetaminophen (Tylenol Liquid) 240 mg Q4H PRN GTB FEVER GREATER THAN 101 Last administered on 07/11/16 16:40; Admin Dose 240 MG; Start 07/11/16 at 02:00 Miscellaneous Information 1 ea NOTE XX ; Start 07/11/16 at 10:00 Glucose (Glutose) 15 gm Q15M PRN PO DECREASED GLUCOSE; Start 07/11/16 at 10:00 Glucose (Glutose) 22.5 gm Q15M PRN PO DECREASED GLUCOSE; Start 07/11/16 at 10:00 Dextrose (D50w Syringe) 25 ml Q15M PRN IV DECREASED GLUCOSE; Start 07/11/16 at 10:00 Dextrose (D50w Syringe) 50 ml Q15M PRN IV DECREASED GLUCOSE; Start 07/11/16 at 10:00 Glucagon (Glucagen) 1 mg Q15M PRN IM DECREASED GLUCOSE; Start 07/11/16 at 10:00 Glucose (Glutose) 15 gm Q15M PRN BUCCAL DECREASED GLUCOSE; Start 07/11/16 at 10: 00 Heparin Sodium (Porcine) (Heparin (5000 Units/0.5 ml)) 2,500 unit BID SC Last administered on 07/20/16 07:49; Admin Dose 2,500 UNIT; Start 07/14/16 at 21:00 Diphenhydramine HCl (Benadryl) 12.5 mg Q6H PRN IV ITCH/ AND ANXIETY Last administered on 07/20/16 03:04; Admin Dose 12.5 MG; Start 07/15/16 at 09:30 Gabapentin (Neurontin) 100 mg BID PO Last administered on 07/20/16 07:49; Admin Dose 100 MG; Start 07/15/16 at 12:00 Tramadol HCl (Ultram) 50 mg Q6H PRN PO PAIN Last administered on 07/20/16 15: 43; Admin Dose 50 MG; Start 07/15/16 at 14:00 Mirtazapine (Remeron) 7.5 mg HS PO Last administered on 07/19/16 21:18; Admin Dose 7.5 MG; Start 07/18/16 at 21:00 Thiamine HCl (Vitamin B1) 100 mg DAILY PO Last administered on 07/20/16 07:48 ; Admin Dose 100 MG; Start 07/19/16 at 09:00 Folic Acid (Folic Acid) 1 mg DAILY PO Last administered on 07/20/16 07:49; Admin Dose 1 MG; Start 07/19/16 at 09:00 Bisacodyl (Dulcolax) 5 mg DAILY PRN PO CONSTIPATION Last administered on 13:11; Admin Dose 5 MG; Start 07/18/16 at 13:00 Docusate Sodium (Colace) 100 mg BID PO Last administered on 07/20/16 07:49; Admin Dose 100 MG; Start 07/18/16 at 13:00 Lactulose (Enulose) 10 gm DAILY PRN PO CONSTIPATION Last administered on 15:04; Admin Dose 10 GM; Start 07/18/16 at 15:00 DAVID HAMILTON Jul 20, 2016 16:04
[2016-07-20] MEDS: BISACODYL (EC) 5 MG TAB PO PRN (18:57)
[2016-07-20] MEDS: MIRTAZAPINE 15 MG TAB PO SCH (21:02)
[2016-07-21] VITALS (15 sets, daily range): BP systolic 73–93; BP diastolic 43–67; PULSE 78–146; RESP 12–34
[2016-07-21] MEDS ORDERED: DIPHENHYDRAMINE 25 MG CAP PO PRN (03:00)
[2016-07-21] MEDS: FAMOTIDINE 20 MG INJ IV SCH (08:05)
[2016-07-21] MEDS: FOLIC ACID 1 MG TAB PO SCH ×2 (09:00→09:55)
[2016-07-21] MEDS: HEPARIN 5,000 UNIT/0.5 ML VIAL SC SCH (09:00)
[2016-07-21] MEDS: THIAMINE 100 MG TAB PO SCH ×2 (09:00→09:55)
[2016-07-21] MEDS: DOCUSATE SODIUM 100 MG CAP PO SCH ×2 (09:00→09:55)
[2016-07-21] MEDS: GABAPENTIN 100 MG CAP PO SCH ×2 (09:00→09:55)
[2016-07-21] MEDS: LEVALBUTEROL (NEB) 1.25 MG/0.5 ML AMP HHN SCH ×2 (10:10)
[2016-07-21] MEDS: traMADol 50 MG TAB PO PRN (10:33)
[2016-07-21] MEDS ORDERED: Thiamine PO (14:45)
[2016-07-21] MEDS ORDERED: BISA5TAB6 PO (14:45)
[2016-07-21] MEDS ORDERED: MIRT15TA5 PO (14:45)
[2016-07-21] MEDS ORDERED: DOCU-216 PO (14:45)
[2016-07-21] MEDS ORDERED: GABA100C14 PO (14:45)
[2016-07-21] MEDS ORDERED: FOLI-49 PO (14:45)
--- NOTE | 2016-07-21 15:28 | PN ---
DATE: 07/19/2016 Mr. Macdonald is doing well. He has no nausea, vomiting, chest pain, dizziness, diplopia or disorienta tion. He is tolerating his oral pain medications well including just Ultram and Benadryl. Location of the pain is in his neck secondary to intubation. There is no radiation associated with it. It is a sharp type of discomfort, which is decreasing in intensity on a day to day basis. Pain is grad ed as 3/10 now, intensity is 3/10, paroxysmal pain, incidental discomfort. There are no side effect s associated with medication. Alleviation of his pain is complete with current pain control medicat ion. There are no side effects associated with his current pain control medications, which include tramadol at 50 mg q.6h. p.r.n. only. ASSESSMENT AND PLAN: Continue with same the course of pain control. Dictated By: SERAFIN JAY MD, LP/OMAYRA Conf#: [id number] DID#: [id number]
--- NOTE | 2016-07-21 18:48 | DS ---
DATE OF ADMISSION: 07/04/2016 DATE OF DISCHARGE: 07/21/2016 DISCHARGE DIAGNOSES: 1. Acute respiratory failure secondary to alcohol withdrawal and acute encephalopathy, extubated. 2. Severe sepsis secondary to Escherichia coli urinary tract infection and possible aspiration pneu monia, status post antibiotics, now resolved. 3. Alcohol abuse. The patient transferred to rehab with plan to ultimately go to an alcohol withdr awal program. 4. Depression, status post psychiatric evaluation. The patient is on Remeron. 5. Achondroplastic dwarfism. HOSPITAL COURSE: The patient is a 46-year-old male with history of dwarfism, otherwise no significa nt medical history. The patient presented with acute respiratory failure secondary to alcohol intox ication as well as substance abuse, possibly from tramadol, gabapentin. The patient required intuba tion. The patient did have reactive airway disease. The patient was intubated for multiple days. The patient was given steroids, antibiotics for possible aspiration pneumonia. He did have a UTI as well and did have a urine culture that showed E. coli. He was treated for this. The patient was b eing seen by ID and Pulmonology. The patient's respiratory condition did improve, as did altered me ntation, and the patient was ultimately extubated. The patient's encephalopathy was felt to be seco ndary to alcohol abuse. The patient does have a history of alcohol abuse. The patient was agreeabl e to go to an alcohol withdrawal program. Note the patient was seen by telepsychiatrist. The patie nt was diagnosed with major depressive disorder versus alcohol-induced mood disorder and alcohol dep endence. The patient was started on Remeron, and recommendation was to continue thiamine and folic acid. The patient ultimately was felt to be stable for discharge to acute rehab with plans to go to an alcohol rehab program after his stay at acute rehab for physical therapy. The patient was weak and was having a hard time ambulating and hence the reason for his need for the acute rehab for phys ical therapy. On day of discharge, the patient's vital signs, labs, physical exam stable. He had n o acute complaints. Questions were answered. CONDITION ON DISCHARGE: Stable. DISPOSITION: To acute rehabilitation. MEDICATIONS: The patient was given new prescriptions for: 1. Constipation medications p.r.n. 2. Colace. 3. Folic acid. 4. Gabapentin. 5. Remeron. 6. Thiamine. The patient is to continue his tramadol p.r.n. FOLLOWUP: The patient to follow up with physicians at acute rehab unit. Greater than 30 minutes was spent coordinating discharge of patient. Dictated By: DAVID HAMILTON MD BS/NTS Conf#: [id number] DID#: [id number]
== END 2016-07-21 15:22 | DRG 870 ==
LOC: E/R 20:08 → EEVIPCON 23:28 → ICU 23:28
PROVIDERS: ADMIT Family Medicine; ATTEND Family Medicine
PROC: 0BH17EZ Insertion of Endotracheal Airway into Trachea, Via Natural or Artificial Opening (ICD-10-PCS; principal; 2016-07-04)
PROC: 5A1955Z Respiratory Ventilation, Greater than 96 Consecutive Hours (ICD-10-PCS; 2016-07-04)
PROC: 02H633Z Insertion of Infusion Device into Right Atrium, Percutaneous Approach (ICD-10-PCS; 2016-07-06)
PROC: 0BH17EZ Insertion of Endotracheal Airway into Trachea, Via Natural or Artificial Opening (ICD-10-PCS; 2016-07-09)
PROC: 5A1945Z Respiratory Ventilation, 24-96 Consecutive Hours (ICD-10-PCS; 2016-07-09)
DX: A41.9 Sepsis, unspecified organism (principal); J96.01 Acute respiratory failure with hypoxia; R65.21 Severe sepsis with septic shock; G92 Toxic encephalopathy; J69.0 Pneumonitis due to inhalation of food and vomit; J15.211 Pneumonia due to Methicillin susceptible Staphylococcus aureus; K52.1 Toxic gastroenteritis and colitis; E87.2 Acidosis; N30.00 Acute cystitis without hematuria; E87.1 Hypo-osmolality and hyponatremia; F10.239 Alcohol dependence with withdrawal, unspecified; F10.24 Alcohol dependence with alcohol-induced mood disorder; Q77.4 Achondroplasia; R40.2432 Glasgow coma scale score 3-8, at arrival to emergency department; E87.6 Hypokalemia; F10.229 Alcohol dependence with intoxication, unspecified; T36.8X5A Adverse effect of other systemic antibiotics, initial encounter; Y92.230 Patient room in hospital as the place of occurrence of the external cause; F41.9 Anxiety disorder, unspecified; K59.00 Constipation, unspecified; F32.9 Major depressive disorder, single episode, unspecified; Y90.0 Blood alcohol level of less than 20 mg/100 ml; B96.20 Unspecified Escherichia coli [E. coli] as the cause of diseases classified elsewhere
CPT/HCPCS: 31500; 36569; 36600; 70450; 71010; 72125; 74000; 76937; 80048; 80053; 80061; 80069; 80162; 80202; 80306; 80307; 81001; 81003; 82140; 82270; 82550; 82553; 82803; 82962; 83036; 83605; 83615; 83735; 84100; 84132; 84484; 85025; 85610; 85730; 87040; 87045; 87070; 87075; 87081; 87086; 87205; 92526; 92610; 93005; 93306; 94002; 94003; 94640; 94664; 94770; 97110; 97116; 97162; 97530; J1940; C1769; J0330; J0692; J0696; J1200; J1644; J1815; J2060; J2185; J2270; J2765; J2920; J3010; J3370; J3411; J3480; J7030; J7040; J7042; J7050; J7060

== ENCOUNTER 2016-07-21 15:13 | Inpatient (IN) | payer OTHER ==
[~2016-07-21] VITALS: Ht 81.3 cm; Wt 16.0 kg
[~2016-07-21 15:13] MED LIST: BISA5TAB6 PO; DOCU-216 PO; FOLI-49 PO; GABA100C14 PO; MIRT15TA5 PO; TRAM-40 PO; Thiamine PO
[2016-07-21 15:25] VITALS: BP 109/64; PULSE 198; PULSE 98; RESP 18
[2016-07-21] MEDS ORDERED: LACTULOSE 30ML CUP PO PRN (16:30)
[2016-07-21] MEDS ORDERED: LEVALBUTEROL (NEB) 1.25 MG/0.5 ML AMP HHN PRN (16:30)
[2016-07-21] MEDS ORDERED: BISACODYL (EC) 5 MG TAB PO PRN (16:30)
[2016-07-21] MEDS: traMADol 50 MG TAB PO PRN (16:58)
[2016-07-21 20:19] VITALS: BP 103/65; RESP 18
[2016-07-21] MEDS: MIRTAZAPINE 15 MG TAB PO SCH (20:20)
[2016-07-21] MEDS: DOCUSATE SODIUM 100 MG CAP PO SCH (20:20)
[2016-07-21] MEDS: GABAPENTIN 100 MG CAP PO SCH (20:20)
[2016-07-21] MEDS: DIPHENHYDRAMINE 25 MG CAP PO PRN (23:12)
[2016-07-22 07:37] LABS: ADD SCAN DIFF NO
[2016-07-22 07:47] LABS: ABNORMAL IP MESSAGE 1; BASOPHILS % 0.4 % (0.0-2.0); EOSINOPHILS # 0.6 10^3/ul (0.0-0.5); EOSINOPHILS % 7.7 % (0.0-7.0); HEMATOCRIT 31.2 % (42.0-52.0); LYMPHOCYTES # 1.3 10^3/ul (0.8-2.9); LYMPHOCYTES % 16.2 % (15.0-51.0); MEAN CORPUSCULAR HEMOGLOBIN 32.3 pg (29.0-33.0); MEAN CORPUSCULAR HGB CONC 32.1 g/dl (32.0-37.0); MEAN CORPUSCULAR VOLUME 100.6 fl (82.0-101.0); MEAN PLATELET VOLUME 12.3 fl (7.4-10.4); MONOCYTE # 1.6 10^3/ul (0.3-0.9); MONOCYTES % 20.2 % (0.0-11.0); NEUTROPHIL # 4.4 10^3/ul (1.6-7.5); PLATELET COUNT 408 10^3/UL (140-415); RED CELL DISTRIBUTION WIDTH 15.3 % (11.5-14.5)
[2016-07-22 07:58] LABS: ALBUMIN 2.5 g/dl (3.3-4.9); ALBUMIN/GLOBULIN RATIO 0.96; BILIRUBIN,INDIRECT 0.1 mg/dl (0-1.1); BILIRUBIN,TOTAL 0.1 mg/dl (0.2-1.3); CALCIUM 8.6 mg/dl (8.4-10.2); CREATININE 0.48 mg/dl (0.61-1.24); POTASSIUM 4.8 mmol/L (3.5-5.1); TOTAL PROTEIN 5.1 g/dl (6.1-8.1)
[2016-07-22 08:00] VITALS: BP 100/55; RESP 18
[2016-07-22] MEDS: FOLIC ACID 1 MG TAB PO SCH (08:15)
[2016-07-22] MEDS: THIAMINE 100 MG TAB PO SCH (08:15)
[2016-07-22] MEDS: GABAPENTIN 100 MG CAP PO SCH ×2 (08:15→20:38)
[2016-07-22] MEDS: DOCUSATE SODIUM 100 MG CAP PO SCH ×2 (08:16→20:38)
[2016-07-22 09:00] LABS: ADD UMIC YES; URINE BILIRUBIN (Dip) NEGATIVE (NEGATIVE); URINE BLOOD (Dip) 2+ (NEGATIVE); URINE COLOR LT. YELLOW (YELLOW); URINE GLUCOSE (Dip) NEGATIVE (NEGATIVE); URINE KETONES (Dip) NEGATIVE (NEGATIVE); URINE LEUKOCYTE ESTERASE (Dip) 2+ (NEGATIVE); URINE NITRITE (Dip) POSITIVE (NEGATIVE); URINE TOTAL PROTEIN (Dip) NEGATIVE (NEGATIVE); URINE UROBILINOGEN (Dip) 0.2 E.U./dL (0.1-1.0)
[2016-07-22 09:13] LABS: BACTERIA,URINE MANY
[2016-07-22] MEDS ORDERED: SOD CHLORIDE 0.9% 1,000 ML IV ONE (11:00)
--- NOTE | 2016-07-22 11:25 | CONS ---
DATE OF ADMISSION: 07/21/2016 DATE OF CONSULTATION: 07/22/2016 REHABILITATION POST ADMISSION PHYSICIAN EVALUATION REHABILITATION IMPAIRMENT CATEGORY: Toxic metabolic encephalopathy. ACTIVE COMORBIDITIES: 1. Status post acute respiratory failure requiring intubation and eventual extubation. 2. Dysphagia. 3. Status post sepsis. 4. Achondroplastic dwarfism. 5. Anxiety. 6. Chronic alcoholism. 7. Orthostatic Hypotension 8. Impairments in self-care, mobility and cognition. HISTORY OF PRESENT ILLNESS: The patient is a pleasant 46-year-old gentleman with a history of achondroplastic dwarfism, who was admitted in acute respiratory failure due to alcohol intoxication. The patient was intubated. Patient noted to have elevated blood alcohol level. The patient's hospital course also notable for sepsis with urinary tract infection, hyponatremia, and dysphagia. The patient's head CT was negative for bleed and he was assessed to have toxic metabolic encephalopathy. The patient was eventually extubated, but noted to have significant impairments in self-care and mobility as compared to baseline, and has been cleared to transfer to the rehabilitation unit for comprehensive interdisciplinary rehab care. FUNCTIONAL HISTORY: Prior to recent events, he was independent in self-care tasks and mobility. CURRENT FUNCTIONAL STATUS: The patient requires moderate to maximal assist for self-care activities and mobility tasks. I have reviewed the preadmission screen, and patient's current functional status is consistent with the preadmission screen. SOCIAL HISTORY: The patient reports the goal is to enter substance abuse facility upon discharge. PAST MEDICAL HISTORY: 1. Achondroplastic dwarfism. 2. Anxiety. CURRENT MEDICATIONS: 1. Dulcolax 5 mg p.o. daily p.r.n. 2. Colace 100 mg p.o. b.i.d. 3. Folic acid 1 mg p.o. daily. 4. Neurontin 100 mg p.o. b.i.d. 5. Lactulose p.r.n. 6. Levalbuterol inhaler. 7. Remeron 7.5 mg p.o. at bedtime. 8. Thiamine 100 mg p.o. daily. 9. Ultram 50 mg p.o. q.6 h. p.r.n. ALLERGIES: THE PATIENT WITH NO KNOWN DRUG ALLERGIES. PHYSICAL EXAMINATION: VITAL SIGNS: The patient is currently afebrile with stable vital signs. HEENT: Extraocular motions intact. Oropharynx does reveal some labial ulcerations which appear to be healing. NECK: Supple. LUNGS: Clear anteriorly. CARDIAC: S1, S2. ABDOMEN: Soft, nontender, positive bowel sounds. NEUROLOGIC: He is awake and alert and oriented x3. He will follow simple 1- step commands. He demonstrates antigravity strength in bilateral upper extremity and lower extremity. The patient was noted to have significant orthostatic hypotension with elevation out of bed. PLAN: The patient has been admitted for comprehensive interdisciplinary acute rehab and is anticipated to tolerate 3 hours of daily therapy in divided doses for at least 5/7 days a week. The treatment plan will include: 1. Physical therapy to focus on bed mobility, transfers, and household ambulation with the goal of having the patient reach a standby assist level. 2. Occupational therapy to focus on hygiene, grooming, dressing, bathing, and toileting activities with the goal of having the patient reach a standby assist level. 3. Speech therapy for dysphagia management in addition to full cognitive assessment and retraining with the goal of having the patient meet nutritional needs by mouth and to return to baseline cognition. 4. Rehabilitation nursing for carryover of therapeutic interventions, the goal of continent of bowel and bladder, and the goal of patient and family education with regard to the aforementioned issues. Will monitor blood pressure closely, and use abdominal binder and Gigi Hose for out of bed activities. DISPOSITION GOAL: To substance abuse treatment facility. ESTIMATED LENGTH OF STAY: 14 days. I acknowledge that I performed a full physical examination on this patient within 24 hours of admission to the rehabilitation unit. I believe the patient is a good candidate for comprehensive interdisciplinary rehab care and is anticipated to make reasonable goals in a reasonable period of time as outlined above. Dictated By: RICHARD YUSUF/OMAYRA Conf#: [id number] DID#: [id number]
[2016-07-22] MEDS: traMADol 50 MG TAB PO PRN (11:46)
[2016-07-22 13:31] VITALS: BP 109/77; PULSE 93; RESP 18
--- NOTE | 2016-07-22 14:14 | CONS ---
Date/Time of Note Date/Time of Note DATE: 07/22/16 TIME: 14:11 Assessment/Plan Assessment/Plan Additional Assessment/Plan Assessment and plan; 1. Patient admitted for rehab was admitted to [facility] ICU for respiratory failure due to acute alcohol intoxication patient also given a bilateral pneumonia with marked overall clinical and radiological improvement. 2. History of dwarfism with achondroplasia. 3. Episode of mild hypotension this morning with interval resolution. Continue current supportive care. Initiate physical therapy. Decrease IV fluids to 20 mL/h for a total of 500 mL. Consultation Date/Type/Reason Admit Date/Time Jul 21, 2016 at 15:29 Initial Consult Date Type of Consultation: Medicine/pulmonary 24 HR Interval Summary Free Text/Dictation Condition is stable he was transferred to the rehab center from ICU yesterday. Denies any shortness of breath at rest. Does complain of minimal dyspnea on exertion. Denies any chest congestion, sputum production. Denies abdominal pain nausea vomiting. Any fever chills. Diarrhea has subsided. Regular rhythm; middle-aged dwarf male currently in no distress awake and alert. Exam/Review of Systems Vital Signs Vitals Vital Signs Date Time Temp Pulse Resp B/P Pulse Ox O2 Delivery O2 Flow Rate FiO2 07/22/16 13:31 93 18 109/77 Nasal Cannula 07/22/16 13:06 1.0 07/22/16 08:00 98.2 97 Intake and Output 07/21/16 07/21/16 07/22/16 15:00 23:00 07:00 Intake Total 100 ml 1010 ml Output Total 200 ml Balance -100 ml 1010 ml Exam HEENT examination; supple neck, no JVD. No lymphadenopathy. Midline trachea. No thyromegaly. Pharynx is clear. Patient has good dentition. Pupils are midsize and reactive to light. Chest examination; clear to auscultation bilaterally. S1-S2 audible, no murmurs. Regular rhythm. Abdomen examination; soft, nontender tender. Bowel sounds audible. No organomegaly. Extremity exam; no peripheral edema. Pulses 1+ bilaterally. WEIGHTS AND MEASURES SEALER examination; no focal deficit. Results Result Diagram: 07/22/16 0709 07/22/16 0709 Results 24 hrs Laboratory Tests Test 07/22/16 07:09 07/22/16 08:30 White Blood Count 8.0 Red Blood Count 3.10 L Hemoglobin 10.0 L Hematocrit 31.2 L Mean Corpuscular Volume 100.6 Mean Corpuscular Hemoglobin 32.3 Mean Corpuscular Hemoglobin Concent 32.1 Red Cell Distribution Width 15.3 H Platelet Count 408 # Mean Platelet Volume 12.3 H Neutrophils % 55.0 Lymphocytes % 16.2 Monocytes % 20.2 H Eosinophils % 7.7 H Basophils % 0.4 Nucleated Red Blood Cells % 0.0 Neutrophils # 4.4 Lymphocytes # 1.3 Monocytes # 1.6 H Eosinophils # 0.6 H Basophils # 0.0 Nucleated Red Blood Cells # 0.0 Sodium Level 132 L Potassium Level 4.8 Chloride Level 101 Carbon Dioxide Level 30 Anion Gap 6 L Blood Urea Nitrogen 5 L Creatinine 0.48 L Glucose Level 72 Calcium Level 8.6 Total Bilirubin 0.1 L Direct Bilirubin 0.00 Indirect Bilirubin 0.1 Aspartate Amino Transf (AST/SGOT) 36 Alanine Aminotransferase (ALT/SGPT) 40 Alkaline Phosphatase 81 Total Protein 5.1 L Albumin 2.5 L Globulin 2.60 Albumin/Globulin Ratio 0.96 Urine Color LT. YELLOW Urine Clarity CLEAR Urine pH 7.5 Urine Specific [place] 1.010 Urine Ketones NEGATIVE Urine Nitrite POSITIVE H Urine Bilirubin NEGATIVE Urine Urobilinogen 0.2 E.U./dL Urine Leukocyte Esterase 2+ H Urine Microscopic RBC 5-10 Urine Microscopic WBC 10-25 Urine Bacteria MANY Urine Hemoglobin 2+ H Urine Glucose NEGATIVE Urine Total Protein NEGATIVE Medications Medications Current Medications Bisacodyl (Dulcolax) 5 mg DAILY PRN PO CONSTIPATION; Start 07/21/16 at 16:30 Docusate Sodium (Colace) 100 mg BID PO Last administered on 07/22/16 08:16; Admin Dose 100 MG; Start 07/21/16 at 21:00 Folic Acid (Folic Acid) 1 mg DAILY PO Last administered on 07/22/16 08:15; Admin Dose 1 MG; Start 07/22/16 at 09:00 Gabapentin (Neurontin) 100 mg BID PO Last administered on 07/22/16 08:15; Admin Dose 100 MG; Start 07/21/16 at 21:00 Lactulose (Enulose) 10 gm DAILY PRN PO CONSTIPATION; Start 07/21/16 at 16:30 Mirtazapine (Remeron) 7.5 mg HS PO Last administered on 07/21/16 20:20; Admin Dose 7.5 MG; Start 07/21/16 at 21:00 Thiamine HCl (Vitamin B1) 100 mg DAILY PO Last administered on 07/22/16 08:15 ; Admin Dose 100 MG; Start 07/22/16 at 09:00 Tramadol HCl (Ultram) 50 mg Q6H PRN PO PAIN Last administered on 07/22/16 11: 46; Admin Dose 50 MG; Start 07/21/16 at 16:30 Diphenhydramine HCl 25 mg 25 mg Q6H PRN PO ITCHING Last administered on 23:12; Admin Dose 25 MG; Start 07/21/16 at 21:00 Sodium Chloride (NS) 1,000 ml @ 50 mls/hr Q20H ONCE IV Last administered on 11:20; Admin Dose 50 MLS/HR; Start 07/22/16 at 11:00; Stop 07/23/16 at 06:59 JAMEL GALDAMEZ Jul 22, 2016 14:14
[2016-07-22] MEDS ORDERED: SOD CHLORIDE 0.9% 500 ML IV ONE (14:30)
[2016-07-22 19:45] VITALS: BP 99/60; PULSE 75; RESP 20
[2016-07-22] MEDS: MIRTAZAPINE 15 MG TAB PO SCH (20:37)
[2016-07-22] MEDS: DIPHENHYDRAMINE 25 MG CAP PO PRN (22:05)
[2016-07-23 07:30] VITALS: BP 93/62; RESP 18
[2016-07-23] MEDS: FOLIC ACID 1 MG TAB PO SCH (08:21)
[2016-07-23] MEDS: GABAPENTIN 100 MG CAP PO SCH ×2 (08:21→20:55)
[2016-07-23] MEDS: THIAMINE 100 MG TAB PO SCH (08:21)
[2016-07-23] MEDS: DOCUSATE SODIUM 100 MG CAP PO SCH ×2 (08:21→20:55)
[2016-07-23] MEDS: traMADol 50 MG TAB PO PRN (10:14)
--- NOTE | 2016-07-23 12:27 | CONS ---
Date/Time of Note Date/Time of Note DATE: 07/23/16 TIME: 12:24 Consult Date/Type/Reason Admit Date/Time Jul 21, 2016 at 15:29 Initial Consult Date Type of Consultation: Medicine/pulmonary Subjective Feeling better today. Does not like IV, reports it is uncomfortable while using FWW Objective pulm-cta abd-soft Vital Signs Date Time Temp Pulse Resp B/P Pulse Ox O2 Delivery O2 Flow Rate FiO2 07/23/16 10:08 Nasal Cannula 1.0 07/23/16 07:30 98.3 113 18 93/62 98 Intake and Output 07/22/16 07/22/16 07/23/16 15:00 23:00 07:00 Intake Total 1095 ml 410 ml 680 ml Output Total 350 ml 200 ml Balance 745 ml 210 ml 680 ml Results/Medications Result Diagram: 07/22/16 0709 07/22/16 0709 Medications Current Medications Bisacodyl (Dulcolax) 5 mg DAILY PRN PO CONSTIPATION; Start 07/21/16 at 16:30 Docusate Sodium (Colace) 100 mg BID PO Last administered on 07/22/16 20:38; Admin Dose 100 MG; Start 07/21/16 at 21:00 Folic Acid (Folic Acid) 1 mg DAILY PO Last administered on 07/23/16 08:21; Admin Dose 1 MG; Start 07/22/16 at 09:00 Gabapentin (Neurontin) 100 mg BID PO Last administered on 07/23/16 08:21; Admin Dose 100 MG; Start 07/21/16 at 21:00 Lactulose (Enulose) 10 gm DAILY PRN PO CONSTIPATION; Start 07/21/16 at 16:30 Mirtazapine (Remeron) 7.5 mg HS PO Last administered on 07/22/16 20:37; Admin Dose 7.5 MG; Start 07/21/16 at 21:00 Thiamine HCl (Vitamin B1) 100 mg DAILY PO Last administered on 07/23/16 08:21 ; Admin Dose 100 MG; Start 07/22/16 at 09:00 Tramadol HCl (Ultram) 50 mg Q6H PRN PO PAIN Last administered on 07/23/16 10: 14; Admin Dose 50 MG; Start 07/21/16 at 16:30 Diphenhydramine HCl (Benadryl) 25 mg Q6H PRN PO ITCHING Last administered on t 22:05; Admin Dose 25 MG; Start 07/21/16 at 21:00 Assessment/Plan Additional Assessment/Plan Rehab- Toxic metabolic encephalopathy; Debility due to respiratory failure Continue rehab program as tolerated Status post acute respiratory failure requiring intubation and eventual extubation-stable Dysphagia-continue speech Status post sepsis. Achondroplastic dwarfism. Anxiety. Chronic alcoholism. Orthostatic Hypotension-better today. Abd binder and olga hose/yana wrap for lower extremities RICHARD GAVIRIA MD Jul 23, 2016 12:27
[2016-07-23] MEDS: MIRTAZAPINE 15 MG TAB PO SCH (20:55)
[2016-07-23] MEDS: DIPHENHYDRAMINE 25 MG CAP PO PRN (20:57)
[2016-07-24 02:41] VITALS: BP 110/74; RESP 17
[2016-07-24] MEDS: GABAPENTIN 100 MG CAP PO SCH ×2 (09:00→20:49)
[2016-07-24] MEDS: THIAMINE 100 MG TAB PO SCH (09:07)
[2016-07-24] MEDS: DOCUSATE SODIUM 100 MG CAP PO SCH (09:07)
[2016-07-24] MEDS: FOLIC ACID 1 MG TAB PO SCH (09:08)
[2016-07-24] MEDS: traMADol 50 MG TAB PO PRN (10:35)
--- NOTE | 2016-07-24 11:21 | CONS ---
Date/Time of Note Date/Time of Note DATE: 07/24/16 TIME: 11:19 Assessment/Plan Assessment/Plan Additional Assessment/Plan Assessment recommendations; next 1. Patient admitted for respiratory failure due to alcohol intoxication also developed bilateral pneumonia no extubated several days ago with excellent overall clinical status. 2. Diarrhea, likely associated with stool softener. 3. Mild deconditioning. Continue physical therapy. Discontinue Colace. Obtain a serum potassium level. Consultation Date/Type/Reason Admit Date/Time Jul 21, 2016 at 15:29 Type of Consultation: Medicine 24 HR Interval Summary Free Text/Dictation Patient is doing very well overall. Denies any shortness of breath, cough, chest congestion sputum production. Complains of diarrhea off and on which are described as watery. Denies any abdominal pain nausea vomiting. Patient is getting physical therapy and is about to be ambulated. General exam; middle-aged male, currently in no distress awake and alert. Exam/Review of Systems Vital Signs Vitals Vital Signs Date Time Temp Pulse Resp B/P Pulse Ox O2 Delivery O2 Flow Rate FiO2 07/24/16 02:41 98.4 114 17 110/74 94 07/23/16 20:15 Nasal Cannula 1.0 Intake and Output 07/23/16 07/23/16 07/24/16 15:00 23:00 07:00 Intake Total 80 ml 260 ml 100 ml Output Total 154 ml Balance 80 ml 260 ml -54 ml Exam HEENT exam is; supple neck, no JVD. No lymphadenopathy. Midline trachea. No thyromegaly. Pharynx is clear. Patient has good dentition. Chest examination; clear to auscultation. S1-S2 audible, no murmurs. Regular rhythm. Abdomen examination; soft, no organomegaly. Bowel sounds audible. Extremity exam is; no peripheral edema. BAND SAW OPERATOR examination; no focal deficit. Results Result Diagram: 07/22/16 0709 07/22/16 07 Medications Medications Current Medications Bisacodyl (Dulcolax) 5 mg DAILY PRN PO CONSTIPATION; Start 07/21/16 at 16:30 Docusate Sodium (Colace) 100 mg BID PO Last administered on 07/24/16 09:07; Admin Dose 100 MG; Start 07/21/16 at 21:00 Folic Acid (Folic Acid) 1 mg DAILY PO Last administered on 07/24/16 09:08; Admin Dose 1 MG; Start 07/22/16 at 09:00 Gabapentin (Neurontin) 100 mg BID PO Last administered on 07/23/16 20:55; Admin Dose 100 MG; Start 07/21/16 at 21:00 Lactulose (Enulose) 10 gm DAILY PRN PO CONSTIPATION; Start 07/21/16 at 16:30 Mirtazapine (Remeron) 7.5 mg HS PO Last administered on 07/23/16 20:55; Admin Dose 7.5 MG; Start 07/21/16 at 21:00 Thiamine HCl (Vitamin B1) 100 mg DAILY PO Last administered on 07/24/16 09:07 ; Admin Dose 100 MG; Start 07/22/16 at 09:00 Tramadol HCl (Ultram) 50 mg Q6H PRN PO PAIN Last administered on 07/24/16 10: 35; Admin Dose 50 MG; Start 07/21/16 at 16:30 Diphenhydramine HCl (Benadryl) 25 mg Q6H PRN PO ITCHING Last administered on 20:57; Admin Dose 25 MG; Start 07/21/16 at 21:00 JAMEL GALDAMEZ Jul 24, 2016 11:21
--- NOTE | 2016-07-24 11:41 | CONS ---
Date/Time of Note Date/Time of Note DATE: 07/24/16 TIME: 11:40 Consult Date/Type/Reason Admit Date/Time Jul 21, 2016 at 15:29 Type of Consultation: Medicine Subjective Improving activity tolerance Objective pulm-cta abd-soft amb with PT , hand held assist Vital Signs Date Time Temp Pulse Resp B/P Pulse Ox O2 Delivery O2 Flow Rate FiO2 07/24/16 02:41 98.4 114 17 110/74 94 07/23/16 20:15 Nasal Cannula 1.0 Intake and Output 07/23/16 07/23/16 07/24/16 14:59 22:59 06:59 Intake Total 320 ml 260 ml 100 ml Output Total 154 ml Balance 320 ml 260 ml -54 ml Results/Medications Result Diagram: 07/22/16 0709 07/22/16 0709 Medications Current Medications Bisacodyl (Dulcolax) 5 mg DAILY PRN PO CONSTIPATION; Start 07/21/16 at 16:30 Folic Acid (Folic Acid) 1 mg DAILY PO Last administered on 07/24/16 09:08; Admin Dose 1 MG; Start 07/22/16 at 09:00 Gabapentin (Neurontin) 100 mg BID PO Last administered on 07/23/16 20:55; Admin Dose 100 MG; Start 07/21/16 at 21:00 Lactulose (Enulose) 10 gm DAILY PRN PO CONSTIPATION; Start 07/21/16 at 16:30 Mirtazapine (Remeron) 7.5 mg HS PO Last administered on 07/23/16 20:55; Admin Dose 7.5 MG; Start 07/21/16 at 21:00 Thiamine HCl (Vitamin B1) 100 mg DAILY PO Last administered on 07/24/16 09:07 ; Admin Dose 100 MG; Start 07/22/16 at 09:00 Tramadol HCl (Ultram) 50 mg Q6H PRN PO PAIN Last administered on 07/24/16 10: 35; Admin Dose 50 MG; Start 07/21/16 at 16:30 Diphenhydramine HCl (Benadryl) 25 mg Q6H PRN PO ITCHING Last administered on 20:57; Admin Dose 25 MG; Start 07/21/16 at 21:00 Assessment/Plan Additional Assessment/Plan Rehab- Toxic metabolic encephalopathy; Debility due to respiratory failure Improving with rehab treatment plan Status post acute respiratory failure requiring intubation and eventual extubation-stable Dysphagia-continue speech Status post sepsis. Achondroplastic dwarfism. Anxiety. Chronic alcoholism. Orthostatic Hypotension-improved. Abd binder and olga hose/yana wrap for lower extremities RICHARD GAVIRIA MD Jul 24, 2016 11:41
[2016-07-24 20:02] VITALS: BP 109/77; RESP 18
[2016-07-24] MEDS: DIPHENHYDRAMINE 25 MG CAP PO PRN (20:49)
[2016-07-24] MEDS: MIRTAZAPINE 15 MG TAB PO SCH (20:49)
--- NOTE | 2016-07-25 07:40 | CONS ---
Date/Time of Note Date/Time of Note DATE: 07/25/16 TIME: 07:39 Assessment/Plan Assessment/Plan Additional Assessment/Plan Assessment recommendations; 1. Patient admitted for respiratory failure due to acute alcohol intoxication as a suicide attempt. With marked clinical improvement. 2. Bilateral pneumonia with marked improvement as well. 3. Diarrhea with interval resolution. Continue rehab, current medications. Consultation Date/Type/Reason Admit Date/Time Jul 21, 2016 at 15:29 Type of Consultation: Medicine 24 HR Interval Summary Free Text/Dictation Condition is stable. Denies any shortness of breath, chest pain or chest congestion. He also is markedly improved. General exam middle aged dwarf male. Currently in no distress. Exam/Review of Systems Vital Signs Vitals Vital Signs Date Time Temp Pulse Resp B/P Pulse Ox O2 Delivery O2 Flow Rate FiO2 07/24/16 20:02 99.1 99 18 109/77 96 07/24/16 19:57 Nasal Cannula 1.0 Intake and Output 07/24/16 07/24/16 07/25/16 15:00 23:00 07:00 Intake Total 960 ml 360 ml 100 ml Balance 960 ml 360 ml 100 ml Exam HEENT exam; supple neck, no JVD no lymphadenopathy midline trachea no thyromegaly pharynx is clear. Patient has good dentition. Chest exam; clear to auscultation. S1-S2 audible, no murmurs. Regular rhythm. Abdomen exam is; soft, nondistended, no organomegaly, bowel sounds audible. Extremity exam; no peripheral edema. RADIATION THERAPY TECHNOLOGIST exam is; no focal deficit. Results Result Diagram: 07/22/16 0709 07/24/16 1203 Results 24 hrs Laboratory Tests Test 07/24/16 12:03 Potassium Level 4.3 Medications Medications Current Medications Bisacodyl (Dulcolax) 5 mg DAILY PRN PO CONSTIPATION; Start 07/21/16 at 16:30 Folic Acid (Folic Acid) 1 mg DAILY PO Last administered on 07/24/16 09:08; Admin Dose 1 MG; Start 07/22/16 at 09:00 Gabapentin (Neurontin) 100 mg BID PO Last administered on 07/24/16 20:49; Admin Dose 100 MG; Start 07/21/16 at 21:00 Lactulose (Enulose) 10 gm DAILY PRN PO CONSTIPATION; Start 07/21/16 at 16:30 Mirtazapine (Remeron) 7.5 mg HS PO Last administered on 07/24/16 20:49; Admin Dose 7.5 MG; Start 07/21/16 at 21:00 Thiamine HCl (Vitamin B1) 100 mg DAILY PO Last administered on 07/24/16 09:07 ; Admin Dose 100 MG; Start 07/22/16 at 09:00 Tramadol HCl (Ultram) 50 mg Q6H PRN PO PAIN Last administered on 07/24/16 10: 35; Admin Dose 50 MG; Start 07/21/16 at 16:30 Diphenhydramine HCl (Benadryl) 25 mg Q6H PRN PO ITCHING Last administered on 20:49; Admin Dose 25 MG; Start 07/21/16 at 21:00 JAMEL GALDAMEZ Jul 25, 2016 07:40
--- NOTE | 2016-07-25 07:42 | CONS ---
Date/Time of Note Date/Time of Note DATE: 07/25/16 TIME: 07:42 Consult Date/Type/Reason Admit Date/Time Jul 21, 2016 at 15:29 Type of Consultation: Medicine Subjective comfortable Objective Vital Signs Date Time Temp Pulse Resp B/P Pulse Ox O2 Delivery O2 Flow Rate FiO2 07/24/16 20:02 99.1 99 18 109/77 96 07/24/16 19:57 Nasal Cannula 1.0 Intake and Output 07/24/16 07/24/16 07/25/16 15:00 23:00 07:00 Intake Total 960 ml 360 ml 100 ml Balance 960 ml 360 ml 100 ml Results/Medications Result Diagram: 07/22/16 0709 07/24/16 1203 Results 24 hrs Laboratory Tests Test 07/24/16 12:03 Potassium Level 4.3 Medications Current Medications Bisacodyl (Dulcolax) 5 mg DAILY PRN PO CONSTIPATION; Start 07/21/16 at 16:30 Folic Acid (Folic Acid) 1 mg DAILY PO Last administered on 07/24/16 09:08; Admin Dose 1 MG; Start 07/22/16 at 09:00 Gabapentin (Neurontin) 100 mg BID PO Last administered on 07/24/16 20:49; Admin Dose 100 MG; Start 07/21/16 at 21:00 Lactulose (Enulose) 10 gm DAILY PRN PO CONSTIPATION; Start 07/21/16 at 16:30 Mirtazapine (Remeron) 7.5 mg HS PO Last administered on 07/24/16 20:49; Admin Dose 7.5 MG; Start 07/21/16 at 21:00 Thiamine HCl (Vitamin B1) 100 mg DAILY PO Last administered on 07/24/16 09:07 ; Admin Dose 100 MG; Start 07/22/16 at 09:00 Tramadol HCl (Ultram) 50 mg Q6H PRN PO PAIN Last administered on 07/24/16 10: 35; Admin Dose 50 MG; Start 07/21/16 at 16:30 Diphenhydramine HCl (Benadryl) 25 mg Q6H PRN PO ITCHING Last administered on 20:49; Admin Dose 25 MG; Start 07/21/16 at 21:00 Assessment/Plan Additional Assessment/Plan Rehab- Toxic metabolic encephalopathy; Debility due to respiratory failure Overal functional status continues to improve Status post acute respiratory failure requiring intubation and eventual extubation-stable Dysphagia-improved Status post sepsis. Achondroplastic dwarfism. Anxiety. Chronic alcoholism. Orthostatic Hypotension-improved. Abd binder and yana wrap for lower extremities RICHARD GAVIRIA MD Jul 25, 2016 07:42
[2016-07-25] MEDS: GABAPENTIN 100 MG CAP PO SCH ×2 (08:27→20:18)
[2016-07-25] MEDS: traMADol 50 MG TAB PO PRN (08:27)
[2016-07-25] MEDS: THIAMINE 100 MG TAB PO SCH (08:27)
[2016-07-25] MEDS: FOLIC ACID 1 MG TAB PO SCH (08:27)
[2016-07-25 20:00] VITALS: BP 93/73; PULSE 98; RESP 17
[2016-07-25] MEDS: MIRTAZAPINE 15 MG TAB PO SCH (20:18)
[2016-07-25] MEDS: DIPHENHYDRAMINE 25 MG CAP PO PRN (21:41)
[2016-07-26 07:30] VITALS: BP 90/68; RESP 20
[2016-07-26] MEDS: FOLIC ACID 1 MG TAB PO SCH (09:21)
[2016-07-26] MEDS: THIAMINE 100 MG TAB PO SCH (09:21)
[2016-07-26] MEDS: GABAPENTIN 100 MG CAP PO SCH ×2 (09:21→21:32)
--- NOTE | 2016-07-26 14:43 | CONS ---
Date/Time of Note Date/Time of Note DATE: 07/26/16 TIME: 14:41 Assessment/Plan Assessment/Plan Additional Assessment/Plan Assessment recommendations; 1. Patient admitted for respiratory failure due to acute alcohol intoxication as a suicide attempt no extubated several days ago with excellent overall clinical status. 2. Bilateral pneumonia with interval resolution. 3. Diarrhea, which also is resolving. Continue rehab. Patient is progressing well. Consultation Date/Type/Reason Admit Date/Time Jul 21, 2016 at 15:29 Type of Consultation: Medicine 24 HR Interval Summary Free Text/Dictation Patient is doing very well overall denies any shortness of breath, wheezing, cough, diarrhea has almost resolved. Has good appetite. General exam; middle-aged male, dwarf. Currently in no distress. Awake and alert. Exam/Review of Systems Vital Signs Vitals Vital Signs Date Time Temp Pulse Resp B/P Pulse Ox O2 Delivery O2 Flow Rate FiO2 07/26/16 07:30 98.7 116 20 90/68 95 07/25/16 20:00 Nasal Cannula 1.0 Intake and Output 07/25/16 07/25/16 07/26/16 15:00 23:00 07:00 Intake Total 240 ml Balance 240 ml Exam HEENT exam; supple neck, no JVD. No lymphadenopathy. Midline trachea. Patient has good dentition. Chest exam is; clear to auscultation. S1-S2 audible, no murmurs. Regular rhythm. Abdomen exam; soft, nontender. No organomegaly. Bowel sounds audible. Extremity exam is; no peripheral edema. RUBBER SPLICER examination; no focal deficit. Results Result Diagram: 07/22/16 0709 07/24/16 1203 Medications Medications Current Medications Bisacodyl (Dulcolax) 5 mg DAILY PRN PO CONSTIPATION; Start 07/21/16 at 16:30 Folic Acid (Folic Acid) 1 mg DAILY PO Last administered on 07/26/16 09:21; Admin Dose 1 MG; Start 07/22/16 at 09:00 Gabapentin (Neurontin) 100 mg BID PO Last administered on 07/26/16 09:21; Admin Dose 100 MG; Start 07/21/16 at 21:00 Lactulose (Enulose) 10 gm DAILY PRN PO CONSTIPATION; Start 07/21/16 at 16:30 Mirtazapine (Remeron) 7.5 mg HS PO Last administered on 07/25/16 20:18; Admin Dose 7.5 MG; Start 07/21/16 at 21:00 Thiamine HCl (Vitamin B1) 100 mg DAILY PO Last administered on 07/26/16 09:21 ; Admin Dose 100 MG; Start 07/22/16 at 09:00 Tramadol HCl (Ultram) 50 mg Q6H PRN PO PAIN Last administered on 07/25/16 08: 27; Admin Dose 50 MG; Start 07/21/16 at 16:30 Diphenhydramine HCl (Benadryl) 25 mg Q6H PRN PO ITCHING Last administered on 21:41; Admin Dose 25 MG; Start 07/21/16 at 21:00 JAMEL GALDAMEZ Jul 26, 2016 14:43
[2016-07-26 19:18] VITALS: BP 100/78; RESP 20
[2016-07-26] MEDS: DIPHENHYDRAMINE 25 MG CAP PO PRN (21:32)
[2016-07-26] MEDS: MIRTAZAPINE 15 MG TAB PO SCH (21:32)
[2016-07-27 07:30] VITALS: BP 101/76; RESP 18
[2016-07-27] MEDS: traMADol 50 MG TAB PO PRN (08:55)
[2016-07-27] MEDS: GABAPENTIN 100 MG CAP PO SCH ×2 (08:55→20:53)
[2016-07-27] MEDS: THIAMINE 100 MG TAB PO SCH (08:55)
[2016-07-27] MEDS: FOLIC ACID 1 MG TAB PO SCH (08:55)
--- NOTE | 2016-07-27 12:00 | CONS ---
Date/Time of Note Date/Time of Note DATE: 07/27/16 TIME: 11:58 Consult Date/Type/Reason Admit Date/Time Jul 21, 2016 at 15:29 Type of Consultation: Medicine Subjective Overall improved Objective Vital Signs Date Time Temp Pulse Resp B/P Pulse Ox O2 Delivery O2 Flow Rate FiO2 07/27/16 07:30 97.9 109 18 101/76 97 07/25/16 20:00 Nasal Cannula 1.0 Intake and Output 07/26/16 07/26/16 07/27/16 15:00 23:00 07:00 Intake Total 240 ml 480 ml 250 ml Balance 240 ml 480 ml 250 ml INTERDISCIPLINARY TEAM CONFERENCE BOWEL- Cont BLADDER-Cont SKIN- intact OT- DRESSING-sba BATHING-sba TOILETING-sba PT- BED MOBILITY-sba/min TRANSFERS-cga AMBULATION-cga 40 feet SPEECH- COGNITION-OR A/P- Interdisciplinary team conference held today. Please see interdisciplinary sheet. Working toward d.c. on 08/03 with goal of transition to [facility] recovery facility Results/Medications Result Diagram: 07/24/16 1203 Medications Current Medications Bisacodyl (Dulcolax) 5 mg DAILY PRN PO CONSTIPATION; Start 07/21/16 at 16:30 Folic Acid (Folic Acid) 1 mg DAILY PO Last administered on 07/27/16 08:55; Admin Dose 1 MG; Start 07/22/16 at 09:00 Gabapentin (Neurontin) 100 mg BID PO Last administered on 07/27/16 08:55; Admin Dose 100 MG; Start 07/21/16 at 21:00 Lactulose (Enulose) 10 gm DAILY PRN PO CONSTIPATION Last administered on 16:22; Admin Dose 10 GM; Start 07/21/16 at 16:30 Mirtazapine (Remeron) 7.5 mg HS PO Last administered on 07/26/16 21:32; Admin Dose 7.5 MG; Start 07/21/16 at 21:00 Thiamine HCl (Vitamin B1) 100 mg DAILY PO Last administered on 07/27/16 08:55 ; Admin Dose 100 MG; Start 07/22/16 at 09:00 Tramadol HCl (Ultram) 50 mg Q6H PRN PO PAIN Last administered on 07/27/16 08: 55; Admin Dose 50 MG; Start 07/21/16 at 16:30 Diphenhydramine HCl (Benadryl) 25 mg Q6H PRN PO ITCHING Last administered on t 21:32; Admin Dose 25 MG; Start 07/21/16 at 21:00 RICHARD GAVIRIA MD Jul 27, 2016 12:00
--- NOTE | 2016-07-27 15:48 | CONS ---
Date/Time of Note Date/Time of Note DATE: 07/27/16 TIME: 15:46 Consult Date/Type/Reason Admit Date/Time Jul 21, 2016 at 15:29 Initial Consult Date Type of Consultation: Medicine Subjective Patient continues to do well Objective Vital Signs Date Time Temp Pulse Resp B/P Pulse Ox O2 Delivery O2 Flow Rate FiO2 07/27/16 07:30 97.9 109 18 101/76 97 07/25/16 20:00 Nasal Cannula 1.0 Intake and Output 07/26/16 07/26/16 07/27/16 15:00 23:00 07:00 Intake Total 240 ml 480 ml 250 ml Balance 240 ml 480 ml 250 ml Exam GENERAL: Well-nourished well-developed gentleman dwarfism VITAL SIGNS: per chart NECK: Supple. No JVD or lymphadenopathy. CARDIAC EXAM: S1, S2. No added sounds or murmurs. CHEST: Diminished air entry both lung bases ABDOMEN: Soft, nontender. No guarding or rebound. EXTREMITIES: No cyanosis, clubbing trace edema improved NEUROLOGIC: Generalized weakness. Results/Medications Result Diagram: 07/24/16 1203 Medications Current Medications Bisacodyl (Dulcolax) 5 mg DAILY PRN PO CONSTIPATION; Start 07/21/16 at 16:30 Folic Acid (Folic Acid) 1 mg DAILY PO Last administered on 07/27/16 08:55; Admin Dose 1 MG; Start 07/22/16 at 09:00 Gabapentin (Neurontin) 100 mg BID PO Last administered on 07/27/16 08:55; Admin Dose 100 MG; Start 07/21/16 at 21:00 Lactulose (Enulose) 10 gm DAILY PRN PO CONSTIPATION Last administered on 16:22; Admin Dose 10 GM; Start 07/21/16 at 16:30 Mirtazapine (Remeron) 7.5 mg HS PO Last administered on 07/26/16 21:32; Admin Dose 7.5 MG; Start 07/21/16 at 21:00 Thiamine HCl (Vitamin B1) 100 mg DAILY PO Last administered on 07/27/16 08:55 ; Admin Dose 100 MG; Start 07/22/16 at 09:00 Tramadol HCl (Ultram) 50 mg Q6H PRN PO PAIN Last administered on 07/27/16 08: 55; Admin Dose 50 MG; Start 07/21/16 at 16:30 Diphenhydramine HCl (Benadryl) 25 mg Q6H PRN PO ITCHING Last administered on t 21:32; Admin Dose 25 MG; Start 07/21/16 at 21:00 Assessment/Plan Chief Complaint/Hosp Course Assessment 1. Status post hypoxemic respiratory failure secondary to pneumonia 2. History of alcohol abuse 3. Dwarfism 4. Status post renal insufficiency Plan 1. Continue physical therapy 2. Encourage out of bed Disposition Continue rehabilitation Problems: LULA SERRA MD, [facility] Jul 27, 2016 15:48
[2016-07-27 20:11] VITALS: BP 97/60; RESP 18
[2016-07-27] MEDS: DIPHENHYDRAMINE 25 MG CAP PO PRN (20:53)
[2016-07-27] MEDS: MIRTAZAPINE 15 MG TAB PO SCH (20:53)
[2016-07-28] MEDS: THIAMINE 100 MG TAB PO SCH (09:12)
[2016-07-28] MEDS: traMADol 50 MG TAB PO PRN (09:13)
[2016-07-28] MEDS: FOLIC ACID 1 MG TAB PO SCH (09:13)
[2016-07-28] MEDS: GABAPENTIN 100 MG CAP PO SCH ×2 (09:13→21:26)
--- NOTE | 2016-07-28 10:10 | CONS ---
Date/Time of Note Date/Time of Note DATE: 07/28/16 TIME: 10:08 Consult Date/Type/Reason Admit Date/Time Jul 21, 2016 at 15:29 Type of Consultation: Medicine Subjective Patient doing well this morning reports no new events. Beginning to ambulate with assistance. Objective Vital Signs Date Time Temp Pulse Resp B/P Pulse Ox O2 Delivery O2 Flow Rate FiO2 07/27/16 20:11 98.3 98 18 97/60 94 07/25/16 20:00 Nasal Cannula 1.0 Intake and Output 07/27/16 07/27/16 07/28/16 15:00 23:00 07:00 Intake Total 360 ml 300 ml Output Total 750 ml Balance 360 ml -450 ml Exam GENERAL: Well-nourished well-developed gentleman dwarfism VITAL SIGNS: per chart NECK: Supple. No JVD or lymphadenopathy. CARDIAC EXAM: S1, S2. No added sounds or murmurs. CHEST: Diminished air entry both lung bases ABDOMEN: Soft, nontender. No guarding or rebound. EXTREMITIES: No cyanosis, clubbing trace edema improved NEUROLOGIC: Generalized weakness. Results/Medications Result Diagram: 07/24/16 1203 Medications Current Medications Bisacodyl (Dulcolax) 5 mg DAILY PRN PO CONSTIPATION; Start 07/21/16 at 16:30 Folic Acid (Folic Acid) 1 mg DAILY PO Last administered on 07/28/16 09:13; Admin Dose 1 MG; Start 07/22/16 at 09:00 Gabapentin (Neurontin) 100 mg BID PO Last administered on 07/28/16 09:13; Admin Dose 100 MG; Start 07/21/16 at 21:00 Lactulose (Enulose) 10 gm DAILY PRN PO CONSTIPATION Last administered on 16:22; Admin Dose 10 GM; Start 07/21/16 at 16:30 Mirtazapine (Remeron) 7.5 mg HS PO Last administered on 07/27/16 20:53; Admin Dose 7.5 MG; Start 07/21/16 at 21:00 Thiamine HCl (Vitamin B1) 100 mg DAILY PO Last administered on 07/28/16 09:12 ; Admin Dose 100 MG; Start 07/22/16 at 09:00 Tramadol HCl (Ultram) 50 mg Q6H PRN PO PAIN Last administered on 07/28/16 09: 13; Admin Dose 50 MG; Start 07/21/16 at 16:30 Diphenhydramine HCl (Benadryl) 25 mg Q6H PRN PO ITCHING Last administered on 20:53; Admin Dose 25 MG; Start 07/21/16 at 21:00 Assessment/Plan Chief Complaint/Hosp Course Assessment 1. Status post hypoxemic respiratory failure secondary to pneumonia 2. History of alcohol abuse 3. Dwarfism 4. Status post renal insufficiency Plan 1. Continue physical therapy 2. Encourage out of bed Disposition Continue rehabilitation Problems: LULA SERRA MD, [facility] Jul 28, 2016 10:10
--- NOTE | 2016-07-28 12:19 | CONS ---
Date/Time of Note Date/Time of Note DATE: 07/28/16 TIME: :18 Consult Date/Type/Reason Admit Date/Time Jul 21, 2016 at 15:29 Type of Consultation: Medicine Subjective feeling much better Objective pulm-cta abd-soft cga ambulation Vital Signs Date Time Temp Pulse Resp B/P Pulse Ox O2 Delivery O2 Flow Rate FiO2 07/28/16 08:00 1.0 07/27/16 20:11 98.3 98 18 97/60 94 07/25/16 20:00 Nasal Cannula Intake and Output 07/27/16 07/27/16 07/28/16 15:00 23:00 07:00 Intake Total 360 ml 300 ml Output Total 750 ml Balance 360 ml -450 ml Results/Medications Result Diagram: 07/24/16 1203 Medications Current Medications Bisacodyl (Dulcolax) 5 mg DAILY PRN PO CONSTIPATION; Start 07/21/16 at 16:30 Folic Acid (Folic Acid) 1 mg DAILY PO Last administered on 07/28/16 09:13; Admin Dose 1 MG; Start 07/22/16 at 09:00 Gabapentin (Neurontin) 100 mg BID PO Last administered on 07/28/16 09:13; Admin Dose 100 MG; Start 07/21/16 at 21:00 Lactulose (Enulose) 10 gm DAILY PRN PO CONSTIPATION Last administered on 16:22; Admin Dose 10 GM; Start 07/21/16 at 16:30 Mirtazapine (Remeron) 7.5 mg HS PO Last administered on 07/27/16 20:53; Admin Dose 7.5 MG; Start 07/21/16 at 21:00 Thiamine HCl (Vitamin B1) 100 mg DAILY PO Last administered on 07/28/16 09:12 ; Admin Dose 100 MG; Start 07/22/16 at 09:00 Tramadol HCl (Ultram) 50 mg Q6H PRN PO PAIN Last administered on 07/28/16 09: 13; Admin Dose 50 MG; Start 07/21/16 at 16:30 Diphenhydramine HCl (Benadryl) 25 mg Q6H PRN PO ITCHING Last administered on 20:53; Admin Dose 25 MG; Start 07/21/16 at 21:00 Assessment/Plan Additional Assessment/Plan Rehab- Toxic metabolic encephalopathy; Debility due to respiratory failure Excellent progress with rehab treatment program Status post acute respiratory failure requiring intubation and eventual extubation-stable Dysphagia-resolved Status post sepsis. Achondroplastic dwarfism. Anxiety. Chronic alcoholism. Orthostatic Hypotension-resolved RICHARD GAVIRIA MD Jul 28, 2016 12:19
[2016-07-28 19:28] VITALS: BP 95/62; RESP 18
[2016-07-28] MEDS: MIRTAZAPINE 15 MG TAB PO SCH (21:26)
[2016-07-28] MEDS: DIPHENHYDRAMINE 25 MG CAP PO PRN (21:26)
[2016-07-29] MEDS: FOLIC ACID 1 MG TAB PO SCH (08:50)
[2016-07-29] MEDS: GABAPENTIN 100 MG CAP PO SCH ×2 (08:50→22:00)
[2016-07-29] MEDS: THIAMINE 100 MG TAB PO SCH (08:50)
--- NOTE | 2016-07-29 11:23 | CONS ---
Date/Time of Note Date/Time of Note DATE: 07/29/16 TIME: 11:20 Assessment/Plan Assessment/Plan Additional Assessment/Plan Assessment recommendations; next 1. Patient admitted for respiratory failure due to alcoholic intoxication not doing very well. 2. Status post bilateral pneumonia. Continue current treatment. Patient responding well to rehab. Consultation Date/Type/Reason Admit Date/Time Jul 21, 2016 at 15:29 Type of Consultation: Medicine 24 HR Interval Summary Free Text/Dictation Patient is doing very well. Diarrhea is resolving. Denies any shortness of breath, or any other constitutional symptoms. General exam; middle aged male dwarf, currently in no distress awake and alert. Exam/Review of Systems Vital Signs Vitals Vital Signs Date Time Temp Pulse Resp B/P Pulse Ox O2 Delivery O2 Flow Rate FiO2 07/29/16 08:00 1.0 07/28/16 19:28 98.3 102 18 95/62 97 07/25/16 20:00 Nasal Cannula Intake and Output 07/28/16 07/28/16 07/29/16 15:00 23:00 07:00 Intake Total 1210 ml 610 ml Output Total 300 ml 250 ml Balance 910 ml 360 ml Exam HEENT exam is; supple neck, no JVD. No lymphadenopathy or midline trachea. No thyromegaly. Chest examined; clear to auscultation. S1-S2 audible, no murmurs. Regular rhythm. Abdomen exam is; soft, nontender. No organomegaly. Bowel sounds are audible. Extremity exam; no peripheral edema. [employer] examination; no focal deficit. Medications Medications Current Medications Bisacodyl (Dulcolax) 5 mg DAILY PRN PO CONSTIPATION; Start 07/21/16 at 16:30 Folic Acid (Folic Acid) 1 mg DAILY PO Last administered on 07/29/16 08:50; Admin Dose 1 MG; Start 07/22/16 at 09:00 Gabapentin (Neurontin) 100 mg BID PO Last administered on 07/29/16 08:50; Admin Dose 100 MG; Start 07/21/16 at 21:00 Lactulose (Enulose) 10 gm DAILY PRN PO CONSTIPATION Last administered on 16:22; Admin Dose 10 GM; Start 07/21/16 at 16:30 Mirtazapine (Remeron) 7.5 mg HS PO Last administered on 07/28/16 21:26; Admin Dose 7.5 MG; Start 07/21/16 at 21:00 Thiamine HCl (Vitamin B1) 100 mg DAILY PO Last administered on 07/29/16 08:50 ; Admin Dose 100 MG; Start 07/22/16 at 09:00 Tramadol HCl (Ultram) 50 mg Q6H PRN PO PAIN Last administered on 07/28/16 09: 13; Admin Dose 50 MG; Start 07/21/16 at 16:30 Diphenhydramine HCl (Benadryl) 25 mg Q6H PRN PO ITCHING Last administered on 21:26; Admin Dose 25 MG; Start 07/21/16 at 21:00 JAMEL GALDAMEZ Jul 29, 2016 11:23
--- NOTE | 2016-07-29 12:43 | CONS ---
Date/Time of Note Date/Time of Note DATE: 07/29/16 TIME: 12:42 Consult Date/Type/Reason Admit Date/Time Jul 21, 2016 at 15:29 Type of Consultation: Medicine Subjective Excellent progress Objective sba self care activities Vital Signs Date Time Temp Pulse Resp B/P Pulse Ox O2 Delivery O2 Flow Rate FiO2 07/29/16 08:00 1.0 07/28/16 19:28 98.3 102 18 95/62 97 07/25/16 20:00 Nasal Cannula Intake and Output 07/28/16 07/28/16 07/29/16 14:59 22:59 06:59 Intake Total 1210 ml 610 ml Output Total 300 ml 250 ml Balance 910 ml 360 ml Results/Medications Medications Current Medications Bisacodyl (Dulcolax) 5 mg DAILY PRN PO CONSTIPATION; Start 07/21/16 at 16:30 Folic Acid (Folic Acid) 1 mg DAILY PO Last administered on 07/29/16 08:50; Admin Dose 1 MG; Start 07/22/16 at 09:00 Gabapentin (Neurontin) 100 mg BID PO Last administered on 07/29/16 08:50; Admin Dose 100 MG; Start 07/21/16 at 21:00 Lactulose (Enulose) 10 gm DAILY PRN PO CONSTIPATION Last administered on 16:22; Admin Dose 10 GM; Start 07/21/16 at 16:30 Mirtazapine (Remeron) 7.5 mg HS PO Last administered on 07/28/16 21:26; Admin Dose 7.5 MG; Start 07/21/16 at 21:00 Thiamine HCl (Vitamin B1) 100 mg DAILY PO Last administered on 07/29/16 08:50 ; Admin Dose 100 MG; Start 07/22/16 at 09:00 Tramadol HCl (Ultram) 50 mg Q6H PRN PO PAIN Last administered on 07/28/16 09: 13; Admin Dose 50 MG; Start 07/21/16 at 16:30 Diphenhydramine HCl (Benadryl) 25 mg Q6H PRN PO ITCHING Last administered on 21:26; Admin Dose 25 MG; Start 07/21/16 at 21:00 Assessment/Plan Additional Assessment/Plan Rehab- Toxic metabolic encephalopathy- resolved; Debility due to respiratory failure Excellent progress, continue program Status post acute respiratory failure requiring intubation and eventual extubation-stable Dysphagia-resolved Achondroplastic dwarfism. Anxiety. Chronic alcoholism. RICHARD GAVIRIA MD Jul 29, 2016 12:43
[2016-07-29] MEDS: traMADol 50 MG TAB PO PRN (16:21)
[2016-07-29 20:07] VITALS: BP 96/76; RESP 20
[2016-07-29] MEDS: MIRTAZAPINE 15 MG TAB PO SCH (22:00)
[2016-07-29] MEDS: DIPHENHYDRAMINE 25 MG CAP PO PRN (22:00)
[2016-07-30 08:58] VITALS: BP 100/71; PULSE 103; RESP 20
[2016-07-30] MEDS: FOLIC ACID 1 MG TAB PO SCH (09:01)
[2016-07-30] MEDS: THIAMINE 100 MG TAB PO SCH (09:01)
[2016-07-30] MEDS: GABAPENTIN 100 MG CAP PO SCH ×2 (09:01→21:02)
--- NOTE | 2016-07-30 11:19 | CONS ---
Date/Time of Note Date/Time of Note DATE: 07/30/16 TIME: Consult Date/Type/Reason Admit Date/Time Jul 21, 2016 at 15:29 Type of Consultation: Medicine Subjective Patient continues to do well continuing physical therapy Beginning to ambulate without walker Objective Vital Signs Date Time Temp Pulse Resp B/P Pulse Ox O2 Delivery O2 Flow Rate FiO2 07/30/16 08:58 98.4 103 20 100/71 98 Room Air 07/29/16 19:09 1.0 Intake and Output 07/29/16 07/29/16 07/30/16 15:00 23:00 07:00 Intake Total 720 ml 610 ml Output Total 200 ml 200 ml 200 ml Balance 520 ml 410 ml -200 ml Exam GENERAL: Well-nourished well-developed gentleman dwarfism VITAL SIGNS: per chart NECK: Supple. No JVD or lymphadenopathy. CARDIAC EXAM: S1, S2. No added sounds or murmurs. CHEST: Diminished air entry both lung bases ABDOMEN: Soft, nontender. No guarding or rebound. EXTREMITIES: No cyanosis, clubbing trace edema improved NEUROLOGIC: Generalized weakness. Results/Medications Medications Current Medications Bisacodyl (Dulcolax) 5 mg DAILY PRN PO CONSTIPATION; Start 07/21/16 at 16:30 Folic Acid (Folic Acid) 1 mg DAILY PO Last administered on 07/30/16 09:01; Admin Dose 1 MG; Start 07/22/16 at 09:00 Gabapentin (Neurontin) 100 mg BID PO Last administered on 07/30/16 09:01; Admin Dose 100 MG; Start 07/21/16 at 21:00 Lactulose (Enulose) 10 gm DAILY PRN PO CONSTIPATION Last administered on 16:22; Admin Dose 10 GM; Start 07/21/16 at 16:30 Mirtazapine (Remeron) 7.5 mg HS PO Last administered on 07/29/16 22:00; Admin Dose 7.5 MG; Start 07/21/16 at 21:00 Thiamine HCl (Vitamin B1) 100 mg DAILY PO Last administered on 07/30/16 09:01 ; Admin Dose 100 MG; Start 07/22/16 at 09:00 Tramadol HCl (Ultram) 50 mg Q6H PRN PO PAIN Last administered on 4/19/17at 16: 21; Admin Dose 50 MG; Start 07/21/16 at 16:30 Diphenhydramine HCl (Benadryl) 25 mg Q6H PRN PO ITCHING Last administered on t 22:00; Admin Dose 25 MG; Start 07/21/16 at 21:00 Assessment/Plan Chief Complaint/Hosp Course Assessment 1. Status post hypoxemic respiratory failure secondary to pneumonia 2. History of alcohol abuse 3. Dwarfism 4. Status post renal insufficiency Plan 1. Continue physical therapy 2. Resolving diarrhea will continue to monitor Disposition Continue rehabilitation Problems: LULA SERRA MD, [facility] Jul 30, 2016 11:19
--- NOTE | 2016-07-30 12:10 | CONS ---
Date/Time of Note Date/Time of Note DATE: 07/30/16 TIME: 12:09 Consult Date/Type/Reason Admit Date/Time Jul 21, 2016 at 15:29 Type of Consultation: Medicine Subjective Doing very well Objective increased activity tolerance and ambulation Vital Signs Date Time Temp Pulse Resp B/P Pulse Ox O2 Delivery O2 Flow Rate FiO2 07/30/16 08:58 98.4 103 20 100/71 98 Room Air 07/29/16 19:09 1.0 Intake and Output 07/29/16 07/29/16 07/30/16 15:00 23:00 07:00 Intake Total 720 ml 610 ml Output Total 200 ml 200 ml 200 ml Balance 520 ml 410 ml -200 ml Results/Medications Medications Current Medications Bisacodyl (Dulcolax) 5 mg DAILY PRN PO CONSTIPATION; Start 07/21/16 at 16:30 Folic Acid (Folic Acid) 1 mg DAILY PO Last administered on 07/30/16 09:01; Admin Dose 1 MG; Start 07/22/16 at 09:00 Gabapentin (Neurontin) 100 mg BID PO Last administered on 07/30/16 09:01; Admin Dose 100 MG; Start 07/21/16 at 21:00 Lactulose (Enulose) 10 gm DAILY PRN PO CONSTIPATION Last administered on 16:22; Admin Dose 10 GM; Start 07/21/16 at 16:30 Mirtazapine (Remeron) 7.5 mg HS PO Last administered on 07/29/16 22:00; Admin Dose 7.5 MG; Start 07/21/16 at 21:00 Thiamine HCl (Vitamin B1) 100 mg DAILY PO Last administered on 07/30/16 09:01 ; Admin Dose 100 MG; Start 07/22/16 at 09:00 Tramadol HCl (Ultram) 50 mg Q6H PRN PO PAIN Last administered on 07/29/16 16: 21; Admin Dose 50 MG; Start 07/21/16 at 16:30 Diphenhydramine HCl (Benadryl) 25 mg Q6H PRN PO ITCHING Last administered on 22:00; Admin Dose 25 MG; Start 07/21/16 at 21:00 Assessment/Plan Additional Assessment/Plan Rehab- Toxic metabolic encephalopathy- resolved; Debility due to respiratory failure Excellent progress; will see if a specialized quad cane can be made Status post acute respiratory failure requiring intubation and eventual extubation-stable Dysphagia-resolved Achondroplastic dwarfism. Anxiety. Chronic alcoholism. RICHARD GAVIRIA MD Jul 30, 2016 12:10
[2016-07-30] MEDS: traMADol 50 MG TAB PO PRN (14:25)
[2016-07-30 19:22] VITALS: BP 113/86; RESP 18
[2016-07-30] MEDS: DIPHENHYDRAMINE 25 MG CAP PO PRN (21:03)
[2016-07-30] MEDS: MIRTAZAPINE 15 MG TAB PO SCH (21:03)
[2016-07-31] MEDS: FOLIC ACID 1 MG TAB PO SCH (08:43)
[2016-07-31] MEDS: GABAPENTIN 100 MG CAP PO SCH ×2 (08:43→20:34)
[2016-07-31] MEDS: THIAMINE 100 MG TAB PO SCH (08:43)
[2016-07-31 08:53] VITALS: BP 103/74; RESP 18
--- NOTE | 2016-07-31 12:05 | CONS ---
Date/Time of Note Date/Time of Note DATE: 07/31/16 TIME: 12:04 Consult Date/Type/Reason Admit Date/Time Jul 21, 2016 at 15:29 Type of Consultation: Medicine Subjective Feeling better Objective pulm-cta abd-soft sba ambulation 120 feet Vital Signs Date Time Temp Pulse Resp B/P Pulse Ox O2 Delivery O2 Flow Rate FiO2 07/31/16 08:53 98.1 18 103/74 98 Room Air 07/30/16 19:22 102 07/29/16 19:09 1.0 Intake and Output 07/30/16 07/30/16 07/31/16 15:00 23:00 07:00 Intake Total 200 ml 200 ml 240 ml Balance 200 ml 200 ml 240 ml Results/Medications Medications Current Medications Bisacodyl (Dulcolax) 5 mg DAILY PRN PO CONSTIPATION; Start 07/21/16 at 16:30 Folic Acid (Folic Acid) 1 mg DAILY PO Last administered on 07/31/16 08:43; Admin Dose 1 MG; Start 07/22/16 at 09:00 Gabapentin (Neurontin) 100 mg BID PO Last administered on 07/31/16 08:43; Admin Dose 100 MG; Start 07/21/16 at 21:00 Lactulose (Enulose) 10 gm DAILY PRN PO CONSTIPATION Last administered on 16:22; Admin Dose 10 GM; Start 07/21/16 at 16:30 Mirtazapine (Remeron) 7.5 mg HS PO Last administered on 07/30/16 21:03; Admin Dose 7.5 MG; Start 07/21/16 at 21:00 Thiamine HCl (Vitamin B1) 100 mg DAILY PO Last administered on 07/31/16 08:43 ; Admin Dose 100 MG; Start 07/22/16 at 09:00 Tramadol HCl (Ultram) 50 mg Q6H PRN PO PAIN Last administered on 07/30/16 14: 25; Admin Dose 50 MG; Start 07/21/16 at 16:30 Diphenhydramine HCl (Benadryl) 25 mg Q6H PRN PO ITCHING Last administered on 21:03; Admin Dose 25 MG; Start 07/21/16 at 21:00 Assessment/Plan Additional Assessment/Plan Rehab- Toxic metabolic encephalopathy- resolved; Debility due to respiratory failure Excellent progress;he is learning ambulation with a single point cane. Status post acute respiratory failure requiring intubation and eventual extubation-stable Dysphagia-resolved Achondroplastic dwarfism. Anxiety. Chronic alcoholism. RICHARD GAVIRIA MD Jul 31, 2016 12:05
--- NOTE | 2016-07-31 16:52 | CONS ---
Date/Time of Note Date/Time of Note DATE: 07/31/16 TIME: 16:50 Consult Date/Type/Reason Admit Date/Time Jul 21, 2016 at 15:29 Type of Consultation: Medicine Subjective Patient appears comfortable at rest no acute distress Objective Vital Signs Date Time Temp Pulse Resp B/P Pulse Ox O2 Delivery O2 Flow Rate FiO2 07/31/16 08:53 98.1 18 103/74 98 Room Air 07/30/16 19:22 102 07/29/16 19:09 1.0 Intake and Output 07/30/16 07/30/16 07/31/16 15:00 23:00 07:00 Intake Total 200 ml 200 ml 240 ml Balance 200 ml 200 ml 240 ml Exam GENERAL: VITAL SIGNS: per chart NECK: Supple. No JVD or lymphadenopathy. CARDIAC EXAM: S1, S2. No added sounds or murmurs. CHEST: clear bilaterally, No added sounds, rales or wheezes ABDOMEN: Soft, nontender. No guarding or rebound. EXTREMITIES: No cyanosis, clubbing or edema. NEUROLOGIC: Generalized weakness. No focal deficits. Results/Medications Medications Current Medications Bisacodyl (Dulcolax) 5 mg DAILY PRN PO CONSTIPATION; Start 07/21/16 at 16:30 Folic Acid (Folic Acid) 1 mg DAILY PO Last administered on 07/31/16 08:43; Admin Dose 1 MG; Start 07/22/16 at 09:00 Gabapentin (Neurontin) 100 mg BID PO Last administered on 07/31/16 08:43; Admin Dose 100 MG; Start 07/21/16 at 21:00 Lactulose (Enulose) 10 gm DAILY PRN PO CONSTIPATION Last administered on 16:22; Admin Dose 10 GM; Start 07/21/16 at 16:30 Mirtazapine (Remeron) 7.5 mg HS PO Last administered on 07/30/16 21:03; Admin Dose 7.5 MG; Start 07/21/16 at 21:00 Thiamine HCl (Vitamin B1) 100 mg DAILY PO Last administered on 07/31/16 08:43 ; Admin Dose 100 MG; Start 07/22/16 at 09:00 Tramadol HCl (Ultram) 50 mg Q6H PRN PO PAIN Last administered on 07/30/16 14: 25; Admin Dose 50 MG; Start 07/21/16 at 16:30 Diphenhydramine HCl (Benadryl) 25 mg Q6H PRN PO ITCHING Last administered on t 21:03; Admin Dose 25 MG; Start 07/21/16 at 21:00 Assessment/Plan Chief Complaint/Hosp Course Assessment 1. Status post hypoxemic respiratory failure secondary to pneumonia 2. History of alcohol abuse 3. Dwarfism 4. Status post renal insufficiency Plan 1. Continue physical therapy 2. Resolving diarrhea will continue to monitor Disposition Continue rehabilitation Anticipate discharge next week to acute detox facility. Problems: LULA SERRA MD, [facility] Jul 31, 2016 16:52
[2016-07-31 20:00] VITALS: BP 98/72; PULSE 104; RESP 18
[2016-07-31] MEDS: MIRTAZAPINE 15 MG TAB PO SCH (20:34)
[2016-07-31] MEDS: DIPHENHYDRAMINE 25 MG CAP PO PRN (21:26)
[2016-08-01] MEDS: GABAPENTIN 100 MG CAP PO SCH ×2 (08:57→20:54)
[2016-08-01] MEDS: THIAMINE 100 MG TAB PO SCH (08:57)
[2016-08-01] MEDS: FOLIC ACID 1 MG TAB PO SCH (08:57)
--- NOTE | 2016-08-01 09:11 | CONS ---
Date/Time of Note Date/Time of Note DATE: 08/01/16 TIME: 09:11 Consult Date/Type/Reason Admit Date/Time Jul 21, 2016 at 15:29 Type of Consultation: Medicine Subjective Doing well Objective comfortable sba ambulation with SPC Vital Signs Date Time Temp Pulse Resp B/P Pulse Ox O2 Delivery O2 Flow Rate FiO2 07/31/16 20:00 98.4 104 18 98/72 97 Room Air 07/31/16 18:44 21 07/29/16 19:09 1.0 Intake and Output 07/31/16 07/31/16 08/01/16 14:59 22:59 06:59 Intake Total 720 ml 500 ml 200 ml Output Total 450 ml 300 ml 600 ml Balance 270 ml 200 ml -400 ml Results/Medications Medications Current Medications Bisacodyl (Dulcolax) 5 mg DAILY PRN PO CONSTIPATION; Start 07/21/16 at 16:30 Folic Acid (Folic Acid) 1 mg DAILY PO Last administered on 08/01/16 08:57; Admin Dose 1 MG; Start 07/22/16 at 09:00 Gabapentin (Neurontin) 100 mg BID PO Last administered on 08/01/16 08:57; Admin Dose 100 MG; Start 07/21/16 at 21:00 Lactulose (Enulose) 10 gm DAILY PRN PO CONSTIPATION Last administered on 16:22; Admin Dose 10 GM; Start 07/21/16 at 16:30 Mirtazapine (Remeron) 7.5 mg HS PO Last administered on 07/31/16 20:34; Admin Dose 7.5 MG; Start 07/21/16 at 21:00 Thiamine HCl (Vitamin B1) 100 mg DAILY PO Last administered on 08/01/16 08:57 ; Admin Dose 100 MG; Start 07/22/16 at 09:00 Tramadol HCl (Ultram) 50 mg Q6H PRN PO PAIN Last administered on 07/30/16 14: 25; Admin Dose 50 MG; Start 07/21/16 at 16:30 Diphenhydramine HCl (Benadryl) 25 mg Q6H PRN PO ITCHING Last administered on 21:26; Admin Dose 25 MG; Start 07/21/16 at 21:00 Assessment/Plan Additional Assessment/Plan Rehab- Toxic metabolic encephalopathy- resolved; Debility due to respiratory failure Doing well with interdisciplinary program Status post acute respiratory failure requiring intubation and eventual extubation-stable Dysphagia-resolved Achondroplastic dwarfism. Anxiety. Chronic alcoholism. RICHARD GAVIRIA MD Aug 01, 2016 09:11
[2016-08-01] MEDS: PSYLLIUM 28% PACKET PO SCH (11:58)
[2016-08-01 20:00] VITALS: BP 120/84; RESP 18
[2016-08-01] MEDS: MIRTAZAPINE 15 MG TAB PO SCH (20:53)
[2016-08-01] MEDS: DIPHENHYDRAMINE 25 MG CAP PO PRN (21:48)
[2016-08-02 08:00] VITALS: BP 114/79; PULSE 104; RESP 20
[2016-08-02] MEDS: PSYLLIUM 28% PACKET PO SCH (09:00)
[2016-08-02] MEDS ORDERED: DOCUSATE SODIUM 100 MG CAP PO SCH (09:00)
[2016-08-02] MEDS: FOLIC ACID 1 MG TAB PO SCH (09:28)
[2016-08-02] MEDS: THIAMINE 100 MG TAB PO SCH (09:28)
[2016-08-02] MEDS: GABAPENTIN 100 MG CAP PO SCH ×2 (09:29→20:39)
--- NOTE | 2016-08-02 15:37 | CONS ---
Date/Time of Note Date/Time of Note DATE: 08/02/16 TIME: 15:36 Consult Date/Type/Reason Admit Date/Time Jul 21, 2016 at 15:29 Initial Consult Date Type of Consultation: Medicine/Pulm Subjective No events. Objective Vital Signs Date Time Temp Pulse Resp B/P Pulse Ox O2 Delivery O2 Flow Rate FiO2 08/02/16 08:00 98.1 104 20 114/79 96 Room Air 07/31/16 18:44 21 07/29/16 19:09 1.0 Intake and Output 08/01/16 08/01/16 08/02/16 14:59 22:59 06:59 Intake Total 500 ml Output Total 1 ml 300 ml Balance -1 ml 200 ml Exam HEENT: Neck supple; no JVD; no LAD CVS: RRR, S1 and S2 CHEST: Clear ABD: Soft, NT, + BS EXT: No c/c/e Results/Medications Medications Current Medications Bisacodyl (Dulcolax) 5 mg DAILY PRN PO CONSTIPATION; Start 07/21/16 at 16:30 Folic Acid (Folic Acid) 1 mg DAILY PO Last administered on 08/02/16 09:28; Admin Dose 1 MG; Start 07/22/16 at 09:00 Gabapentin (Neurontin) 100 mg BID PO Last administered on 08/02/16 09:29; Admin Dose 100 MG; Start 07/21/16 at 21:00 Lactulose (Enulose) 10 gm DAILY PRN PO CONSTIPATION Last administered on 16:22; Admin Dose 10 GM; Start 07/21/16 at 16:30 Mirtazapine (Remeron) 7.5 mg HS PO Last administered on 08/01/16 20:53; Admin Dose 7.5 MG; Start 07/21/16 at 21:00 Thiamine HCl (Vitamin B1) 100 mg DAILY PO Last administered on 08/02/16 09:28 ; Admin Dose 100 MG; Start 07/22/16 at 09:00 Tramadol HCl (Ultram) 50 mg Q6H PRN PO PAIN Last administered on 07/30/16 14: 25; Admin Dose 50 MG; Start 07/21/16 at 16:30 Diphenhydramine HCl (Benadryl) 25 mg Q6H PRN PO ITCHING Last administered on 21:48; Admin Dose 25 MG; Start 07/21/16 at 21:00 Docusate Sodium (Colace) 100 mg DAILY PO Last administered on 08/02/16 09:28; Admin Dose 100 MG; Start 08/02/16 at 09:00 Psyllium Hydrophilic Mucilloid (Metamucil) 1 pkt DAILY PO Last administered on 08/01/16 11:58; Admin Dose 1 PKT; Start 08/01/16 at 11:30 Assessment/Plan Additional Assessment/Plan IMP: 1. Status post hypoxemic respiratory failure secondary to pneumonia 2. History of alcohol abuse 3. Dwarfism 4. Status post renal insufficiency RECS 1. PT/OT 2. Anticipate D/C soon LIUDMILA LEY MD Aug 02, 2016 15:37
[2016-08-02 19:19] VITALS: BP 118/82; RESP 20
[2016-08-02] MEDS: MIRTAZAPINE 15 MG TAB PO SCH (20:39)
[2016-08-02] MEDS: DIPHENHYDRAMINE 25 MG CAP PO PRN (21:21)
[2016-08-03] MEDS ORDERED: LACTULOSE 30ML CUP PO PRN (01:00)
[2016-08-03] MEDS ORDERED: MAGNESIUM HYDROXIDE 30ML CUP PO PRN (01:00)
[2016-08-03] MEDS ORDERED: ACETAMINOPHEN 325 MG TAB PO PRN (01:00)
[2016-08-03] MEDS ORDERED: BISACODYL 10 MG SUPP PR PRN (01:00)
[2016-08-03] MEDS: FOLIC ACID 1 MG TAB PO SCH (08:39)
[2016-08-03] MEDS: THIAMINE 100 MG TAB PO SCH (08:39)
[2016-08-03] MEDS: GABAPENTIN 100 MG CAP PO SCH ×2 (08:39→21:13)
[2016-08-03] MEDS: PSYLLIUM 28% PACKET PO SCH (08:40)
[2016-08-03] MEDS: DOCUSATE SODIUM 100 MG CAP PO SCH ×2 (08:40→21:13)
[2016-08-03 08:44] VITALS: BP 113/80; PULSE 112; RESP 18
--- NOTE | 2016-08-03 09:38 | CONS ---
Date/Time of Note Date/Time of Note DATE: 08/03/16 TIME: 09:37 Consult Date/Type/Reason Admit Date/Time Jul 21, 2016 at 15:29 Type of Consultation: Medicine/Pulm Subjective Patient reports irritating L should after walking this weekend with father. Objective pulm-cta (+) impingemint sign on Left Vital Signs Date Time Temp Pulse Resp B/P Pulse Ox O2 Delivery O2 Flow Rate FiO2 08/03/16 08:44 98.1 112 18 113/80 97 Room Air 07/31/16 18:44 21 Intake and Output 08/02/16 08/02/16 08/03/16 15:00 23:00 07:00 Intake Total 425 ml 300 ml Balance 425 ml 300 ml INTERDISCIPLINARY TEAM CONFERENCE BOWEL- Cont BLADDER-Cont SKIN- intact OT- DRESSING-s BATHING-s TOILETING-s PT- BED MOBILITY-s TRANSFERS-s AMBULATION-s 150 feet W.C. MOBILITY-RI SPEECH- COGNITION-I A/P- Interdisciplinary team conference held today. Please see interdisciplinary sheet. Working toward d.c. on 08/04 with post discharge follow up of ETOH rehabilitation. Will start lidoderm patch to left shoulder, and have PT instruct on ROM Results/Medications Medications Current Medications Bisacodyl (Dulcolax) 5 mg DAILY PRN PO CONSTIPATION; Start 07/21/16 at 16:30 Folic Acid (Folic Acid) 1 mg DAILY PO Last administered on 08/03/16 08:39; Admin Dose 1 MG; Start 07/22/16 at 09:00 Gabapentin (Neurontin) 100 mg BID PO Last administered on 08/03/16 08:39; Admin Dose 100 MG; Start 07/21/16 at 21:00 Lactulose (Enulose) 10 gm DAILY PRN PO CONSTIPATION Last administered on 16:22; Admin Dose 10 GM; Start 07/21/16 at 16:30 Mirtazapine (Remeron) 7.5 mg HS PO Last administered on 08/02/16 20:39; Admin Dose 7.5 MG; Start 07/21/16 at 21:00 Thiamine HCl (Vitamin B1) 100 mg DAILY PO Last administered on 08/03/16 08:39 ; Admin Dose 100 MG; Start 07/22/16 at 09:00 Tramadol HCl (Ultram) 50 mg Q6H PRN PO PAIN Last administered on 07/30/16 14: 25; Admin Dose 50 MG; Start 07/21/16 at 16:30 Diphenhydramine HCl (Benadryl) 25 mg Q6H PRN PO ITCHING Last administered on 21:21; Admin Dose 25 MG; Start 07/21/16 at 21:00 Psyllium Hydrophilic Mucilloid (Metamucil) 1 pkt DAILY PO Last administered on 08/03/16 08:40; Admin Dose 1 PKT; Start 08/01/16 at 11:30 Acetaminophen (Tylenol Tab) 650 mg Q4H PRN PO PAIN Last administered on 00:53; Admin Dose 650 MG; Start 08/03/16 at 01:00 Docusate Sodium (Colace) 100 mg BID PO Last administered on 08/03/16 08:40; Admin Dose 100 MG; Start 08/03/16 at 09:00 Senna (Senokot) 1 tab HS PO ; Start 08/03/16 at 21:00 Bisacodyl (Dulcolax Supp) 10 mg DAILY PRN [place] CONSTIPATION; Start 08/03/16 at 01 :00 Magnesium Hydroxide (Milk Of Mag) 30 ml BID PRN PO CONSTIPATION; Start at 01:00 RICHARD GAVIRIA MD Aug 03, 2016 09:38
[2016-08-03] MEDS: traMADol 50 MG TAB PO PRN (10:52)
[2016-08-03] MEDS: LIDOCAINE 5% PATCH TD SCH (12:31)
--- NOTE | 2016-08-03 12:39 | CONS ---
Date/Time of Note Date/Time of Note DATE: 08/03/16 TIME: 12:38 Consult Date/Type/Reason Admit Date/Time Jul 21, 2016 at 15:29 Type of Consultation: Medicine/Pulm Subjective Patient continues to improve no new events Objective Vital Signs Date Time Temp Pulse Resp B/P Pulse Ox O2 Delivery O2 Flow Rate FiO2 08/03/16 08:44 98.1 112 18 113/80 97 Room Air 07/31/16 18:44 21 Intake and Output 08/02/16 08/02/16 08/03/16 15:00 23:00 07:00 Intake Total 425 ml 300 ml Balance 425 ml 300 ml Exam GENERAL: Well-nourished well-developed gentleman comfortable at rest VITAL SIGNS: per chart NECK: Supple. No JVD or lymphadenopathy. CARDIAC EXAM: S1, S2. No added sounds or murmurs. CHEST: clear bilaterally, No added sounds, rales or wheezes ABDOMEN: Soft, nontender. No guarding or rebound. EXTREMITIES: No cyanosis, clubbing or edema. NEUROLOGIC: Generalized weakness. No focal deficits. Results/Medications Medications Current Medications Bisacodyl (Dulcolax) 5 mg DAILY PRN PO CONSTIPATION; Start 07/21/16 at 16:30 Folic Acid (Folic Acid) 1 mg DAILY PO Last administered on 08/03/16 08:39; Admin Dose 1 MG; Start 07/22/16 at 09:00 Gabapentin (Neurontin) 100 mg BID PO Last administered on 08/03/16 08:39; Admin Dose 100 MG; Start 07/21/16 at 21:00 Lactulose (Enulose) 10 gm DAILY PRN PO CONSTIPATION Last administered on 16:22; Admin Dose 10 GM; Start 07/21/16 at 16:30 Mirtazapine (Remeron) 7.5 mg HS PO Last administered on 08/02/16 20:39; Admin Dose 7.5 MG; Start 07/21/16 at 21:00 Thiamine HCl (Vitamin B1) 100 mg DAILY PO Last administered on 08/03/16 08:39 ; Admin Dose 100 MG; Start 07/22/16 at 09:00 Tramadol HCl (Ultram) 50 mg Q6H PRN PO PAIN Last administered on 08/03/16 10: 52; Admin Dose 50 MG; Start 07/21/16 at 16:30 Diphenhydramine HCl (Benadryl) 25 mg Q6H PRN PO ITCHING Last administered on 21:21; Admin Dose 25 MG; Start 07/21/16 at 21:00 Psyllium Hydrophilic Mucilloid (Metamucil) 1 pkt DAILY PO Last administered on 08/03/16 08:40; Admin Dose 1 PKT; Start 08/01/16 at 11:30 Acetaminophen (Tylenol Tab) 650 mg Q4H PRN PO PAIN Last administered on 00:53; Admin Dose 650 MG; Start 08/03/16 at 01:00 Docusate Sodium (Colace) 100 mg BID PO Last administered on 08/03/16 08:40; Admin Dose 100 MG; Start 08/03/16 at 09:00 Senna (Senokot) 1 tab HS PO ; Start 08/03/16 at 21:00 Bisacodyl (Dulcolax Supp) 10 mg DAILY PRN [place] CONSTIPATION; Start 08/03/16 at 01 :00 Magnesium Hydroxide (Milk Of Mag) 30 ml BID PRN PO CONSTIPATION; Start at 01:00 Lidocaine (Lidoderm) 0.5 patch DAILY TD Last administered on 08/03/16 12:31; Admin Dose 0.5 PATCH; Start 08/03/16 at 12:00 Assessment/Plan Chief Complaint/Hosp Course Assessment 1. Status post hypoxemic respiratory failure secondary to pneumonia 2. History of alcohol abuse 3. Dwarfism 4. Status post renal insufficiency Plan 1. Continue physical therapy 2. Resolving diarrhea will continue to monitor Disposition Anticipate discharge tomorrow to alcohol rehabilitation unit for 1 month Problems: LULA SERRA MD, [facility] Aug 03, 2016 12:39
--- NOTE | 2016-08-03 12:44 | RADRPT ---
PROCEDURE: XR left shoulder. CLINICAL INDICATION: Pain TECHNIQUE: AP, Internal and external rotation views of the left shoulder were performed. COMPARISON: Chest x-ray from 07/04/2016 FINDINGS: There is decreased osseous mineralization. No acute fracture or osseous lesion is identified. Marked deformity of the left glenohumeral joint is again noted including abnormal shape of the left humeral head, joint space narrowing, osteophytes, and subchondral sclerosis. Findings are not signif icantly changed compared to the prior chest x-ray from 07/04/2016 are similar deformities of the con tralateral shoulder are also noted. The soft tissues are unremarkable. IMPRESSION: Stable deformity of the left humerus including a shallow glenoid, degenerative changes, and abnormal morphology of the left humeral head. No acute fracture or subluxation. Decreased osseous mineralization. RPTAT: EE Physician Xander Date Time Electronically viewed and signed by Physician Xander on 08/03/2016 12:44 /
[2016-08-03 20:07] VITALS: BP 126/79; RESP 18
[2016-08-03] MEDS ORDERED: SENNA TAB PO SCH (21:00)
[2016-08-03] MEDS: DIPHENHYDRAMINE 25 MG CAP PO PRN (21:14)
[2016-08-03] MEDS: MIRTAZAPINE 15 MG TAB PO SCH (21:14)
[2016-08-04 08:00] VITALS: BP 96/71; PULSE 114; RESP 18
[2016-08-04] MEDS: THIAMINE 100 MG TAB PO SCH (08:51)
[2016-08-04] MEDS: DOCUSATE SODIUM 100 MG CAP PO SCH (08:53)
[2016-08-04] MEDS: FOLIC ACID 1 MG TAB PO SCH (08:53)
[2016-08-04] MEDS: GABAPENTIN 100 MG CAP PO SCH (08:53)
[2016-08-04] MEDS: LIDOCAINE 5% PATCH TD SCH (08:54)
[2016-08-04] MEDS: PSYLLIUM 28% PACKET PO SCH (08:55)
--- NOTE | 2016-08-04 14:47 | CONS ---
Date/Time of Note Date/Time of Note DATE: 08/04/16 TIME: 14:47 Consult Date/Type/Reason Admit Date/Time Jul 21, 2016 at 15:29 Type of Consultation: Medicine/Pulm Subjective Patient stable no new events Objective Vital Signs Date Time Temp Pulse Resp B/P Pulse Ox O2 Delivery O2 Flow Rate FiO2 08/04/16 08:00 98.3 114 18 96/71 97 Room Air 07/31/16 18:44 21 Intake and Output 08/03/16 08/03/16 08/04/16 15:00 23:00 07:00 Intake Total 320 ml 120 ml Balance 320 ml 120 ml Exam GENERAL: Well-nourished well-developed gentleman comfortable at rest VITAL SIGNS: per chart NECK: Supple. No JVD or lymphadenopathy. CARDIAC EXAM: S1, S2. No added sounds or murmurs. CHEST: clear bilaterally, No added sounds, rales or wheezes ABDOMEN: Soft, nontender. No guarding or rebound. EXTREMITIES: No cyanosis, clubbing or edema. NEUROLOGIC: Generalized weakness. No focal deficits. Assessment/Plan Chief Complaint/Hosp Course Assessment 1. Status post hypoxemic respiratory failure secondary to pneumonia 2. History of alcohol abuse 3. Dwarfism 4. Status post renal insufficiency Plan Discharge today to detox center Problems: L[facility]A SERRA [facility], [facility] Aug 04, 2016 14:47
--- NOTE | 2016-08-05 15:25 | DS ---
DATE OF ADMISSION: 07/21/2016 DATE OF DISCHARGE: 08/04/2016 ADMISSION DIAGNOSES: 1. Toxic metabolic encephalopathy. 2. Status post acute respiratory failure requiring intubation and eventual extubation. 3. Dysphagia. 4. Status post sepsis. 5. Achondroplasty. 6. Anxiety. 7. Chronic alcoholism. 8. Orthostatic hypotension. 9. Impairments in self-care, mobility and cognition. DISCHARGE DIAGNOSES: 1. Toxic metabolic encephalopathy, resolved. 2. Status post-acute respiratory failure with pulmonary status improved. 3. Dysphagia, resolved. 4. Status post sepsis. 5. Achondroplastic dwarfism. 6. Anxiety. 7. Chronic alcoholism. 8. Improvements in self-care, mobility and cognition. HOSPITAL COURSE: The patient was admitted for comprehensive interdisciplinary acute rehab and made excellent functional gains during the course of the stay. The patient progressed from an initial ma ximal assist for self-care and mobility tasks and progressed to the point of supervised to modified independent for all areas of self-care and mobility including ambulating over 150 feet with the use of a single point cane. During the course of hospitalization, the patient initially was noted to [place] orthostatic hypotension which significantly improved during the course of hospitalization. The p atgil's dysphagia status also improved during the course of hospitalization. The patient did repor t that when ambulating with family member on 08/02/2016, he did note some left shoulder pain. The p atgil was positive for impingement sign and felt likely to have rotator cuff tendinitis. The patie nt instructed and therapeutic exercise. The patient is being discharged and will enter substance ab use facility upon discharge. DISCHARGE MEDICATIONS: Per the medication reconciliation sheet. CONDITION ON DISCHARGE: Stable. Dictated By: RICHARD YUSUF/OMAYRA Conf#: [id number] DID#: [id number]
== END 2016-08-04 13:30 | disposition home health service (06) | DRG 91 ==
LOC: VRC 15:29 → EEVIPCON 15:29 → VRC 07-23 21:00
PROVIDERS: ADMIT Physical Medicine & Rehabilitation; ATTEND Internal Medicine Pulmonary Disease
DX: G92 Toxic encephalopathy (principal); J96.90 Respiratory failure, unspecified, unspecified whether with hypoxia or hypercapnia; I95.89 Other hypotension; I95.9 Hypotension, unspecified; R13.10 Dysphagia, unspecified; Q77.4 Achondroplasia; F41.9 Anxiety disorder, unspecified; F10.20 Alcohol dependence, uncomplicated; G31.84 Mild cognitive impairment of uncertain or unknown etiology; Z74.09 Other reduced mobility; R19.7 Diarrhea, unspecified
CPT/HCPCS: 73030; 80053; 81001; 81003; 84132; 85025; 87081; 87086; 92507; 92523; 92610; 97110; 97112; 97116; 97162; 97167; 97530; 97535; 97542; J7030

== ENCOUNTER 2017-07-13 01:14 | Inpatient (IN) | END 2017-07-31 11:27 | disposition EXP | DRG 870 ==